=== PATIENT | female | born 1955 | race Caucasian/White ===

== ENCOUNTER 2019-07-28 12:05 | Emergency (ER) | payer SELFPAY | END 2019-07-28 16:18 | disposition home or self-care (01) | PROVIDERS: Emergency Provider Family Medicine; Family Provider Nurse Practitioner; Visit Provider Family Medicine | DX: A08.4 Viral intestinal infection, unspecified (principal); F17.210 Nicotine dependence, cigarettes, uncomplicated; Z79.84 Long term (current) use of oral hypoglycemic drugs; Z86.73 Personal history of transient ischemic attack (TIA), and cerebral infarction without residual deficits; M81.0 Age-related osteoporosis without current pathological fracture; I10 Essential (primary) hypertension; E11.40 Type 2 diabetes mellitus with diabetic neuropathy, unspecified; Z89.519 Acquired absence of unspecified leg below knee | CPT/HCPCS: 36415; 74022; 80053; 81001; 83605; 83690; 84484 ×2; 85025; 87086; 93005 ×2; 96361; 96374; 99284; J2405 ==

== ENCOUNTER 2019-08-24 08:07 | Outpatient (CLI) | payer MEDICARE, MEDICAID, SELFPAY ==
--- NOTE | 2019-08-24 09:30 | US_ITS ---
WS: [id number] THYROID ULTRASOUND HISTORY: mediastinal mass, decreased appetite, weight loss COMPARISON: None available. Right lobe: 5.1 cm x 2.4 cm x 2.1 cm. Volume: 13.7 cm3. Mildly enlarged thyroid gland with diffuse heterogeneity. Small cystic nodules are benign. The larges t in the lower pole measures 5 mm. Left lobe: 5.2 cm x 2.0 cm x 2.1 cm. Volume: 11.0 cm3. Mildly enlarged thyroid gland with diffuse heterogeneity and coarsened echotexture. Small cystic nodu les are benign. No suspicious mass. Isthmus: 0.8 cm. US/US thyroid [id number] IMPRESSION: 1. Enlarged heterogeneous thyroid without a discrete mass or nodule. 2. No suspicious masses.
== END 2019-08-24 08:08 | disposition home or self-care (01) ==
LOC: CT 08:09
PROVIDERS: Family Provider Nurse Practitioner; PCP Nurse Practitioner; Visit Provider Nurse Practitioner Family
DX: J98.59 Other diseases of mediastinum, not elsewhere classified (principal); R63.4 Abnormal weight loss
CPT/HCPCS: 76536

== ENCOUNTER 2019-08-24 08:53 | Inpatient (IN) | payer MEDICARE, MEDICAID, SELFPAY ==
[2019-08-24] VITALS (11 sets, daily range): BP systolic 121–143; BP diastolic 71–80; PULSE 69–76; RESP 16–18; TEMP 36.3–36.4; O2SAT 97–99; BMI 26.6
--- NOTE | 2019-08-24 09:29 | ED_ITS ---
Documented by User: Ruth Hill 08/24/19 12:24 HPI - General Adult General: Chief complaint: General Medical Stated complaint: no appetite, losing weight Time Seen by Provider: 08/24/19 09:17 History of Present Illness: HPI narrative: Juanita is a 63-year-old white female who presents with a history of confusion ?1 day. 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 She states she's had some mild nausea and vomiting for the last few days. But then she tells me she hasn't vomited today however her friend tells her she has and she agrees. Associated symptoms: Reports nausea; Deny chest pain, dyspnea, headache(s), palpitations or vomiting Review of Systems Const: Denies: fever or chills Eyes: Denies: blurry vision ENMT: Denies: throat pain Card: Denies: chest pain or palpitations Resp: Denies: shortness of breath or productive cough GI: Reports: nausea; Denies: abdominal pain or vomiting : Denies: painful urination Musc: Denies: neck pain, back pain or extremity pain Neuro: Denies: headache Psych: Reports: change in appetite PFSH ED 2 PFSH: Statuses (acute, chronic, etc) shown below reflect problem list status as previously entered and may not be historically accurate Medical History Depression (Acute) Diabetes mellitus (Acute) GERD (gastroesophageal reflux disease) (Acute) History of TIA (transient ischemic attack) (Acute) Hypertension (Acute) Smoker (Inactive) Surgical History (Updated 08/24/19 @ 13:37 by Rain Floyd DO) History of below knee amputation (Acute) Left History of hysterectomy (Acute) with BLSO Status post amputation of toe of right foot (Acute) Amputation of the R 3rd toe through metatarsophalangeal joint, Dr. Pacheco on 11/02/2015 Family History (Updated 08/24/19 @ 13:38 by Rain Floyd DO) Father Cancer lung Diabetes Sister Cancer gallbladder Family/Other Cancer colon Mother Ischemia, bowel Social History (Updated 08/06/19 @ 15:56 by Karen Velasquez LPN) Smoking and tobacco status: former smoker Alcohol intake: never Lives independently: Yes Household members: family Marital status: Single History of recent travel: No Physical Exam Const: COMMON NORMALS: no apparent distress and oriented x3 (Disoriented to time) HENMT: COMMON NORMALS: normocephalic HEAD & SCALP: normocephalic Eye: COMMON NORMALS: PERRL, EOMs intact bilaterally and conjunctivae normal CONJUNCTIVA: Yes conjunctivae normal PUPIL: Yes PERRL Neck/C-Spine: COMMON NORMALS: full ROM and no meningeal signs Chest: COMMONS NORMALS: inspection of chest normal and palpation of chest normal Resp: COMMON NORMALS: normal respiratory effort and no use of accessory muscles Cardio: COMMON NORMALS: regular rate and regular rhythm RATE: regular rate RHYTHM: regular rhythm GI: COMMON NORMALS: soft to palpation and non-tender PALPATION: Yes soft Back/Pelvis: COMMON NORMALS: thoracic and lumbar spine normal to inspection Extremity: OTHER: Left prosthetic lower leg Neuro: COMMON NORMALS: oriented x3 (Disoriented to time), CN's II-XII intact bilaterally, moves all extremities and no focal motor deficits MENINGEAL SIGNS: Yes no meningeal signs Psych: COMMON NORMALS: thought process normal, cooperative, affect normal and speech normal SPEECH: Yes normal speech THOUGHT PROCESS: normal thought process Skin: COMMON NORMALS: no rashes or lesions noted GENERAL SKIN EXAM: no rashes or lesions noted Course ED course: Juanita was seen in this ER in late June for not eating or drinking well. She lives at home alone but does have people check on her. She does not have home health doing her medications at this time. Discussed case with Dr. Desai, agrees to see and get patient admitted. Patient hyperkalemic. Glucose, insulin, and albuterol treatments ordered. Patient in acute renal failure. IV fluids running. CT head is negative. Vital Signs: Vital signs: Vital Signs Temperature 98.2 F 08/26/19 04:00 Pulse Rate 69 08/26/19 04:00 Respiratory Rate 18 08/26/19 04:00 Blood Pressure 152/73 08/26/19 04:00 Pulse Oximetry 96 08/26/19 04:00 [facility] - General Adult Lab Data: Labs: Lab Results 08/24/19 08/24/19 08/24/19 Range/Units 09:24 09:24 09:24 WBC 8.5 (4.0-10.0) 10^3/ uL RBC 3.50 L (4.1-5.3) 10^6/u L Hgb 11.3 L (11.5-15.3) g/dL Hct 34.7 L (37.0-47.0) % MCV 99.1 H (81-99) fL MCH 32.3 (28.0-34.0) pg MCHC 32.6 (30.0-36.0) g/dL RDW 13.3 (12.1-15.1) % Plt Count 207 (130-400) 10^3/c mm MPV 10.4 (7.4-10.4) fL Neut % (Auto) 84.8 % Lymph % (Auto) 11.0 % [place] % (Auto) 3.4 % Eos % (Auto) 0.5 % Baso % (Auto) 0.1 % Neut # (Auto) 7.2 (1.8-7.7) 10^3/u L Lymph # (Auto) 0.9 (0.8-4.8) 10^3/u L [place] # (Auto) 0.3 (0.2-0.9) 10^3/u L Eos # (Auto) 0.0 (0.0-0.8) 10^3/u L Baso # (Auto) 0.0 (0.0-0.1) 10^3/u L Nucleated RBC % (a uto) 0 % Nucleated RBCs # 0.0 /100WBC Specimen Type Sample Site ABG pH (7.35-7.45) ABG pCO2 (35-45) mmHg ABG pO2 (80.0-100.0) mmH g ABG HCO3 (22-26) mmol/L ABG O2 Saturation ABG Base Excess (-2.0-2.0) mmol/ L Enrique Test A-a O2 Gradient (5-10) mmHg Hematocrit (37-47) % Hgb O2 Saturation (95-100) % Carboxyhemoglobin (0.4-20.1) %THgb Methemoglobin (0.4-1.5) % Total Hemoglobin (12-16) g/dL Ionized Calcium (1.1-1.4) mmol/L O2 Delivery Device FiO2 % Plant Floor Automation Manager ID Sodium 133 L (136-145) mmol/L Potassium 6.1 H (3.5-5.1) mmol/L Chloride 92 L (98-107) mmol/L Carbon Dioxide 17 L (22-29) mmol/L Anion Gap 30.1 H (5-19) BUN 58 H (8-23) mg/dL Creatinine 5.9 H* (0.5-0.9) mg/dL GFR Calculation 7.2 L (90-130) mL/min Glucose 106 (74-106) mg/dL Estimat Average Gl ucose Hemoglobin A1c (4.0-6.0) % Calcium 10.0 (8.5-10.5) mg/dL Magnesium 1.9 (1.7-2.3) mg/dL Total Bilirubin 0.6 (0.15-1.2) mg/dL AST 14 (0-32) U/L ALT 8 (0-33) U/L Alkaline Phosphata se 49 (35-105) IU/L Total Protein 7.3 (6.6-8.7) g/dL Albumin 4.4 (3.5-5.2) g/dL Globulin 2.9 (1.3-4.6) g/dL Lipase 37 (13-60) U/L Urine Color (Yellow) Urine Appearance (CLEAR) Urine pH (5-7) Ur Specific Gravit y (1.005-1.030) Urine Protein (Negative) Urine Glucose (UA) (Normal) Urine Ketones (Negative) Urine Occult Blood (Negative) Urine Nitrate (Negative) Urine Bilirubin (NEGATIVE) Urine Urobilinogen (Negative) mg/dL Ur Leukocyte Radha ase (Negative) Urine RBC (0-2) /hpf Urine WBC (0-5) /hpf Ur Squamous Epith Cells (0-5) Urine Bacteria (NONE) Serum Ketones Negative (Negative) 08/24/19 08/24/19 08/24/19 Range/Units 09:24 09:46 11:02 WBC (4.0-10.0) 10^3/ uL RBC (4.1-5.3) 10^6/u L Hgb (11.5-15.3) g/dL Hct (37.0-47.0) % MCV (81-99) fL MCH (28.0-34.0) pg MCHC (30.0-36.0) g/dL RDW (12.1-15.1) % Plt Count (130-400) 10^3/c mm MPV (7.4-10.4) fL Neut % (Auto) % Lymph % (Auto) % [place] % (Auto) % Eos % (Auto) % Baso % (Auto) % Neut # (Auto) (1.8-7.7) 10^3/u L Lymph # (Auto) (0.8-4.8) 10^3/u L [place] # (Auto) (0.2-0.9) 10^3/u L Eos # (Auto) (0.0-0.8) 10^3/u L Baso # (Auto) (0.0-0.1) 10^3/u L Nucleated RBC % (a uto) % Nucleated RBCs # /100WBC Specimen Type Arterial Sample Site Radial, right ABG pH 7.26 L (7.35-7.45) ABG pCO2 33.1 L (35-45) mmHg ABG pO2 77.8 L (80.0-100.0) mmH g ABG HCO3 14.7 L (22-26) mmol/L ABG O2 Saturation 95.8 ABG Base Excess -11.4 L (-2.0-2.0) mmol/ L Enrique Test Pos A-a O2 Gradient 29.3 H (5-10) mmHg Hematocrit 33.0 L (37-47) % Hgb O2 Saturation 94.0 L (95-100) % Carboxyhemoglobin 0.8 (0.4-20.1) %THgb Methemoglobin 1.0 (0.4-1.5) % Total Hemoglobin 10.8 L (12-16) g/dL Ionized Calcium 1.2 (1.1-1.4) mmol/L O2 Delivery Device Room air FiO2 21.0 % Plant Floor Automation Manager ID ed Sodium 134.0 (136-145) mmol/L Potassium 5.7 H (3.5-5.1) mmol/L Chloride (98-107) mmol/L Carbon Dioxide (22-29) mmol/L Anion Gap (5-19) BUN (8-23) mg/dL Creatinine (0.5-0.9) mg/dL GFR Calculation (90-130) mL/min Glucose 75.0 (74-106) mg/dL Estimat Average Gl ucose 97 Hemoglobin A1c 5.0 (4.0-6.0) % Calcium (8.5-10.5) mg/dL Magnesium (1.7-2.3) mg/dL Total Bilirubin (0.15-1.2) mg/dL AST (0-32) U/L ALT (0-33) U/L Alkaline Phosphata se (35-105) IU/L Total Protein (6.6-8.7) g/dL Albumin (3.5-5.2) g/dL Globulin (1.3-4.6) g/dL Lipase (13-60) U/L Urine Color Yellow (Yellow) Urine Appearance Sl hazy (CLEAR) Urine pH 5.0 (5-7) Ur Specific Gravit y 1.020 (1.005-1.030) Urine Protein Trace (Negative) Urine Glucose (UA) Norm (Normal) Urine Ketones 1+ H (Negative) Urine Occult Blood Neg (Negative) Urine Nitrate Negative (Negative) Urine Bilirubin Neg (NEGATIVE) Urine Urobilinogen Norm (Negative) mg/dL Ur Leukocyte Radha ase 2+ H (Negative) Urine RBC None (0-2) /hpf Urine WBC 40-55 H (0-5) /hpf Ur Squamous Epith Cells 5-10 H (0-5) Urine Bacteria 1+ H (NONE) Serum Ketones (Negative) Imaging Data^: CT Head: Radiologist's impression: IMPRESSION: 1. No acute intracranial hemorrhage or edema. 2. Mild progression of chronic microvascular ischemic disease since 2009. EKG Data^: EKG 1: Attestation: I personally reviewed and interpreted this EKG as follows: EKG interpretation date: 08/24/19 Interpretation: ventricular rate of 67 bpm. Normal sinus rhythm. No ST changes. QTC of 435. Computer generated interpretation: Head CT 08/24/19 09:30 IMPRESSION: 1. No acute intracranial hemorrhage or edema. 2. Mild progression of chronic microvascular ischemic disease since 2009. Renal Ultrasound 08/24/19 10:41 IMPRESSION: 1. No renal obstruction or hydronephrosis. 2. Negative ultrasound bladder. Abdomen/Pelvis CT 08/25/19 09:09 IMPRESSION: 1. Abnormal gallbladder. Gallbladder wall thickening and adjacent edema in the gallbladder fossa. Differential includes acute cholecystitis or changes secondary to hepatocellular disease. 2. Bilateral perinephric stranding, RIGHT greater than LEFT with mild enlargement of the kidneys since 01/05/2019. Kidneys have both increased in length by 1.5 to 2 cm. These findings suggest acute pyelonephritis or inflammatory process involving the kidneys. Obstructive process is not evident. 3. Benign LEFT adrenal adenoma is stable. 4. Prior hysterectomy. 5. Mild soft tissue anasarca. Discharge Plan Discharge Patient Disposition: Admitted As Inpatient Admit Provider: Rain Floyd Clinical Impression: Acute hyperkalemia Acute kidney failure Qualifiers: Acute renal failure type: unspecified Qualified Code(s): N17.9 - Acute kidney failure, unspecified Diabetes mellitus Qualifiers: Diabetes mellitus type: type 2 Condition: Stable Referrals: Kareem Armando FNP-C [Primary Care Provider] - Discharge Date/Time: 08/24/19 16:01 Coding Level of Care Code ED Psychological Operations Officer for Chg Fwd Exam Problem Focused Documented by User: Eduardo Desai DO 08/26/19 06:02 HPI - General Adult General: Chief complaint: General Medical Stated complaint: no appetite, losing weight Time Seen by Provider: 08/24/19 09:17 PFSH ED PFSH: Statuses (acute, chronic, etc) shown below reflect problem list status as previously entered and may not be historically accurate Medical History Depression (Acute) Diabetes mellitus (Acute) GERD (gastroesophageal reflux disease) (Acute) History of TIA (transient ischemic attack) (Acute) Hypertension (Acute) Smoker (Inactive) Surgical History (Updated 08/24/19 @ 13:37 by Rain Floyd DO) History of below knee amputation (Acute) Left History of hysterectomy (Acute) with BLSO Status post amputation of toe of right foot (Acute) Amputation of the R 3rd toe through metatarsophalangeal joint, Dr. Pacheco on 11/02/2015 Family History (Updated 08/24/19 @ 13:38 by Rain Floyd DO) Father Cancer lung Diabetes Sister Cancer gallbladder Family/Other Cancer colon Mother Ischemia, bowel Social History (Updated 08/06/19 @ 15:56 by Karen Velasquez LPN) Smoking and tobacco status: former smoker Alcohol intake: never Lives independently: Yes Household members: family Marital status: Single History of recent travel: No Course ED course: Reviewed case with the midlevel will go ahead and admit patient to the hospitalist discussed with him transfer orders written they will consult nephrology. Vital Signs: Vital signs: Vital Signs Temperature 98.2 F 08/26/19 04:00 Pulse Rate 69 08/26/19 04:00 Respiratory Rate 18 08/26/19 04:00 Blood Pressure 152/73 08/26/19 04:00 Pulse Oximetry 96 08/26/19 04:00 MDM - General Adult Lab Data: Labs: Lab Results 08/24/19 08/24/19 08/24/19 Range/Units 09:24 09:24 09:24 WBC 8.5 (4.0-10.0) 10^3/ uL RBC 3.50 L (4.1-5.3) 10^6/u L Hgb 11.3 L (11.5-15.3) g/dL Hct 34.7 L (37.0-47.0) % MCV 99.1 H (81-99) fL MCH 32.3 (28.0-34.0) pg MCHC 32.6 (30.0-36.0) g/dL RDW 13.3 (12.1-15.1) % Plt Count 207 (130-400) 10^3/c mm MPV 10.4 (7.4-10.4) fL Neut % (Auto) 84.8 % Lymph % (Auto) 11.0 % [place] % (Auto) 3.4 % Eos % (Auto) 0.5 % Baso % (Auto) 0.1 % Neut # (Auto) 7.2 (1.8-7.7) 10^3/u L Lymph # (Auto) 0.9 (0.8-4.8) 10^3/u L [place] # (Auto) 0.3 (0.2-0.9) 10^3/u L Eos # (Auto) 0.0 (0.0-0.8) 10^3/u L Baso # (Auto) 0.0 (0.0-0.1) 10^3/u L Nucleated RBC % (a uto) 0 % Nucleated RBCs # 0.0 /100WBC Specimen Type Sample Site ABG pH (7.35-7.45) ABG pCO2 (35-45) mmHg ABG pO2 (80.0-100.0) mmH g ABG HCO3 (22-26) mmol/L ABG O2 Saturation ABG Base Excess (-2.0-2.0) mmol/ L Enrique Test A-a O2 Gradient (5-10) mmHg Hematocrit (37-47) % Hgb O2 Saturation (95-100) % Carboxyhemoglobin (0.4-20.1) %THgb Methemoglobin (0.4-1.5) % Total Hemoglobin (12-16) g/dL Ionized Calcium (1.1-1.4) mmol/L O2 Delivery Device FiO2 % Plant Floor Automation Manager ID Sodium 133 L (136-145) mmol/L Potassium 6.1 H (3.5-5.1) mmol/L Chloride 92 L (98-107) mmol/L Carbon Dioxide 17 L (22-29) mmol/L Anion Gap 30.1 H (5-19) BUN 58 H (8-23) mg/dL Creatinine 5.9 H* (0.5-0.9) mg/dL GFR Calculation 7.2 L (90-130) mL/min Glucose 106 (74-106) mg/dL Estimat Average Gl ucose Hemoglobin A1c (4.0-6.0) % Calcium 10.0 (8.5-10.5) mg/dL Magnesium 1.9 (1.7-2.3) mg/dL Total Bilirubin 0.6 (0.15-1.2) mg/dL AST 14 (0-32) U/L ALT 8 (0-33) U/L Alkaline Phosphata se 49 (35-105) IU/L Total Protein 7.3 (6.6-8.7) g/dL Albumin 4.4 (3.5-5.2) g/dL Globulin 2.9 (1.3-4.6) g/dL Lipase 37 (13-60) U/L Urine Color (Yellow) Urine Appearance (CLEAR) Urine pH (5-7) Ur Specific Gravit y (1.005-1.030) Urine Protein (Negative) Urine Glucose (UA) (Normal) Urine Ketones (Negative) Urine Occult Blood (Negative) Urine Nitrate (Negative) Urine Bilirubin (NEGATIVE) Urine Urobilinogen (Negative) mg/dL Ur Leukocyte Radha ase (Negative) Urine RBC (0-2) /hpf Urine WBC (0-5) /hpf Ur Squamous Epith Cells (0-5) Urine Bacteria (NONE) Serum Ketones Negative (Negative) 08/24/19 08/24/19 08/24/19 Range/Units 09:24 09:46 11:02 WBC (4.0-10.0) 10^3/ uL RBC (4.1-5.3) 10^6/u L Hgb (11.5-15.3) g/dL Hct (37.0-47.0) % MCV (81-99) fL MCH (28.0-34.0) pg MCHC (30.0-36.0) g/dL RDW (12.1-15.1) % Plt Count (130-400) 10^3/c mm MPV (7.4-10.4) fL Neut % (Auto) % Lymph % (Auto) % [place] % (Auto) % Eos % (Auto) % Baso % (Auto) % Neut # (Auto) (1.8-7.7) 10^3/u L Lymph # (Auto) (0.8-4.8) 10^3/u L [place] # (Auto) (0.2-0.9) 10^3/u L Eos # (Auto) (0.0-0.8) 10^3/u L Baso # (Auto) (0.0-0.1) 10^3/u L Nucleated RBC % (a uto) % Nucleated RBCs # /100WBC Specimen Type Arterial Sample Site Radial, right ABG pH 7.26 L (7.35-7.45) ABG pCO2 33.1 L (35-45) mmHg ABG pO2 77.8 L (80.0-100.0) mmH g ABG HCO3 14.7 L (22-26) mmol/L ABG O2 Saturation 95.8 ABG Base Excess -11.4 L (-2.0-2.0) mmol/ L Enrique Test Pos A-a O2 Gradient 29.3 H (5-10) mmHg Hematocrit 33.0 L (37-47) % Hgb O2 Saturation 94.0 L (95-100) % Carboxyhemoglobin 0.8 (0.4-20.1) %THgb Methemoglobin 1.0 (0.4-1.5) % Total Hemoglobin 10.8 L (12-16) g/dL Ionized Calcium 1.2 (1.1-1.4) mmol/L O2 Delivery Device Room air FiO2 21.0 % Plant Floor Automation Manager ID ed Sodium 134.0 (136-145) mmol/L Potassium 5.7 H (3.5-5.1) mmol/L Chloride (98-107) mmol/L Carbon Dioxide (22-29) mmol/L Anion Gap (5-19) BUN (8-23) mg/dL Creatinine (0.5-0.9) mg/dL GFR Calculation (90-130) mL/min Glucose 75.0 (74-106) mg/dL Estimat Average Gl ucose 97 Hemoglobin A1c 5.0 (4.0-6.0) % Calcium (8.5-10.5) mg/dL Magnesium (1.7-2.3) mg/dL Total Bilirubin (0.15-1.2) mg/dL AST (0-32) U/L ALT (0-33) U/L Alkaline Phosphata se (35-105) IU/L Total Protein (6.6-8.7) g/dL Albumin (3.5-5.2) g/dL Globulin (1.3-4.6) g/dL Lipase (13-60) U/L Urine Color Yellow (Yellow) Urine Appearance Sl hazy (CLEAR) Urine pH 5.0 (5-7) Ur Specific Gravit y 1.020 (1.005-1.030) Urine Protein Trace (Negative) Urine Glucose (UA) Norm (Normal) Urine Ketones 1+ H (Negative) Urine Occult Blood Neg (Negative) Urine Nitrate Negative (Negative) Urine Bilirubin Neg (NEGATIVE) Urine Urobilinogen Norm (Negative) mg/dL Ur Leukocyte Radha ase 2+ H (Negative) Urine RBC None (0-2) /hpf Urine WBC 40-55 H (0-5) /hpf Ur Squamous Epith Cells 5-10 H (0-5) Urine Bacteria 1+ H (NONE) Serum Ketones (Negative) EKG Data^: EKG 1: Computer generated interpretation: Head CT 08/24/19 09:30 IMPRESSION: 1. No acute intracranial hemorrhage or edema. 2. Mild progression of chronic microvascular ischemic disease since 2009. Renal Ultrasound 08/24/19 10:41 IMPRESSION: 1. No renal obstruction or hydronephrosis. 2. Negative ultrasound bladder. Abdomen/Pelvis CT 08/25/19 09:09 IMPRESSION: 1. Abnormal gallbladder. Gallbladder wall thickening and adjacent edema in the gallbladder fossa. Differential includes acute cholecystitis or changes secondary to hepatocellular disease. 2. Bilateral perinephric stranding, RIGHT greater than LEFT with mild enlargement of the kidneys since 01/05/2019. Kidneys have both increased in length by 1.5 to 2 cm. These findings suggest acute pyelonephritis or inflammatory process involving the kidneys. Obstructive process is not evident. 3. Benign LEFT adrenal adenoma is stable. 4. Prior hysterectomy. 5. Mild soft tissue anasarca. Discharge Plan Discharge Patient Disposition: Admitted As Inpatient Admit Provider: Rain Floyd Clinical Impression: Acute hyperkalemia Acute kidney failure Qualifiers: Acute renal failure type: unspecified Qualified Code(s): N17.9 - Acute kidney failure, unspecified Diabetes mellitus Qualifiers: Diabetes mellitus type: type 2 Condition: Stable Referrals: Kareem Armando, CUSTOMER FIELD REPRESENTATIVE-C [Primary Care Provider] - Discharge Date/Time: 08/24/19 16:01 Coding Level of Care Code ED Psychological Operations Officer for Chg Fwd Exam Problem Focused
--- NOTE | 2019-08-24 09:30 | CT_ITS ---
WS: [id number] CT HEAD NONCONTRAST HISTORY: confusion, slurred speech TECHNIQUE: Contiguous axial imaging performed through the brain in 2.5 mm imaging. Bone and soft tiss ue windows. Sagittal and coronal reformats reviewed. All CT scans at [facility] use at le ast one of these dose optimization techniques: automated exposure control; mA and/or kV adjustment pe r patient size (includes targeted exams where dose is matched to clinical indication); or iterative r econstruction. DLP: 712.12 mGy.cm COMPARISON: 09/08/2009 No acute intracranial hemorrhage, midline shift or mass effect. Very mild atrophy and mild chronic microvascular ischemic disease. Remote lacunar infarct in the RIGH T caudate head. Progression of mild chronic microvascular ischemic changes in the white matter surrou nding the ventricles. No acute area of sulcal effacement. Ventricles: Normal size with no hydrocephalus. No inferior displacement of the cerebellar tonsils. Paranasal sinuses: Marked deviation of the nasal septum to the RIGHT. The visualized sinuses are tamiko r. Mastoid air cells: Well pneumatized. Calvarium and scalp: Skull is intact with no soft tissue edema or swelling. Mild atherosclerosis of the intracranial carotid arteries. CT/CT head wo con* [id number] IMPRESSION: 1. No acute intracranial hemorrhage or edema. 2. Mild progression of chronic microvascular ischemic disease since 2009.
--- NOTE | 2019-08-24 09:31 | ECG_ITS ---
Measurements Intervals [place] Rate: 67 P: 8 NC: 144 QRS: 12 QRSD: 94 T: 42 QT: 420 QTc: 444 SINUS RHYTHM LEFT VENTRICULAR HYPERTROPHY AND ST-T CHANGE [VOLTAGE CRITERIA PLUS ST/T ABN ABNORMALITY] INTERPRETATION BASED ON A DEFAULT AGE OF 40 YEARS Compared to ECG 07/28/2019 14:27:41 No significant changes Electronically Signed On 08-24-2019 17:51:55 PATIENT PARTNER by Campos Cruz M.D. [email or web address]
[2019-08-24 09:45] LABS: Basophils % 0.1 %; Eosinophils % 0.5 %; Hematocrit 34.7 % (37.0-47.0); Hemoglobin 11.3 g/dL (11.5-15.3); Lymphocytes # 0.9 10^3/uL (0.8-4.8); Mean Corpuscular HGB Conc 32.6 g/dL (30.0-36.0); Mean Corpuscular Hemoglobin 32.3 pg (28.0-34.0); Mean Corpuscular Volume 99.1 fL (81-99); Mean Platelet Volume 10.4 fL (7.4-10.4); Monocytes # 0.3 10^3/uL (0.2-0.9); Monocytes % 3.4 %; Neutrophils # 7.2 10^3/uL (1.8-7.7); Neutrophils % 84.8 %; Nucleated Red Blood Cells % 0 %; Platelet Count 207 10^3/cmm (130-400); Red Cell Distribution Width 13.3 % (12.1-15.1); White Blood Count 8.5 10^3/uL (4.0-10.0)
[2019-08-24 09:56] LABS: Alanine Aminotransferase 8 U/L (0-33); Albumin Level 4.4 g/dL (3.5-5.2); Alkaline Phosphatase 49 IU/L (35-105); Anion Gap 30.1 (5-19); Aspartate Amino Transferase 14 U/L (0-32); Blood Urea Nitrogen 58 mg/dL (8-23); Carbon Dioxide 17 mmol/L (22-29); Chloride 92 mmol/L (98-107); Globulin 2.9 g/dL (1.3-4.6); Glomerular Filtration Rate 7.2 mL/min (90-130); Glucose 106 mg/dL (74-106); Lipase 37 U/L (13-60); Magnesium 1.9 mg/dL (1.7-2.3); Potassium 6.1 mmol/L (3.5-5.1); Sodium 133 mmol/L (136-145); Total Bilirubin 0.6 mg/dL (0.15-1.2); Total Protein 7.3 g/dL (6.6-8.7)
[2019-08-24 10:03] LABS: Add Urine Microscopic? YES; Bilirubin Urine Neg (NEGATIVE); Blood Urine Neg (Negative); Glucose Urine UA Norm (Normal); Ketones Urine 1+ (Negative); Leukocyte Esterase Urine 2+ (Negative); Nitrate Urine Negative (Negative); Protein Urine Trace (Negative); Urine Appearance SL Hazy (CLEAR); Urine Color Yellow (Yellow); Urobilinogen Urine Norm (Negative)
[2019-08-24 10:12] LABS: Ketone (Acetest) Serum Negative (Negative)
[2019-08-24 10:27] LABS: Add Urine Culture? Yes; Bacteria Urine 1+; WBC Urine 40-55 /hpf (0-5)
[2019-08-24] MEDS: sodium chloride 0.9% 1,000 ML 999 ML IV ×2 (10:28→12:42)
[2019-08-24] MEDS: ondansetron 2 mg/ML SDV 2 mL 4 MG IVP (10:29)
--- NOTE | 2019-08-24 10:41 | US_ITS ---
WS: [id number] RENAL ULTRASOUND Urinary bladder ultrasound HISTORY: acute renal failure COMPARISON: None available. TECHNIQUE: 2-D and color Doppler imaging of the kidney submitted. Right kidney: 12.5 cm x 6.8 cm x 6.3 cm. Normal echogenicity with no hydronephrosis or mass. Left kidney: 12.2 cm x 6.2 cm x 7.0 cm. Normal echogenicity with no hydronephrosis or mass. Cortical cyst upper pole with a maximum diameter of 1.0 cm. Aorta: Normal. Urinary Bladder: Minimally distended urinary bladder. Very mild wall thickening is probably due to mi ld underdistention. US/US renal BI with bladder IMPRESSION: 1. No renal obstruction or hydronephrosis. 2. Negative ultrasound bladder.
[2019-08-24 11:12] LABS: ABG PCO2 33.1 mmHg (35-45); ABG PH Result 7.26 (7.35-7.45); Alveolar-Arterial Oxygen Gradi 29.3 mmHg (5-10); Base Excess ABG -11.4 mmol/L (-2.0-2.0); Blood Gas Allen Test Pos; Blood Gas Sample Site Radial, right; Blood Gas Sample Type Arterial; Carboxyhemoglobin 0.8 %THgb (0.4-20.1); HCO3 ABG 14.7 mmol/L (22-26); Ionized Calcium Level - ABG 1.2 mmol/L (1.1-1.4); Oxygen Device ROOM AIR; Oxygen Saturation ABG 95.8; PO2 ABG 77.8 mmHg (80.0-100.0); Potassium Level - ABG 5.7 mmol/L (3.5-5.0); Total Hemoglobin 10.8 g/dL (12-16)
[2019-08-24] MEDS: insulin regular-human 100 units/1 mL 5 UNIT IVP (11:12)
--- NOTE | 2019-08-24 11:46 | P.HP_ITS ---
Providers/Chief Complaint Admitting Physician: Rain Floyd DO Primary Care Provider: GI Johnston Chief Complaint: Can not eat History of Present Illness Lyric Cain is a 63 year old female that presented to the hospital today due to generalized fatigue and increasing confusion. Her [id number] is present at bedside and reports that patient has had increasing confusion and decreased appetite over the past several weeks. She reported thinking back her symptoms may have been present for the past couple of months but progressive to the point requiring ER visit today. Patient stated that she did have an ER visit on August 04 at [facility] in [facility] noted to have dehydration given Zofran and also noted to have hypoglycemia at that time, she was reported to have a creatinine of 1.7 at this visit and told to follow-up with her primary care provider. Patient did follow-up with her primary care clinic but forgot to mention this with them. She reports that she has had weight loss, unknown amount over the past couple of months. She states decreased appetite with increasing nausea over the last couple of weeks. She stated that she is also been depressed due to the loss of her significant other and the anniversary of his in the past couple of weeks. Family reports that she appears to be increasingly confused with increased sleepiness and daytime somnolence. Patient denies any recent illness, no fevers or chills. Patient was seen and evaluated in the emergency department noted to have concern for an acute kidney injury as well as hyperkalemia and admitted to the hospital for further evaluation and treatment. Review of Systems Const: Reports: change in weight (Weight loss, unspecified amount), fatigue and malaise; Denies: fever or chills Eyes: Denies: change in vision ENMT: Denies: nasal congestion Card: Denies: chest pain, palpitations or edema Resp: Reports: productive cough (Chronic, unchanged); Denies: shortness of breath or coughing up blood GI: Reports: nausea; Denies: abdominal pain, vomiting, diarrhea, constipation, blood in stool or black tarry stool : Denies: flank pain, difficulty urinating, painful urination, urinary frequency, urinary hesitancy or blood in urine Musc: Reports: other (Left BKA); Denies: extremity pain or muscle cramps Skin/Breast: Denies: rash or new lesion Neuro: Denies: headache or dizziness Psych: Reports: depression (Due to the anniversary of her significant other's ); Denies: anxiety Endo: Denies: excessive urination or hot flashes Boo/Lymph: Denies: easy bruising or easy bleeding Medications/Allergies Allergies Allergy/AdvReac Type Severity Reaction Status Date / Time sertraline [From Zoloft] Allergy rash Verified 08/06/19 15:33 PFSH Acute PFSH: Statuses (acute, chronic, etc) shown below reflect problem list status as previously entered and may not be historically accurate Medical History Depression (Acute) Diabetes mellitus (Acute) GERD (gastroesophageal reflux disease) (Acute) History of TIA (transient ischemic attack) (Acute) Hypertension (Acute) Smoker (Inactive) Surgical History (Updated 08/24/19 @ 13:37 by Rain Floyd DO) History of below knee amputation (Acute) Left History of hysterectomy (Acute) with BLSO Status post amputation of toe of right foot (Acute) Amputation of the R 3rd toe through metatarsophalangeal joint, Dr. Pacheco on 11/02/2015 Family History (Updated 08/24/19 @ 13:38 by Rain Floyd DO) Father Cancer lung Diabetes Sister Cancer gallbladder Family/Other Cancer colon Mother Ischemia, bowel Social History (Updated 08/06/19 @ 15:56 by Karen Velasquez LPN) Smoking and tobacco status: former smoker Alcohol intake: never Lives independently: Yes Household members: family Marital status: Single History of recent travel: No Vitals/I&O/Wt Last Vital Signs Pulse 70 08/24/19 11:41 Resp 17 08/24/19 11:26 Pulse Ox 99 08/24/19 11:26 Weight last 48 hrs Weight 77.111 kg Physical Exam Const: COMMON NORMALS: alert GENERAL APPEARANCE: cooperative ORIENTATION/CONSCIOUSNESS: Yes awake, Yes oriented to person, Yes oriented to place, Yes oriented to time and Yes confused (mild) HENMT: COMMON NORMALS: normocephalic and head/scalp atraumatic HEAD & SCALP: normocephalic and atraumatic Eye: COMMON NORMALS: PERRL PUPIL: Yes PERRL Neck/C-Spine: COMMON NORMALS: supple GENERAL: Yes normal visual inspection Resp: COMMON NORMALS: normal respiratory effort and clear to auscultation bilaterally EFFORT & INSPECTION: Yes able to speak in complete sentences AUSCULTATION: clear to auscultation bilaterally, no rhonchi and no wheezes Cardio: COMMON NORMALS: regular rate, regular rhythm and no murmurs RATE: regular rate RHYTHM: regular rhythm GI: COMMON NORMALS: soft to palpation and non-tender INSPECTION: No abdominal distension AUSCULTATION: Yes normoactive bowel sounds PALPATION: Yes soft : COMMON NORMALS: Yes no CVA tenderness Extremity: NARRATIVE EXTREMITY EXAM: 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 Neuro: COMMON NORMALS: oriented x3 and CN's II-XII intact bilaterally SENSORIUM/ORIENTATION: Yes alert, Yes oriented to person, Yes oriented to place and Yes oriented to time Psych: COMMON NORMALS: cooperative Skin: COMMON NORMALS: no rashes or lesions noted GENERAL SKIN EXAM: no rashes or lesions noted Data : 08/24/19 09:24 08/24/19 09:24 A&P Assessment and plan (1) Acute kidney failure: Continue with IV fluids, patient appears to be dehydrated Continue to hold nephrotoxic medications, holding lisinopril and metformin Nephrology consulted, appreciate recommendations and assistance in patient's care Continue to monitor strict intake and output Renal ultrasound ordered and pending Urinalysis shows only 1+ bacteria, patient has no symptoms of urinary tract infection, will hold off with antibiotic treatment at this time as this appears to be more from a contaminated specimen rather than urinary tract infection. Status: Acute Qualifiers: Acute renal failure type: unspecified Qualified Code(s): N17.9 - Acute kidney failure, unspecified Code(s): N17.9 - Acute kidney failure, unspecified (2) Acute hyperkalemia: Even calcium gluconate in the ED, given insulin and D50 as well as albuterol breathing treatment Continue with IV fluids and recheck potassium this afternoon Follow-up with nephrology recommendations Status: Acute Code(s): E87.5 - Hyperkalemia (3) Diabetes mellitus: Hold metformin, place on sliding scale insulin We will check A1c, patient reports recent hypoglycemia Status: Acute Code(s): E11.9 - Type 2 diabetes mellitus without complications (4) GERD (gastroesophageal reflux disease): Status: Acute Qualifiers: Esophagitis presence: with esophagitis Qualified Code(s): K21.0 - Gastro-esophageal reflux disease with esophagitis Code(s): K21.9 - Gastro-esophageal reflux disease without esophagitis Additional A&P Information Prior finding on CT scan of the abdomen and pelvis of a left adrenal mass with peripheral enhancement in December of last year. Recommended to have outpatient MRI of adrenal glands with contrast, will need to hold off on contrast at this time due to renal function as above. Patient will need further imaging in the outpatient setting. Plan for renal ultrasound as above. Anterior mediastinal mass on CT scan of the chest performed 01/05/2019. Patient had a scheduled thyroid ultrasound today prior to admission from the ER. 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
--- NOTE | 2019-08-24 11:48 | PC.NURSE ---
Patient is resting in bed with her [id number] present with her. Patient is present today for increased weakness and fatigue over the past two months with a severely decreased appetite. Sister in law states she feels the patient has been very forgetful as of lately and has had frequent falls, stating she fell this morning getting into her brothers truck. Pt lives at home with her brother. Skin turgor is noted to be dry and slow to rebound following pinch. Patient is noted to be a left below the knee amputee with prosthesis in place.
[2019-08-24 15:56] LABS: Estmated Average Glucose 97
--- NOTE | 2019-08-24 16:29 | P.CONIM_ITS ---
Providers/Reason For Consult Consulting Physican/Specialty*: Nephrology Reason for Consult*: Renal failure and hyperkalemia Attending Physician: Rain Floyd MD Primary Care Provider: GI Johnston History of Present Illness History of Present Illness Lyric Cain is a 63 year old female Thanks for consultation. Mrs Cain is here for increasing weakness and confusion. She's had a low appetite for the last few weeks. She has been significantly depressed due to the loss of a significant other on the anniversary of his and last few weeks. Her family know that she has become increasingly confused, increased sleepiness and daytime somnolence. On admission her creatinine was 5.9, back in June he was 1.4. Renal sonogram demonstrated no obstructive disease and normal appearing kidneys. She reports not having seen a kidney specialist in the past, receiving hemodialysis. At home she does take combination of lisinopril, Metformin. She has been uing anti-inflammatory medications; 2 Aleve, 2-3 weekly. Mckinney has been placed; 400ml of clear urine in the mckinney. She denies any other recent nephrotoxic exposures. She claims the passing her urine normally without obstructive symptoms. she has no edema, shortness of breath or other volume associated symptoms. Diabetes for 20 years, mostly controlled, she denies eye disease, peripheral neuropathy. She has had an amputation of left foot, BKA for joint infection. Hypertension also for many years, controlled for the most part. Review of Systems General: Reports: 10 or more systems reviewed and unremarkable except in HPI and below Const: Reports: change in appetite, fatigue and malaise Resp: Denies: shortness of breath, productive cough, non-productive cough or wheezing Musc: Denies: neck pain or back pain Skin/Breast: Denies: rash, itching or redness Meds/Allergies Home Medications and Allergies Home Medications Medication Instructions Recorded Confirmed Type atorvastatin 10 mg tablet 10 mg PO DAILY 08/06/19 08/24/19 History bipap DIRECTED 08/06/19 History blood sugar diagnostic #10 each 08/06/19 08/06/19 History bupropion HCl 150 mg tablet,12 hr 150 mg PO BID 08/06/19 08/24/19 History sustained-release citalopram 20 mg tablet 20 mg PO BID tab 08/06/19 08/24/19 History diabetic shoe DIRECTED 08/06/19 History estradiol 0.5 mg tablet 0.5 mg PO DAILY 08/06/19 08/24/19 History gabapentin 300 mg capsule 300 mg PO BID 08/06/19 08/24/19 History lisinopril 40 mg tablet 40 mg PO DAILY 08/06/19 08/24/19 History metformin 1,000 mg tablet,extended 1,000 mg PO BID 08/06/19 08/24/19 History release 24hr metoprolol succinate 50 mg 50 mg PO DAILY tab 08/06/19 08/24/19 History tablet,extended release 24 hr pentoxifylline 400 mg 400 mg PO TID 08/06/19 08/24/19 History tablet,extended release trazodone 100 mg tablet 200 mg PO BEDTIME PRN tab 08/06/19 08/24/19 History Allergies Allergy/AdvReac Type Severity Reaction Status Date / Time sertraline [From Zoloft] Allergy rash Verified 08/06/19 15:33 PFSH Acute PFSH: Statuses (acute, chronic, etc) shown below reflect problem list status as previously entered and may not be historically accurate Medical History Depression (Acute) Diabetes mellitus (Acute) GERD (gastroesophageal reflux disease) (Acute) History of TIA (transient ischemic attack) (Acute) Hypertension (Acute) Smoker (Inactive) Surgical History (Updated 08/24/19 @ 13:37 by Rain Floyd DO) History of below knee amputation (Acute) Left History of hysterectomy (Acute) with BLSO Status post amputation of toe of right foot (Acute) Amputation of the R 3rd toe through metatarsophalangeal joint, Dr. Pacheco on 11/02/2015 Family History (Updated 08/24/19 @ 13:38 by Rain Floyd DO) Father Cancer lung Diabetes Sister Cancer gallbladder Family/Other Cancer colon Mother Ischemia, bowel Social History (Updated 08/06/19 @ 15:56 by Karen Velasquez LPN) Smoking and tobacco status: former smoker Alcohol intake: never Lives independently: Yes Household members: family Marital status: Single History of recent travel: No Vitals/I&O/Wt Last Vital Signs Temp 97.5 F L 08/24/19 16:00 Pulse 73 08/24/19 16:00 Resp 17 08/24/19 16:00 BP 123/71 08/24/19 16:00 Pulse Ox 99 08/24/19 16:00 Weight last 48 hrs Weight 77.111 kg Physical Exam Const: COMMON NORMALS: oriented x3 HENMT: COMMON NORMALS: normocephalic and head/scalp atraumatic HEAD & SCALP: normocephalic and atraumatic Chest: COMMONS NORMALS: inspection of chest normal and palpation of chest normal Resp: COMMON NORMALS: normal respiratory effort and no retractions Cardio: COMMON NORMALS: regular rate RATE: regular rate Extremity: COMMON NORMALS: normal to inspection and full ROM Neuro: COMMON NORMALS: oriented x3 and CN's II-XII intact bilaterally Urinary Catheter Management^: Mckinney: Cath Placed During This Visit: no A&P Additional A&P Information 1. Acute kidney injury this is likely a combination of significant intravascular volume depletion from poor oral intake, the setting of decreased intraglomerular pressure from CORONA inhibitor use. Possible contribution from NSAIDs but these have only been lightly used. Was enough evaluation to include urinalysis, urine sodium, urine creatinine, urinary with a view to calculate both fractional excretion of sodium and urea. Urine protein quantification. Continue liberal IV hydration with normal saline at 150 mL in our. Depending on her response to initial therapy will dictate further evaluation including serological workup. The usual nephrotoxins. Dose medications for GFR less than 15. 2. Hyperkalemia and acidosis both the likely consequence of combination of acute kidney injury in the setting of CORONA inhibitor use. This should resolve with administration of isotonic normal saline. Follow labs in 3-4 hours. 3. Confusion. Likely metabolic encephalopathy. CT scan demonstrated no acute findings. This should improve as we treat her renal failure. Further testing including coaches etc. to be deferred to The interview and examination was performed with the assistance of the bedside nurse. 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
[2019-08-24] MEDS: sodium chloride 0.9% 1,000 ML 125 ML IV (16:42)
[2019-08-24] MEDS: heparin 5,000 unit/mL INJ 1 mL 5000 UNIT SUBCUT (16:42)
[2019-08-24 17:15] LABS: Glucose Point of Care 48 mg/dL (70-110)
[2019-08-24 17:41] LABS: Glucose Point of Care 52 mg/dL (70-110)
[2019-08-24] MEDS: buPROPion SR (12 HR) 150 mg Tablet PO (17:58)
[2019-08-24] MEDS: citalopram 20 mg Tablet PO (17:58)
[2019-08-24] MEDS: gabapentin 300 mg Capsule PO (17:58)
[2019-08-24 18:24] LABS: Glucose Point of Care 66 mg/dL (70-110)
[2019-08-24 18:34] LABS: Troponin(5th) Baseline 29 ng/mL (0-10)
[2019-08-24] MEDS: dextrose 5%-sod chloride 0.9% 1,000 ML 150 ML IV (18:48)
--- NOTE | 2019-08-24 19:05 | PC.NURSE ---
Introduction of staff and report received, aidet.
[2019-08-24 19:17] LABS: Add Urine Microscopic? YES; Bilirubin Urine Neg (NEGATIVE); Blood Urine Neg (Negative); Glucose Urine UA Norm (Normal); Ketones Urine 1+ (Negative); Leukocyte Esterase Urine Negative (Negative); Nitrate Urine Negative (Negative); Protein Urine 1+ (Negative); Specific Gravity, Urine 1.015 (1.005-1.030); Urine Appearance SL Hazy (CLEAR); Urine Color Yellow (Yellow); Urobilinogen Urine Norm (Negative); pH Urine 5 (5-7)
[2019-08-24 19:20] LABS: Bacteria Urine 2+; RBC Urine 0-4 /hpf (0-2); Transitional Epi Cells Urine 0-4 /hpf; WBC Urine >100 /hpf (0-5)
[2019-08-24 19:21] LABS: Add Urine Culture? Yes
[2019-08-24 19:30] LABS: Potassium, Radom Urine 17 mmol/L; Urine Creatinine 63 mg/dL (28-217); Urine Random Chloride 61 mmol/L; Urine Random Sodium 72 mmol/L
[2019-08-24 20:41] LABS: Anion Gap 34.1 (5-19); Blood Urea Nitrogen 67 mg/dL (8-23); Calcium 9.8 mg/dL (8.5-10.5); Carbon Dioxide 10 mmol/L (22-29); Chloride 97 mmol/L (98-107); Glomerular Filtration Rate 7.5 mL/min (90-130); Glucose 113 mg/dL (74-106); Osmolality Calculated 280 mOsm/kg (285-295); Potassium 6.1 mmol/L (3.5-5.1); Sodium 135 mmol/L (136-145)
[2019-08-24 20:48] LABS: Creatine Phosphokinase 29 U/L (26-192); Thyroid Stimulating Hormone 1.31 uIU/mL (0.27-4.20)
[2019-08-24 22:23] LABS: Glucose Point of Care 102 mg/dL (70-110)
[2019-08-24 23:47] LABS: Troponin 5 6HR 24.59 ng/L (0-10)
[2019-08-24 23:49] LABS: Troponin 5 6HR Delta -4.41 ng/L (0-12)
[2019-08-25] VITALS (7 sets, daily range): BP systolic 127–154; BP diastolic 72–82; PULSE 64–92; RESP 17–20; TEMP 36.4–36.8; O2SAT 93–99
[2019-08-25] MEDS: dextrose 5%-sod chloride 0.9% 1,000 ML 150 ML IV ×2 (01:35→08:09)
[2019-08-25] MEDS: heparin 5,000 unit/mL INJ 1 mL 5000 UNIT SUBCUT ×2 (05:14→17:24)
[2019-08-25 06:39] LABS: Glucose Point of Care 154 mg/dL (70-110)
[2019-08-25 06:50] LABS: Anion Gap 21.8 (5-19); Blood Urea Nitrogen 53 mg/dL (8-23); Calcium 9.1 mg/dL (8.5-10.5); Carbon Dioxide 17 mmol/L (22-29); Chloride 100 mmol/L (98-107); Glomerular Filtration Rate 8.2 mL/min (90-130); Glucose 166 mg/dL (74-106); Osmolality Calculated 280 mOsm/kg (285-295); Phosphorus 4.8 mg/dL (2.5-4.5); Potassium 4.8 mmol/L (3.5-5.1); Sodium 134 mmol/L (136-145)
[2019-08-25] MEDS: metoprolol succinate ER (24 HR) 50 mg Tablet PO (08:09)
[2019-08-25] MEDS: buPROPion SR (12 HR) 150 mg Tablet PO ×2 (08:10→17:23)
[2019-08-25] MEDS: citalopram 20 mg Tablet PO ×2 (08:10→17:23)
[2019-08-25] MEDS: gabapentin 300 mg Capsule PO ×2 (08:10→17:23)
--- NOTE | 2019-08-25 09:00 | P.PN_ITS ---
Subjective Subjective: Interval history: Patient awake in bed at time of exam this morning. She denies any chest pain or shortness of breath. Reported that she has slightly increased appetite today. Denies any nausea at this time Vitals/I&O/Wt Last Vital Signs Temp 97.6 F 08/25/19 07:32 Pulse 86 08/25/19 07:32 Resp 18 08/25/19 07:32 BP 134/77 08/25/19 07:32 Pulse Ox 93 08/25/19 07:32 08/24/19 08/25/19 08/25/19 22:59 06:59 14:59 Intake Total 340 / 340 1240 / 1580 1345 / 1345 Output Total 700 / 700 Balance 340 / 340 540 / 880 1345 / 1345 Weight last 48 hrs Weight 78.109 kg Weight 77.111 kg Physical Exam Const: COMMON NORMALS: oriented x3 and alert GENERAL APPEARANCE: cooperati ve ORIENTATION/CONSCIOUSNESS: Yes awake, Yes oriented to person, Yes oriented to place and Yes oriented to time HENMT: COMMON NORMALS: normocephalic and head/scalp atraumatic HEAD & SCALP: normocephalic and atraumatic Eye: COMMON NORMALS: PERRL PUPIL: Yes PERRL Neck/C-Spine: COMMON NORMALS: supple GENERAL: Yes normal visual inspection Resp: COMMON NORMALS: normal respiratory effort and clear to auscultation bilaterally EFFORT & INSPECTION: Yes able to speak in complete sentences AUSCULTATION: clear to auscultation bilaterally, no rhonchi and no wheezes Cardio: COMMON NORMALS: regular rate, regular rhythm and no murmurs RATE: regular rate RHYTHM: regular rhythm GI: COMMON NORMALS: soft to palpation and non-tender INSPECTION: No abdo hal distension AUSCULTATION: Yes normoactive bowel sounds PALPATION: Yes soft Extremity: COMMON NORMALS: no clubbing, cyanosis or edema and no calf tenderness NARRATIVE EXTREMITY EXAM: 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 Neuro: COMMON NORMALS: oriented x3, CN's II-XII intact bilaterally, moves all extremities and no focal motor deficits SENSORIUM/ORIENTATION: Yes alert, Yes oriented to person, Yes oriented to place and Yes oriented to time SPEECH: speech normal Psych: COMMON NORMALS: mental status grossly normal and cooperative Skin: COMMON NORMALS: no rashes or lesions noted GENERAL SKIN EXAM: no rashes or lesions noted Urinary Catheter Management^: Kendrick: Cath Placed During This Visit: no Data : 08/24/19 09:24 08/25/19 05:31 Micro: Microbiology 08/24/19 09:46 Urine Culture - Preliminary Urine,Clean Catch Gram Negative Rods A&P Assessment and plan (1) Acute kidney failure: Continue with IV fluids Hold nephrotoxic medications, holding lisinopril and metformin Nephrology consulted, appreciate recommendations and assistance in patient's care Prior finding of adrenal gland mass, recommended to have outpatient MRI, this has not been performed. Consider further imaging. Renal ultrasound showed no renal obstruction or hydronephrosis Status: Acute Qualifiers: Acute renal failure type: unspecified Qualified Code(s): N17.9 - Acute kidney failure, unspecified Code(s): N17.9 - Acute kidney failure, unspecified (2) Acute hyperkalemia: Even calcium gluconate in the ED, given insulin and D50 Resolved today Status: Acute Code(s): E87.5 - Hyperkalemia (3) Diabetes mellitus: Discontinue metformin Patient's hemoglobin A1c is 5.0, reported hypoglycemia at home as well as patient experiencing hypoglycemia here. Previously required insulin Status: Acute Qualifiers: Diabetes mellitus type: type 2 Code(s): E11.9 - Type 2 diabetes mellitus without complications (4) GERD (gastroesophageal reflux disease): Continue on PPI Status: Acute Qualifiers: Esophagitis presence: with esophagitis Qualified Code(s): K21.0 - Gastro-esophageal reflux disease with esophagitis Code(s): K21.9 - Gastro-esophageal reflux disease without esophagitis Additional A&P Information Finding of left adrenal mass with peripheral enhancement: 12/2018. Recommended to have outpatient MRI of adrenal glands with contrast. Will perform CT scan of the abdomen and pelvis for further evaluation, no contrast due to acute kidney injury Anterior mediastinal mass on CT scan of the chest performed 01/05/2019. Thyroid ultrasound performed on the day of admission prior to admission showed enlarged heterogenous thyroid without discrete mass or nodule Depression: Continue bupropion and citalopram Hypertension: Holding home lisinopril due to above, continue on home metoprolol Hyperlipidemia: Continue on atorvastatin daily Chronic neuropathy: Continue gabapentin Weight loss: Unspecified amount of time. Generalized deconditioning Hypoglycemia: In the setting of diabetes mellitus, A1c of 5.0 on admission, patient has reported hypoglycemic episodes at home, only on metformin which is now been discontinued. 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
--- NOTE | 2019-08-25 09:09 | CT_ITS ---
WS: [id number] CT ABDOMEN AND PELVIS NONCONTRAST HISTORY: hypoglycemia, L adrenal mass, weight loss TECHNIQUE: Imaging performed through the abdomen and pelvis. Coronal and sagittal reformats are submi tted. All CT scans at [facility] use at least one of these dose optimization techniques: automated exposure control; mA and/or kV adjustment per patient size (includes targeted exams where d ose is matched to clinical indication); or iterative reconstruction. DLP: 937.67 mGy.cm COMPARISON: 01/05/2019, PET/CT 01/15/2019 Lower thorax: Benign granuloma at the LEFT lung base. Heart size is slightly enlarged. Small hiatal h ernia. Liver: Normal size liver with numerous scattered benign granulomata. No bile duct dilatation. Gallbladder: Abnormal gallbladder. Gallbladder is contracted and there is diffuse gallbladder wall th ickening and some edema in the gallbladder fossa. New finding since 01/05/2019. There is an area of ve ry slight increased density in the gallbladder which may be a stone. Common bile duct is normal size. Pancreas: Atrophic pancreas. No mass. Spleen: Normal size spleen with granulomata. Adrenal glands: RIGHT adrenal gland is normal. Lobulated soft tissue mass associated with the LEFT ad renal gland. Mass measures 2.2 x 1.5 cm and is similar to the prior study. Also negative on PET/CT im aging and consistent with a benign adenoma. Right kidney: Mild perinephric stranding. Kidney is slightly enlarged as compared to the prior study of 01/05/2019. There is stranding around the RIGHT kidney in extending into the paracolic gutter. This stranding is new since 01/05/2019. There is no renal obstruction. No stone along the course of the ur eter. Left kidney: Mild perinephric stranding. Kidney is slightly enlarged as compared to the prior study. Atherosclerosis aorta and calcification at the origin of the renal arteries. No aneurysm. No free fluid, intraperitoneal air or significant lymphadenopathy. GI tract: The appendix is not definitely identified but there are no secondary findings of appendicit is. Mild diffuse constipation. No wall thickening or mucosal edema. There is rather marked air and fe comfort retention in the distal colon. Abdominal wall: Intact. Mild diffuse anasarca. Pelvis: Status post hysterectomy. Urinary bladder is nondistended. There is a Kendrick catheter appropri ately positioned in the urinary bladder. No adenopathy. Osseous structures: No abnormality. CT/CT abdomen pelvis wo con [id number] IMPRESSION: 1. Abnormal gallbladder. Gallbladder wall thickening and adjacent edema in the gallbladder fossa. Differential includes acute cholecystitis or changes second baylee to hepatocellular disease. 2. Bilateral perinephric stranding, RIGHT greater than LEFT with mild enlargem ent of the kidneys since 01/05/2019. Kidneys have both increased in length by 1. 5 to 2 cm. These findings suggest acute pyelonephritis or inflammatory process involving the kidneys. Obstructive process is not evident. 3. Benign LEFT adrenal adenoma is stable. 4. Prior hysterectomy. 5. Mild soft tissue anasarca.
[2019-08-25] MEDS: sodium chloride 0.9% 1,000 ML 150 ML IV ×2 (10:52→17:24)
[2019-08-25 11:09] LABS: Glucose Point of Care 171 mg/dL (70-110)
[2019-08-25 16:45] LABS: Glucose Point of Care 120 mg/dL (70-110)
--- NOTE | 2019-08-25 18:01 | P.PN_ITS ---
Subjective Subjective: Interval history: Patient awake in bed, feeling well. Passing urine. No edema and no other volume assoc Sx. No uremic Sx. CT shows possible cholecystitis but she denies pain in the right upper quadrant and is eating very comfortably Vitals/I&O/Wt Last Vital Signs Temp 97.6 F 08/25/19 15:35 Pulse 64 08/25/19 15:35 Resp 20 H 08/25/19 15:35 BP 147/82 08/25/19 15:35 Pulse Ox 96 08/25/19 15:35 08/25/19 08/25/19 08/25/19 06:59 14:59 22:59 Intake Total 1240 / 1580 1585 / 1585 980 / 2565 Output Total 700 / 700 700 / 700 Balance 540 / 880 1585 / 1585 280 / 1865 Weight last 48 hrs Weight 78.109 kg Weight 77.111 kg Physical Exam Const: COMMON NORMALS: oriented x3 HENMT: COMMON NORMALS: normocephalic and head/scalp atraumatic HEAD & SCALP: normocephalic and atraumatic Chest: COMMONS NORMALS: inspection of chest normal and palpation of chest normal Resp: COMMON NORMALS: normal respiratory effort and no retractions Cardio: COMMON NORMALS: regular rate RATE: regular rate Extremity: COMMON NORMALS: normal to inspection and full ROM Neuro: COMMON NORMALS: oriented x3 and CN's II-XII intact bilaterally Urinary Catheter Management^: Mckinney: Cath Placed During This Visit: no Data : 08/24/19 09:24 08/25/19 05:31 Micro: Microbiology 08/24/19 09:46 Urine Culture - Preliminary Urine,Clean Catch Gram Negative Rods A&P Additional A&P Information 1. Acute kidney injury this is likely a combination of significant intravascular volume depletion from poor oral intake, the setting of decreased intraglomerular pressure from CORONA inhibitor use. Possible contribution from NSAIDs but these have only been lightly used. Creatinine trending, slowly, but is coming down Continue liberal IV hydration with normal saline at 150 mL in our. DC mckinney in the am The usual nephrotoxins. Dose medications for GFR less than 15. 2. Hyperkalemia and acidosis both the likely consequence of combination of acute kidney injury in the setting of CORONA inhibitor use. resolving nicely 3. Confusion. Likely metabolic encephalopathy. CT scan demonstrated no acute findings. appears to be getting better, she is very conversant The interview and examination was performed with the assistance of the bedside nurse. 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
[2019-08-25] MEDS: atorvastatin 40 mg Tablet 20 MG PO (21:33)
[2019-08-25 21:40] LABS: Glucose Point of Care 139 mg/dL (70-110)
[2019-08-26] VITALS (7 sets, daily range): BP systolic 145–177; BP diastolic 73–90; PULSE 66–76; RESP 16–18; TEMP 36.4–36.8; O2SAT 96–99
[2019-08-26] MEDS: sodium chloride 0.9% 1,000 ML 150 ML IV ×3 (01:01→06:43)
[2019-08-26 04:25] LABS: Blood Urea Nitrogen 45 mg/dL (8-23); Calcium 8.4 mg/dL (8.5-10.5); Carbon Dioxide 19 mmol/L (22-29); Chloride 104 mmol/L (98-107); Glomerular Filtration Rate 9.9 mL/min (90-130); Glucose 89 mg/dL (74-106); Osmolality Calculated 279 mOsm/kg (285-295); Phosphorus 3.4 mg/dL (2.5-4.5); Sodium 136 mmol/L (136-145)
[2019-08-26] MEDS: heparin 5,000 unit/mL INJ 1 mL 5000 UNIT SUBCUT ×2 (05:51→17:33)
[2019-08-26 06:43] LABS: Glucose Point of Care 129 mg/dL (70-110)
--- NOTE | 2019-08-26 08:28 | PM.PN ---
Subjective Subjective: Interval history: Patient awake in bed at time of exam this morning. She reports that she is feeling slightly increase in her energy, no chest pain or shortness of breath. Patient denies any nausea or vomiting. She denies any abdominal pain or flank pain. Discussed with patient CT scan findings and initiation of antibiotics today. She denies any dysuria, no hematuria, no increased frequency of urination Vitals/I&O/Wt Last Vital Signs Temp 97.7 F 08/26/19 08:00 Pulse 66 08/26/19 08:00 Resp 16 08/26/19 08:00 BP 145/75 08/26/19 08:00 Pulse Ox 97 08/26/19 08:00 08/25/19 08/26/19 08/26/19 22:59 06:59 14:59 Intake Total 1500 / 3085 2052.5 / 5137.5 Output Total 700 / 700 1250 / 1950 Balance 800 / 2385 802.5 / 3187.5 Weight last 48 hrs Weight 78.97 kg Weight 78.109 kg Weight 77.111 kg Physical Exam Const: COMMON NORMALS: oriented x3 and alert GENERAL APPEARANCE: cooperative ORIENTATION/CONSCIOUSNESS: Yes awake, Yes oriented to person, Yes oriented to place, Yes oriented to time and Yes confused (mild) HENMT: COMMON NORMALS: normocephalic and head/scalp atraumatic HEAD & SCALP: normocephalic and atraumatic Eye: COMMON NORMALS: PERRL PUPIL: Yes PERRL Neck/C-Spine: COMMON NORMALS: supple GENERAL: Yes normal visual inspection Resp: COMMON NORMALS: normal respiratory effort and clear to auscultation bilaterally EFFORT & INSPECTION: Yes able to speak in complete sentences AUSCULTATION: clear to auscultation bilaterally, no rhonchi and no wheezes Cardio: COMMON NORMALS: regular rate, regular rhythm and no murmurs RATE: regular rate RHYTHM: regular rhythm GI: COMMON NORMALS: soft to palpation and non-tender INSPECTION: No abdominal distension AUSCULTATION: Yes normoactive bowel sounds PALPATION: Yes soft Extremity: COMMON NORMALS: no clubbing, cyanosis or edema and no calf tenderness NARRATIVE EXTREMITY EXAM: 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 Neuro: COMMON NORMALS: oriented x3, CN's II-XII intact bilaterally, moves all extremities and no focal motor deficits SENSORIUM/ORIENTATION: Yes alert, Yes oriented to person, Yes oriented to place and Yes oriented to time SPEECH: speech normal Psych: COMMON NORMALS: mental status grossly normal and cooperative Skin: COMMON NORMALS: no rashes or lesions noted GENERAL SKIN EXAM: no rashes or lesions noted Urinary Catheter Management^: Kendrick: Cath Placed During This Visit: no Data : 08/24/19 09:24 08/26/19 03:46 Micro: Microbiology 08/24/19 18:40 Urine Culture - Preliminary Urine,Clean Catch Gram Negative Rods 08/24/19 09:46 Urine Culture - Preliminary Urine,Clean Catch Gram Negative Rods A&P Assessment and plan (1) Acute kidney failure: Continue with IV fluids Hold nephrotoxic medications, holding lisinopril and metformin Nephrology consulted, appreciate recommendations and assistance in patient's care CT scan of the abdomen and pelvis performed yesterday showed bilateral perinephric stranding right greater than left. Due to urine culture showing gram-negative rods, despite patient being asymptomatic, will start on Rocephin and follow with urine culture. Status: Acute Qualifiers: Acute renal failure type: unspecified Qualified Code(s): N17.9 - Acute kidney failure, unspecified Code(s): N17.9 - Acute kidney failure, unspecified (2) Acute hyperkalemia: Resolved Status: Acute Code(s): E87.5 - Hyperkalemia (3) Diabetes mellitus: Discontinue metformin Patient's hemoglobin A1c is 5.0, reported hypoglycemia at home as well as patient experiencing hypoglycemia here. Status: Acute Qualifiers: Diabetes mellitus type: type 2 Code(s): E11.9 - Type 2 diabetes mellitus without complications (4) GERD (gastroesophageal reflux disease): Continue on PPI Status: Acute Qualifiers: Esophagitis presence: with esophagitis Qualified Code(s): K21.0 - Gastro-esophageal reflux disease with esophagitis Code(s): K21.9 - Gastro-esophageal reflux disease without esophagitis Additional A&P Information Gallbladder wall thickening and adjacent edema in the gallbladder fossa: Patient does not have any abdominal pain in the right upper quadrant, no further nausea or vomiting. Recommend outpatient follow-up. Bilateral perinephric stranding right greater than left: Due to this change along with urine culture showing gram-negative rods we will start on Rocephin and follow along with urine culture. Finding of left adrenal mass with peripheral enhancement: 12/2018. Benign left adrenal adenoma appears to be stable on CT scan performed this admission Anterior mediastinal mass on CT scan of the chest performed 01/05/2019. Thyroid ultrasound performed on the day of admission prior to admission showed enlarged heterogenous thyroid without discrete mass or nodule Depression: Continue bupropion and citalopram Hypertension: Holding home lisinopril due to above, continue on home metoprolol Hyperlipidemia: Continue on atorvastatin daily Chronic neuropathy: Continue gabapentin Weight loss: Unspecified amount of time. Generalized deconditioning Hypoglycemia: In the setting of history of diabetes mellitus, A1c of 5.0 on admission, patient has reported hypoglycemic episodes at home, only on metformin which is now been discontinued. 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
[2019-08-26] MEDS: pantoprazole DR 40 mg Tablet PO (08:42)
[2019-08-26] MEDS: gabapentin 300 mg Capsule PO ×2 (08:42→17:33)
[2019-08-26] MEDS: metoprolol succinate ER (24 HR) 50 mg Tablet PO (08:42)
[2019-08-26] MEDS: buPROPion SR (12 HR) 150 mg Tablet PO ×2 (08:42→17:32)
[2019-08-26] MEDS: citalopram 20 mg Tablet PO ×2 (08:42→17:32)
[2019-08-26] MEDS: cefTRIAXone 1,000 MG in sodium chloride 0.9% (plus) 50 ML 100 MG IV (08:48)
[2019-08-26 11:28] LABS: Glucose Point of Care 116 mg/dL (70-110)
--- NOTE | 2019-08-26 13:30 | PM.PN ---
Subjective Subjective: Interval history: Patient awake in bed at time of exam this morning. Feels good with no new issues. Good oral intake and passing urine normally. No hypervol Sx and no uremic Sx Vitals/I&O/Wt Last Vital Signs Temp 97.5 F L 08/26/19 11:53 Pulse 68 08/26/19 11:53 Resp 18 08/26/19 11:53 BP 177/82 08/26/19 11:53 Pulse Ox 99 08/26/19 11:29 08/25/19 08/26/19 08/26/19 22:59 06:59 14:59 Intake Total 1500 / 3085 2052.5 / 5137.5 120 / 120 Output Total 700 / 700 1250 / 1950 Balance 800 / 2385 802.5 / 3187.5 120 / 120 Weight last 48 hrs Weight 78.97 kg Weight 78.109 kg Physical Exam Const: COMMON NORMALS: oriented x3 HENMT: COMMON NORMALS: normocephalic and head/scalp atraumatic HEAD & SCALP: normocephalic and atraumatic Chest: COMMONS NORMALS: inspection of chest normal and palpation of chest normal Resp: COMMON NORMALS: normal respiratory effort and no retractions Cardio: COMMON NORMALS: regular rate RATE: regular rate Extremity: COMMON NORMALS: normal to inspection and full ROM Neuro: COMMON NORMALS: oriented x3 and CN's II-XII intact bilaterally Urinary Catheter Management^: Mckinney: Cath Placed During This Visit: no Data : 08/24/19 09:24 08/26/19 03:46 Micro: Microbiology 08/24/19 09:46 Urine Culture - Final Urine,Clean Catch Escherichia coli 08/24/19 18:40 Urine Culture - Preliminary Urine,Clean Catch Gram Negative Rods A&P Additional A&P Information 1. Acute kidney injury this is likely a combination of significant intravascular volume depletion from poor oral intake, the setting of decreased intraglomerular pressure from CORONA inhibitor use. Possible contribution from NSAIDs but these have only been lightly used. Creatinine trending, slowly, but is coming down ok to DC ivf at this time and encoruage oral intake DC mckinney in the am The usual nephrotoxins. Dose medications for GFR less than 15. 2. Hyperkalemia and acidosis both the likely consequence of combination of acute kidney injury in the setting of CORONA inhibitor use. resolving nicely 3. Confusion. Likely metabolic encephalopathy. CT scan demonstrated no acute findings. appears to be getting better, she is very conversant The interview and examination was performed with the assistance of the bedside nurse. Acute renal issues now resolving, will sign off at this time. 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
[2019-08-26 16:54] LABS: Glucose Point of Care 99 mg/dL (70-110)
--- NOTE | 2019-08-26 19:35 | CTR_ITS ---
PROCEDURE INFORMATION: Exam: CT Head Without Contrast Exam date and time: 08/26/2019 8:24 PM Age: 63 years old Clinical indication: Injury or trauma; Fall; Initial encounter; Concussion / head injury; Without loss of consciousness; Additional info: Patient fell in the bathroom TECHNIQUE: Imaging protocol: Computed tomography of the head without contrast. Total DLP: 750.76 mGy-cm Radiation optimization: All CT scans at this facility use at least one of these dose optimization techniques: automated exposure control; mA and/or kV adjustment per patient size (includes targeted exams where dose is matched to clinical indication); or iterative reconstruction. COMPARISON: CT head wo con* [id number] 08/24/2019 11:02 AM FINDINGS: Brain: Mild atrophy and mild white matter chronic microvascular changes are noted. No hemorrhage or CT evidence of acute infarction is seen. Ventricles: Normal. No ventriculomegaly. Bones/joints: Unremarkable. No acute fracture. Sinuses: Visualized sinuses are unremarkable. No fluid levels. Mastoid air cells: Visualized mastoid air cells are well aerated. Soft tissues: Mild soft tissue swelling is seen in the left temporal scalp. CT/CT head wo con* [id number] IMPRESSION: No acute intracranial abnormality. Radiation Dose CTDIVOL = (mGy): DLP = 750.76 (mGy-cm)
--- NOTE | 2019-08-26 19:38 | ECG_ITS ---
Measurements Intervals [place] Rate: 76 P: 2 OR: 143 QRS: 13 QRSD: 93 T: 61 QT: 407 QTc: 458 SINUS RHYTHM Compared to ECG 08/24/2019 09:53:11 Left ventricular hypertrophy no longer present ST (T wave) deviation no longer present Electronically Signed On 08-27-2019 11:31:28 LAW REPORTER by Javed Kingston M.D. [email or web address]
[2019-08-26 19:47] LABS: Glucose Point of Care 252 mg/dL (70-110)
--- NOTE | 2019-08-26 20:20 | PC.NURSE ---
Addendum entered by Katiana Hernandez RN 08/26/19 20:21: This happened at 1930. Original Note: Pt found in floor on side of the bed next to window. Pt states I was trying to get up and I just slipped. Pt noted to have a small lump on the left lateral side of head, pt states I was trying to put my prosthesis on and slid out of bed. Pt denies pain anywhere and no obvious deformities noted. Pt is aaox3, with the ability to move all extremities, vital signs WNL, and blood glucose noted to be 252. Physician notified and CT scan and EKG was ordered.
[2019-08-26] MEDS: atorvastatin 40 mg Tablet 20 MG PO (22:03)
[2019-08-27] VITALS (9 sets, daily range): BP systolic 132–182; BP diastolic 69–97; PULSE 68–80; RESP 16–20; TEMP 36.4–36.9; O2SAT 95–99
[2019-08-27] MEDS: sodium chloride 0.9% 1,000 ML 150 ML IV ×2 (00:21→06:29)
--- NOTE | 2019-08-27 05:52 | P.EN_ITS ---
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
[2019-08-27] MEDS: heparin 5,000 unit/mL INJ 1 mL 5000 UNIT SUBCUT ×2 (06:30→18:23)
[2019-08-27 06:36] LABS: Anion Gap 20.8 (5-19); Blood Urea Nitrogen 41 mg/dL (8-23); Calcium 8.4 mg/dL (8.5-10.5); Carbon Dioxide 17 mmol/L (22-29); Chloride 103 mmol/L (98-107); Glucose 110 mg/dL (74-106); Osmolality Calculated 282 mOsm/kg (285-295); Potassium 3.8 mmol/L (3.5-5.1); Sodium 137 mmol/L (136-145)
[2019-08-27] MEDS: cefTRIAXone 1,000 MG in sodium chloride 0.9% (plus) 50 ML 100 MG IV (09:24)
[2019-08-27] MEDS: metoprolol succinate ER (24 HR) 50 mg Tablet PO (09:24)
[2019-08-27] MEDS: gabapentin 300 mg Capsule PO ×2 (09:24→18:22)
[2019-08-27] MEDS: citalopram 20 mg Tablet PO ×2 (09:24→18:22)
[2019-08-27] MEDS: pantoprazole DR 40 mg Tablet PO (09:24)
[2019-08-27] MEDS: buPROPion SR (12 HR) 150 mg Tablet PO ×2 (09:24→18:23)
[2019-08-27 10:39] LABS: Glucose Point of Care 154 mg/dL (70-110)
--- NOTE | 2019-08-27 11:04 | PC.SOCIAL ---
Pg 2 of IMM Pg 2 of IMM was explained to and signed by patient, copy was provided, and form was placed to in chart. She verbalized understanding and had no questions.
--- NOTE | 2019-08-27 11:22 | PM.PN ---
Subjective Subjective: Interval history: And awake in bed at time of exam this morning. She denies any chest pain or shortness of breath. Reported that she continues to feel overall weak but slightly improved since admission. Reported fall overnight while patient was trying to put on her prosthesis, she denies any lightheadedness or dizziness today, no vision changes. She is conversant and answering questions appropriately. Vitals/I&O/Wt Last Vital Signs Temp 97.6 F 08/27/19 07:27 Pulse 80 08/27/19 07:27 Resp 18 08/27/19 07:27 BP 169/84 08/27/19 07:27 Pulse Ox 95 08/27/19 07:27 08/26/19 08/27/19 08/27/19 22:59 06:59 14:59 Intake Total 830 / 2310 1160 / 3470 120 / 120 Output Total 2800 / 2800 3450 / 6250 Balance -1970 / -490 -2290 / -2780 120 / 120 Weight last 48 hrs Weight 73.663 kg Weight 78.97 kg Physical Exam Const: COMMON NORMALS: oriented x3 and alert GENERAL APPEARANCE: cooperative ORIENTATION/CONSCIOUSNESS: Yes awake, Yes oriented to person, Yes oriented to place, Yes oriented to time and Yes confused (mild) HENMT: COMMON NORMALS: normocephalic and head/scalp atraumatic HEAD & SCALP: normocephalic and atraumatic Eye: COMMON NORMALS: PERRL PUPIL: Yes PERRL Neck/C-Spine: COMMON NORMALS: supple GENERAL: Yes normal visual inspection Resp: COMMON NORMALS: normal respiratory effort and clear to auscultation bilaterally EFFORT & INSPECTION: Yes able to speak in complete sentences AUSCULTATION: clear to auscultation bilaterally, no rhonchi and no wheezes Cardio: COMMON NORMALS: regular rate, regular rhythm and no murmurs RATE: regular rate RHYTHM: regular rhythm GI: COMMON NORMALS: soft to palpation and non-tender INSPECTION: No abdominal distension AUSCULTATION: Yes normoactive bowel sounds PALPATION: Yes soft Extremity: COMMON NORMALS: no clubbing, cyanosis or edema and no calf tenderness NARRATIVE EXTREMITY EXAM: s/p L BKA Neuro: COMMON NORMALS: oriented x3, CN's II-XII intact bilaterally, moves all extremities and no focal motor deficits SENSORIUM/ORIENTATION: Yes alert, Yes oriented to person, Yes oriented to place and Yes oriented to time SPEECH: speech normal Psych: COMMON NORMALS: mental status grossly normal and cooperative Skin: COMMON NORMALS: no rashes or lesions noted GENERAL SKIN EXAM: no rashes or lesions noted Urinary Catheter Management^: Kendrick: Cath Placed During This Visit: no Data : 08/24/19 09:24 08/27/19 05:38 Micro: Microbiology 08/24/19 09:46 Urine Culture - Final Urine,Clean Catch Escherichia coli 08/24/19 18:40 Urine Culture - Preliminary Urine,Clean Catch Gram Negative Rods A&P Assessment and plan (1) Acute kidney failure: Discontinue IV fluids today Continue holding nephrotoxic occasions, holding lisinopril and metformin Nephrology has signed off Continue on Rocephin due to imaging finding of perinephric stranding along with urine culture showing gram-negative rods, transition to oral antibiotics today as culture showing E. coli Status: Acute Qualifiers: Acute renal failure type: unspecified Qualified Code(s): N17.9 - Acute kidney failure, unspecified Code(s): N17.9 - Acute kidney failure, unspecified (2) Acute hyperkalemia: Resolved Status: Acute Code(s): E87.5 - Hyperkalemia (3) Diabetes mellitus: Discontinue metformin Patient's hemoglobin A1c is 5.0, reported hypoglycemia at home as well as patient experiencing hypoglycemia here. Status: Acute Qualifiers: Diabetes mellitus type: type 2 Code(s): E11.9 - Type 2 diabetes mellitus without complications (4) GERD (gastroesophageal reflux disease): Continue on PPI Status: Acute Qualifiers: Esophagitis presence: with esophagitis Qualified Code(s): K21.0 - Gastro-esophageal reflux disease with esophagitis Code(s): K21.9 - Gastro-esophageal reflux disease without esophagitis Additional A&P Information Gallbladder wall thickening and adjacent edema in the gallbladder fossa: Patient does not have any abdominal pain in the right upper quadrant, no further nausea or vomiting. Recommend outpatient follow-up. Bilateral perinephric stranding right greater than left: With concern for pyelonephritis, started on Rocephin, transition to oral antibiotics today. Finding of left adrenal mass with peripheral enhancement: 12/2018. Benign left adrenal adenoma appears to be stable on CT scan performed this admission Anterior mediastinal mass on CT scan of the chest performed 01/05/2019. Thyroid ultrasound performed on the day of admission prior to admission showed enlarged heterogenous thyroid without discrete mass or nodule Depression: Continue bupropion and citalopram Hypertension: Holding home lisinopril due to above, continue on home metoprolol Hyperlipidemia: Continue on atorvastatin daily Chronic neuropathy: Continue gabapentin Weight loss: Unspecified amount of time. Generalized deconditioning: Strongly recommend care home facility placement, patient had a fall last night when trying to put on her prosthesis. Repeat CT scan of the head performed which showed no acute changes Hypoglycemia: In the setting of history of diabetes mellitus, A1c of 5.0 on admission, patient has reported hypoglycemic episodes at home, only on metformin which is now been discontinued. DVT prophylaxis: Heparin Diet: Carbohydrate consistent CODE STATUS: Full code Attestations Medical Necessity Statement*: Patient requires continued hospitalization due to acute kidney injury with generalized deconditioning, dehydration and pyelonephritis. 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
[2019-08-27 17:18] LABS: Glucose Point of Care 97 mg/dL (70-110)
[2019-08-27] MEDS: amlodipine 5 mg Tablet 2.5 MG PO (18:22)
[2019-08-27] MEDS: ciprofloxacin 500 mg Tablet PO (18:23)
--- NOTE | 2019-08-27 20:03 | PC.NURSE ---
Pt sitting up in bed, anxious, with increased confusion. Pt states I'm trying to get up off this couch and go to bed. Pt is unable to state location or year. Pt states I know where I am, I am at home, and it is 1997 Pt Has bed alarm on for her safety as she has a history of falls. Pt remains pleasant and at times can be reoriented, but that only lasts for about 10 minutes.
[2019-08-27 20:54] LABS: Glucose Point of Care 153 mg/dL (70-110)
[2019-08-27] MEDS: atorvastatin 40 mg Tablet 20 MG PO (21:54)
[2019-08-28] VITALS (7 sets, daily range): BP systolic 165–179; BP diastolic 81–93; PULSE 66–80; RESP 14–24; TEMP 36.7–36.9; O2SAT 87–95
--- NOTE | 2019-08-28 04:24 | PC.NURSE ---
Pt appears anxious, pulling at tubes, attempting to get out of bed unassisted and Taking cpap off. Pt using cell phone to call family, pt thinks it is afternoon, unable to reorient at this time. Pt is becoming verbally aggressive toward staff. Stating I don't care who you are you can get out of my house! and I gotta get out of this trailer. Pt does not believe that she is in the hospital at this time. Doctor notified, new order for Haloperidol given.
[2019-08-28] MEDS: haloperidol inj 5 mg/mL INJ 1 mL 1 MG IM (04:53)
[2019-08-28] MEDS: heparin 5,000 unit/mL INJ 1 mL 5000 UNIT SUBCUT ×2 (04:54→17:51)
--- NOTE | 2019-08-28 05:22 | PC.NURSE ---
Pt having hallucinations of a Small child being in the room. Sates Hey sweet girl, come here, sit down right here. when asked who she is talking to, pt states That cute little girl over there, isn't she adorable? Pt continues to be confused about location and time, but anxiety appears to have been resolved after haldol dosage.
[2019-08-28 06:19] LABS: Anion Gap 18.5 (5-19); Blood Urea Nitrogen 37 mg/dL (8-23); Calcium 8.4 mg/dL (8.5-10.5); Carbon Dioxide 19 mmol/L (22-29); Chloride 103 mmol/L (98-107); Glomerular Filtration Rate 13.7 mL/min (90-130); Glucose 135 mg/dL (74-106); Osmolality Calculated 284 mOsm/kg (285-295); Potassium 3.5 mmol/L (3.5-5.1); Sodium 137 mmol/L (136-145)
[2019-08-28 07:06] LABS: Glucose Point of Care 142 mg/dL (70-110)
[2019-08-28] MEDS: amlodipine 5 mg Tablet 2.5 MG PO (09:31)
[2019-08-28] MEDS: pantoprazole DR 40 mg Tablet PO (09:32)
[2019-08-28] MEDS: ciprofloxacin 500 mg Tablet PO (09:32)
[2019-08-28] MEDS: metoprolol succinate ER (24 HR) 50 mg Tablet PO (09:32)
[2019-08-28] MEDS: citalopram 20 mg Tablet PO ×2 (09:32→17:51)
[2019-08-28] MEDS: buPROPion SR (12 HR) 150 mg Tablet PO ×2 (09:32→17:51)
[2019-08-28] MEDS: gabapentin 300 mg Capsule PO ×2 (09:32→17:51)
--- NOTE | 2019-08-28 09:42 | PC.NURSE ---
GOSIA CHIANG INFORMED THIS NURSE THE PT HAD GOTTEN UP OUT OF HER CHAIR AND WALKED TO THE BATHROOM BY HERSELF AND THEN HAD TAKEN HER MILIAN OUT WITH [place] STILL INTACT. PT STATED SHE WAS NOT HAVING ANY PAIN, NO BLEEDING, PHYSICIAN NOTIFIED.
[2019-08-28 11:09] LABS: Glucose Point of Care 222 mg/dL (70-110)
--- NOTE | 2019-08-28 16:39 | PM.PN ---
Subjective Subjective: Interval history: Patient awake this morning at time of exam sitting in the chair. She was able to give me her name, date of and correct year. She denied any chest pain or shortness of breath. Patient reported her only concern was Kendrick catheter causing irritation. Order to discontinue Kendrick catheter. Reported the patient had episode of confusion overnight and required Haldol. Patient reported that she had been confused overnight, family reported that she had called family members with increased confusion at nighttime. Vitals/I&O/Wt Last Vital Signs Temp 98.1 F 08/28/19 15:16 Pulse 78 08/28/19 15:16 Resp 14 08/28/19 15:16 BP 176/89 08/28/19 15:16 Pulse Ox 87 L 08/28/19 15:16 08/28/19 08/28/19 08/28/19 06:59 14:59 22:59 Intake Total 550 / 1110 480 / 480 Output Total 2900 / 5200 1300 / 1300 Balance -2350 / -4090 -820 / -820 Weight last 48 hrs Weight 68.719 kg Weight 73.663 kg Physical Exam Const: COMMON NORMALS: oriented x3 and alert GENERAL APPEARANCE: cooperative ORIENTATION/CONSCIOUSNESS: Yes awake, Yes oriented to person, Yes oriented to place, Yes oriented to time and Yes confused (mild) HENMT: COMMON NORMALS: normocephalic and head/scalp atraumatic HEAD & SCALP: normocephalic and atraumatic Eye: COMMON NORMALS: PERRL PUPIL: Yes PERRL Neck/C-Spine: COMMON NORMALS: supple GENERAL: Yes normal visual inspection Resp: COMMON NORMALS: normal respiratory effort and clear to auscultation bilaterally EFFORT & INSPECTION: Yes able to speak in complete sentences AUSCULTATION: clear to auscultation bilaterally, no rhonchi and no wheezes Cardio: COMMON NORMALS: regular rate, regular rhythm and no murmurs RATE: regular rate RHYTHM: regular rhythm GI: COMMON NORMALS: soft to palpation and non-tender INSPECTION: No abdominal distension AUSCULTATION: Yes normoactive bowel sounds PALPATION: Yes soft Extremity: COMMON NORMALS: no clubbing, cyanosis or edema and no calf tenderness NARRATIVE EXTREMITY EXAM: s/p L BKA Neuro: COMMON NORMALS: oriented x3, CN's II-XII intact bilaterally, moves all extremities and no focal motor deficits SENSORIUM/ORIENTATION: Yes alert, Yes oriented to person, Yes oriented to place and Yes oriented to time SPEECH: speech normal Psych: COMMON NORMALS: mental status grossly normal and cooperative Skin: COMMON NORMALS: no rashes or lesions noted GENERAL SKIN EXAM: no rashes or lesions noted Urinary Catheter Management^: Kendrick: Cath Placed During This Visit: no Data : 08/24/19 09:24 08/28/19 04:51 Micro: Microbiology 08/24/19 18:40 Urine Culture - Final Urine,Clean Catch Escherichia coli A&P Assessment and plan (1) Acute kidney failure: IV fluids discontinued holding lisinopril and metformin Nephrology has signed off Urine culture with E. coli, CT scan findings of question of pyelonephritis with perinephric stranding. Transition to ciprofloxacin yesterday, however patient having increasing confusion that reports is started after this medication change therefore transitioned again to Bactrim. Working on disposition planning to longterm facility due to patient's generalized deconditioning with falls Status: Acute Qualifiers: Acute renal failure type: unspecified Qualified Code(s): N17.9 - Acute kidney failure, unspecified Code(s): N17.9 - Acute kidney failure, unspecified (2) Acute hyperkalemia: Resolved Status: Acute Code(s): E87.5 - Hyperkalemia (3) Diabetes mellitus: Discontinue metformin Patient's hemoglobin A1c is 5.0, reported hypoglycemia at home as well as patient experiencing hypoglycemia here. Status: Acute Qualifiers: Diabetes mellitus type: type 2 Code(s): E11.9 - Type 2 diabetes mellitus without complications (4) GERD (gastroesophageal reflux disease): Continue on PPI Status: Acute Qualifiers: Esophagitis presence: with esophagitis Qualified Code(s): K21.0 - Gastro-esophageal reflux disease with esophagitis Code(s): K21.9 - Gastro-esophageal reflux disease without esophagitis Additional A&P Information Gallbladder wall thickening and adjacent edema in the gallbladder fossa: Patient does not have any abdominal pain in the right upper quadrant, no further nausea or vomiting. Recommend outpatient follow-up. Bilateral perinephric stranding right greater than left: Transition to oral antibiotics as above Finding of left adrenal mass with peripheral enhancement: 12/2018. Benign left adrenal adenoma appears to be stable on CT scan performed this admission Anterior mediastinal mass on CT scan of the chest performed 01/05/2019. Thyroid ultrasound performed on the day of admission prior to admission showed enlarged heterogenous thyroid without discrete mass or nodule Depression: Continue bupropion and citalopram Hypertension: Holding home lisinopril due to above, continue on home metoprolol. Started on amlodipine, increase to 5 mg daily Hyperlipidemia: Continue on atorvastatin daily Chronic neuropathy: Continue gabapentin Weight loss: Unspecified amount of time. Generalized deconditioning: Strongly recommend longterm facility placement, patient had a fall last night when trying to put on her prosthesis. Hypoglycemia: In the setting of history of diabetes mellitus, A1c of 5.0 on admission, patient has reported hypoglycemic episodes at home, only on metformin which is now been discontinued. Continue to work for proper disposition planning to longterm facility DVT prophylaxis: Heparin Diet: Carbohydrate consistent CODE STATUS: Full code Attestations Medical Necessity Statement*: Patient requires further hospitalization due to acute kidney injury with concern for pyelonephritis and generalized deconditioning requiring longterm facility placement. Coding Level of Care Code Acute Body Trimmer for [facility] Diagnoses Acute kidney failure N17.9 Acute renal failure type: unspecified Acute hyperkalemia E87.5 Diabetes mellitus E11.9 Diabetes mellitus type: type 2 GERD (gastroesophageal reflux disease) K21.0 Esophagitis presence: with esophagitis
[2019-08-28 17:19] LABS: Glucose Point of Care 124 mg/dL (70-110)
[2019-08-28] MEDS: sulfamethoxazole-trimeth DS 160-800 mg Tablet 1 TAB PO (17:51)
[2019-08-28 20:53] LABS: Glucose Point of Care 195 mg/dL (70-110)
[2019-08-28] MEDS: atorvastatin 40 mg Tablet 20 MG PO (21:00)
[2019-08-29 03:55] VITALS: BP 180/94; PULSE 93; RESP 20; TEMP 36.9; O2SAT 89
[2019-08-29 05:05] LABS: Anion Gap 20.3 (5-19); Blood Urea Nitrogen 35 mg/dL (8-23); Calcium 8.4 mg/dL (8.5-10.5); Carbon Dioxide 21 mmol/L (22-29); Chloride 99 mmol/L (98-107); Glomerular Filtration Rate 14.2 mL/min (90-130); Glucose 181 mg/dL (74-106); Osmolality Calculated 286 mOsm/kg (285-295); Potassium 3.3 mmol/L (3.5-5.1); Sodium 137 mmol/L (136-145)
[2019-08-29] MEDS: heparin 5,000 unit/mL INJ 1 mL 5000 UNIT SUBCUT ×2 (05:36→17:37)
[2019-08-29 06:37] LABS: Glucose Point of Care 148 mg/dL (70-110)
[2019-08-29 07:22] VITALS: BP 165/90; PULSE 84; RESP 22; TEMP 36.9; O2SAT 92
[2019-08-29] MEDS: gabapentin 300 mg Capsule PO ×2 (08:39→17:37)
[2019-08-29] MEDS: sulfamethoxazole-trimeth DS 160-800 mg Tablet 1 TAB PO ×2 (08:39→17:37)
[2019-08-29] MEDS: buPROPion SR (12 HR) 150 mg Tablet PO ×2 (08:39→17:37)
[2019-08-29] MEDS: citalopram 20 mg Tablet PO ×2 (08:39→17:37)
[2019-08-29] MEDS: metoprolol succinate ER (24 HR) 50 mg Tablet PO (08:39)
[2019-08-29] MEDS: pantoprazole DR 40 mg Tablet PO (08:39)
[2019-08-29] MEDS: amlodipine 5 mg Tablet PO (08:40)
[2019-08-29 11:11] LABS: Glucose Point of Care 186 mg/dL (70-110)
[2019-08-29 11:18] VITALS: BP 164/91; PULSE 80; RESP 20; TEMP 36.7; O2SAT 94
--- NOTE | 2019-08-29 13:32 | PC.SOCIAL ---
IMM Updated Updated pt on Pg 2 IMM. No questions voiced. A copy was provided & left on pt's bedside table. Signed, dated, & timed original in chart.
[2019-08-29 15:07] VITALS: BP 148/83; PULSE 77; RESP 20; TEMP 36.7; O2SAT 93
[2019-08-29 16:04] LABS: Glucose Point of Care 143 mg/dL (70-110)
--- NOTE | 2019-08-29 16:40 | PM.PN ---
Subjective Subjective: Interval history: This morning patient is lying in bed, has no complaints, no chest pain, shortness of breath, lightheadedness, dizziness, is eating and drinking appropriately, has no significant complaints, is awaiting half-way placement, would like to consider [place] versus [facility] Vitals/I&O/Wt Last Vital Signs Temp 98.1 F 08/29/19 15:07 Pulse 77 08/29/19 15:07 Resp 20 H 08/29/19 15:07 BP 148/83 08/29/19 15:07 Pulse Ox 93 08/29/19 15:07 08/29/19 08/29/19 08/29/19 06:59 14:59 22:59 Intake Total 350 / 1070 600 / 600 Output Total 1000 / 1000 Balance 350 / -1280 600 / 600 -1000 / -400 Weight last 48 hrs Weight 68.583 kg Weight 68.719 kg Physical Exam Const: COMMON NORMALS: no apparent distress and oriented x3 HENMT: COMMON NORMALS: normocephalic HEAD & SCALP: normocephalic Neck/C-Spine: COMMON NORMALS: no JVD Resp: COMMON NORMALS: normal respiratory effort, no retractions, no use of accessory muscles and clear to auscultation bilaterally AUSCULTATION: clear to auscultation bilaterally Cardio: COMMON NORMALS: no JVD, regular rate, regular rhythm, S1 normal heart sound and S2 normal heart sound RATE: regular rate RHYTHM: regular rhythm HEART SOUNDS: S1 normal and S2 normal GI: COMMON NORMALS: normal to inspection, nondistended, normoactive bowel sounds, soft to palpation, non-tender, no hepatosplenomegaly, no masses and no bruits PALPATION: Yes soft and Yes no hepatosplenomegaly Extremity: COMMON NORMALS: normal capillary refill, no clubbing, cyanosis or edema, no calf tenderness and no pedal edema Neuro: COMMON NORMALS: oriented x3 Urinary Catheter Management^: Kendrick: Cath Placed During This Visit: no Data : 08/24/19 09:24 08/29/19 04:33 A&P Assessment and plan (1) Acute kidney failure: Creatinine improved to 3.3, BUN 35 holding lisinopril and metformin Nephrology has signed off Continue [facility] Working on half-way placement Status: Acute Qualifiers: Acute renal failure type: unspecified Qualified Code(s): N17.9 - Acute kidney failure, unspecified Code(s): N17.9 - Acute kidney failure, unspecified (2) Acute hyperkalemia: Resolved Status: Acute Code(s): E87.5 - Hyperkalemia (3) Diabetes mellitus: Discontinue metformin Patient's hemoglobin A1c is 5.0, reported hypoglycemia at home as well as patient experiencing hypoglycemia here. Status: Acute Qualifiers: Diabetes mellitus type: type 2 Code(s): E11.9 - Type 2 diabetes mellitus without complications (4) GERD (gastroesophageal reflux disease): Continue on PPI Status: Acute Qualifiers: Esophagitis presence: with esophagitis Qualified Code(s): K21.0 - Gastro-esophageal reflux disease with esophagitis Code(s): K21.9 - Gastro-esophageal reflux disease without esophagitis Additional A&P Information Gallbladder wall thickening and adjacent edema in the gallbladder fossa: Patient does not have any abdominal pain in the right upper quadrant, no further nausea or vomiting. Recommend outpatient follow-up. Finding of left adrenal mass with peripheral enhancement: 12/2018. Benign left adrenal adenoma appears to be stable on CT scan performed this admission Anterior mediastinal mass on CT scan of the chest performed 01/05/2019. Thyroid ultrasound performed on the day of admission prior to admission showed enlarged heterogenous thyroid without discrete mass or nodule Depression: Continue bupropion and citalopram Hypertension: Holding home lisinopril due to above, continue on home metoprolol. Started on amlodipine, increase to 5 mg daily Hyperlipidemia: Continue on atorvastatin daily Chronic neuropathy: Continue gabapentin Weight loss: Unspecified amount of time. Generalized deconditioning: Strongly recommend jail facility placement, patient had a fall last night when trying to put on her prosthesis. Hypoglycemia: In the setting of history of diabetes mellitus, A1c of 5.0 on admission, patient has reported hypoglycemic episodes at home, only on metformin which is now been discontinued. Continue to work for proper disposition planning to jail facility DVT prophylaxis: Heparin Diet: Carbohydrate consistent CODE STATUS: Full code Attestations Medical Necessity Statement*: Patient requires continued hospitalization for acute renal failure, deconditioning, hypoglycemia, awaiting half-way placement Coding Level of Care Code Acute Substance Abuse Rn for [facility] Diagnoses Acute kidney failure N17.9 Acute renal failure type: unspecified Acute hyperkalemia E87.5 Diabetes mellitus E11.9 Diabetes mellitus type: type 2 GERD (gastroesophageal reflux disease) K21.0 Esophagitis presence: with esophagitis
[2019-08-29 20:00] VITALS: BP 155/87; PULSE 72; RESP 18; TEMP 36.4; O2SAT 96
[2019-08-29 20:40] LABS: Glucose Point of Care 138 mg/dL (70-110)
[2019-08-29] MEDS: atorvastatin 40 mg Tablet 20 MG PO (20:45)
[2019-08-30] VITALS (7 sets, daily range): BP systolic 123–148; BP diastolic 64–86; PULSE 66–76; RESP 16–20; TEMP 36.5–37.2; O2SAT 93–96
[2019-08-30] MEDS: heparin 5,000 unit/mL INJ 1 mL 5000 UNIT SUBCUT ×2 (05:49→17:42)
[2019-08-30 05:57] LABS: Basophils % 0.3 %; Eosinophils # 0.1 10^3/uL (0.0-0.8); Eosinophils % 1.4 %; Hematocrit 28.1 % (37.0-47.0); Hemoglobin 9.5 g/dL (11.5-15.3); Lymphocytes # 0.6 10^3/uL (0.8-4.8); Lymphocytes % 9.4 %; Mean Corpuscular HGB Conc 33.8 g/dL (30.0-36.0); Mean Corpuscular Hemoglobin 32.4 pg (28.0-34.0); Mean Corpuscular Volume 95.9 fL (81-99); Mean Platelet Volume 10.8 fL (7.4-10.4); Monocytes # 0.5 10^3/uL (0.2-0.9); Monocytes % 7.7 %; Neutrophils # 5.2 10^3/uL (1.8-7.7); Neutrophils % 80.7 %; Nucleated Red Blood Cells % 0 %; Platelet Count 134 10^3/cmm (130-400); Red Blood Count 2.93 10^6/uL (4.1-5.3); Red Cell Distribution Width 13.3 % (12.1-15.1); White Blood Count 6.4 10^3/uL (4.0-10.0)
[2019-08-30 06:17] LABS: Alanine Aminotransferase 9 U/L (0-33); Albumin Level 3.4 g/dL (3.5-5.2); Alkaline Phosphatase 45 IU/L (35-105); Anion Gap 19.2 (5-19); Aspartate Amino Transferase 15 U/L (0-32); Blood Urea Nitrogen 39 mg/dL (8-23); Calcium 8.6 mg/dL (8.5-10.5); Carbon Dioxide 23 mmol/L (22-29); Chloride 98 mmol/L (98-107); Glomerular Filtration Rate 13.7 mL/min (90-130); Glucose 192 mg/dL (74-106); Magnesium 1.3 mg/dL (1.7-2.3); Phosphorus 3.3 mg/dL (2.5-4.5); Potassium 3.2 mmol/L (3.5-5.1); Sodium 137 mmol/L (136-145); Total Bilirubin 0.3 mg/dL (0.15-1.2); Total Protein 6.4 g/dL (6.6-8.7)
[2019-08-30 06:50] LABS: Glucose Point of Care 196 mg/dL (70-110)
[2019-08-30] MEDS: citalopram 20 mg Tablet PO ×2 (08:47→17:44)
[2019-08-30] MEDS: metoprolol succinate ER (24 HR) 50 mg Tablet PO (08:47)
[2019-08-30] MEDS: gabapentin 300 mg Capsule PO ×2 (08:47→17:44)
[2019-08-30] MEDS: buPROPion SR (12 HR) 150 mg Tablet PO ×2 (08:47→17:44)
[2019-08-30] MEDS: pantoprazole DR 40 mg Tablet PO (08:47)
[2019-08-30] MEDS: amlodipine 5 mg Tablet PO (08:48)
[2019-08-30 09:59] LABS: Ferritin 309 ng/mL (15-150); Iron 102 ug/dL (37-145); Percent Saturation 60.7 % (20-50); Total Iron Binding Capacity 168 mcg/dl; Unsaturated Iron Binding 66 ug/dL (112-347)
[2019-08-30 10:15] LABS: Vitamin B12 214 pg/mL (232-1245)
[2019-08-30 10:21] LABS: Folate Level 4.3 ng/mL (4.8-37.3)
[2019-08-30 10:58] LABS: Glucose Point of Care 149 mg/dL (70-110)
[2019-08-30] MEDS: lidocaine 1% INJ 20 mL 5 ML IV (13:11)
[2019-08-30] MEDS: cefTRIAXone 1,000 MG in sodium chloride 0.9% (plus) 50 ML 100 MG IV (13:11)
[2019-08-30] MEDS: potassium chloride premix 40 MEQ/100 ML PREMIX 25 MEQ IV (13:11)
[2019-08-30] MEDS: magnesium sulfate premix 2 GM/50 ML PIGGYBACK IV (13:12)
--- NOTE | 2019-08-30 13:39 | PC.CHAP ---
Pastoral Care Encounter/Spiritual Assessment Type of Contact [] Declined fire suppression captain visit [] Patient/Family/Request visit [] Outpatient visit [] Follow-up visit [] Physician referral [] Code/Alert [x] Routine visit [] Staff referral [] Actively dying [] Patient sleeping [] Family support [] [] Out of room [] Palliative care [] [x] Receiving care in room [] Pre-surgical visit [] Trauma [] Long length of stay [] ICU visit [] Other: Relational/Emotional Strength [] Patient feels connected with others/family/visitors/staff [] Distress [] Loneliness/isolation [] Abandonment Spirituality of Patient [] Person of Kaela [] Attends Alevism of their Kaela [] Believes in Prayer [] Reads Bible or Quaker materials [] There are Spiritual issues to be addressed Boat Rental Clerk Interventions [] Prayer [] Active listening [] Non-anxious presence [] Spiritual/emotional support [] Crisis/trauma care [] Spiritual counseling [] Bereavement support [] Provided bereavement packet [] Provided Bible/devotional materials [] Provided toy/stuffed animal, coloring book to patient or family member [] Provided Communion [] Anointing/[place] [] Salvation [] Completed spiritual assessment [] Other: Impact on Illness or Injury [] Angry [] Fearful [] Anxious [] Often cries [] Exhaustion [] Unable to work [] Unable to attend yarsanism [] Unable to walk/stand [] Unable to read [] Unable to drive [] Unable to eat/drink [] Unable to sleep [] Unable to be with family [] Patient intubated [] Other: Summary pt. was busy with staff, will need follow up visit. Time spent with patient 5 min.
[2019-08-30 16:04] LABS: Glucose Point of Care 163 mg/dL (70-110)
--- NOTE | 2019-08-30 19:09 | P.PN_ITS ---
Subjective Subjective: Interval history: Patient has no complaints this morning, is doing well, awaiting skilled nursing placement Vitals/I&O/Wt Last Vital Signs Temp 98.1 F 08/30/19 15:22 Pulse 74 08/30/19 15:22 Resp 20 H 08/30/19 15:22 BP 123/69 08/30/19 15:22 Pulse Ox 93 08/30/19 15:22 08/30/19 08/30/19 08/30/19 06:59 14:59 22:59 Intake Total 240 / 1560 720 / 720 360 / 1080 Balance 240 / 560 720 / 720 360 / 1080 Weight last 48 hrs Weight 68.81 kg Weight 68.583 kg Physical Exam Const: COMMON NORMALS: no apparent distress and oriented x3 HENMT: COMMON NORMALS: normocephalic HEAD & SCALP: normocephalic Neck/C-Spine: COMMON NORMALS: no JVD Resp: COMMON NORMALS: normal respiratory effort, no retractions, no use of accessory muscles and clear to auscultation bilaterally AUSCULTATION: clear to auscultation bilaterally Cardio: COMMON NORMALS: no JVD, regular rate, regular rhythm, S1 normal heart sound and S2 normal heart sound RATE: regular rate RHYTHM: regular rhythm HEART SOUNDS: S1 normal and S2 normal GI: COMMON NORMALS: normal to inspection, nondistended, normoactive bowel sounds, soft to palpation, non-tender, no hepatosplenomegaly, no masses and no bruits PALPATION: Yes soft and Yes no hepatosplenomegaly Extremity: COMMON NORMALS: normal capillary refill, no clubbing, cyanosis or edema, no calf tenderness and no pedal edema Neuro: COMMON NORMALS: oriented x3 Urinary Catheter Management^: Kendrick: Cath Placed During This Visit: no Data : 08/30/19 05:15 08/30/19 05:15 A&P Assessment and plan (1) Acute kidney failure: Creatinine improved to 3.2, BUN 39 holding lisinopril and metformin Nephrology has signed off Continue Rocephin for E. coli UTI, I stop Bactrim today due to concerns for adverse side effect given nephropathy Working on skilled nursing placement Status: Acute Qualifiers: Acute renal failure type: unspecified Qualified Code(s): N17.9 - Acute kidney failure, unspecified Code(s): N17.9 - Acute kidney failure, unspecified (2) Acute hyperkalemia: Resolved Status: Acute Code(s): E87.5 - Hyperkalemia (3) Diabetes mellitus: Discontinue metformin Patient's hemoglobin A1c is 5.0, reported hypoglycemia at home as well as patient experiencing hypoglycemia here. Status: Acute Qualifiers: Diabetes mellitus type: type 2 Code(s): E11.9 - Type 2 diabetes mellitus without complications (4) GERD (gastroesophageal reflux disease): Continue on PPI Status: Acute Qualifiers: Esophagitis presence: with esophagitis Qualified Code(s): K21.0 - Gastro-esophageal reflux disease with esophagitis Code(s): K21.9 - Gastro-esophageal reflux disease without esophagitis Additional A&P Information Gallbladder wall thickening and adjacent edema in the gallbladder fossa: Patient does not have any abdominal pain in the right upper quadrant, no further nausea or vomiting. Recommend outpatient follow-up. Finding of left adrenal mass with peripheral enhancement: 12/2018. Benign left adrenal adenoma appears to be stable on CT scan performed this admission Anterior mediastinal mass on CT scan of the chest performed 01/05/2019. Thyroid ultrasound performed on the day of admission prior to admission showed enlarged heterogenous thyroid without discrete mass or nodule Depression: Continue bupropion and citalopram Hypertension: Holding home lisinopril due to above, continue on home metoprolol. Started on amlodipine, increase to 5 mg daily Hyperlipidemia: Continue on atorvastatin daily Chronic neuropathy: Continue gabapentin Weight loss: Unspecified amount of time. Generalized deconditioning: Strongly recommend detention facility placement, patient had a fall last night when trying to put on her prosthesis. Hypoglycemia: In the setting of history of diabetes mellitus, A1c of 5.0 on admission, patient has reported hypoglycemic episodes at home, only on metformin which is now been discontinued. Continue to work for proper disposition planning to detention facility DVT prophylaxis: Heparin Diet: Carbohydrate consistent CODE STATUS: Full code Attestations Medical Necessity Statement*: She is awaiting skilled nursing placement, acute kidney injury Coding Level of Care Code Acute Webmethods Consultant for [facility] Diagnoses Acute kidney failure N17.9 Acute renal failure type: unspecified Acute hyperkalemia E87.5 Diabetes mellitus E11.9 Diabetes mellitus type: type 2 GERD (gastroesophageal reflux disease) K21.0 Esophagitis presence: with esophagitis
[2019-08-30 21:03] LABS: Glucose Point of Care 188 mg/dL (70-110)
[2019-08-30] MEDS: atorvastatin 40 mg Tablet 20 MG PO (21:31)
[2019-08-31] VITALS (8 sets, daily range): BP systolic 141–164; BP diastolic 67–91; PULSE 72–79; RESP 16–22; TEMP 36.4–37.1; O2SAT 92–97
[2019-08-31 05:53] LABS: Basophils % 0.5 %; Eosinophils # 0.2 10^3/uL (0.0-0.8); Eosinophils % 2.7 %; Hematocrit 29.9 % (37.0-47.0); Hemoglobin 10.2 g/dL (11.5-15.3); Lymphocytes # 1.1 10^3/uL (0.8-4.8); Lymphocytes % 18.7 %; Mean Corpuscular HGB Conc 34.1 g/dL (30.0-36.0); Mean Corpuscular Hemoglobin 33.8 pg (28.0-34.0); Mean Platelet Volume 10.6 fL (7.4-10.4); Monocytes # 0.6 10^3/uL (0.2-0.9); Monocytes % 10.7 %; Neutrophils % 67.2 %; Nucleated Red Blood Cells % 0 %; Platelet Count 143 10^3/cmm (130-400); Red Blood Count 3.02 10^6/uL (4.1-5.3); Red Cell Distribution Width 13.6 % (12.1-15.1)
[2019-08-31] MEDS: heparin 5,000 unit/mL INJ 1 mL 5000 UNIT SUBCUT (06:06)
[2019-08-31 06:23] LABS: Alanine Aminotransferase 10 U/L (0-33); Albumin Level 3.6 g/dL (3.5-5.2); Alkaline Phosphatase 48 IU/L (35-105); Anion Gap 16.3 (5-19); Aspartate Amino Transferase 15 U/L (0-32); Blood Urea Nitrogen 37 mg/dL (8-23); Calcium 8.9 mg/dL (8.5-10.5); Carbon Dioxide 23 mmol/L (22-29); Chloride 98 mmol/L (98-107); Globulin 3.2 g/dL (1.3-4.6); Glomerular Filtration Rate 13.7 mL/min (90-130); Glucose 139 mg/dL (74-106); Phosphorus 3.7 mg/dL (2.5-4.5); Potassium 3.3 mmol/L (3.5-5.1); Sodium 134 mmol/L (136-145); Total Bilirubin 0.3 mg/dL (0.15-1.2); Total Protein 6.8 g/dL (6.6-8.7)
[2019-08-31 06:40] LABS: Glucose Point of Care 199 mg/dL (70-110)
--- NOTE | 2019-08-31 08:03 | PM.PN ---
Subjective Subjective: Interval history: Labs noted. Waiting on SNF placement. Patient seen and examined, resting comfortably in bed, no complaints currently. Earlier this afternoon informed by case management that patient has been accepted at [facility]. Will be discharged there this afternoon. Medications: Reviewed: Yes Medication Review Details: Current Medications Generic Name Dose Route Start Last Admin Trade Name Kalebq PRN Reason Stop Dose Admin Amlodipine Besylat e 5 mg 08/29/19 09:00 08/30/19 08:48 Norvasc PO 5 mg DAILY OANH Administration Atorvastatin Calci um 20 mg 08/25/19 21:00 08/30/19 21:31 Lipitor PO 20 mg BEDTIME OANH Administration Bupropion HCl 150 mg 08/24/19 18:00 08/30/19 17:44 Wellbutrin Sr (1 2 Hr) PO 150 mg BID OANH Administration Citalopram Hydrobr omide 20 mg 08/24/19 18:00 08/30/19 17:44 Celexa PO 20 mg BID OANH Administration Gabapentin 300 mg 08/24/19 18:00 08/30/19 17:44 Neurontin PO 300 mg BID OANH Administration Heparin Sodium (Be ef Lung) 5,000 unit 08/24/19 16:18 08/31/19 06:06 Heparin SUBCUT 5,000 unit Q12H OANH Administration Ceftriaxone Sodium 1,000 mg/ 50 mls @ 100 mls/ hr 08/30/19 09:45 08/30/19 13:11 Sodium Chloride IV 100 mls/hr Q24H OANH Administration Protocol Insulin Aspart 0 unit 08/24/19 16:18 08/30/19 17:43 Novolog SUBCUT 2 unit TIDWM OANH Administration Protocol Metoprolol Succina te 50 mg 08/25/19 09:00 08/30/19 08:47 Toprol Xl PO 50 mg DAILY OANH Administration Non-Formulary Medi cation 400 mg 08/24/19 16:18 08/24/19 20:54 Pentoxifylline PO Not Given TID OANH Pantoprazole Sodiu m 40 mg 08/26/19 09:00 08/30/19 08:47 Protonix PO 40 mg DAILY OANH Administration Vitals/I&O/Wt Last Vital Signs Temp 98.3 F 08/31/19 07:20 Pulse 72 08/31/19 07:20 Resp 16 08/31/19 07:20 BP 158/80 08/31/19 07:20 Pulse Ox 95 08/31/19 07:20 08/30/19 08/31/19 08/31/19 22:59 06:59 14:59 Intake Total 840 / 1560 360 / 360 Output Total 780 / 780 350 / 350 Balance 840 / 1560 -780 / 780 Weight last 48 hrs Weight 61.689 kg Weight 68.81 kg Physical Exam Const: COMMON NORMALS: no apparent distress and oriented x3 GENERAL APPEARANCE: cooperative and comfortable ORIENTATION/CONSCIOUSNESS: Yes awake HENMT: COMMON NORMALS: normocephalic, head/scalp atraumatic, hearing grossly normal bilaterally and moist oral mucous membranes HEAD & SCALP: normocephalic and atraumatic Eye: COMMON NORMALS: PERRL, EOMs intact bilaterally and conjunctivae normal CONJUNCTIVA: Yes conjunctivae normal PUPIL: Yes PERRL Neck/C-Spine: COMMON NORMALS: full ROM GENERAL: Yes normal visual inspection and Yes trachea midline Resp: COMMON NORMALS: normal respiratory effort, no retractions, no use of accessory muscles and clear to auscultation bilaterally EFFORT & INSPECTION: Yes able to speak in complete sentences, Yes symmetric chest movement and No tachypneic AUSCULTATION: clear to auscultation bilaterally Cardio: COMMON NORMALS: regular rate, regular rhythm, S1 normal heart sound, S2 normal heart sound and no murmurs RATE: regular rate RHYTHM: regular rhythm HEART SOUNDS: S1 normal and S2 normal GI: COMMON NORMALS: normal to inspection, nondistended, normoactive bowel sounds, soft to palpation and non-tender PALPATION: Yes soft Extremity: COMMON NORMALS: normal to inspection, full ROM and no clubbing, cyanosis or edema; negative for no pedal edema NARRATIVE EXTREMITY EXAM: has prosthetic in place on LLE s/p BKA Neuro: COMMON NORMALS: oriented x3, moves all extremities, no focal motor deficits and no sensory deficits noted Psych: COMMON NORMALS: mental status grossly normal, thought process normal, cooperative, affect normal and speech normal SPEECH: Yes normal speech THOUGHT PROCESS: normal thought process Skin: COMMON NORMALS: no rashes or lesions noted, no jaundice, no petechiae and no mottling GENERAL SKIN EXAM: no rashes or lesions noted OTHER: scattered bruising and skin tears on bilateral upper extremities Urinary Catheter Management^: Kendrick: Cath Placed During This Visit: no Data : 08/31/19 05:12 08/31/19 05:12 A&P Assessment and plan (1) Acute kidney failure: -renal function seems to be improving; was as high as 5.9, down to 3.4 -continue to hold nephrotoxins including ACEi, metformin -continue to monitor renal function -noted findings on renal US and CT A/P Status: Acute Qualifiers: Acute renal failure type: unspecified Qualified Code(s): N17.9 - Acute kidney failure, unspecified Code(s): N17.9 - Acute kidney failure, unspecified (2) Acute hyperkalemia: -K has normalized and is now on low normal side -replace K as needed Status: Acute Code(s): E87.5 - Hyperkalemia (3) Diabetes mellitus: -A1c-5.0 -had reported episodes of hypoglycemia at home, has been more hyperglycemic here -holding metformin due to renal impairment -continue Accuchecks, hypoglycemia precautions -diabetic diet as tolerated Status: Acute Qualifiers: Diabetes mellitus complication status: without complication Diabetes mellitus terminal press operator insulin use: without longterm use Diabetes mellitus type: type 2 Qualified Code(s): E11.9 - Type 2 diabetes mellitus without complications Code(s): E11.9 - Type 2 diabetes mellitus without complications (4) GERD (gastroesophageal reflux disease): -continue PPI Status: Acute Qualifiers: Esophagitis presence: with esophagitis Qualified Code(s): K21.0 - Gastro-esophageal reflux disease with esophagitis Code(s): K21.9 - Gastro-esophageal reflux disease without esophagitis Additional A&P Information -noted gallbladder wall thickening and edema surrounding gallbladder fossa that will require f/u particularly if symptomatic -s/p LLE BKA; fall precautions. -Generalized weakness, deconditioning: appreciate PT evaluations -UTI with concern for R > L pyelonephritis based on CT A/P findings; urine cx: E.coli. On ceftriaxone. Afebrile, no leukocytosis -HTN: BP controlled, holding ACEi due to renal impairment -Hyperlipidemia; continue statin -noted L adrenal mass, benign -Depression; continue antidepressants -known anterior mediastinal mass; continue outpatient f/u -Chronic peripheral neuropathy; continue Gabapentin -DVT ppx with heparin -GI ppx with PPI -Dispo: pending acceptance at [facility] -Code status: FULL code Attestations Medical Necessity Statement*: Potential discharge if disposition finalized. Time Spent in Patient Care: Greater than 35 minutes (>than 50% of time spent in counselling and/or direct pt care on unit). Coding Level of Care Code Acute Director Asset for Chg Fwd Exam Problem Focused Diagnoses Acute kidney failure N17.9 Acute renal failure type: unspecified Acute hyperkalemia E87.5 Diabetes mellitus E11.9 Diabetes mellitus complication status: without complication Diabetes mellitus longterm insulin use: without terminal press operator use Diabetes mellitus type: type 2 GERD (gastroesophageal reflux disease) K21.0 Esophagitis presence: with esophagitis
[2019-08-31] MEDS: pantoprazole DR 40 mg Tablet PO (09:08)
[2019-08-31] MEDS: metoprolol succinate ER (24 HR) 50 mg Tablet PO (09:08)
[2019-08-31] MEDS: amlodipine 5 mg Tablet PO (09:08)
[2019-08-31] MEDS: buPROPion SR (12 HR) 150 mg Tablet PO ×2 (09:08→17:21)
[2019-08-31] MEDS: cefTRIAXone 1,000 MG in sodium chloride 0.9% (plus) 50 ML 100 MG IV (09:08)
[2019-08-31] MEDS: citalopram 20 mg Tablet PO ×2 (09:08→17:21)
[2019-08-31] MEDS: gabapentin 300 mg Capsule PO ×2 (09:08→17:21)
--- NOTE | 2019-08-31 10:22 | PC.SOCIAL ---
IMM update Pg 2 of IMM was updated and copy provided. She verbalized understanding and had no questions. Initialed, dated, and timed copy in chart.
[2019-08-31 12:09] LABS: Glucose Point of Care 110 mg/dL (70-110)
--- NOTE | 2019-08-31 13:17 | PC.CHAP ---
Pastoral Care Encounter/Spiritual Assessment Type of Contact [] Declined refinery operator crude unit visit [] Patient/Family/Request visit [] Outpatient visit [x] Follow-up visit [] Physician referral [] Code/Alert [x] Routine visit [] Staff referral [] Actively dying [] Patient sleeping [] Family support [] [] Out of room [] Palliative care [] [] Receiving care in room [] Pre-surgical visit [] Trauma [x] Long length of stay [] ICU visit [] Other: Relational/Emotional Strength [x] Patient feels connected with others/family/visitors/staff [] Distress [] Loneliness/isolation [] Abandonment Spirituality of Patient [x] Person of Kaela [] Attends Voodoo of their Kaela [x] Believes in Prayer [] Reads Bible or Evangelical materials [] There are Spiritual issues to be addressed Mechanical Repair Worker Interventions [x] Prayer [x] Active listening [x] Non-anxious presence [x] Spiritual/emotional support [] Crisis/trauma care [] Spiritual counseling [] Bereavement support [] Provided bereavement packet [] Provided Bible/devotional materials [] Provided toy/stuffed animal, coloring book to patient or family member [] Provided Communion [] Anointing/[place] [] Salvation [x] Completed spiritual assessment [] Other: Impact on Illness or Injury [] Angry [] Fearful [] Anxious [] Often cries [] Exhaustion [] Unable to work [] Unable to attend yarsanism [] Unable to walk/stand [] Unable to read [] Unable to drive [] Unable to eat/drink [] Unable to sleep [] Unable to be with family [] Patient intubated [] Other: Summary Patient stated she would like prayer. We prayed and she seemed to be in a good mood. Patient visited by Mechanical Repair Worker Joe Hidalgo. Time spent with patient 6 minutes
--- NOTE | 2019-08-31 15:10 | P.DS_ITS ---
Discharge Providers Date of Admission: 08/24/19 11:46 Date of Discharge: Date of Discharge: August 31, 2019 Attending Provider at Admission: Rain Floyd DO Attending Provider at Discharge: Shreya Powers MD Primary Care Provider: GI Johnston Diagnoses at Discharge Discharge Diagnosis (1) Acute kidney failure: Status: Acute Problem details: -renal function seems to be improving; was as high as 5.9, down to 3.4 -continue to hold nephrotoxins including ACEi, metformin -continue to monitor renal function -noted findings on renal US and CT A/P Qualifiers: Acute renal failure type: unspecified Qualified Code(s): N17.9 - Acute kidney failure, unspecified (2) Acute hyperkalemia: Status: Acute Problem details: -K has normalized and is now on low normal side -replace K as needed (3) Diabetes mellitus: Status: Acute Problem details: -A1c-5.0 -had reported episodes of hypoglycemia at home, has been more hyperglycemic here -holding metformin due to renal impairment -continue Accuchecks, hypoglycemia precautions -diabetic diet as tolerated Qualifiers: Diabetes mellitus type: type 2 Diabetes mellitus nursing home insulin use: without nursing home use Diabetes mellitus complication status: without complication Qualified Code(s): E11.9 - Type 2 diabetes mellitus without complications (4) GERD (gastroesophageal reflux disease): Status: Acute Problem details: -continue PPI Qualifiers: Esophagitis presence: with esophagitis Qualified Code(s): K21.0 - Gastro-esophageal reflux disease with esophagitis Other Information Additional DC diagnoses/information: -noted gallbladder wall thickening and edema surrounding gallbladder fossa that will require f/u particularly if symptomatic -s/p LLE BKA; fall precautions. -Generalized weakness, deconditioning: appreciate PT evaluations -UTI with concern for R > L pyelonephritis based on CT A/P findings; urine cx: E.coli. On ceftriaxone. Afebrile, no leukocytosis. Discharge on Cefuroxime based on sensitivity profile -HTN: BP controlled, holding ACEi due to renal impairment -Hyperlipidemia; continue statin -noted L adrenal mass, benign -Depression; continue antidepressants -known anterior mediastinal mass; continue outpatient f/u -Chronic peripheral neuropathy; continue Gabapentin Reason for Visit Reason for Visit: Reason For Visit: Can not eat Hospital Course Hospital Course: Patient was initially admitted to the medical surgical floor for further management of complaints of generalized weakness, fatigue and increased confusion as well as decreased oral intake. She was found to have significantly impaired renal function, hyperkalemia and had reported episodes of hypoglycemia. She had extensive imaging done including renal ultrasound, CT of the abdomen and pelvis and was found to have findings concerning for right greater than left pyelonephritis as well as gallbladder wall thickening and a left adrenal mass. The latter 2 findings will require outpatient follow-up and repeat imaging. Over time and with continued treatment primarily IV fluid hydration and holding nephrotoxic medications her renal function has gradually improved though has not returned to her normal. Nephrology was involved in her care. Her mental status has since improved and returned to her baseline. Due to overall deconditioning she was evaluated by physical therapy and recommendation made for SNF placement which patient was agreeable to. Her oral intake has gradually improved as well. She has been hemodynamically stable, had appropriate urine output. Discharge Summary: Patient will need to follow-up with her primary care physician per SNF or within 1 week. She will require follow-up for gallbladder findings as well as noted left adrenal adenoma. Physical Exam Const: COMMON NORMALS: no apparent distress and oriented x3 GENERAL APPEARANCE: cooperative and comfortable ORIENTATION/CONSCIOUSNESS: Yes awake HENMT: COMMON NORMALS: normocephalic, head/scalp atraumatic, hearing grossly normal bilaterally and moist oral mucous membranes HEAD & SCALP: normocephalic and atraumatic Eye: COMMON NORMALS: PERRL, EOMs intact bilaterally and conjunctivae normal CONJUNCTIVA: Yes conjunctivae normal PUPIL: Yes PERRL Neck/C-Spine: COMMON NORMALS: full ROM GENERAL: Yes normal visual inspection and Yes trachea midline Resp: COMMON NORMALS: normal respiratory effort, no retractions, no use of accessory muscles and clear to auscultation bilaterally EFFORT & INSPECTION: Yes able to speak in complete sentences, Yes symmetric chest movement and No tachypneic AUSCULTATION: clear to auscultation bilaterally Cardio: COMMON NORMALS: regular rate, regular rhythm, S1 normal heart sound, S2 normal heart sound and no murmurs RATE: regular rate RHYTHM: regular rhythm HEART SOUNDS: S1 normal and S2 normal GI: COMMON NORMALS: normal to inspection, nondistended, normoactive bowel sounds, soft to palpation and non-tender PALPATION: Yes soft Extremity: COMMON NORMALS: normal to inspection, full ROM and no clubbing, cyanosis or edema; negative for no pedal edema NARRATIVE EXTREMITY EXAM: -s/p LLE BKA; has prosthetic in place Neuro: COMMON NORMALS: oriented x3, moves all extremities, no focal motor deficits and no sensory deficits noted Psych: COMMON NORMALS: mental status grossly normal, thought process normal, cooperative, affect normal and speech normal SPEECH: Yes normal speech THOUGHT PROCESS: normal thought process Skin: COMMON NORMALS: no rashes or lesions noted, no jaundice, no petechiae and no mottling GENERAL SKIN EXAM: no rashes or lesions noted Urinary Catheter Management^: Kendrick: Cath Placed During This Visit: no Discharge Data Data Completed and Pending: Completed Studies During Hospitalization Category Date Time Status CT abdomen pelvis wo con 90222 Rout ine Cat Scan 08/25/19 09:[address] head wo con* 7 0450 Stat Cat Scan 08/26/19 19:[address] head wo con* 7 0450 Urgent Cat Scan 08/24/19 09:30 Completed US renal BI with bladder Urgent Ultrasound 08/24/19 10:41 Completed Pending at discharge Category Date Time Status CBC [Complete Blo od Count w/Auto] A M LABS Lab 09/01/19 04:00 Ordered Comprehensive Met abolic Panel AM LA BS Lab 09/01/19 04:00 Ordered Immunochemical Fe comfort OCB Stat Lab 08/30/19 08:47 Ordered Magnesium AM LABS Lab 09/01/19 04:00 Ordered Phosphorus AM LAB S Lab 09/01/19 04:00 Ordered Labs from last 24 hours 08/31/19 08/31/19 08/31/19 11:01 06:30 05:12 WBC RBC Hgb Hct MCV MCH MCHC RDW Plt Count MPV Neut % (Auto) Lymph % (Auto) Avery % (Auto) Eos % (Auto) Baso % (Auto) Neut # (Auto) Lymph # (Auto) Avery # (Auto) Eos # (Auto) Baso # (Auto) Nucleated RBC % (a uto) Nucleated RBCs # Sodium 134 L Potassium 3.3 L Chloride 98 Carbon Dioxide 23 Anion Gap 16.3 BUN 37 H Creatinine 3.4 H GFR Calculation 13.7 L Glucose 139 H POC Glucose 110 199 Calcium 8.9 Phosphorus 3.7 Magnesium 2.0 Total Bilirubin 0.3 AST 15 ALT 10 Alkaline Phosphata se 48 Total Protein 6.8 Albumin 3.6 Globulin 3.2 08/31/19 08/30/19 08/30/19 05:12 20:36 15:58 WBC 6.0 RBC 3.02 L Hgb 10.2 L Hct 29.9 L MCV 99.0 MCH 33.8 MCHC 34.1 RDW 13.6 Plt Count 143 MPV 10.6 H Neut % (Auto) 67.2 Lymph % (Auto) 18.7 Avery % (Auto) 10.7 Eos % (Auto) 2.7 Baso % (Auto) 0.5 Neut # (Auto) 4.0 Lymph # (Auto) 1.1 Avery # (Auto) 0.6 Eos # (Auto) 0.2 Baso # (Auto) 0.0 Nucleated RBC % (a uto) 0 Nucleated RBCs # 0.0 Sodium Potassium Chloride Carbon Dioxide Anion Gap BUN Creatinine GFR Calculation Glucose POC Glucose 188 163 Calcium Phosphorus Magnesium Total Bilirubin AST ALT Alkaline Phosphata se Total Protein Albumin Globulin Vitals: Last Vital Signs Temp 97.8 F 08/31/19 11:04 Pulse 77 08/31/19 11:04 Resp 16 08/31/19 11:04 BP 154/91 08/31/19 11:04 Pulse Ox 92 08/31/19 11:04 Discharge Plan Discharge Patient Disposition: Xfer SNF Condition: Stable Prescriptions: New atorvastatin 40 mg Tablet 20 mg PO BEDTIME 30 Days Qty: 30 RF: 0 bupropion HCl 150 mg Tablet Sustained-Release 12 Hr 150 mg PO BID 30 Days Qty: 60 RF: 0 amlodipine 5 mg Tablet 5 mg PO DAILY 30 Days Qty: 30 RF: 0 citalopram 20 mg Tablet 20 mg PO BID 30 Days Qty: 60 RF: 0 pantoprazole 40 mg Tablet,Delayed Release (Dr/Ec) 40 mg PO DAILY 30 Days Qty: 30 RF: 0 gabapentin 300 mg Capsule 300 mg PO BID 30 Days Qty: 60 RF: 0 Pentoxifylline 400 mg PO TID 30 Days Qty: 90 RF: 0 metoprolol succinate 50 mg Tablet Extended Release 24 Hr 50 mg PO DAILY 30 Days Qty: 30 RF: 0 cefuroxime axetil 250 mg tablet 250 mg PO BID 10 Days Qty: 20 RF: 0 Continued diabetic shoe as directed RF: 0 (DME) blood sugar diagnostic Strip See Rx Instructions .ROUTE .MEDSUPPLY Qty: 10 RF: 0 (DME) blood-glucose meter Misc See Rx Instructions .ROUTE .MEDSUPPLY Qty: 1 RF: 0 Discontinued bipap as directed RF: 0 bupropion HCl 150 mg tablet sustained-release 12 hr 150 mg PO BID RF: 0 citalopram 20 mg tablet 20 mg PO BID RF: 0 estradiol 0.5 mg tablet 0.5 mg PO DAILY RF: 0 gabapentin 300 mg capsule 300 mg PO BID RF: 0 atorvastatin [Lipitor] 10 mg tablet 10 mg PO DAILY RF: 0 lisinopril 40 mg tablet 40 mg PO DAILY RF: 0 metformin 1,000 mg tablet extended release 24hr 1,000 mg PO BID RF: 0 metoprolol succinate 50 mg tablet extended release 24 hr 50 mg PO DAILY RF: 0 pentoxifylline 400 mg tablet extended release 400 mg PO TID RF: 0 trazodone 100 mg tablet 200 mg PO BEDTIME PRN (Reason: Sleep) RF: 0 pantoprazole [Protonix] 20 mg tablet,delayed release (DR/EC) 20 mg PO BID 30 Days Qty: 60 RF: 0 Discharge Orders: Discharge Order (Routine); Ordered 08/31/19 Ordered By: Shreya Powers Referrals: Kareem Armando, ELECTRONIC PREPRESS OPERATOR-C [Primary Care Provider] - Discharge Diet: Diabetic Discharge Activity: Resume usual activity Discharge Attestations Time Spent in Discharge Care*: greater than 30 min Specific Discharge Activities: Specific discharge activities: educating and/or supporting family/caregiver and discussing with sample case porter/social workers/dc planners Status at Discharge: Cognitive status at discharge: cognitively intact , Behavioral status at discharge: cooperative , Functional status at discharge: other (has prosthetic on LLE s/p BKA) Overall status at discharge: patient is back to baseline Quality Metrics Clinical Quality Measures During this hospital stay, did patient experience: None Coding Level of Care Code Acute Surgical Garment Fitter for [place] Fwd Diagnoses Acute kidney failure N17.9 Acute renal failure type: unspecified Acute hyperkalemia E87.5 Diabetes mellitus E11.9 Diabetes mellitus type: type 2 Diabetes mellitus nursing home insulin use: without nursing home use Diabetes mellitus complication status: without complication GERD (gastroesophageal reflux disease) K21.0 Esophagitis presence: with esophagitis
[2019-08-31 16:38] LABS: Glucose Point of Care 172 mg/dL (70-110)
--- NOTE | 2019-08-31 19:00 | PC.NURSE ---
Introduction of staff and report received, aidet.
--- NOTE | 2019-08-31 20:14 | PC.NURSE ---
Pt given discharge packet. Waiting for transport to [facility].
[2019-08-31] MEDS: atorvastatin 40 mg Tablet 20 MG PO (20:40)
--- NOTE | 2019-08-31 21:00 | PC.NURSE ---
Transport here to take pt to [facility]. Escorted via wheel chair to waiting van
[2019-09-02 10:12] LABS: Glucose Point of Care 107 mg/dL (70-110)
== END 2019-08-31 21:00 | disposition skilled nursing facility (03) | DRG 683 ==
LOC: ER 11:30 → MEDSURG 15:22
PROVIDERS: Family Medicine; Internal Medicine Nephrology; Physician Assistant; Admitting Provider Family Medicine; Emergency Provider Family Medicine; Family Provider Nurse Practitioner; PCP Nurse Practitioner; Visit Provider Family Medicine
DX: N17.9 Acute kidney failure, unspecified (principal); E87.2 Acidosis; E87.5 Hyperkalemia; F32.9 Major depressive disorder, single episode, unspecified; K21.9 Gastro-esophageal reflux disease without esophagitis; E11.40 Type 2 diabetes mellitus with diabetic neuropathy, unspecified; E86.0 Dehydration; N12 Tubulo-interstitial nephritis, not specified as acute or chronic; I10 Essential (primary) hypertension; Z86.73 Personal history of transient ischemic attack (TIA), and cerebral infarction without residual deficits; Z87.891 Personal history of nicotine dependence; Z89.512 Acquired absence of left leg below knee; Z90.710 Acquired absence of both cervix and uterus; Z89.421 Acquired absence of other right toe(s)
CPT/HCPCS: 12345; 36415; 36416; 36600; 51702; 70450; 74176; 76770; 76857; 80048; 80051; 80053; 81001; 82009; 82436; 82550; 82570; 82607; 82728; 82746; 82810; 82962; 83036; 83540; 83550; 83690; 83735; 83986; 84100; 84133; 84300; 84443; 84484; 85025; 85045; 87077; 87086; 87186; 93005; 94640; 94660; 94664; 96365; 96366; 96372; 96374; 97110; 97116; 97163; 97530; 99283; J0610; J0696; J1630; J1644; J1815; J2001; J2405; J3475; J3480; J7030; J7611; J7799; Q3014

== ENCOUNTER → 2019-09-29 10:11 | Outpatient (BNVA) | payer MEDICARE, MEDICAID, SELFPAY | PROVIDERS: Family Provider Nurse Practitioner; PCP Nurse Practitioner; Visit Provider Nurse Practitioner Family | DX: N17.9 Acute kidney failure, unspecified (principal); I10 Essential (primary) hypertension; E78.5 Hyperlipidemia, unspecified; S88.112A Complete traumatic amputation at level between knee and ankle, left lower leg, initial encounter; R63.4 Abnormal weight loss; F32.9 Major depressive disorder, single episode, unspecified; R93.2 Abnormal findings on diagnostic imaging of liver and biliary tract; K21.9 Gastro-esophageal reflux disease without esophagitis; E87.5 Hyperkalemia; K21.0 Gastro-esophageal reflux disease with esophagitis; R63.0 Anorexia; E27.8 Other specified disorders of adrenal gland; E78.2 Mixed hyperlipidemia; X58.XXXA Exposure to other specified factors, initial encounter | CPT/HCPCS: 80053; 80061; 84443; 85025 ==

== ENCOUNTER → 2019-10-12 10:47 | Outpatient (BNVA) | payer MEDICARE, MEDICAID, SELFPAY | PROVIDERS: Family Provider Nurse Practitioner; PCP Nurse Practitioner; Visit Provider Nurse Practitioner | DX: L03.90 Cellulitis, unspecified (principal) | CPT/HCPCS: 73620 ==

== ENCOUNTER 2019-10-12 13:12 | Inpatient (IN) | payer MEDICARE, MEDICAID, SELFPAY ==
[2019-10-12 13:12] VITALS: BP 144/62; PULSE 58; RESP 18; TEMP 36.5; O2SAT 100
[2019-10-12 13:13] VITALS: BMI 22.5
--- NOTE | 2019-10-12 13:28 | ED_ITS ---
HPI - Extremity Problem General: Chief complaint: Extremity Problem,Nontraumatic Stated complaint: RIGHT FOOT INFECTION Time Seen by Provider: 10/12/19 13:15 Source: patient Mode of arrival: ambulatory Limitations: no limitations History of Present Illness: HPI Narrative: Patient is a 63-year-old female who presents to ED today at the request of her primary care provider for evaluation of a right great toe infection. According to patient she began noticing her right great toe turning red about 3 to 4 days ago. Patient is a chronic noncontrolled diabetic. She has previous amputations to her right second and third toes and a left BKA due to infection. Patient denies fevers. MD Complaint: other (R great toe infection) Onset (ago): day(s) Location: right and toe Relieving factors: nothing Exacerbating factors: nothing Associated symptoms: Reports no associated symptoms; Deny fever(s) Review of Systems Const: Denies: fever, chills, body aches, change in appetite, change in weight or fatigue Musc: Reports: extremity swelling (R great toe), redness and joint warmth Skin/Breast: Reports: other (ulcer/drainage to R great toe) [facility] PFSH: Medical History (Updated 10/12/19 @ 15:33 by IRMA Daugherty) ASVD (arteriosclerotic vascular disease) Depression Diabetes mellitus -A1c-5.0 -had reported episodes of hypoglycemia at home, has been more hyperglycemic here -holding metformin due to renal impairment -continue Accuchecks, hypoglycemia precautions -diabetic diet as tolerated Enrolled in chronic care management GERD (gastroesophageal reflux disease) -continue PPI History of colon polyps History of TIA (transient ischemic attack) Hyperlipemia Hypertension CHET on CPAP Smoker Vitamin D deficiency Surgical History (Updated 10/12/19 @ 10:41 by GI Johnston) History of below knee amputation Left History of hysterectomy with BLSO Hx of colonoscopy 02/17/2019 Status post amputation of toe of right foot Amputation of the R 2nd & 3rd toe through metatarsophalangeal joint, Dr. Pacheco on 11/02/2015 Social History Smoking and tobacco status: former smoker Second hand smoke exposure: No Smoking risk assessment/counseling performed?: No Alcohol intake: never Desire information about alcohol rehabilitation?: No Counseling given: No Desire information about substance/drug rehabilitation?: No Counseling given: No Adopted: No Caregiver/support person: No Lives independently: Yes Household members: family Housing: House Marital status: Single Number of children: 0 service: No Current occupational status: disabled History of recent travel: No Current gender identity: Female Physical Exam Const: COMMON NORMALS: no apparent distress, average body habitus, oriented x3, no limitations, healthy appearing, alert and well nourished Resp: COMMON NORMALS: normal respiratory effort and clear to auscultation bilaterally AUSCULTATION: clear to auscultation bilaterally Cardio: COMMON NORMALS: regular rate and regular rhythm RATE: regular rate RHYTHM: regular rhythm Extremity: OTHER: L BKA; R 2-3 toe amputations; R great toe is very erythematous and warm; she has a stage II-III ulcer to dorsum of toe that oozes purulent drainage with expression; erythema extends proximally about an inch or so; no streaking up her leg Neuro: COMMON NORMALS: oriented x3 SENSORIUM/ORIENTATION: Yes alert Skin: OTHER: see extremity assessment Course Consultations: Consultation #1: Dr. Lorenz-stated he would not be available to take this case and recommends general surgery or orthopedics Consultation #2: Contact L[employer]ocker spoke to Dr. Muro who does not perform diabetic toe amputations Consultation #3: Dr. Castaneda-recommends admit to hospitalist and he will consult on for surgery. Vital Signs: Vital signs: Vital Signs Temperature 97.7 F 10/12/19 13:12 Pulse Rate 58 L 10/12/19 13:12 Respiratory Rate 18 10/12/19 13:12 Blood Pressure 144/62 10/12/19 13:12 Pulse Oximetry 100 10/12/19 13:12 MDM - Extremity (Nontraumatic) MDM Narrative: Medical decision making narrative: Dr. Ponce will speak to h ospitalist Dr. Powers for admission for IV abx with Dr. Castaneda to consult for surgery. Lab Data: Labs: Lab Results 10/12/19 10/12/19 10/12/19 Range/Units 13:30 13:30 13:30 WBC 9.1 (4.0-10.0) 10^3/ uL RBC 2.99 L (4.1-5.3) 10^6/u L Hgb 9.8 L (11.5-15.3) g/dL Hct 30.4 L (37.0-47.0) % MCV 101.7 H (81-99) fL MCH 32.8 (28.0-34.0) pg MCHC 32.2 (30.0-36.0) g/dL RDW 11.8 L (12.1-15.1) % Plt Count 222 (130-400) 10^3/c mm MPV 10.3 (7.4-10.4) fL Neut % (Auto) 76.9 % Lymph % (Auto) 12.7 % Nolan % (Auto) 8.9 % Eos % (Auto) 0.9 % Baso % (Auto) 0.3 % Neut # (Auto) 7.0 (1.8-7.7) 10^3/u L Lymph # (Auto) 1.2 (0.8-4.8) 10^3/u L Nolan # (Auto) 0.8 (0.2-0.9) 10^3/u L Eos # (Auto) 0.1 (0.0-0.8) 10^3/u L Baso # (Auto) 0.0 (0.0-0.1) 10^3/u L Nucleated RBC % (a uto) 0 % Nucleated RBCs # 0.0 /100WBC Sodium 138 (136-145) mmol/L Potassium 5.6 H (3.5-5.1) mmol/L Chloride 100 (98-107) mmol/L Carbon Dioxide 27 (22-29) mmol/L Anion Gap 16.6 (5-19) BUN 23 (8-23) mg/dL Creatinine 1.8 H (0.5-0.9) mg/dL GFR Calculation 28.5 L (90-130) mL/min Glucose 96 (65-115) mg/dL Calculated Osmolal ity 283 L (285-295) mOsm/k g Lactate 1.7 (0.5-2.2) mmol/L Calcium 9.9 (8.5-10.5) mg/dL Total Bilirubin 0.6 (0.15-1.2) mg/dL AST 11 (0-32) U/L ALT 6 (0-33) U/L Alkaline Phosphata se 75 (35-105) IU/L C-Reactive Protein 125.7 H (0.0-4.9) mg/L Total Protein 7.9 (6.6-8.7) g/dL Albumin 3.7 (3.5-5.2) g/dL Globulin 4.2 (1.3-4.6) g/dL Urine Color (Yellow) Urine Appearance (CLEAR) Urine pH (5-7) Ur Specific Gravit y (1.005-1.030) Urine Protein (Negative) Urine Glucose (UA) (Normal) Urine Ketones (Negative) Urine Blood (Negative) Urine Nitrate (Negative) Urine Bilirubin (NEGATIVE) Urine Urobilinogen (Negative) mg/dL Ur Leukocyte Radha ase (Negative) 10/12/19 Range/Units 15:41 WBC (4.0-10.0) 10^3/ uL RBC (4.1-5.3) 10^6/u L Hgb (11.5-15.3) g/dL Hct (37.0-47.0) % MCV (81-99) fL MCH (28.0-34.0) pg MCHC (30.0-36.0) g/dL RDW (12.1-15.1) % Plt Count (130-400) 10^3/c mm MPV (7.4-10.4) fL Neut % (Auto) % Lymph % (Auto) % Nolan % (Auto) % Eos % (Auto) % Baso % (Auto) % Neut # (Auto) (1.8-7.7) 10^3/u L Lymph # (Auto) (0.8-4.8) 10^3/u L Nolan # (Auto) (0.2-0.9) 10^3/u L Eos # (Auto) (0.0-0.8) 10^3/u L Baso # (Auto) (0.0-0.1) 10^3/u L Nucleated RBC % (a uto) % Nucleated RBCs # /100WBC Sodium (136-145) mmol/L Potassium (3.5-5.1) mmol/L Chloride (98-107) mmol/L Carbon Dioxide (22-29) mmol/L Anion Gap (5-19) BUN (8-23) mg/dL Creatinine (0.5-0.9) mg/dL GFR Calculation (90-130) mL/min Glucose (65-115) mg/dL Calculated Osmolal ity (285-295) mOsm/k g Lactate (0.5-2.2) mmol/L Calcium (8.5-10.5) mg/dL Total Bilirubin (0.15-1.2) mg/dL AST (0-32) U/L ALT (0-33) U/L Alkaline Phosphata se (35-105) IU/L C-Reactive Protein (0.0-4.9) mg/L Total Protein (6.6-8.7) g/dL Albumin (3.5-5.2) g/dL Globulin (1.3-4.6) g/dL Urine Color Yellow (Yellow) Urine Appearance Clear (CLEAR) Urine pH 5 (5-7) Ur Specific Gravit y 1.020 (1.005-1.030) Urine Protein Neg (Negative) Urine Glucose (UA) Norm (Normal) Urine Ketones Negative (Negative) Urine Blood Neg (Negative) Urine Nitrate Negative (Negative) Urine Bilirubin Neg (NEGATIVE) Urine Urobilinogen Norm (Negative) mg/dL Ur Leukocyte Radha ase Negative (Negative) Imaging Data^: R foot XR: Radiologist's impression: [address] [address] XRay Report Signed Patient: Lyric Cain Unit #: [id number] : 1955 Age/Sex: 63 / F ADM Date: 10/12/19 Loc: ALT Room/Bed: Attending Dr: Kareem PETERS-Clint Ordering Provider/Ordering MD: Kareem Armando APN Date of Service: 10/12/19 Procedure(s): XR foot RT 2V Accession Number(s): [id number] Report Number: [id number] WS: [id number] XR foot RT REASON FOR EXAM: cellulitis great toe FINDINGS: Soft tissue swelling of the great toe is noted this is accentuated since November 20, 2015. There appears to be lytic changes seen in the distal aspects of the proximal first phalanx. There is amputation of the second and third phalanges. XR/XR foot RT 2V [id number] IMPRESSION: Suspect cellulitis and possible early osteomyelitis involving the distal aspects of the proximal first phalanx. Dictated By: Alejandro Arteaga DO Signed By: Alejandro Arteaga DO Signed Date/Time: 10/12/191118 DD/ 17 Discharge Plan Discharge Patient Disposition: Admitted As Inpatient Clinical Impression: Osteomyelitis of great toe of right foot Uncontrolled diabetes mellitus Qualifiers: Diabetes mellitus type: type 2 Glycemic state: with hyperglycemia Qualified Code(s): E11.65 - Type 2 diabetes mellitus with hyperglycemia Condition: Stable Referrals: Kareem Armando, OIL CHANGE TECHNICIAN-C [Primary Care Provider] - Coding Level of Care Code ED Outside Plant Field Engineer for Chg Fwd Exam Expanded Problem Focused
[2019-10-12] MEDS: piperacillin-tazobactam 3.375 GM in sodium chloride 0.9% (plus) 50 ML IV ×2 (13:33→21:21)
[2019-10-12 13:43] LABS: Basophils % 0.3 %; Eosinophils # 0.1 10^3/uL (0.0-0.8); Eosinophils % 0.9 %; Hematocrit 30.4 % (37.0-47.0); Hemoglobin 9.8 g/dL (11.5-15.3); Lymphocytes # 1.2 10^3/uL (0.8-4.8); Lymphocytes % 12.7 %; Mean Corpuscular HGB Conc 32.2 g/dL (30.0-36.0); Mean Corpuscular Hemoglobin 32.8 pg (28.0-34.0); Mean Corpuscular Volume 101.7 fL (81-99); Mean Platelet Volume 10.3 fL (7.4-10.4); Monocytes # 0.8 10^3/uL (0.2-0.9); Monocytes % 8.9 %; Neutrophils % 76.9 %; Nucleated Red Blood Cells % 0 %; Platelet Count 222 10^3/cmm (130-400); Red Blood Count 2.99 10^6/uL (4.1-5.3); Red Cell Distribution Width 11.8 % (12.1-15.1); White Blood Count 9.1 10^3/uL (4.0-10.0)
[2019-10-12 13:56] LABS: Alanine Aminotransferase 6 U/L (0-33); Albumin Level 3.7 g/dL (3.5-5.2); Alkaline Phosphatase 75 IU/L (35-105); Anion Gap 16.6 (5-19); Aspartate Amino Transferase 11 U/L (0-32); Blood Urea Nitrogen 23 mg/dL (8-23); C Reactive Protein 125.7 mg/L (0.0-4.9); Calcium 9.9 mg/dL (8.5-10.5); Carbon Dioxide 27 mmol/L (22-29); Chloride 100 mmol/L (98-107); Globulin 4.2 g/dL (1.3-4.6); Glomerular Filtration Rate 28.5 mL/min (90-130); Glucose 96 mg/dL (65-115); Osmolality Calculated 283 mOsm/kg (285-295); Potassium 5.6 mmol/L (3.5-5.1); Sodium 138 mmol/L (136-145); Total Bilirubin 0.6 mg/dL (0.15-1.2); Total Protein 7.9 g/dL (6.6-8.7)
[2019-10-12 13:57] LABS: Lactate (Lactic Acid level) 1.7 mmol/L (0.5-2.2)
[2019-10-12] MEDS: vancomycin 1,000 MG in sodium chloride 0.9% 250 ML 250 MG IV (14:35)
--- NOTE | 2019-10-12 15:31 | XR_ITS ---
WS: [id number] XR chest 1V portable [id number] REASON FOR EXAM: cough/congestion FINDINGS: Elevation of the right hemidiaphragm. The heart is not enlarged there is arteriosclerotic changes in the arch of the aorta. The lung anderson are well aerated no pneumonia or congestion. There is a granuloma in the left lower lung unchanged since July 28, 2019. XR/XR chest 1V portable [id number] IMPRESSION: Elevation of the right hemidiaphragm No active infiltrates. Arteriosclerotic changes.
[2019-10-12 15:51] LABS: Add Urine Microscopic? NO
[2019-10-12 15:57] LABS: Bilirubin Urine Neg (NEGATIVE); Blood Urine Neg (Negative); Glucose Urine UA Norm (Normal); Ketones Urine Negative (Negative); Leukocyte Esterase Urine Negative (Negative); Nitrate Urine Negative (Negative); Protein Urine Neg (Negative); Urine Appearance Clear (CLEAR); Urine Color Yellow (Yellow); Urobilinogen Urine Norm (Negative); pH Urine 5 (5-7)
--- NOTE | 2019-10-12 16:50 | PM.HP ---
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 Patient had presented to her PCP's office earlier today due to noted right great toe redness, lesion with some purulent drainage over the past several days, she is unclear about exactly how long this has been going on but states it has been going on for at least 2 days. Patient is known to me from a previous admission last month during which time she was treated for pyelonephritis, acute kidney injury. She has a known left lower extremity BKA and has had prior amputation of the second and third toes of the right foot likely secondary to cellulitis. She was previously known to have poorly controlled diabetes but most recent A1c is 5.0 and her blood sugar has been well controlled, she is on metformin currently. She had imaging done by PCP showing a cellulitis with possible early osteomyelitis. I was able to express some purulence from the right great toe ulcer during my examination and she has significant erythema of her foot as well as some non-pitting edema. She has received a dose of vancomycin and Zosyn so far in the ER, she is hemodynamically stable with labs showing a normal white count at 9.1, hemoglobin of 9.8, BUN of 23, creatinine of 1.8, potassium of 5.6, CRP of 125. Chest x-ray is unremarkable and UA is negative for infection. I was present for discussion with Dr. Castaneda and plan is for amputation of right great toe tomorrow due to high suspicion for osteomyelitis with underlying DM type II, will keep patient n.p.o. after midnight. Patient is agreeable to amputation and verbalizes understanding of care plan. She is currently living at home with her brother and understands that she may require therapy following amputation, had previously been discharged to [facility]. Review of Systems Const: Reports: change in appetite (decreased appetite); Denies: fever or chills Eyes: Denies: change in vision ENMT: Denies: painful swallowing Card: Denies: chest pain, swelling of feet/ankles or lightheadedness Resp: Denies: shortness of breath or productive cough GI: Reports: nausea; Denies: abdominal pain, vomiting, vomiting blood or blood in stool : Denies: difficulty urinating, painful urination or urinary frequency Musc: Reports: redness (R great toe); Denies: back pain or extremity pain Skin/Breast: Reports: new lesion (R great toe ulcer); Denies: rash Neuro: Denies: numbness in extremities or weakness in extremities Psych: Denies: anxiety Medications/Allergies Home Medications Medication Instructions Recorded Confirmed Last Taken Type metformin 1,000 mg PO BID 10/12/19 10/12/19 10/12/19 History pentoxifylline 400 mg PO TID 10/12/19 10/12/19 10/12/19 History trazodone 200 mg PO DAILY 10/12/19 10/12/19 10/11/19 History Allergies Allergy/AdvReac Type Severity Reaction Status Date / Time sertraline [From Zoloft] Allergy rash Verified 10/12/19 13:17 PFSH Acute PFSH: Medical History ASVD (arteriosclerotic vascular disease) Depression Diabetes mellitus -A1c-5.0 Enrolled in chronic care management GERD (gastroesophageal reflux disease) -continue PPI History of colon polyps History of TIA (transient ischemic attack) Hyperlipemia Hypertension CHET on CPAP Smoker Vitamin D deficiency Surgical History History of below knee amputation Left History of hysterectomy with BLSO Hx of colonoscopy 02/17/2019 Status post amputation of toe of right foot Amputation of the R 2nd & 3rd toe through metatarsophalangeal joint, Dr. Pacheco on 11/02/2015 Family History Father Cancer lung Diabetes Sister Cancer gallbladder Family/Other Cancer colon Mother Ischemia, bowel Social History Smoking and tobacco status: former smoker Second hand smoke exposure: No Smoking risk assessment/counseling performed?: No Alcohol intake: never Desire information about alcohol rehabilitation?: No Counseling given: No Desire information about substance/drug rehabilitation?: No Counseling given: No Adopted: No Caregiver/support person: No Lives independently: Yes Household members: family Housing: House Marital status: Single Number of children: 0 service: No Current occupational status: disabled History of recent travel: No Current gender identity: Female Vitals/I&O/Wt Last Vital Signs Temp 97.7 F 10/12/19 13:12 Pulse 58 L 10/12/19 13:12 Resp 18 10/12/19 13:12 BP 144/62 10/12/19 13:12 Pulse Ox 100 10/12/19 13:12 10/12/19 10/12/19 10/12/19 06:59 14:59 22:59 Intake Total 250 / 250 Balance 250 / 250 Weight last 48 hrs Weight 65.317 kg Physical Exam Const: COMMON NORMALS: no apparent distress and oriented x3 GENERAL APPEARANCE: cooperative and comfortable ORIENTATION/CONSCIOUSNESS: Yes awake HENMT: COMMON NORMALS: normocephalic, head/scalp atraumatic, hearing grossly normal bilaterally and moist oral mucous membranes HEAD & SCALP: normocephalic and atraumatic Eye: COMMON NORMALS: PERRL, EOMs intact bilaterally and conjunctivae normal CONJUNCTIVA: Yes conjunctivae normal PUPIL: Yes PERRL Neck/C-Spine: COMMON NORMALS: full ROM GENERAL: Yes normal visual inspection and Yes trachea midline Resp: COMMON NORMALS: normal respiratory effort, no retractions, no use of accessory muscles and clear to auscultation bilaterally EFFORT & INSPECTION: Yes able to speak in complete sentences, Yes symmetric chest movement and No tachypneic AUSCULTATION: clear to auscultation bilaterally Cardio: COMMON NORMALS: regular rate, regular rhythm, S1 normal heart sound, S2 normal heart sound and no murmurs RATE: regular rate RHYTHM: regular rhythm HEART SOUNDS: S1 normal and S2 normal GI: COMMON NORMALS: normal to inspection, nondistended, normoactive bowel sounds, soft to palpation and non-tender PALPATION: Yes soft Extremity: NARRATIVE EXTREMITY EXAM: RLE: noted erythema of R foot particularly around great toe, open ulcer with some purulent drainage, onychomycosis of toenail, warm to touch, some non-pitting edema of foot -s/p LLE BKA; prosthetic in place Neuro: COMMON NORMALS: oriented x3, moves all extremities, no focal motor deficits, no sensory deficits noted and gait normal Psych: COMMON NORMALS: mental status grossly normal, thought process normal, cooperative, affect normal and speech normal SPEECH: Yes normal speech THOUGHT PROCESS: normal thought process Skin: COMMON NORMALS: no rashes or lesions noted, no jaundice, no petechiae and no mottling NARRATIVE SKIN EXAM: -noted open wound on anterior R great toe with some purulent drainage Data : 10/12/19 13:30 10/12/19 13:30 Micro: Microbiology 10/12/19 13:30 Blood Culture - Preliminary Blood SPECIMEN COLLECTED 10/12/19 13:36 Blood Culture - Preliminary Blood SPECIMEN COLLECTED A&P Assessment and plan (1) Osteomyelitis of great toe of right foot: -noted R great toe erythema, purulence, ulcer in background of NIDDM type II -noted cellulitis and possible early OM on imaging; s/p amputation of 2nd and 3rd phalanges -received dose of Vanc and Zosyn in ED, continue this for now with caution given potention for nephrotoxicity -noted elevated CRP, no leukocytosis, afebrile -f/u blood and wound cultures -Ortho consult by Dr. Castaneda appreciated; OR tomorrow for amputation, keep NPO after midnight -D5 IVF when NPO Status: Acute Code(s): M86.9 - Osteomyelitis, unspecified (2) Hyperlipemia: -resume statin Status: Acute Qualifiers: Hyperlipidemia type: mixed hyperlipidemia Qualified Code(s): E78.2 - Mixed hyperlipidemia Code(s): E78.5 - Hyperlipidemia, unspecified (3) Hypertension: -VSS; continue to monitor -resume oral antihypertensives Status: Acute Qualifiers: Hypertension type: essential hypertension Qualified Code(s): I10 - Essential (primary) hypertension Code(s): I10 - Essential (primary) hypertension (4) Acute kidney failure: -renal function has improved since last admission; down to 1.8; was 3.4 on discharge -hold metformin -continue to monitor renal function particularly with dual antibiotics -has CKD stage 2; baseline Cr appears to be around 1.4 Status: Acute Qualifiers: Acute renal failure type: unspecified Qualified Code(s): N17.9 - Acute kidney failure, unspecified Code(s): N17.9 - Acute kidney failure, unspecified (5) Below-knee amputation of left lower extremity: -has known hx of LLE BKA -fall precautions Status: Acute Code(s): S88.112A - Complete traumatic amputation at level between knee and ankle, left lower leg, initial encounter (6) GERD (gastroesophageal reflux disease): -resume PPI Status: Acute Qualifiers: Esophagitis presence: with esophagitis Qualified Code(s): K21.0 - Gastro-esophageal reflux disease with esophagitis Code(s): K21.9 - Gastro-esophageal reflux disease without esophagitis (7) Diabetes mellitus: -controlled, A1c-5.0 -Accuchecks, ISS -diabetic diet then NPO after midnight; D5 when NPO to prevent hypoglycemia -hypoglycemia precautions -hold metformin Status: Acute Qualifiers: Diabetes mellitus type: type 2 Diabetes mellitus custodial insulin use: without custodial use Diabetes mellitus complication status: without complication Qualified Code(s): E11.9 - Type 2 diabetes mellitus without complications Code(s): E11.9 - Type 2 diabetes mellitus without complications Additional A&P Information -noted gallbladder wall thickening and edema surrounding gallbladder fossa that will require f/u particularly if symptomatic -noted L adrenal mass, benign -Depression; continue antidepressants -known anterior mediastinal mass; continue outpatient f/u -Chronic peripheral neuropathy; continue Gabapentin -GI ppx with PPI -DVT ppx with SCDs (RLE) -Dispo: may need SNF after amputation -Code status: FULL code Attestations Medical Necessity Statement*: Lyric Cain's hospital stay will require greater than 2 midnights for management of right great toe osteomyelitis including surgical intervention, IV antibiotics. Time Spent in Patient Care: Greater than 35 minutes (>than 50% of time spent in counselling and/or direct pt care on unit). 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
--- NOTE | 2019-10-12 16:58 | P.CONIM_ITS ---
Providers/Reason For Consult Consulting Physican/Specialty*: Krunal Castaneda MD Reason for Consult*: Infected right great toe Primary Care Provider: [facility] History of Present Illness History of Present Illness Lyric Cain is a 63 year old female with a history of poorly controlled diabetes. She had a previous left below-knee amputation for sepsis 5 years ago and underwent amputations of her right second and third toes for infection approximately 3 years ago. She states that 3 to 4 days ago she noticed redness and swelling of her great toe. The erythema has progressed with associated swelling. She denies any fevers or chills. He was seen by her primary care physician and sent to the emergency room for definitive care. Review of Systems Const: Denies: fever or chills Neuro: Reports: numbness in extremities (Mild in remaining right toes) Meds/Allergies Home Medications and Allergies Home Medications Medication Instructions Recorded Confirmed Type blood sugar diagnostic #10 each 08/06/19 10/12/19 History blood-glucose meter #1 each 08/06/19 10/12/19 Rx amlodipine 5 mg tablet 5 mg PO DAILY 30 Days #30 tab 09/29/19 10/12/19 Rx atorvastatin 40 mg tablet 20 mg PO BEDTIME 30 Days #30 tab 09/29/19 10/12/19 Rx bupropion HCl 150 mg tablet,12 hr 150 mg PO BID 30 Days #60 tab 09/29/19 10/12/19 Rx sustained-release citalopram 20 mg tablet 20 mg PO BID 30 Days #60 tab 09/29/19 10/12/19 Rx gabapentin 300 mg capsule 300 mg PO BID 30 Days #60 cap 09/29/19 10/12/19 Rx metoprolol succinate 50 mg 50 mg PO DAILY 30 Days #30 tab 09/29/19 10/12/19 Rx tablet,extended release 24 hr pantoprazole 40 mg tablet,delayed 40 mg PO DAILY 30 Days #30 tab 09/29/19 10/12/19 Rx release metformin 1,000 mg PO BID 10/12/19 10/12/19 History pentoxifylline 400 mg PO TID 10/12/19 10/12/19 History trazodone 200 mg PO DAILY 10/12/19 10/12/19 History Allergies Allergy/AdvReac Type Severity Reaction Status Date / Time sertraline [From Zoloft] Allergy rash Verified 10/12/19 13:17 PFSH Acute PFSH: Medical History ASVD (arteriosclerotic vascular disease) Depression Diabetes mellitus -A1c-5.0 Enrolled in chronic care management GERD (gastroesophageal reflux disease) -continue PPI History of colon polyps History of TIA (transient ischemic attack) Hyperlipemia Hypertension CHET on CPAP Smoker Vitamin D deficiency Surgical History History of below knee amputation Left History of hysterectomy with BLSO Hx of colonoscopy 02/17/2019 Status post amputation of toe of right foot Amputation of the R 2nd & 3rd toe through metatarsophalangeal joint, Dr. Pacheco on 11/02/2015 Family History Father Cancer lung Diabetes Sister Cancer gallbladder Family/Other Cancer colon Mother Ischemia, bowel Social History Smoking and tobacco status: former smoker Second hand smoke exposure: No Smoking risk assessment/counseling performed?: No Alcohol intake: never Desire information about alcohol rehabilitation?: No Counseling given: No Desire information about substance/drug rehabilitation?: No Counseling given: No Adopted: No Caregiver/support person: No Lives independently: Yes Household members: family Housing: House Marital status: Single Number of children: 0 service: No Current occupational status: disabled History of recent travel: No Current gender identity: Female Vitals/I&O/Wt Last Vital Signs Temp 97.7 F 10/12/19 13:12 Pulse 58 L 10/12/19 13:12 Resp 18 10/12/19 13:12 BP 144/62 10/12/19 13:12 Pulse Ox 100 10/12/19 13:12 10/12/19 10/12/19 10/12/19 06:59 14:59 22:59 Intake Total 250 / 250 Balance 250 / 250 Weight last 48 hrs Weight 144 lb Physical Exam Narrative: EXAM NARRATIVE: On examination the patient's right lower extremity she is missing her second and third toes. She has marked enlargement and erythema of her right big toe with a large necrotic ulceration over the IP joint of that digit. Trace amounts of pus can be expressed with palpation erythema extends approximately to the level of the first metatarsal phalangeal joint. She has strong dorsalis pedis pulse. Her sensation is subjectively diminished in the tips of the remaining toes of her right foot. She has a left below-knee amputation. Data Micro: Micro: Microbiology 10/12/19 13:30 Blood Culture - Pr eliminary Blood SPECIMEN [facility] 10/12/19 13:36 Blood Culture - Pr eliminary Blood SPECIMEN [facility] Imaging^: Xray Ortho: My impression: Radiographs of the right foot are reviewed. The patient had amputation previously the second and third toes. The radiologist comments on some punctate lucencies in the distal aspect of the proximal first phalanx with some not particularly overwhelmed with. A&P Additional A&P Information Gangrene right first toe. With the purulence and necrosis I do not think there is really eat any reasonable chance that antibiotics alone could eliminate the infection. I discussed options with her. We can try an amputation of the right big toe. I told her that if the infection is extended too far proximal this may not succeed and she may be left with a transmetatarsal amputation or even a below-knee amputation. Certainly any efforts to save the foot would be worthwhile. The energy expenditure with with bilateral below-knee amputations would make the possibilities of returning to full ambulatory status remote. She understands the risk inherent with surgery and agrees to proceed. I discussed this with the admitting team and will try for surgery tomorrow. 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
[2019-10-12] MEDS: sodium chloride 0.9% 1,000 ML 100 ML IV (17:14)
[2019-10-12 17:43] VITALS: BP 166/66; PULSE 57; RESP 18; O2SAT 96
[2019-10-12 18:31] VITALS: BP 166/67; PULSE 57; RESP 18; TEMP 36.9; O2SAT 96
[2019-10-12 20:00] VITALS: BP 160/77; PULSE 101; RESP 20; TEMP 36.6; O2SAT 94
[2019-10-12] MEDS: citalopram 20 mg Tablet PO (20:45)
[2019-10-12] MEDS: buPROPion SR (12 HR) 150 mg Tablet PO (20:46)
[2019-10-12] MEDS: gabapentin 300 mg Capsule PO (20:46)
[2019-10-12] MEDS: atorvastatin 40 mg Tablet 20 MG PO (20:46)
[2019-10-12 21:42] LABS: Glucose Point of Care 123 mg/dL (70-110)
[2019-10-13] VITALS (15 sets, daily range): BP systolic 89–156; BP diastolic 54–84; PULSE 54–76; RESP 16–20; TEMP 36.2–37.2; O2SAT 92–100
[2019-10-13 02:49] LABS: Basophils % 0.4 %; Eosinophils # 0.1 10^3/uL (0.0-0.8); Eosinophils % 0.5 %; Hematocrit 24.3 % (37.0-47.0); Hemoglobin 7.9 g/dL (11.5-15.3); Lymphocytes # 0.7 10^3/uL (0.8-4.8); Mean Corpuscular HGB Conc 32.5 g/dL (30.0-36.0); Mean Corpuscular Hemoglobin 32.2 pg (28.0-34.0); Mean Corpuscular Volume 99.2 fL (81-99); Mean Platelet Volume 10.4 fL (7.4-10.4); Monocytes # 0.8 10^3/uL (0.2-0.9); Monocytes % 7.7 %; Neutrophils # 8.7 10^3/uL (1.8-7.7); Nucleated Red Blood Cells % 0 %; Platelet Count 203 10^3/cmm (130-400); Red Blood Count 2.45 10^6/uL (4.1-5.3); Red Cell Distribution Width 11.6 % (12.1-15.1); White Blood Count 10.4 10^3/uL (4.0-10.0)
[2019-10-13 03:06] LABS: Blood Urea Nitrogen 22 mg/dL (8-23); Chloride 102 mmol/L (98-107); Glomerular Filtration Rate 28.5 mL/min (90-130); Glucose 113 mg/dL (65-115); Osmolality Calculated 285 mOsm/kg (285-295); Potassium 4.8 mmol/L (3.5-5.1); Sodium 139 mmol/L (136-145)
[2019-10-13] MEDS: dextrose 5%-sod chloride 0.45% 1,000 ML 75 ML IV (04:13)
[2019-10-13 05:43] LABS: Carbon Dioxide 22 mmol/L (22-29)
[2019-10-13 05:44] LABS: Anion Gap 19.8 (5-19)
[2019-10-13] MEDS: piperacillin-tazobactam 3.375 GM in sodium chloride 0.9% (plus) 50 ML IV ×2 (06:36→20:46)
[2019-10-13 06:49] LABS: Glucose Point of Care 127 mg/dL (70-110)
--- NOTE | 2019-10-13 11:12 | PC.OT ---
OT note: Pt to have surgery today. Hold OT evaluation.
[2019-10-13] MEDS: sodium chloride 0.9% 1,000 ML 30 ML IV (11:45)
--- NOTE | 2019-10-13 11:53 | ANES.PREANE2 ---
Pre-Anesthetic Assessment Pre-Anesthetic Assessment: Height/Weight: Height 1.7 m Weight 65.544 kg Temp Pulse Resp BP Pulse Ox 97.2 F L 58 L 18 152/75 99 10/13/19 11:25 10/13/19 11:25 10/13/19 11:25 10/13/19 11:25 10/13/19 11:25 Proposed Procedure: Operation Date: 10/13/19 12:05 Proposed Procedures p Amputation Toe(Right) - Krunal Castaneda MD Last intake: Intake Last Liquid Date 10/12/19 Last Liquid Time 23:50 Last Solid Date 10/12/19 Last Solid Time 22:00 Social: Social History: Tobacco (quit 4 weeks ago) and No alcohol Exam: Pre-Anes Outpt Exam: alert, oriented x 3, clear to auscultation bilaterally and regular rate & rhythm Airway: Submandibular: WNL Cervical ROM: WNL MP: 2 Dentition: Other (very poor dentation) History/ROS: No significant history except as noted Pulmonary: Pulmonary: COPD and ACE CV/HEM: CV/HEM: HTN and PVD : : Chronic renal Insufficiency Hepatic: Hepatic: None reported GI: GI: GERD (controlled) Metabolic: Metabolic: DM and Hyperlipidemia Musc/skel: Musc/skel: OA/DJD Neuropsych: Neuropsych: Anxiety, Depression and TIA Anesthetic Plan: ASA status: 4 Anesthesia: Anesthesia Evaluation and General Risk of > 500 ml blood loss (7ml/kg in children): No Meds/Allergies Current Medications: Current Medications Generic Name Dose Route Start Last Admin Trade Name Freq PRN Reason Stop Dose Admin Amlodipine Besylat e 5 mg 10/13/19 09:00 10/13/19 10:31 Norvasc PO Not Given DAILY [facility] Atorvastatin Calci um 20 mg 10/12/19 21:00 10/12/19 20:46 Lipitor PO 20 mg BEDTIME OANH Administration Bupropion HCl 150 mg 10/12/19 19:13 10/13/19 10:31 Wellbutrin Sr (1 2 Hr) PO Not Given BID OANH Citalopram Hydrobr omide 20 mg 10/12/19 19:13 10/13/19 10:31 Celexa PO Not Given BID OANH Gabapentin 300 mg 10/12/19 19:13 10/13/19 10:31 Neurontin PO Not Given BID OANH Sodium Chloride 1,000 mls @ 100 m ls/hr 10/12/19 16:30 10/13/19 06:32 Sodium Chloride 0.9% IV Not Given .Q10H OANH Dextrose/Sodium Ch loride 1,000 mls @ 75 ml s/hr 10/12/19 22:00 10/13/19 04:13 Dextrose 5%-Sod Chloride 0.45% IV 75 mls/hr .[id number] OANH Administration Piperacillin Sod/T azobactam 50 mls @ 12.5 mls /hr 10/12/19 21:30 10/13/19 06:36 Sod 3.375 gm/ So dium Chloride IV 12.5 mls/hr Q8H OANH Administration Protocol Sodium Chloride 1,000 mls @ 30 ml s/hr 10/13/19 09:15 10/13/19 11:45 Sodium Chloride 0.9% IV 10/14/19 09:14 30 mls/hr .Q24H OANH Administration Pantoprazole Sodiu m 40 mg 10/13/19 09:00 10/13/19 10:31 Protonix PO Not Given DAILY OANH Trazodone HCl 200 mg 10/13/19 09:00 10/13/19 10:31 Desyrel PO Not Given DAILY OANH PFSH Anesthesia PFSH: Medical History ASVD (arteriosclerotic vascular disease) Depression Diabetes mellitus -A1c-5.0 Enrolled in chronic care management GERD (gastroesophageal reflux disease) History of cigarette smoking History of colon polyps History of TIA (transient ischemic attack) Hyperlipemia Hypertension CHET on CPAP Vitamin D deficiency Surgical History History of below knee amputation Left History of hysterectomy with BLSO Hx of colonoscopy 02/17/2019 Status post amputation of toe of right foot Amputation of the R 2nd & 3rd toe through metatarsophalangeal joint, Dr. Pacheco on 11/02/2015 Family History Father Cancer lung Diabetes Sister Cancer gallbladder Family/Other Cancer colon Mother Ischemia, bowel Social History Smoking and tobacco status: former smoker Second hand smoke exposure: No Smoking risk assessment/counseling performed?: No Alcohol intake: never Desire information about alcohol rehabilitation?: No Counseling given: No Desire information about substance/drug rehabilitation?: No Counseling given: No Adopted: No Caregiver/support person: No Lives independently: Yes Household members: family Housing: House Marital status: Single Number of children: 0 service: No Current occupational status: disabled History of recent travel: No Current gender identity: Female Data Anesthesia CBC & Chem 7: 10/13/19 02:25 10/13/19 02:25 Other Labs: Laboratory Results - last 48 hr 10/12/19 10/12/19 10/12/19 13:30 13:30 13:30 WBC 9.1 RBC 2.99 L Hgb 9.8 L Hct 30.4 L MCV 101.7 H MCH 32.8 MCHC 32.2 RDW 11.8 L Plt Count 222 MPV 10.3 Neut % (Auto) 76.9 Lymph % (Auto) 12.7 [place] % (Auto) 8.9 Eos % (Auto) 0.9 Baso % (Auto) 0.3 Neut # (Auto) 7.0 Lymph # (Auto) 1.2 [place] # (Auto) 0.8 Eos # (Auto) 0.1 Baso # (Auto) 0.0 Nucleated RBC % (auto) 0 Nucleated RBCs # 0.0 Sodium 138 Potassium 5.6 H Chloride 100 Carbon Dioxide 27 Anion Gap 16.6 BUN 23 Creatinine 1.8 H GFR Calculation 28.5 L Glucose 96 POC Glucose Calculated Osmolality 283 L Lactate 1.7 Calcium 9.9 Total Bilirubin 0.6 AST 11 ALT 6 Alkaline Phosphatase 75 C-Reactive Protein 125.7 H Total Protein 7.9 Albumin 3.7 Globulin 4.2 Urine Color Urine Appearance Urine pH Ur Specific [place] Urine Protein Urine Glucose (UA) Urine Ketones Urine Blood Urine Nitrate Urine Bilirubin Urine Urobilinogen Ur Leukocyte Esterase 10/12/19 10/12/19 10/13/19 15:41 21:24 02:25 WBC 10.4 H RBC 2.45 L Hgb 7.9 L Hct 24.3 L MCV 99.2 H MCH 32.2 MCHC 32.5 RDW 11.6 L Plt Count 203 MPV 10.4 Neut % (Auto) 84.0 Lymph % (Auto) 7.0 [place] % (Auto) 7.7 Eos % (Auto) 0.5 Baso % (Auto) 0.4 Neut # (Auto) 8.7 H Lymph # (Auto) 0.7 L [place] # (Auto) 0.8 Eos # (Auto) 0.1 Baso # (Auto) 0.0 Nucleated RBC % (auto) 0 Nucleated RBCs # 0.0 Sodium Potassium Chloride Carbon Dioxide Anion Gap BUN Creatinine GFR Calculation Glucose POC Glucose 123 Calculated Osmolality Lactate Calcium Total Bilirubin AST ALT Alkaline Phosphatase C-Reactive Protein Total Protein Albumin Globulin Urine Color Yellow Urine Appearance Clear Urine pH 5 Ur Specific [place] 1.020 Urine Protein Neg Urine Glucose (UA) Norm Urine Ketones Negative Urine Blood Neg Urine Nitrate Negative Urine Bilirubin Neg Urine Urobilinogen Norm Ur Leukocyte Esterase Negative 10/13/19 10/13/19 02:25 06:38 WBC RBC Hgb Hct MCV MCH MCHC RDW Plt Count MPV Neut % (Auto) Lymph % (Auto) [place] % (Auto) Eos % (Auto) Baso % (Auto) Neut # (Auto) Lymph # (Auto) [place] # (Auto) Eos # (Auto) Baso # (Auto) Nucleated RBC % (auto) Nucleated RBCs # Sodium 139 Potassium 4.8 Chloride 102 Carbon Dioxide 22 Anion Gap 19.8 H BUN 22 Creatinine 1.8 H GFR Calculation 28.5 L Glucose 113 POC Glucose 127 Calculated Osmolality 285 Lactate Calcium 9.0 Total Bilirubin AST ALT Alkaline Phosphatase C-Reactive Protein Total Protein Albumin Globulin Urine Color Urine Appearance Urine pH Ur Specific [place] Urine Protein Urine Glucose (UA) Urine Ketones Urine Blood Urine Nitrate Urine Bilirubin Urine Urobilinogen Ur Leukocyte Esterase Micro: Microbiology 10/12/19 13:25 Gram Stain - Final Toe - #1 Wound Culture - Preliminary Staphylococcus species 10/12/19 13:30 Blood Culture - Preliminary Blood SPECIMEN COLLECTED 10/12/19 13:36 Blood Culture - Preliminary Blood SPECIMEN COLLECTED Cardiac Studies: No Data to Display
--- NOTE | 2019-10-13 13:05 | PM.OP ---
Operative Report Date of procedure: October 13, 2019 Pre-op Diagnosis: Gangrene right big toe Post-op diagnosis: same Post-op Findings: Same Procedure Done: Amputation right big toe Specimens removed/disposition: Big toe was sent to pathology. Routine cultures were made of the deep ulcer Surgeon: Krunal Castaneda Anesthesia: General Estimated blood loss (mL): 25 Complications: None Condition: stable Disposition: PACU Procedure: The patient was taken to the operating room and given conscious sedation by the anesthesia department. Initially skin incisions were made just distal to the level of the metatarsophalangeal joint with a slightly longer plantar than dorsal flap. Dissection was carried down full-thickness to the proximal phalanx. Soft tissues were elevated off the proximal phalanx and the amputation completed through the metatarsal phalangeal joint. There was very reasonable of blood supply identified at that level and no purulence. The wound was then irrigated with saline The plantar flap was brought dorsally and closed with interrupted vertical mattress 2-0 Prolene stitches. Sterile dressings were applied. The patient was taken recovery room in stable condition. The big toe was sent to pathology and a culture was made of the deep ulcer to guide further antibiotic treatment
--- NOTE | 2019-10-13 13:15 | SUR.PHASEII ---
PT AWAKE ON ARRIVAL TO PACU, PT GIVEN WARM BLANKETS X 2 PT VERBALLY DENIES PAIN AND STATES SHE DOES NOT WEAR O2 AT HOME, PT NOW ON RA TRIAL, SATS 100% VSS.
--- NOTE | 2019-10-13 13:19 | SUR.PHASEII ---
PT TO FLOOR AWAKE ALERT VSS.
[2019-10-13] MEDS: vancomycin 750 MG in sodium chloride 0.9% 250 ML 250 MG IV (14:04)
--- NOTE | 2019-10-13 14:53 | PM.PN ---
Subjective Subjective: Interval history: AM labs noted, had drop in Hg (9.8->7.9). S/p amputation of R great toe, cultures sent, gram stain growing some GPC, likely Strep species. Had 300 mL urine output overnight, noted bradycardia with HR in the 50-60 range, otherwise normotensive, afebrile. Patient seen and examined, resting in bed, seems to be in good spirits. Case discussed with Dr. Castaneda, has suspicion that patient will likely not need long-term IV antibiotics given what appears to be clear bone margins but will wait on culture results. Medications: Reviewed: Yes Medication Review Details: Active Medications Generic Name Dose Route Start Last Admin Trade Name Freq PRN Reason Stop Dose Admin Acetaminophen 650 mg 10/12/19 19:13 Tylenol PO Q6H PRN Mild/Mod Pain Or Temp >/= 101 Hydrocodone Bitart /Acetaminophen 1 tab 10/12/19 19:13 [place] 5-325 Mg PO Q4H PRN MODERATE TO SEVER E PAIN Hydrocodone Bitart /Acetaminophen 1 tab 10/13/19 13:34 [place] 5-325 Mg PO Q4H PRN MODERATE PAIN Amlodipine Besylat e 5 mg 10/13/19 09:00 10/13/19 10:31 Norvasc PO Not Given DAILY [facility] Atorvastatin Calci um 20 mg 10/12/19 21:00 10/12/19 20:46 Lipitor PO 20 mg BEDTIME O[facility] Administration Bupropion HCl 150 mg 10/12/19 19:13 10/13/19 10:31 Wellbutrin Sr (1 2 Hr) PO Not Given BID OANH Citalopram Hydrobr omide 20 mg 10/12/19 19:13 10/13/19 10:31 Celexa PO Not Given BID OANH Gabapentin 300 mg 10/12/19 19:13 10/13/19 10:31 Neurontin PO Not Given BID OANH Sodium Chloride 1,000 mls @ 100 m ls/hr 10/12/19 16:30 10/13/19 06:32 Sodium Chloride 0.9% IV Not Given .Q10H O[facility] Dextrose/Sodium Ch loride 1,000 mls @ 75 ml s/hr 10/12/19 22:00 10/13/19 13:42 Dextrose 5%-Sod Chloride 0.45% IV Not Given .[id number] O[facility] Piperacillin Sod/T azobactam 50 mls @ 12.5 mls /hr 10/12/19 21:30 10/13/19 13:41 Sod 3.375 gm/ So dium Chloride IV Infused Q8H [facility] Infusion Protocol Vancomycin HCl 750 mg/ Sodium 250 mls @ 250 mls /hr 10/13/19 14:30 10/13/19 14:04 Chloride IV 250 mls/hr Q24H [facility] Administration Protocol Sodium Chloride 1,000 mls @ 100 m ls/hr 10/13/19 09:15 Sodium Chloride 0.9% IV 10/14/19 09:14 .Q10H O[facility] Sodium Chloride 1,000 mls @ 30 ml s/hr 10/13/19 09:15 10/13/19 11:45 Sodium Chloride 0.9% IV 10/14/19 09:14 30 mls/hr .Q24H [facility] Administration Morphine Sulfate 2 mg 10/12/19 19:13 Morphine IVP Q4H PRN SEVERE PAIN Ondansetron HCl 4 mg 10/13/19 09:11 Zofran IVP ONCE PRN NAUSEA AND VOMITI NG Ondansetron HCl 4 mg 10/13/19 09:11 Zofran IVP 10/14/19 09:11 Q5M PRN Nausea PACU Phase I Pantoprazole Sodiu m 40 mg 10/13/19 09:00 10/13/19 10:31 Protonix PO Not Given DAILY [facility] Scopolamine 1 patch 10/13/19 09:11 Transderm-Scop TRANSDERMA ONCE PRN Nausea/ Vomiting Prophylaxis Trazodone HCl 200 mg 10/13/19 09:00 10/13/19 10:31 Desyrel PO Not Given DAILY [facility] sertraline [From Zoloft] Allergy (Verified 10/12/19 13:17) rash Vitals/I&O/Wt Last Vital Signs Temp 97.7 F 10/13/19 13:34 Pulse 55 L 10/13/19 13:34 Resp 16 10/13/19 13:34 BP 120/73 10/13/19 13:34 Pulse Ox 95 10/13/19 13:34 10/12/19 10/13/19 10/13/19 22:59 06:59 14:59 Intake Total 730 / 730 750 / 1480 100 / 100 Output Total 300 / 300 400 / 400 Balance 430 / 430 750 / 1180 -300 / -300 Weight last 48 hrs Weight 65.544 kg Weight 65.317 kg Physical Exam Const: COMMON NORMALS: no apparent distress and oriented x3 GENERAL APPEARANCE: cooperative and comfortable ORIENTATION/CONSCIOUSNESS: Yes awake HENMT: COMMON NORMALS: normocephalic, head/scalp atraumatic, hearing grossly normal bilaterally and moist oral mucous membranes HEAD & SCALP: normocephalic and atraumatic Eye: COMMON NORMALS: PERRL, EOMs intact bilaterally and conjunctivae normal CONJUNCTIVA: Yes conjunctivae normal PUPIL: Yes PERRL Neck/C-Spine: COMMON NORMALS: full ROM GENERAL: Yes normal visual inspection and Yes trachea midline Resp: COMMON NORMALS: normal respiratory effort, no retractions, no use of accessory muscles and clear to auscultation bilaterally EFFORT & INSPECTION: Yes able to speak in complete sentences, Yes symmetric chest movement and No tachypneic AUSCULTATION: clear to auscultation bilaterally Cardio: COMMON NORMALS: regular rate, regular rhythm, S1 normal heart sound, S2 normal heart sound and no murmurs RATE: regular rate RHYTHM: regular rhythm HEART SOUNDS: S1 normal and S2 normal GI: COMMON NORMALS: normal to inspection, nondistended, normoactive bowel sounds, soft to palpation and non-tender PALPATION: Yes soft Extremity: NARRATIVE EXTREMITY EXAM: -RLE: thick bulky dressing in place, onychomycosis of toenail, warm to touch, some non-pitting edema of foot -s/p LLE BKA; prosthetic in place Neuro: COMMON NORMALS: oriented x3, moves all extremities, no focal motor deficits and no sensory deficits noted Psych: COMMON NORMALS: mental status grossly normal, thought process normal, cooperative, affect normal and speech normal SPEECH: Yes normal speech THOUGHT PROCESS: normal thought process Skin: COMMON NORMALS: no rashes or lesions noted, no jaundice, no petechiae and no mottling NARRATIVE SKIN EXAM: -noted open wound on anterior R great toe with some purulent drainage GENERAL SKIN EXAM: no rashes or lesions noted Data : 10/13/19 02:25 10/13/19 02:25 Micro: Microbiology 10/13/19 12:48 Gram Stain - Final Toe - Right 10/12/19 13:30 Blood Culture - Preliminary Blood NEGATIVE TO DATE 10/12/19 13:36 Blood Culture - Preliminary Blood NEGATIVE TO DATE 10/12/19 13:25 Gram Stain - Final Toe - #1 Wound Culture - Preliminary Staphylococcus species A&P Assessment and plan (1) Osteomyelitis of great toe of right foot: -noted R great toe erythema, purulence, ulcer in background of NIDDM type II -noted cellulitis and possible early OM on imaging; s/p amputation of 2nd and 3rd phalanges -received dose of Vanc and Zosyn in ED, continue this for now with caution given potential for nephrotoxicity -noted elevated CRP, no leukocytosis, afebrile -blood cx: prelim negative -wound cx pending, gram stain shows rare GPC in pairs (likely strep) -Ortho consult by Dr. Castaneda appreciated; OR today for amputation -D5 IVF when NPO -fall precautions, PT/OT evaluations post-op Status: Acute Code(s): M86.9 - Osteomyelitis, unspecified (2) Hyperlipemia: -continue statin Status: Acute Qualifiers: Hyperlipidemia type: mixed hyperlipidemia Qualified Code(s): E78.2 - Mixed hyperlipidemia Code(s): E78.5 - Hyperlipidemia, unspecified (3) Hypertension: -VSS; continue to monitor -continue oral antihypertensives Status: Acute Qualifiers: Hypertension type: essential hypertension Qualified Code(s): I10 - Essential (primary) hypertension Code(s): I10 - Essential (primary) hypertension (4) Acute kidney failure: -renal function has improved since last admission, stable at 1.8 -hold metformin -continue to monitor renal function particularly with dual antibiotics -has CKD stage 2; baseline Cr appears to be around 1.4 Status: Acute Qualifiers: Acute renal failure type: unspecified Qualified Code(s): N17.9 - Acute kidney failure, unspecified Code(s): N17.9 - Acute kidney failure, unspecified (5) Below-knee amputation of left lower extremity: -has known hx of LLE BKA -fall precautions Status: Acute Code(s): S88.112A - Complete traumatic amputation at level between knee and ankle, left lower leg, initial encounter (6) GERD (gastroesophageal reflux disease): -continue PPI Status: Acute Qualifiers: Esophagitis presence: with esophagitis Qualified Code(s): K21.0 - Gastro-esophageal reflux disease with esophagitis Code(s): K21.9 - Gastro-esophageal reflux disease without esophagitis (7) Diabetes mellitus: -controlled, A1c-5.0 -Accuchecks, ISS -diabetic diet then NPO after midnight; D5 when NPO to prevent hypoglycemia -hypoglycemia precautions -hold metformin Status: Chronic Qualifiers: Diabetes mellitus complication status: without complication Diabetes mellitus fci insulin use: without fci use Diabetes mellitus type: type 2 Qualified Code(s): E11.9 - Type 2 diabetes mellitus without complications Code(s): E11.9 - Type 2 diabetes mellitus without complications Additional A&P Information -noted gallbladder wall thickening and edema surrounding gallbladder fossa that will require f/u particularly if symptomatic -noted L adrenal mass, benign -Depression; continue antidepressants -known anterior mediastinal mass; continue outpatient f/u -Chronic peripheral neuropathy; continue Gabapentin -Acute on chronic anemia; baseline Hg is 9-11; noted drop today, continue to monitor closely, transfuse if continued downward trend and/or symptomatic -GI ppx with PPI -DVT ppx with SCDs (RLE); hold off on AC given worsening anemia -Dispo: may need SNF after amputation -Code status: FULL code Attestations Medical Necessity Statement*: Patient requires hospitalization for post-op management s/p R great toe amputation secondary to cellulitis and osteomyelitis as well as IV antibiotics pending culture results. Time Spent in Patient Care: 16 - 35 minutes (>than 50% of time spent in counselling and/or direct pt care on unit). Coding Level of Care Code Acute Technical Spec for g Fwd Exam Comprehensive Diagnoses Osteomyelitis of great toe of right foot M86.9 Hyperlipemia E78.2 Hyperlipidemia type: mixed hyperlipidemia Hypertension I10 Hypertension type: essential hypertension Acute kidney failure N17.9 Acute renal failure type: unspecified Below-knee amputation of left lower extremity S88.112A GERD (gastroesophageal reflux disease) K21.0 Esophagitis presence: with esophagitis Diabetes mellitus E11.9 Diabetes mellitus complication status: without complication Diabetes mellitus long term care social worker insulin use: without long term care social worker use Diabetes mellitus type: type 2
[2019-10-13 16:31] LABS: Glucose Point of Care 90 mg/dL (70-110)
[2019-10-13] MEDS: citalopram 20 mg Tablet PO (17:44)
[2019-10-13] MEDS: buPROPion SR (12 HR) 150 mg Tablet PO (17:44)
[2019-10-13] MEDS: gabapentin 300 mg Capsule PO (17:44)
[2019-10-13] MEDS: atorvastatin 40 mg Tablet 20 MG PO (20:41)
[2019-10-13] MEDS: sodium chloride 0.9% 1,000 ML 100 ML IV (20:44)
[2019-10-14] VITALS (7 sets, daily range): BP systolic 97–152; BP diastolic 59–75; PULSE 57–69; RESP 16–20; TEMP 36.4–36.9; O2SAT 94–98
[2019-10-14 05:21] LABS: Basophils % 0.3 %; Eosinophils # 0.1 10^3/uL (0.0-0.8); Eosinophils % 1.4 %; Hematocrit 23.9 % (37.0-47.0); Hemoglobin 7.8 g/dL (11.5-15.3); Lymphocytes # 1.2 10^3/uL (0.8-4.8); Lymphocytes % 19.1 %; Mean Corpuscular HGB Conc 32.6 g/dL (30.0-36.0); Mean Corpuscular Hemoglobin 32.6 pg (28.0-34.0); Mean Platelet Volume 10.6 fL (7.4-10.4); Monocytes # 0.6 10^3/uL (0.2-0.9); Monocytes % 9.7 %; Neutrophils # 4.4 10^3/uL (1.8-7.7); Neutrophils % 69.2 %; Nucleated Red Blood Cells % 0 %; Platelet Count 200 10^3/cmm (130-400); Red Blood Count 2.39 10^6/uL (4.1-5.3); Red Cell Distribution Width 11.5 % (12.1-15.1); White Blood Count 6.3 10^3/uL (4.0-10.0)
[2019-10-14 05:45] LABS: Anion Gap 14.2 (5-19); Blood Urea Nitrogen 16 mg/dL (8-23); Calcium 8.4 mg/dL (8.5-10.5); Carbon Dioxide 26 mmol/L (22-29); Chloride 102 mmol/L (98-107); Glomerular Filtration Rate 35.2 mL/min (90-130); Glucose 106 mg/dL (65-115); Osmolality Calculated 283 mOsm/kg (285-295); Potassium 4.2 mmol/L (3.5-5.1); Sodium 138 mmol/L (136-145)
[2019-10-14] MEDS: piperacillin-tazobactam 3.375 GM in sodium chloride 0.9% (plus) 50 ML IV ×3 (06:21→21:34)
[2019-10-14] MEDS: pantoprazole DR 40 mg Tablet PO (08:16)
[2019-10-14] MEDS: citalopram 20 mg Tablet PO ×2 (08:16→17:24)
[2019-10-14] MEDS: trazodone 100 mg Tablet 200 MG PO (08:16)
[2019-10-14] MEDS: buPROPion SR (12 HR) 150 mg Tablet PO ×2 (08:16→17:24)
[2019-10-14] MEDS: sodium chloride 0.9% 1,000 ML 100 ML IV ×2 (08:16→21:32)
[2019-10-14] MEDS: amlodipine 5 mg Tablet PO (08:16)
[2019-10-14] MEDS: gabapentin 300 mg Capsule PO ×2 (08:16→17:24)
--- NOTE | 2019-10-14 10:17 | PC.CHAP ---
Pastoral Care Encounter/Spiritual Assessment Type of Contact [] Declined expander machine operator visit [] Patient/Family/Request visit [] Outpatient visit [] Follow-up visit [] Physician referral [] Code/Alert [x] Routine visit [] Staff referral [] Actively dying [] Patient sleeping [] Family support [] [] Out of room [] Palliative care [] [] Receiving care in room [] Pre-surgical visit [] Trauma [] Long length of stay [] ICU visit [] Other: Relational/Emotional Strength [xx] Patient feels connected with others/family/visitors/staff [] Distress [] Loneliness/isolation [] Abandonment Spirituality of Patient [x] Person of Kaela [x] Attends Roman Catholic of their [place] [] Believes in Prayer [] Reads Bible or Taoist materials [] There are Spiritual issues to be addressed [place] [employer] Machine Operator Interventions [x] Prayer [x] Active listening [x] Non-anxious presence [] Spiritual/emotional support [] Crisis/trauma care [] Spiritual counseling [] Bereavement support [] Provided bereavement packet [] Provided Bible/devotional materials [] Provided toy/stuffed animal, coloring book to patient or family member [] Provided Communion [] Anointing/[place] [] Salvation [x] Completed spiritual assessment [] Other: Impact on Illness or Injury [] Angry [] Fearful [] Anxious [] Often cries [] Exhaustion [] Unable to work [] Unable to attend christianity [] Unable to walk/stand [] Unable to read [] Unable to drive [] Unable to eat/drink [] Unable to sleep [] Unable to be with family [] Patient intubated [] Other: Summary patient feeling much better Time spent with patient 10 min
--- NOTE | 2019-10-14 15:38 | PM.PN ---
Subjective Subjective: Interval history: AM labs noted, stable Hg. She is POD # 1 s/p amputation of R great toe. Has done well with PT, HH recommended. Wound culture sent from ED has grown MSSA, wound cx sent from OR pending. Blood cx prelim negative. Blood glucose controlled. Medications: Reviewed: Yes Medication Review Details: Active Medications Generic Name Dose Route Start Last Admin Trade Name Freq PRN Reason Stop Dose Admin Acetaminophen 650 mg 10/12/19 19:13 Tylenol PO Q6H PRN Mild/Mod Pain Or Temp >/= 101 Hydrocodone Bitart /Acetaminophen 1 tab 10/12/19 19:13 [place] 5-325 Mg PO Q4H PRN MODERATE TO SEVER E PAIN Hydrocodone Bitart /Acetaminophen 1 tab 10/13/19 13:34 [place] 5-325 Mg PO Q4H PRN MODERATE PAIN Amlodipine Besylat e 5 mg 10/13/19 09:00 10/14/19 08:16 Norvasc PO 5 mg DAILY [facility] Administration Atorvastatin Calci um 20 mg 10/12/19 21:00 10/13/19 20:41 Lipitor PO 20 mg BEDTIME [facility] Administration Bupropion HCl 150 mg 10/12/19 19:13 10/14/19 08:16 Wellbutrin Sr (1 2 Hr) PO 150 mg BID [facility] Administration Citalopram Hydrobr omide 20 mg 10/12/19 19:13 10/14/19 08:16 Celexa PO 20 mg BID [facility] Administration Gabapentin 300 mg 10/12/19 19:13 10/14/19 08:16 Neurontin PO 300 mg BID [facility] Administration Sodium Chloride 1,000 mls @ 100 m ls/hr 10/12/19 16:30 10/14/19 08:16 Sodium Chloride 0.9% IV 100 mls/hr .Q10H [facility] Administration Piperacillin Sod/T azobactam 50 mls @ 12.5 mls /hr 10/12/19 21:30 10/14/19 13:21 Sod 3.375 gm/ So dium Chloride IV 12.5 mls/hr Q8H [facility] Administration Protocol Vancomycin HCl 750 mg/ Sodium 250 mls @ 250 mls /hr 10/13/19 14:30 10/13/19 15:30 Chloride IV Infused Q24H [facility] Infusion Protocol Morphine Sulfate 2 mg 10/12/19 19:13 Morphine IVP Q4H PRN SEVERE PAIN Ondansetron HCl 4 mg 10/13/19 09:11 Zofran IVP ONCE PRN NAUSEA AND VOMITI NG Pantoprazole Sodiu m 40 mg 10/13/19 09:00 10/14/19 08:16 Protonix PO 40 mg DAILY [facility] Administration Scopolamine 1 patch 10/13/19 09:11 Transderm-Scop TRANSDERMA ONCE PRN Nausea/ Vomiting Prophylaxis Trazodone HCl 200 mg 10/13/19 09:00 10/14/19 08:16 Desyrel PO 200 mg DAILY [facility] Administration sertraline [From Zoloft] Allergy (Verified 10/12/19 13:17) rash Vitals/I&O/Wt Last Vital Signs Temp 97.6 F 10/14/19 11:08 Pulse 62 10/14/19 11:08 Resp 18 10/14/19 11:08 BP 97/59 10/14/19 11:08 Pulse Ox 96 10/14/19 11:08 10/14/19 10/14/19 10/14/19 06:59 14:59 22:59 Intake Total 870 / 1880 950 / 950 Output Total 1200 / 1600 Balance -330 / 280 950 / 950 Weight last 48 hrs Weight 67.177 kg Weight 65.544 kg Physical Exam Const: COMMON NORMALS: no apparent distress and oriented x3 GENERAL APPEARANCE: cooperative and comfortable ORIENTATION/CONSCIOUSNESS: Yes awake HENMT: COMMON NORMALS: normocephalic, head/scalp atraumatic, hearing grossly normal bilaterally and moist oral mucous membranes HEAD & SCALP: normocephalic and atraumatic Eye: COMMON NORMALS: PERRL, EOMs intact bilaterally and conjunctivae normal CONJUNCTIVA: Yes conjunctivae normal PUPIL: Yes PERRL Neck/C-Spine: COMMON NORMALS: full ROM GENERAL: Yes normal visual inspection and Yes trachea midline Resp: COMMON NORMALS: normal respiratory effort, no retractions, no use of accessory muscles and clear to auscultation bilaterally EFFORT & INSPECTION: Yes able to speak in complete sentences, Yes symmetric chest movement and No tachypneic AUSCULTATION: clear to auscultation bilaterally Cardio: COMMON NORMALS: regular rate, regular rhythm, S1 normal heart sound, S2 normal heart sound and no murmurs RATE: regular rate RHYTHM: regular rhythm HEART SOUNDS: S1 normal and S2 normal GI: COMMON NORMALS: normal to inspection, nondistended, normoactive bowel sounds, soft to palpation and non-tender PALPATION: Yes soft Extremity: NARRATIVE EXTREMITY EXAM: -RLE: thick bulky dressing in place, onychomycosis of toenail, warm to touch, some non-pitting edema of foot -s/p LLE BKA; prosthetic off Neuro: COMMON NORMALS: oriented x3, moves all extremities, no focal motor deficits and no sensory deficits noted Psych: COMMON NORMALS: mental status grossly normal, thought process normal, cooperative, affect normal and speech normal SPEECH: Yes normal speech THOUGHT PROCESS: normal thought process Skin: COMMON NORMALS: no rashes or lesions noted, no jaundice, no petechiae and no mottling GENERAL SKIN EXAM: no rashes or lesions noted Data : 10/14/19 04:22 10/14/19 04:22 Micro: Microbiology 10/12/19 13:25 Gram Stain - Final Toe - #1 Wound Culture - Final Staphylococcus aureus 10/13/19 12:48 Gram Stain - Final Toe - Right Abscess Culture - Preliminary 10/12/19 13:30 Blood Culture - Preliminary Blood NEGATIVE TO DATE 10/12/19 13:36 Blood Culture - Preliminary Blood NEGATIVE TO DATE A&P Assessment and plan (1) Osteomyelitis of great toe of right foot: -noted R great toe erythema, purulence, ulcer in background of NIDDM type II -noted cellulitis and possible early OM on imaging; s/p amputation of 2nd and 3rd phalanges -received dose of Vanc and Zosyn in ED, continue this for now with caution given potential for nephrotoxicity -noted elevated CRP, no leukocytosis, afebrile -blood cx: prelim negative -wound cx pending, gram stain shows rare GPC in pairs (likely strep). Wound culture sent from ED has grown MSSA, sensitivity noted -Ortho consult by Dr. Castaneda appreciated -POD # 1 s/p amputation of R great toe -fall precautions, PT/OT evaluations post-op appreciated; recommended Status: Acute Code(s): M86.9 - Osteomyelitis, unspecified (2) Hyperlipemia: -continue statin Status: Acute Qualifiers: Hyperlipidemia type: mixed hyperlipidemia Qualified Code(s): E78.2 - Mixed hyperlipidemia Code(s): E78.5 - Hyperlipidemia, unspecified (3) Hypertension: -VSS; continue to monitor -continue oral antihypertensives Status: Acute Qualifiers: Hypertension type: essential hypertension Qualified Code(s): I10 - Essential (primary) hypertension Code(s): I10 - Essential (primary) hypertension (4) Acute kidney failure: -renal function has improved since last admission, improved today (1.8->1.5) -hold metformin -continue to monitor renal function particularly with dual antibiotics -has CKD stage 2; baseline Cr appears to be around 1.4 Status: Acute Qualifiers: Acute renal failure type: unspecified Qualified Code(s): N17.9 - Acute kidney failure, unspecified Code(s): N17.9 - Acute kidney failure, unspecified (5) Below-knee amputation of left lower extremity: -has known hx of LLE BKA -fall precautions Status: Acute Code(s): S88.112A - Complete traumatic amputation at level between knee and ankle, left lower leg, initial encounter (6) GERD (gastroesophageal reflux disease): -continue PPI Status: Acute Qualifiers: Esophagitis presence: with esophagitis Qualified Code(s): K21.0 - Gastro-esophageal reflux disease with esophagitis Code(s): K21.9 - Gastro-esophageal reflux disease without esophagitis (7) Diabetes mellitus: -controlled, A1c-5.0 -Accuchecks, ISS -diabetic diet -hypoglycemia precautions -hold metformin Status: Chronic Qualifiers: Diabetes mellitus complication status: without complication Diabetes mellitus fpc insulin use: without fpc use Diabetes mellitus type: type 2 Qualified Code(s): E11.9 - Type 2 diabetes mellitus without complications Code(s): E11.9 - Type 2 diabetes mellitus without complications Additional A&P Information -noted gallbladder wall thickening and edema surrounding gallbladder fossa that will require f/u particularly if symptomatic -noted L adrenal mass, benign -Depression; continue antidepressants -known anterior mediastinal mass; continue outpatient f/u -Chronic peripheral neuropathy; continue Gabapentin -Acute on chronic anemia; baseline Hg is 9-11; noted drop today, continue to monitor closely, transfuse if continued downward trend and/or symptomatic -GI ppx with PPI -DVT ppx with SCDs (RLE); hold off on AC given worsening anemia -Dispo: home with ([facility]) -Code status: FULL code Attestations Medical Necessity Statement*: Patient requires hospitalization for continued IV antibiotic treatment pending wound culture results. Time Spent in Patient Care: 16 - 35 minutes (>than 50% of time spent in counselling and/or direct pt care on unit). Coding Level of Care Code Acute Clerical Aide Teacher for [facility] Fwd Exam Comprehensive Diagnoses Osteomyelitis of great toe of right foot M86.9 Hyperlipemia E78.2 Hyperlipidemia type: mixed hyperlipidemia Hypertension I10 Hypertension type: essential hypertension Acute kidney failure N17.9 Acute renal failure type: unspecified Below-knee amputation of left lower extremity S88.112A GERD (gastroesophageal reflux disease) K21.0 Esophagitis presence: with esophagitis Diabetes mellitus E11.9 Diabetes mellitus complication status: without complication Diabetes mellitus termite exterminator helper insulin use: without termite exterminator helper use Diabetes mellitus type: type 2
[2019-10-14] MEDS: vancomycin 750 MG in sodium chloride 0.9% 250 ML 250 MG IV (17:24)
[2019-10-14] MEDS: atorvastatin 40 mg Tablet 20 MG PO (21:32)
[2019-10-15] VITALS (10 sets, daily range): BP systolic 131–172; BP diastolic 55–93; PULSE 62–70; RESP 16–18; TEMP 36.5–37; O2SAT 95–100
[2019-10-15 05:32] LABS: Hematocrit 23.2 % (37.0-47.0); Hemoglobin 7.4 g/dL (11.5-15.3)
[2019-10-15] MEDS: piperacillin-tazobactam 3.375 GM in sodium chloride 0.9% (plus) 50 ML IV ×2 (05:37→13:28)
--- NOTE | 2019-10-15 08:04 | PM.DCS ---
Discharge Providers Date of Admission: 10/12/19 16:33 Date of Discharge: October 15, 2019 Attending Provider at Admission: Shreya Powers MD Attending Provider at Discharge: Shreya Powers MD Primary Care Provider: GI Johnston Diagnoses at Discharge Discharge Diagnosis (1) Osteomyelitis of great toe of right foot: Status: Acute Problem details: -noted R great toe erythema, purulence, ulcer in background of NIDDM type II -noted cellulitis and possible early OM on imaging; s/p amputation of 2nd and 3rd phalanges -received dose of Vanc and Zosyn in ED, continue this for now with caution given potential for nephrotoxicity -noted elevated CRP, no leukocytosis, afebrile -blood cx: prelim negative -wound cx pending, gram stain shows rare GPC in pairs (likely strep). Wound culture sent from ED has grown MSSA, sensitivity noted -Ortho consult by Dr. Castaneda appreciated -POD # 2 s/p amputation of R great toe -fall precautions, PT/OT evaluations post-op appreciated; recommended (2) Hyperlipemia: Status: Chronic Problem details: -continue statin Qualifiers: Hyperlipidemia type: mixed hyperlipidemia Qualified Code(s): E78.2 - Mixed hyperlipidemia (3) Hypertension: Status: Chronic Problem details: -VSS; continue to monitor -continue oral antihypertensives Qualifiers: Hypertension type: essential hypertension Qualified Code(s): I10 - Essential (primary) hypertension (4) Acute kidney failure: Status: Acute Problem details: -renal function has improved since last admission, improved today (1.8->1.5) -hold metformin -continue to monitor renal function particularly with dual antibiotics -has CKD stage 2; baseline Cr appears to be around 1.4 Qualifiers: Acute renal failure type: unspecified Qualified Code(s): N17.9 - Acute kidney failure, unspecified (5) Below-knee amputation of left lower extremity: Status: Chronic Problem details: -has known hx of LLE BKA -fall precautions (6) GERD (gastroesophageal reflux disease): Status: Chronic Problem details: -continue PPI Qualifiers: Esophagitis presence: with esophagitis Qualified Code(s): K21.0 - Gastro-esophageal reflux disease with esophagitis (7) Diabetes mellitus: Status: Chronic Problem details: -controlled, A1c-5.0 -Accuchecks, ISS -diabetic diet -hypoglycemia precautions -hold metformin Qualifiers: Diabetes mellitus complication status: without complication Diabetes mellitus longterm insulin use: without bed bug exterminator use Diabetes mellitus type: type 2 Qualified Code(s): E11.9 - Type 2 diabetes mellitus without complications Other Information Additional DC diagnoses/information: -noted gallbladder wall thickening and edema surrounding gallbladder fossa that will require f/u particularly if symptomatic -noted L adrenal mass, benign -Depression; continue antidepressants -known anterior mediastinal mass; continue outpatient f/u -Chronic peripheral neuropathy; continue Gabapentin -Acute on chronic anemia; baseline Hg is 9-11; noted drop today, s/p 1 unit of PRBCs with increase to 9.8 Reason for Visit Reason for Visit: Reason For Visit: RIGHT FOOT INFECTION Hospital Course Hospital Course: Patient was admitted to the medical surgical floor and continued on broad-spectrum IV antibiotics. Orthopedics was consulted and patient had right great toe amputation, seizure was uncomplicated. Cultures had been sent from the ER as well as from the OR; both wound cultures have grown MSSA with sensitivity noted. Blood cultures have been negative. Patient has been afebrile, with no noted leukocytosis. She has had a prior left lower extremity below-knee amputation and following amputation of her right great toe worked with physical therapy to assist with ambulation and stability. She did well and home health was recommended which patient was agreeable to and has been arranged. She did have a noted drop in her hemoglobin from 9.7 on admission down to 7.4 earlier today. Her baseline appears to be 9-11. She has been hemodynamically stable but I anticipate her continued trend downward before she plateaus and start to trend back up to her baseline so she received a unit of PRBCs with increase to 9.8. She has otherwise done well, is tolerating oral intake without difficulty. Will need to follow-up with orthopedics for a wound check. During a previous admission she had been noted to have acutely worsening renal function, her creatinine has significantly improved, most recent one is 1.5. I am reluctant to treat her with Bactrim secondary to aforementioned renal impairment though this would otherwise be a good choice based on sensitivity from wound culture. Discharge Summary: -Patient to follow-up with her primary care provider within 1 week. She will need follow-up CBC and BMP to continue to monitor her hemoglobin and renal function respectively Physical Exam Const: COMMON NORMALS: no apparent distress and oriented x3 GENERAL APPEARANCE: cooperative and comfortable ORIENTATION/CONSCIOUSNESS: Yes awake HENMT: COMMON NORMALS: normocephalic, head/scalp atraumatic, hearing grossly normal bilaterally and moist oral mucous membranes HEAD & SCALP: normocephalic and atraumatic Eye: COMMON NORMALS: PERRL, EOMs intact bilaterally and conjunctivae normal CONJUNCTIVA: Yes conjunctivae normal PUPIL: Yes PERRL Neck/C-Spine: COMMON NORMALS: full ROM GENERAL: Yes normal visual inspection and Yes trachea midline Resp: COMMON NORMALS: normal respiratory effort, no retractions, no use of accessory muscles and clear to auscultation bilaterally EFFORT & INSPECTION: Yes able to speak in complete sentences, Yes symmetric chest movement and No tachypneic AUSCULTATION: clear to auscultation bilaterally Cardio: COMMON NORMALS: regular rate, regular rhythm, S1 normal heart sound, S2 normal heart sound and no murmurs RATE: regular rate RHYTHM: regular rhythm HEART SOUNDS: S1 normal and S2 normal GI: COMMON NORMALS: normal to inspection, nondistended, normoactive bowel sounds, soft to palpation and non-tender PALPATION: Yes soft Extremity: NARRATIVE EXTREMITY EXAM: -RLE: thick bulky dressing in place, onychomycosis of toenail, warm to touch, some non-pitting edema of foot -s/p LLE BKA; prosthetic off Neuro: COMMON NORMALS: oriented x3, moves all extremities, no focal motor deficits and no sensory deficits noted Psych: COMMON NORMALS: mental status grossly normal, thought process normal, cooperative, affect normal and speech normal SPEECH: Yes normal speech THOUGHT PROCESS: normal thought process Skin: COMMON NORMALS: no rashes or lesions noted, no jaundice, no petechiae and no mottling NARRATIVE SKIN EXAM: -noted open wound on anterior R great toe with some purulent drainage GENERAL SKIN EXAM: no rashes or lesions noted Discharge Data Data Completed and Pending: Completed Studies During Hospitalization Category Date Time Status XR chest 1V stephen ble [id number] Urgent Exams 10/12/19 15:31 Completed Pending at discharge Category Date Time Status Abscess Culture a nd Gram Stain Rout ine Lab 10/13/19 12:48 Results Anaerobic Culture Routine Lab 10/13/19 12:48 Results Blood Culture Sta t Lab 10/12/19 13:30 Results Vancomycin Trough Timed Lab 10/15/19 17:00 Ordered Pathology: Surgic al [PTH] Routine Pth 10/13/19 12:53 Received Labs from last 24 hours 10/15/19 04:15 Hgb 7.4 L Hct 23.2 L Vitals: Last Vital Signs Temp 97.7 F 10/15/19 03:55 Pulse 63 10/15/19 03:55 Resp 16 10/15/19 03:55 BP 147/81 10/15/19 03:55 Pulse Ox 95 10/15/19 03:55 Discharge Plan Discharge Patient Disposition: Home Health Service Condition: Stable Prescriptions: New amoxicillin-pot clavulanate [Augmentin] 875-125 mg tablet 1 tab PO BID 14 Days Qty: 28 RF: 0 Continued amlodipine 5 mg tablet 5 mg PO DAILY 30 Days Qty: 30 RF: 2 bupropion HCl 150 mg tablet sustained-release 12 hr 150 mg PO BID 30 Days Qty: 60 RF: 2 citalopram 20 mg tablet 20 mg PO BID 30 Days Qty: 60 RF: 2 pantoprazole 40 mg tablet,delayed release (DR/EC) 40 mg PO DAILY 30 Days Qty: 30 RF: 2 gabapentin 300 mg capsule 300 mg PO BID 30 Days Qty: 60 RF: 2 atorvastatin 10 mg tablet 10 mg PO BEDTIME 30 Days Qty: 30 RF: 0 pentoxifylline 400 mg Tablet Extended Release 400 mg PO TID RF: 0 trazodone 100 mg Tablet 200 mg PO DAILY RF: 0 metformin 1,000 mg Tablet 1,000 mg PO BID RF: 0 Discontinued metoprolol succinate 50 mg tablet extended release 24 hr 50 mg PO DAILY 30 Days Qty: 30 RF: 2 No Action (DME) blood sugar diagnostic Strip See Rx Instructions .ROUTE .MEDSUPPLY Qty: 10 RF: 0 (DME) blood-glucose meter [facility] [place] See Rx Instructions .ROUTE .MEDSUPPLY Qty: 1 RF: 0 Discharge Orders: Discharge Order (Routine); Ordered 10/15/19 Ordered By: Shreya Powers Other Ambulatory Orders: DME: [employer] (Order) Location: None Selected Ordered By: Shreya Powers DME: Walker (Order) Location: None Selected Ordered By: Shreya Powers Referrals: [facility]) [Outside] Kareem Armando, CERTIFIED PEST CONTROL TECHNICIAN-C [Primary Care Provider] - 1-3 days (Post hospital discharge follow up. Needs follow up CBC, BMP to monitor hemoglobin and renal function. Has had R great toe amputation secondary to cellulitis and osteomyelitis, on antibiotics (Augmentin x 14 days). ) Discharge Diet: Diabetic Discharge Activity: As per PT/OT instructions Activity Restrictions/Additional Instructions: -Please weight bear as tolerated with orthowedge shoe to R foot Discharge Attestations Time Spent in Discharge Care*: greater than 30 min Specific Discharge Activities: Specific discharge activities: educating patient, discussing with rehabilitation case coordinator/social workers/dc planners, documenting/other paperwork and evaluating patient/reviewing data Status at Discharge: Cognitive status at discharge: cognitively intact, Behavioral status at discharge: cooperative, Functional status at discharge: other assisted ambulation (s/p LLE BKA) Overall status at discharge: patient is back to baseline Quality Metrics Clinical Quality Measures During this hospital stay, did patient experience: None Coding Level of Care Code Acute Performing Artist for [facility] Fwd Exam Comprehensive Diagnoses Osteomyelitis of great toe of right foot M86.9 Hyperlipemia E78.2 Hyperlipidemia type: mixed hyperlipidemia Hypertension I10 Hypertension type: essential hypertension Acute kidney failure N17.9 Acute renal failure type: unspecified Below-knee amputation of left lower extremity S88.112A GERD (gastroesophageal reflux disease) K21.0 Esophagitis presence: with esophagitis Diabetes mellitus E11.9 Diabetes mellitus complication status: without complication Diabetes mellitus bed bug exterminator insulin use: without longterm use Diabetes mellitus type: type 2
[2019-10-15] MEDS: buPROPion SR (12 HR) 150 mg Tablet PO (08:26)
[2019-10-15] MEDS: gabapentin 300 mg Capsule PO (08:26)
[2019-10-15] MEDS: citalopram 20 mg Tablet PO (08:26)
[2019-10-15] MEDS: pantoprazole DR 40 mg Tablet PO (08:26)
[2019-10-15] MEDS: amlodipine 5 mg Tablet PO (08:27)
--- NOTE | 2019-10-15 10:05 | PC.SOCIAL ---
IMM Update Pg 2 of IMM given and explained to patient who verbalized understanding. Copy provided to patient and copy placed in chart.
--- NOTE | 2019-10-15 13:37 | P.PN_ITS ---
Subjective Subjective: Interval history: Planes of very little right foot pain Vitals/I&O/Wt Last Vital Signs Temp 98.1 F 10/15/19 13:20 Pulse 70 10/15/19 13:20 Resp 18 10/15/19 13:20 BP 172/90 10/15/19 13:20 Pulse Ox 95 10/15/19 13:20 10/14/19 10/15/19 10/15/19 22:59 06:59 14:59 Intake Total 1770 / 2720 1063.333 / 3783.333 1001.667 / 1001.667 Output Total 900 / 900 Balance 1770 / 2720 163.333 / 2883.333 1001.667 / 1001.667 Weight last 48 hrs Weight 153 lb Weight 148 lb 1.6 oz Physical Exam Narrative: EXAM NARRATIVE: Right incision clean. Much less erythema. Expected postoperative swelling Data : 10/15/19 04:15 10/14/19 04:22 Micro: Microbiology 10/13/19 12:48 Gram Stain - Final Toe - Right Abscess Culture - Final Staphylococcus aureus 10/12/19 13:25 Gram Stain - Final Toe - #1 Wound Culture - Final Staphylococcus aureus A&P Assessment and plan (1) Status post amputation of toe of right foot: Clinically her foot looks very good. With her left below-knee amputation she will need to bear some weight on the right. I will try to get her OrthoWedge shoe to demise pressure on the forefoot. She can be converted to oral antibiotics and discharge home as per medicine Status: Acute Code(s): Z89.421 - Acquired absence of other right toe(s) Attestations Medical Necessity Statement*: As per medicine Coding Level of Care Code Acute Development And Planning Engineer for [place] Fwd Diagnoses Status post amputation of toe of right foot Z89.421
--- NOTE | 2019-10-15 13:48 | PC.OT ---
OT TREATMENT ATTEMPTED. PATIENT IS SCHEDULED FOR DISCHARGE THIS AFTERNOON. DISCUSSED AGAIN WITH HER THE NEED FOR WHEELS FOR HER WALKER AND A BSC. CALLED MICHAEL IN TO DISCUSS THIS. PATIENT VOICES NO FURTHER CONCERNS AT THIS TIME.
[2019-10-15 16:03] LABS: Hemoglobin 9.8 g/dL (11.5-15.3)
== END 2019-10-15 17:01 | disposition home health service (06) | DRG 617 ==
LOC: ER 17:16 → MEDSURG 17:38
PROVIDERS: Family Medicine; Orthopaedic Surgery; Admitting Provider Family Medicine; Emergency Provider Physician Assistant; Family Provider Nurse Practitioner; PCP Nurse Practitioner; Visit Provider Family Medicine
PROC: 0Y6P0Z0 Detachment at Right 1st Toe, Complete, Open Approach (ICD-10-PCS; principal; 2019-10-13 11:45)
DX: E11.69 Type 2 diabetes mellitus with other specified complication (principal); M86.171 Other acute osteomyelitis, right ankle and foot; E11.52 Type 2 diabetes mellitus with diabetic peripheral angiopathy with gangrene; I96 Gangrene, not elsewhere classified; L03.031 Cellulitis of right toe; L53.8 Other specified erythematous conditions; E78.2 Mixed hyperlipidemia; N17.9 Acute kidney failure, unspecified; K21.0 Gastro-esophageal reflux disease with esophagitis; Z79.84 Long term (current) use of oral hypoglycemic drugs; E11.42 Type 2 diabetes mellitus with diabetic polyneuropathy; F32.9 Major depressive disorder, single episode, unspecified; E11.22 Type 2 diabetes mellitus with diabetic chronic kidney disease; I12.9 Hypertensive chronic kidney disease with stage 1 through stage 4 chronic kidney disease, or unspecified chronic kidney disease; N18.3 Chronic kidney disease, stage 3 (moderate); G47.33 Obstructive sleep apnea (adult) (pediatric); Z86.73 Personal history of transient ischemic attack (TIA), and cerebral infarction without residual deficits; Z86.010 Personal history of colon polyps; E55.9 Vitamin D deficiency, unspecified; Z87.891 Personal history of nicotine dependence
CPT/HCPCS: 12345; 36415; 36416; 36430; 71045; 73620; 73630; 80048; 80053; 81003; 82962; 83605; 85014; 85018; 85025; 86140; 86850; 86900; 86920; 87040; 87070; 87075; 87077; 87186; 87205; 88305; 97116; 97161; 97165; 97535; 99283; J2250; J2543; J3010; J3370; J7030; J7050; J7799; L3260; P9016

== ENCOUNTER → 2019-10-29 09:31 | Outpatient (BNVA) | payer MEDICARE, MEDICAID, SELFPAY | PROVIDERS: Family Provider Nurse Practitioner; PCP Nurse Practitioner; Visit Provider Nurse Practitioner | DX: I70.90 Unspecified atherosclerosis (principal); E78.5 Hyperlipidemia, unspecified; E11.9 Type 2 diabetes mellitus without complications | CPT/HCPCS: 83036; 85025 ==

== ENCOUNTER → 2020-01-26 16:09 | Outpatient (BNVA) | payer MEDICARE, MEDICAID, SELFPAY | PROVIDERS: PCP Nurse Practitioner; Visit Provider Nurse Practitioner Family | DX: E11.9 Type 2 diabetes mellitus without complications (principal); F32.9 Major depressive disorder, single episode, unspecified; E78.2 Mixed hyperlipidemia; I10 Essential (primary) hypertension; K21.0 Gastro-esophageal reflux disease with esophagitis; Z89.421 Acquired absence of other right toe(s); L98.9 Disorder of the skin and subcutaneous tissue, unspecified | CPT/HCPCS: 80053; 80061; 83036; 84443; 85025 ==

== ENCOUNTER → 2020-02-23 10:18 | Outpatient (BNVA) | payer MEDICARE, MEDICAID, SELFPAY | PROVIDERS: PCP Nurse Practitioner; Visit Provider Nurse Practitioner | DX: E11.9 Type 2 diabetes mellitus without complications (principal); R41.3 Other amnesia | CPT/HCPCS: 80048; 82607; 84443; 85025; 96116 ==

== ENCOUNTER → 2020-03-28 15:58 | Outpatient (BNVA) | payer MEDICARE, MEDICAID, SELFPAY | PROVIDERS: PCP Nurse Practitioner; Visit Provider Nurse Practitioner | DX: E11.9 Type 2 diabetes mellitus without complications (principal); I10 Essential (primary) hypertension; F32.9 Major depressive disorder, single episode, unspecified; E78.2 Mixed hyperlipidemia; K21.0 Gastro-esophageal reflux disease with esophagitis; I70.90 Unspecified atherosclerosis; R41.3 Other amnesia | CPT/HCPCS: 80048 ==

== ENCOUNTER → 2020-06-06 16:33 | Outpatient (BNVA) | payer MEDICARE, MEDICAID, SELFPAY | PROVIDERS: PCP Nurse Practitioner; Visit Provider Nurse Practitioner | DX: E11.9 Type 2 diabetes mellitus without complications (principal); I10 Essential (primary) hypertension; E78.2 Mixed hyperlipidemia; F32.9 Major depressive disorder, single episode, unspecified; R41.3 Other amnesia; I70.90 Unspecified atherosclerosis | CPT/HCPCS: 80053; 80061; 81003; 83036 ==

== ENCOUNTER → 2020-06-14 10:51 | Outpatient (BNVA) | payer MEDICARE, MEDICAID, SELFPAY | PROVIDERS: PCP Nurse Practitioner; Visit Provider Nurse Practitioner | DX: M17.12 Unilateral primary osteoarthritis, left knee (principal); M25.562 Pain in left knee | CPT/HCPCS: 73562 ==

== ENCOUNTER → 2020-06-22 10:27 | Outpatient (BNVA) | payer MEDICARE, MEDICAID, SELFPAY | PROVIDERS: PCP Nurse Practitioner; Visit Provider Nurse Practitioner | DX: M79.639 Pain in unspecified forearm (principal) | CPT/HCPCS: 73090 ==

== ENCOUNTER → 2020-08-18 09:51 | Outpatient (BNVA) | payer MEDICARE, MEDICAID, SELFPAY | PROVIDERS: PCP Nurse Practitioner; Visit Provider Nurse Practitioner | DX: E11.9 Type 2 diabetes mellitus without complications (principal); I10 Essential (primary) hypertension; F32.9 Major depressive disorder, single episode, unspecified; M79.2 Neuralgia and neuritis, unspecified; I70.90 Unspecified atherosclerosis | CPT/HCPCS: 80053; 83036; 85025 ==

== ENCOUNTER → 2020-09-09 16:34 | Outpatient (BNVA) | payer MEDICARE, MEDICAID, SELFPAY | PROVIDERS: PCP Nurse Practitioner; Visit Provider Nurse Practitioner | DX: T24.211A Burn of second degree of right thigh, initial encounter (principal); X58.XXXA Exposure to other specified factors, initial encounter | CPT/HCPCS: 80053; 85025 ==

== ENCOUNTER 2020-09-11 11:09 | Inpatient (IN) | payer MEDICARE, MEDICAID, SELFPAY ==
[2020-09-11] VITALS (14 sets, daily range): BP systolic 100–145; BP diastolic 51–91; PULSE 67–101; RESP 16–27; TEMP 36.9–37.1; O2SAT 92–99; BMI 31.3
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
--- NOTE | 2020-09-11 11:53 | PC.PHAR ---
pt state she is unsure what medications she took today-pt brought in paper of her meds-pt states someone helps her take care of her medications but is unsure of her number-medications entered are meds from her list and from what ext med history shows filled recently
[2020-09-11 11:57] LABS: Glucose Point of Care 367 mg/dL (70-110)
[2020-09-11] MEDS: insulin regular-human 100 units/1 mL 8 UNIT IVP ×2 (12:15→13:55)
[2020-09-11 12:35] LABS: Basophils # 0.1 10^3/uL (0.0-0.1); Basophils % 0.3 %; Eosinophils # 0.1 10^3/uL (0.0-0.8); Eosinophils % 0.7 %; Hematocrit 33.8 % (37.0-47.0); Hemoglobin 11.1 g/dL (11.5-15.3); Lymphocytes # 0.3 10^3/uL (0.8-4.8); Lymphocytes % 1.9 %; Mean Corpuscular HGB Conc 32.8 g/dL (30.0-36.0); Mean Corpuscular Hemoglobin 29.1 pg (28.0-34.0); Mean Corpuscular Volume 88.7 fL (81-99); Mean Platelet Volume 10.8 fL (7.4-10.4); Monocytes # 0.6 10^3/uL (0.2-0.9); Neutrophils # 13.27 10^3/uL (1.8-7.7); Neutrophils % 92.2 %; Nucleated Red Blood Cells % 0 %; Platelet Count 164 10^3/cmm (130-400); Red Blood Count 3.81 10^6/uL (4.1-5.3); Red Cell Distribution Width 12.5 % (12.1-15.1); White Blood Count 14.4 10^3/uL (4.0-10.0)
[2020-09-11] MEDS: sodium chloride 0.9% 500 ML IV (12:37)
[2020-09-11 12:49] LABS: Alanine Aminotransferase 23 U/L (0-33); Albumin Level 3.2 g/dL (3.5-5.2); Alkaline Phosphatase 132 IU/L (35-105); Anion Gap 14.4 (5-19); Aspartate Amino Transferase 38 U/L (0-32); Blood Urea Nitrogen 26 mg/dL (8-23); Calcium 8.9 mg/dL (8.5-10.5); Carbon Dioxide 20 mmol/L (22-29); Chloride 97 mmol/L (98-107); Globulin 3.9 g/dL (1.3-4.6); Glomerular Filtration Rate 26.7 mL/min (90-130); Glucose 371 mg/dL (65-115); Osmolality Calculated 278 mOsm/kg (285-295); Sodium 124 mmol/L (136-145); Total Bilirubin 0.6 mg/dL (0.15-1.2); Total Protein 7.1 g/dL (6.6-8.7)
[2020-09-11 13:03] LABS: Potassium 7.4 mmol/L (3.5-5.1)
--- NOTE | 2020-09-11 13:15 | ECG_ITS ---
[facility] Test Date: 2020-09-11 Pat Name: Lyric Cain Department: Room: Gender: Female Steam Bone Press Tender: : 1955 Requested By: Ramsey Bowser Order Number: [id number] Sunday MD: Inocente Scruggs M.D. Measurements Intervals [place] Rate: 68 P: NM: QRS: -24 QRSD: 94 T: 123 QT: 394 QTc: 420 Interpretive Statements SINUS RHYTHM WITH HIGH GRADE AV BLOCK SEPTAL MYOCARDIAL INFARCTION , OF INDETERMINATE AGE [40+ ms Q WAVE IN V1/V2] PROBABLE LATERAL MYOCARDIAL INFARCTION , OF INDETERMINATE AGE [35 ms Q WAVE IN I/aVL/V5/V6] CRITICAL TEST RESULT Compared to ECG 08/26/2019 19:48:18 Myocardial infarct finding now present Electronically Signed On 09-11-2020 15:21:47 WALL ATTENDANT by Inocente Scruggs M.D. [id number]
[2020-09-11 15:14] LABS: Glucose Point of Care 249 mg/dL (70-110)
[2020-09-11 15:16] LABS: Blood Urea Nitrogen 26 mg/dL (8-23); Carbon Dioxide 19 mmol/L (22-29); Chloride 97 mmol/L (98-107); Glomerular Filtration Rate 28.4 mL/min (90-130); Glucose 302 mg/dL (65-115); NT Pro B Type Natriuretic Pept 816 pg/mL (0-125); Osmolality Calculated 274 mOsm/kg (285-295); Sodium 124 mmol/L (136-145)
[2020-09-11 15:19] LABS: Anion Gap 14.3 (5-19)
[2020-09-11 15:21] LABS: Potassium 6.3 mmol/L (3.5-5.1)
[2020-09-11 15:43] LABS: Partial Thromboplastin Time 40.5 SECONDS (23.9-36.7)
[2020-09-11 15:51] LABS: Troponin T (5th) Once 28 ng/L (0-10)
--- NOTE | 2020-09-11 15:51 | ECG_ITS ---
[facility] Test Date: 2020-09-11 Pat Name: Lyric Cain Department: Room: 277 Gender: Female Supervisor Grinding: : 1955 Requested By: Ramsey Bowser Order Number: [id number] Brand MD: Inocente Scruggs M.D. Measurements Intervals [place] Rate: 72 P: 17 CT: 140 QRS: 11 QRSD: 88 T: 53 QT: 381 QTc: 419 Interpretive Statements SINUS RHYTHM Compared to ECG 09/11/2020 13:26:51 Myocardial infarct finding no longer present Electronically Signed On 09-12-2020 16:05:53 CAKE INSPECTOR by Inocente Scruggs M.D. [email or web address]-[email or web address] memorial [email or web address] [id number]
[2020-09-11] MEDS: calcium gluconate 0.1 gm/mL 10% SDV 10mL 2 GM IVP (16:11)
[2020-09-11] MEDS: dextrose 50% syringe 50 mL IVP (16:11)
[2020-09-11] MEDS: sodium chloride 0.9% 1,000 ML 100 ML IV (16:11)
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
[2020-09-11] MEDS: insulin regular-human 100 units/1 mL 10 UNIT IVP (16:42)
[2020-09-11 17:38] LABS: Bilirubin Urine Neg (Negative); Blood Urine 3+ (Negative); Glucose Urine UA 4+ (Normal); Ketones Urine Negative (Negative); Nitrate Urine Negative (Negative); Protein Urine Trace (Negative); Specific Gravity, Urine 1.015 (1.005-1.030); Urine Appearance SL Hazy (CLEAR); Urine Color Yellow (Yellow); pH Urine 5 (5-7)
[2020-09-11 17:39] LABS: Add Urine Microscopic? YES; Leukocyte Esterase Urine Negative (Negative); Urobilinogen Urine Norm (Negative)
[2020-09-11 18:04] LABS: Bacteria Urine TRACE /hpf; Coarse Granular Casts Urine 0-4 /lpf; Mucus Urine TRACE /hpf; RBC Urine 0-4 /hpf (0-2); Squamous Epithelial Cell Urine 0-4 /hpf (0-5)
[2020-09-11 18:06] LABS: Add Urine Culture? No
--- NOTE | 2020-09-11 18:18 | XRR_ITS ---
PROCEDURE INFORMATION: Exam: XR Chest, 1 View Exam date and time: 09/11/2020 9:44 PM Age: 64 years old Clinical indication: Shortness of breath; Prior surgery; Surgery type: Gb, hyst; Additional info: SOB TECHNIQUE: Imaging protocol: XR of the chest Views: 1 view. COMPARISON: CR XR chest 1V portable [id number] 10/12/2019 3:49 PM FINDINGS: Lungs: There is a patchy airspace opacity in the left lower lung, in association with slight indistinctness of the left hemidiaphragm, concerning for pneumonia. The right lung is clear. Blunting of the left costophrenic angle noted. No large pleural effusion or pneumothorax. Pleural spaces: See Lungs finding. Heart/Mediastinum: Stable cardiomediastinal silhouette. Bones/joints: Degenerative changes of the spine seen. XR/XR chest 1V portable [id number] IMPRESSION: Left lower lung patchy airspace opacity, concerning for pneumonia.
--- NOTE | 2020-09-11 18:18 | XRR_ITS ---
PROCEDURE INFORMATION: Exam: XR Bilateral Hips with Pelvis when Performed Exam date and time: 09/12/2020 7:21 AM Age: 64 years old Clinical indication: Injury or trauma; Fall; Blunt trauma (contusions or hematomas); Bilateral; Hip TECHNIQUE: Imaging protocol: XR bilateral hips with pelvis when performed. Views: 2 views. COMPARISON: CT abdomen pelvis wo con [id number] 08/25/2019 9:44 AM FINDINGS: Bones/joints: Unremarkable. No acute fracture. Soft tissues: Unremarkable. XR/XR hip BI 3-4V wo/w pel [id number] IMPRESSION: No acute findings.
--- NOTE | 2020-09-11 18:18 | CTR_ITS ---
PROCEDURE INFORMATION: Exam: CT Head Without Contrast Exam date and time: 09/11/2020 8:56 PM Age: 64 years old Clinical indication: Altered mental status/memory loss; Confusion or disorientation; Patient HX: AMS TECHNIQUE: Imaging protocol: Computed tomography of the head without contrast. Radiation optimization: All CT scans at this facility use at least one of these dose optimization techniques: automated exposure control; mA and/or kV adjustment per patient size (includes targeted exams where dose is matched to clinical indication); or iterative reconstruction. COMPARISON: CT head wo con* [id number] 08/26/2019 8:50 PM RADIATION DOSE METRICS: Total DLP (mGy-cm): 626.09 FINDINGS: Brain: There is moderate cerebral atrophy. There is mild diffuse heterogeneity of the white matter attenuation, consistent with chronic white matter ischemic changes. Negative for intracranial hemorrhage. No intracranial mass. No acute brain ischemia. No midline shift of brain. Cerebral ventricles: No ventriculomegaly. Bones/joints: Rightward osseous nasal septal deviation and large osseous spur. Paranasal sinuses: Visualized sinuses are unremarkable. No fluid levels. Mastoid air cells: Visualized mastoid air cells are well aerated. Orbital cavity: Orbits are symmetric and unremarkable. Vasculature: Intracranial atherosclerosis. Soft tissues: Unremarkable. CT/CT head wo con* [id number] IMPRESSION: 1. Negative for acute intracranial abnormality. 2. No change in the brain from comparison on 08/26/2019. Radiation Dose CTDIVOL = (mGy): DLP = 626.09 (mGy-cm)
--- NOTE | 2020-09-11 18:26 | PC.NURSE ---
received from er via stretcher at 1730.report received.oriented to room environment.sr on monitor.instructed to notify staff for any sob,cp or for any concerns at all.pt verb understanding of instructions.
[2020-09-11 18:42] LABS: Glucose Point of Care 281 mg/dL (70-110)
[2020-09-11 19:05] LABS: Alanine Aminotransferase 24 U/L (0-33); Albumin Level 3.2 g/dL (3.5-5.2); Alkaline Phosphatase 117 IU/L (35-105); Anion Gap 16.6 (5-19); Aspartate Amino Transferase 42 U/L (0-32); Blood Urea Nitrogen 24 mg/dL (8-23); C Reactive Protein 325.3 mg/L (0.0-4.9); Calcium 9.2 mg/dL (8.5-10.5); Carbon Dioxide 19 mmol/L (22-29); Chloride 97 mmol/L (98-107); Globulin 3.8 g/dL (1.3-4.6); Glomerular Filtration Rate 28.4 mL/min (90-130); Glucose 234 mg/dL (65-115); Osmolality Calculated 276 mOsm/kg (285-295); Potassium 5.6 mmol/L (3.5-5.1); Sodium 127 mmol/L (136-145); Total Bilirubin 0.5 mg/dL (0.15-1.2)
[2020-09-11] MEDS: enoxaparin 40 mg/0.4 mL Syringe SUBCUT (19:14)
[2020-09-11] MEDS: gabapentin 300 mg Capsule PO (19:15)
[2020-09-11] MEDS: cefTRIAXone 1,000 MG in sodium chloride 0.9% (plus) 50 ML 100 MG IV (19:15)
[2020-09-11] MEDS: docusate sodium 100 mg Capsule PO (19:15)
[2020-09-11] MEDS: famotidine 20 mg Tablet PO (19:15)
[2020-09-11] MEDS: sodium polystyrene sulfonate 15 gm/60 mL Btl PO (19:15)
[2020-09-11] MEDS: citalopram 20 mg Tablet PO (19:15)
--- NOTE | 2020-09-11 20:05 | PC.PHAR ---
Pharmacokinetic dosing service Date: 09/11/20 Time: 1999 Objective: Patient: Floor: Age: 64 yo Serum creatinine: 1.8 mg/dL Height: 67.0 Inches Weight (kg): 90.718 Diagnosis: Relevant medical/social history: Cultures and sensitivities: Other labs: Assessment: IBW (kg): 61.60 Dosing wt(kg): 90.718 Estimated Creatinine clearance (ml/min): 31.1 CRCL method: Cockcroft and Gault using ibw(default). Drug selected: Vancomycin Loading dose (mg): 0 Vd (liters): 81.6 (factor used: 0.9 L/kg) Asher (hr-1): 0.030 Half life (hrs): 23.10 Recommended dose: 1500 mg Interval: 24 hrs Infusion time (hrs): 1 Predicted peak (mcg/mL): 35.3 Predicted trough (mcg/mL): 17.71 Total body weight is being used for vancomycin dosing. Renal function is stable [ ] /unstable [ ] Recommendations: Give Vancomycin 1500 mg q 24 hrs with an expected Cpeak of 35.3 mcg/ml and an expected Ctrough of 17.71 mcg/ml Renal dosing of other antibiotics (review renal dosing of other medications and list guidelines here): Thank you for the consult, will continue to follow. Signature: Lenka Stahl [facility]
[2020-09-11 20:09] LABS: Ammonia 22 umol/L (11-51)
[2020-09-11] MEDS: bacitracin ointment 28 gm 1 APPLIC TOPICAL (20:33)
[2020-09-11] MEDS: mupirocin oint 22 gm 1 APPLIC TOPICAL (20:33)
[2020-09-11] MEDS: atorvastatin 40 mg Tablet 20 MG PO (20:33)
[2020-09-11] MEDS: vancomycin 1,500 MG/300 ML PIGGYBACK 200 MG IV (20:33)
[2020-09-11 20:48] LABS: Glucose Point of Care 326 mg/dL (70-110)
[2020-09-11 21:26] LABS: Erythrocyte Sedimentation Rate 102 mm/hr (0-15)
--- NOTE | 2020-09-11 23:49 | PC.NURSE ---
Called to verify q6h Kayexalate order. Ordered to give Kayexalate until patient has two bowel movements.
[2020-09-12] VITALS (12 sets, daily range): BP systolic 114–145; BP diastolic 54–74; PULSE 63–83; RESP 21–25; TEMP 36.6–39.4; O2SAT 90–94
[2020-09-12] MEDS: sodium chloride 0.9% 1,000 ML 100 ML IV ×2 (00:04→11:34)
[2020-09-12] MEDS: sodium polystyrene sulfonate 15 gm/60 mL Btl PO (00:04)
--- NOTE | 2020-09-12 02:34 | PC.NURSE ---
Patient is currently resting with eyes closed. Will monitor.
[2020-09-12 04:14] LABS: Basophils % 0.3 %; Hematocrit 32.1 % (37.0-47.0); Hemoglobin 10.2 g/dL (11.5-15.3); Lymphocytes # 0.4 10^3/uL (0.8-4.8); Lymphocytes % 3.1 %; Mean Corpuscular HGB Conc 31.8 g/dL (30.0-36.0); Mean Corpuscular Hemoglobin 29.2 pg (28.0-34.0); Monocytes # 0.5 10^3/uL (0.2-0.9); Monocytes % 4.3 %; Neutrophils # 10.16 10^3/uL (1.8-7.7); Neutrophils % 91.3 %; Nucleated Red Blood Cells % 0 %; Platelet Count 138 10^3/cmm (130-400); Red Blood Count 3.49 10^6/uL (4.1-5.3); Red Cell Distribution Width 12.8 % (12.1-15.1); White Blood Count 11.1 10^3/uL (4.0-10.0)
[2020-09-12 04:50] LABS: Alanine Aminotransferase 27 U/L (0-33); Albumin Level 2.5 g/dL (3.5-5.2); Alkaline Phosphatase 108 IU/L (35-105); Aspartate Amino Transferase 54 U/L (0-32); Blood Urea Nitrogen 22 mg/dL (8-23); Calcium 8.6 mg/dL (8.5-10.5); Carbon Dioxide 18 mmol/L (22-29); Chloride 101 mmol/L (98-107); Chol HDL Ratio 2.53 mg/dL (0.0-4.40); Cholesterol 76 mg/dL (0-200); Globulin 3.6 g/dL (1.3-4.6); Glomerular Filtration Rate 30.4 mL/min (90-130); Glucose 230 mg/dL (65-115); HDL Cholesterol 30 mg/dL (60-100); LDL Cholesterol Calculated 28 mg/dL (50-129); LDL HDL Ratio 0.93 RATIO (0.00-3.22); Magnesium 1.5 mg/dL (1.7-2.3); Osmolality Calculated 281 mOsm/kg (285-295); Phosphorus 2.9 mg/dL (2.5-4.5); Sodium 130 mmol/L (136-145); Thyroid Stimulating Hormone 0.31 uIU/mL (0.27-4.20); Total Bilirubin 0.4 mg/dL (0.15-1.2); Total Protein 6.1 g/dL (6.6-8.7); Triglycerides 92 mg/dL (0-150)
[2020-09-12 04:52] LABS: Anion Gap 15.6 (5-19); Potassium 4.6 mmol/L (3.5-5.1)
[2020-09-12 05:13] LABS: Estmated Average Glucose 309; Hemoglobin A1C 12.4 % (4.0-6.0)
--- NOTE | 2020-09-12 06:16 | PC.NURSE ---
Dr. Duong notified of potassium of 4.6 this am and patient having one loose bowel movement since last talking to her. Kayexelate ordered discontinued.
[2020-09-12 06:37] LABS: Glucose Point of Care 263 mg/dL (70-110)
--- NOTE | 2020-09-12 09:26 | PC.CHAP ---
Pastoral Care Encounter/Spiritual Assessment Type of Contact [] Declined tin roller hot mill visit [] Patient/Family/Request visit [] Outpatient visit [] Follow-up visit [] Physician referral [] Code/Alert [x] Routine visit [] Staff referral [] Actively dying [] Patient sleeping [] Family support [] [] Out of room [] Palliative care [] [] Receiving care in room [] Pre-surgical visit [] Trauma [] Long length of stay [] ICU visit [] Other: Relational/Emotional Strength [] Patient feels connected with others/family/visitors/staff [] Distress [] Loneliness/isolation [] Abandonment Spirituality of Patient [x] Person of Kaela [] Attends Christianity of their Kaela [] Believes in Prayer [] Reads Bible or Yarsanism materials [] There are Spiritual issues to be addressed Dehydration Plant Operator Interventions [x] Prayer [x] Active listening [x] Non-anxious presence [x] Spiritual/emotional support [] Crisis/trauma care [] Spiritual counseling [] Bereavement support [] Provided bereavement packet [] Provided Bible/devotional materials [] Provided toy/stuffed animal, coloring book to patient or family member [] Provided Communion [] Anointing/[place] [] Salvation [x] Completed spiritual assessment [] Other: Impact on Illness or Injury [] Angry [] Fearful [] Anxious [] Often cries [] Exhaustion [] Unable to work [] Unable to attend oriental orthodox [] Unable to walk/stand [] Unable to read [] Unable to drive [] Unable to eat/drink [] Unable to sleep [] Unable to be with family [] Patient intubated [] Other: Summary patient still in pain from [place]... prayed for fast healing and comfort... Time spent with patient 10 min
[2020-09-12] MEDS: metoprolol succinate ER (24 HR) 50 mg Tablet PO (09:30)
[2020-09-12] MEDS: amlodipine 5 mg Tablet PO (09:30)
[2020-09-12] MEDS: bacitracin ointment 28 gm 1 APPLIC TOPICAL (09:30)
[2020-09-12] MEDS: famotidine 20 mg Tablet PO ×2 (09:30→17:33)
[2020-09-12] MEDS: donepezil 5 MG Tablet PO (09:30)
[2020-09-12] MEDS: gabapentin 300 mg Capsule PO ×2 (09:30→17:33)
[2020-09-12] MEDS: citalopram 20 mg Tablet PO ×2 (09:30→17:33)
[2020-09-12] MEDS: pantoprazole DR 40 mg Tablet PO (09:30)
[2020-09-12] MEDS: docusate sodium 100 mg Capsule PO (09:30)
[2020-09-12] MEDS: mupirocin oint 22 gm 1 APPLIC TOPICAL (09:31)
[2020-09-12] MEDS: magnesium sulfate premix 2 GM/50 ML PIGGYBACK IV (09:35)
[2020-09-12 11:23] LABS: Glucose Point of Care 217 mg/dL (70-110)
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
[2020-09-12] MEDS: silver sulfadiazine cream 1% 50 gm 1 APPLIC TOPICAL (15:51)
[2020-09-12 17:15] LABS: Glucose Point of Care 187 mg/dL (70-110)
[2020-09-12] MEDS: enoxaparin 40 mg/0.4 mL Syringe SUBCUT (18:11)
[2020-09-12] MEDS: cefTRIAXone 1,000 MG in sodium chloride 0.9% (plus) 50 ML 100 MG IV (18:22)
--- NOTE | 2020-09-12 18:44 | PC.NURSE ---
PATIENT TAKEN TO MED SURG. REPORT GIVEN TO CEDRIC MITCHELL. NO COMPLAINTS FROM PATIENT AT TIME OF TRANSFER.
[2020-09-12] MEDS: acetaminophen 325 mg Tablet 650 MG PO (20:39)
[2020-09-12] MEDS: atorvastatin 40 mg Tablet 20 MG PO (20:40)
[2020-09-12 21:27] LABS: Glucose Point of Care 120 mg/dL (70-110)
--- NOTE | 2020-09-12 21:38 | XR_ITS ---
WS: [id number] PORTABLE CHEST HISTORY: fever COMPARISON: 09/11/2020 New interstitial thickening over the lower LEFT lung. This is probably an area of pneumonitis. May be within the lingula or LEFT lower lobe. No pleural effusion or pneumothorax. Cardiac size: Normal. Mediastinum/Aorta: Normal mediastinum. No osseous abnormality seen. XR/XR chest 1V portable [id number] IMPRESSION: Mild pneumonitis in the LEFT lower lung field.
[2020-09-12 22:49] LABS: Lactate (Lactic Acid level) 1.3 mmol/L (0.5-2.2)
[2020-09-12] MEDS: cefepime 1,000 MG in sodium chloride 0.9% (plus) 50 ML 100 MG IV (22:51)
[2020-09-12 22:59] LABS: Add Urine Microscopic? YES; Bilirubin Urine Neg (Negative); Blood Urine 3+ (Negative); Glucose Urine UA Norm (Normal); Ketones Urine Negative (Negative); Leukocyte Esterase Urine Negative (Negative); Nitrate Urine Negative (Negative); Protein Urine 1+ (Negative); Specific Gravity, Urine 1.015 (1.005-1.030); Urine Appearance Cloudy (CLEAR); Urine Color Yellow (Yellow); Urobilinogen Urine Norm (Negative); pH Urine 5 (5-7)
[2020-09-12 23:02] LABS: Coarse Granular Casts Urine 15-25 /lpf
[2020-09-12 23:03] LABS: RBC Urine 15-25 /hpf (0-2)
[2020-09-12 23:04] LABS: Add Urine Culture? Yes; Amorphous Sediment Urine 3+ /hpf; Bacteria Urine 1+ /hpf; Squamous Epithelial Cell Urine 0-4 /hpf (0-5); Transitional Epi Cells Urine 0-4 /hpf
[2020-09-12] MEDS: linezolid premix 600 MG/300 ML PREMIX 300 MG IV (23:08)
[2020-09-13] VITALS (7 sets, daily range): BP systolic 105–153; BP diastolic 56–78; PULSE 59–74; RESP 16–22; TEMP 36.6–37.4; O2SAT 90–93
[2020-09-13 06:13] LABS: Basophils % 0.3 %; Eosinophils % 0.2 %; Hematocrit 30.9 % (37.0-47.0); Hemoglobin 10.2 g/dL (11.5-15.3); Lymphocytes # 0.4 10^3/uL (0.8-4.8); Lymphocytes % 3.5 %; Mean Corpuscular Hemoglobin 29.1 pg (28.0-34.0); Mean Corpuscular Volume 88.3 fL (81-99); Mean Platelet Volume 10.8 fL (7.4-10.4); Monocytes # 0.4 10^3/uL (0.2-0.9); Monocytes % 3.1 %; Neutrophils # 10.82 10^3/uL (1.8-7.7); Neutrophils % 91.8 %; Nucleated Red Blood Cells % 0 %; Platelet Count 155 10^3/cmm (130-400); Red Cell Distribution Width 12.8 % (12.1-15.1); White Blood Count 11.8 10^3/uL (4.0-10.0)
[2020-09-13 06:38] LABS: Alanine Aminotransferase 38 U/L (0-33); Albumin Level 2.4 g/dL (3.5-5.2); Alkaline Phosphatase 143 IU/L (35-105); Anion Gap 15.1 (5-19); Aspartate Amino Transferase 70 U/L (0-32); Blood Urea Nitrogen 22 mg/dL (8-23); Calcium 7.8 mg/dL (8.5-10.5); Carbon Dioxide 22 mmol/L (22-29); Chloride 98 mmol/L (98-107); Globulin 3.7 g/dL (1.3-4.6); Glomerular Filtration Rate 32.6 mL/min (90-130); Glucose 143 mg/dL (65-115); Magnesium 1.7 mg/dL (1.7-2.3); Osmolality Calculated 280 mOsm/kg (285-295); Potassium 3.1 mmol/L (3.5-5.1); Sodium 132 mmol/L (136-145); Total Bilirubin 0.5 mg/dL (0.15-1.2); Total Protein 6.1 g/dL (6.6-8.7)
[2020-09-13 07:07] LABS: Glucose Point of Care 149 mg/dL (70-110)
[2020-09-13] MEDS: famotidine 20 mg Tablet PO ×2 (09:28→17:51)
[2020-09-13] MEDS: docusate sodium 100 mg Capsule PO ×2 (09:28→17:51)
[2020-09-13] MEDS: pantoprazole DR 40 mg Tablet PO (09:28)
[2020-09-13] MEDS: gabapentin 300 mg Capsule PO ×2 (09:28→17:51)
[2020-09-13] MEDS: donepezil 5 MG Tablet PO (09:28)
[2020-09-13] MEDS: metoprolol succinate ER (24 HR) 50 mg Tablet PO (09:28)
[2020-09-13] MEDS: amlodipine 5 mg Tablet PO (09:28)
[2020-09-13] MEDS: lidocaine 1% 5 ML in potassium chloride premix 100 ML 25 ML IV ×2 (09:33→16:57)
--- NOTE | 2020-09-13 10:47 | PC.CHAP ---
Pastoral Care Encounter/Spiritual Assessment Type of Contact [] Declined dental assistant medical assistant visit [] Patient/Family/Request visit [] Outpatient visit [] Follow-up visit [] Physician referral [] Code/Alert [x] Routine visit [] Staff referral [] Actively dying [] Patient sleeping [] Family support [] [] Out of room [] Palliative care [] [] Receiving care in room [] Pre-surgical visit [] Trauma [] Long length of stay [] ICU visit [] Other: Relational/Emotional Strength [x] Patient feels connected with others/family/visitors/staff [] Distress [] Loneliness/isolation [] Abandonment Spirituality of Patient [x] Person of Kaela [] Attends Jain of their Kaela [] Believes in Prayer [] Reads Bible or Rastafari materials [] There are Spiritual issues to be addressed Manager Apple Interventions [x] Prayer [x] Active listening [] Non-anxious presence [] Spiritual/emotional support [] Crisis/trauma care [] Spiritual counseling [] Bereavement support [] Provided bereavement packet [] Provided Bible/devotional materials [] Provided toy/stuffed animal, coloring book to patient or family member [] Provided Communion [] Anointing/[place] [] Salvation [x] Completed spiritual assessment [] Other: Impact on Illness or Injury [] Angry [] Fearful [] Anxious [] Often cries [] Exhaustion [] Unable to work [] Unable to attend scientologist [] Unable to walk/stand [] Unable to read [] Unable to drive [] Unable to eat/drink [] Unable to sleep [] Unable to be with family [] Patient intubated [] Other: Summary patient feeling much bettter less painj Time spent with patient 10 min
[2020-09-13 10:48] LABS: Glucose Point of Care 141 mg/dL (70-110)
[2020-09-13 10:53] LABS: Influenza A by IFA Negative (Negative); Influenza B by IFA Negative (Negative); SARS Covid-2 Antigen Negative (Negative)
[2020-09-13] MEDS: silver sulfadiazine cream 1% 50 gm 1 APPLIC TOPICAL (11:41)
--- NOTE | 2020-09-13 14:25 | PC.NURSE ---
IV status Attempted to save patients IV 2x after patient accidentally removed when transferring self back to bed. Patient fully removed IV while working with PT. IV medications on hold until new IV established
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
[2020-09-13] MEDS: linezolid premix 600 MG/300 ML PREMIX 300 MG IV (15:39)
[2020-09-13] MEDS: cefepime 1,000 MG in sodium chloride 0.9% (plus) 50 ML 100 MG IV (16:13)
[2020-09-13 16:35] LABS: Glucose Point of Care 253 mg/dL (70-110)
[2020-09-13] MEDS: enoxaparin 40 mg/0.4 mL Syringe SUBCUT (19:29)
[2020-09-13 21:18] LABS: Glucose Point of Care 118 mg/dL (70-110)
[2020-09-13] MEDS: atorvastatin 40 mg Tablet 20 MG PO (21:45)
[2020-09-14] VITALS (9 sets, daily range): BP systolic 112–189; BP diastolic 64–73; PULSE 57–65; RESP 16–18; TEMP 36.6–37.2; O2SAT 91–98
[2020-09-14] MEDS: cefepime 1,000 MG in sodium chloride 0.9% (plus) 50 ML 100 MG IV (05:50)
[2020-09-14 06:13] LABS: Basophils % 0.2 %; Eosinophils % 0.1 %; Hematocrit 26.7 % (37.0-47.0); Hemoglobin 8.9 g/dL (11.5-15.3); Lymphocytes # 0.5 10^3/uL (0.8-4.8); Lymphocytes % 5.7 %; Mean Corpuscular HGB Conc 33.3 g/dL (30.0-36.0); Mean Corpuscular Hemoglobin 28.7 pg (28.0-34.0); Mean Corpuscular Volume 86.1 fL (81-99); Monocytes # 0.4 10^3/uL (0.2-0.9); Monocytes % 4.6 %; Neutrophils # 7.72 10^3/uL (1.8-7.7); Neutrophils % 88.3 %; Nucleated Red Blood Cells % 0 %; Platelet Count 169 10^3/cmm (130-400); Red Cell Distribution Width 12.9 % (12.1-15.1); White Blood Count 8.8 10^3/uL (4.0-10.0)
[2020-09-14] MEDS: linezolid premix 600 MG/300 ML PREMIX 300 MG IV ×2 (06:23→17:00)
[2020-09-14 06:30] LABS: Glucose Point of Care 144 mg/dL (70-110)
[2020-09-14 06:39] LABS: Alanine Aminotransferase 36 U/L (0-33); Albumin Level 2.2 g/dL (3.5-5.2); Alkaline Phosphatase 114 IU/L (35-105); Anion Gap 15.3 (5-19); Aspartate Amino Transferase 66 U/L (0-32); Blood Urea Nitrogen 19 mg/dL (8-23); Calcium 7.6 mg/dL (8.5-10.5); Carbon Dioxide 20 mmol/L (22-29); Chloride 97 mmol/L (98-107); Globulin 3.3 g/dL (1.3-4.6); Glomerular Filtration Rate 30.4 mL/min (90-130); Glucose 128 mg/dL (65-115); Magnesium 1.6 mg/dL (1.7-2.3); Osmolality Calculated 272 mOsm/kg (285-295); Potassium 3.3 mmol/L (3.5-5.1); Sodium 129 mmol/L (136-145); Total Bilirubin 0.4 mg/dL (0.15-1.2); Total Protein 5.5 g/dL (6.6-8.7)
--- NOTE | 2020-09-14 09:00 | PC.NURSE ---
Patient encouraged to sit up in chair today and encouraged to increase PO intake food and fluids, verbalized understanding.
[2020-09-14] MEDS: famotidine 20 mg Tablet PO (09:06)
[2020-09-14] MEDS: donepezil 5 MG Tablet PO (09:06)
[2020-09-14] MEDS: docusate sodium 100 mg Capsule PO ×2 (09:06→17:01)
[2020-09-14] MEDS: gabapentin 300 mg Capsule PO ×2 (09:06→17:01)
[2020-09-14] MEDS: metoprolol succinate ER (24 HR) 50 mg Tablet PO (09:06)
[2020-09-14] MEDS: pantoprazole DR 40 mg Tablet PO (09:06)
[2020-09-14] MEDS: amlodipine 5 mg Tablet PO (09:06)
[2020-09-14] MEDS: silver sulfadiazine cream 1% 50 gm 1 APPLIC TOPICAL (09:09)
[2020-09-14] MEDS: potassium chloride ER 20 mEq Tablet 40 MEQ PO (09:22)
[2020-09-14] MEDS: FUROsemide 10 mg/mL SDV 4mL 40 MG IVP (09:22)
[2020-09-14] MEDS: magnesium sulfate premix 2 GM/50 ML PIGGYBACK IV (09:22)
[2020-09-14 11:45] LABS: Glucose Point of Care 170 mg/dL (70-110)
[2020-09-14 14:13] LABS: Coronavirus Test Green County Not Detected
--- NOTE | 2020-09-14 14:57 | PC.NURSE ---
Assisted patient to bedside commode, voided, cleaned and assisted back to bed, call light in reach. pivot transfers well without difficulty.
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
[2020-09-14 17:05] LABS: Glucose Point of Care 106 mg/dL (70-110)
[2020-09-14] MEDS: enoxaparin 40 mg/0.4 mL Syringe SUBCUT (17:53)
[2020-09-14 21:36] LABS: Glucose Point of Care 142 mg/dL (70-110)
[2020-09-14] MEDS: atorvastatin 40 mg Tablet 20 MG PO (21:55)
[2020-09-15] VITALS (7 sets, daily range): BP systolic 106–132; BP diastolic 66–77; PULSE 59–63; RESP 17–18; TEMP 36.6–37.7; O2SAT 89–94
--- NOTE | 2020-09-15 03:41 | NUR.SHIFT ---
SHIFT ASSESSMENT: DURING SHIFT ASSESSMENT, THIS NURSE WENT TO PULL THE PATIENT'S SOCK OFF TO INSPECT THE FOOT. WHILE DOING SO, NURSE NOTED A SECTION OF BLISTER ADHERED TO THE SOCK THAT PULLED AWAY FROM A BEEFY RED CIRCULAR PRESSURE INJURY ON THE RIGHT HEEL. THE SKIN THAT WAS COVERING THE WOUND WAS CAUGHT ON THE SOCK, AND PEELED BACK FROM WOUND BED. THIS WOUND WAS NEVER MENTIONED IN REPORT FROM PREVIOUS NURSE AND NO DOCUMENTATION WAS PRESENT IN THE CHART. CHARGE NURSE WAS NOTIFIED AND ASKED TO ALSO ASSESS THE WOUND. THE WOUND MEASURED 6X6 CM. THERE WAS A SCANT AMOUNT OF SEROSANGUINOUS DRAINAGE. A 4X4 OPTIFOAM WAS APPLIED AND DATED. A WOUND ASSESSMENT WAS CHARTED IN CHART.
[2020-09-15] MEDS: cefepime 1,000 MG in sodium chloride 0.9% (plus) 50 ML 100 MG IV (05:24)
[2020-09-15 05:48] LABS: Basophils % 0.3 %; Eosinophils % 0.4 %; Hematocrit 27.3 % (37.0-47.0); Lymphocytes # 0.6 10^3/uL (0.8-4.8); Lymphocytes % 7.1 %; Mean Corpuscular Hemoglobin 28.4 pg (28.0-34.0); Mean Corpuscular Volume 86.1 fL (81-99); Mean Platelet Volume 10.6 fL (7.4-10.4); Monocytes # 0.5 10^3/uL (0.2-0.9); Monocytes % 5.9 %; Neutrophils # 6.71 10^3/uL (1.8-7.7); Neutrophils % 84.8 %; Nucleated Red Blood Cells % 0 %; Platelet Count 202 10^3/cmm (130-400); Red Blood Count 3.17 10^6/uL (4.1-5.3); Red Cell Distribution Width 12.9 % (12.1-15.1); White Blood Count 7.9 10^3/uL (4.0-10.0)
[2020-09-15] MEDS: linezolid premix 600 MG/300 ML PREMIX 300 MG IV (05:57)
[2020-09-15 06:04] LABS: Alanine Aminotransferase 39 U/L (0-33); Albumin Level 2.5 g/dL (3.5-5.2); Alkaline Phosphatase 117 IU/L (35-105); Anion Gap 15.3 (5-19); Aspartate Amino Transferase 77 U/L (0-32); Blood Urea Nitrogen 17 mg/dL (8-23); Carbon Dioxide 22 mmol/L (22-29); Chloride 100 mmol/L (98-107); Globulin 3.6 g/dL (1.3-4.6); Glomerular Filtration Rate 30.4 mL/min (90-130); Glucose 100 mg/dL (65-115); Osmolality Calculated 280 mOsm/kg (285-295); Potassium 3.3 mmol/L (3.5-5.1); Sodium 134 mmol/L (136-145); Total Bilirubin 0.4 mg/dL (0.15-1.2); Total Protein 6.1 g/dL (6.6-8.7)
[2020-09-15 06:49] LABS: Glucose Point of Care 183 mg/dL (70-110)
[2020-09-15] MEDS: amlodipine 5 mg Tablet PO (08:09)
[2020-09-15] MEDS: pantoprazole DR 40 mg Tablet PO (08:09)
[2020-09-15] MEDS: metoprolol succinate ER (24 HR) 50 mg Tablet PO (08:09)
[2020-09-15] MEDS: gabapentin 300 mg Capsule PO (08:09)
[2020-09-15] MEDS: docusate sodium 100 mg Capsule PO (08:09)
[2020-09-15] MEDS: donepezil 5 MG Tablet PO (08:09)
[2020-09-15] MEDS: silver sulfadiazine cream 1% 50 gm 1 APPLIC TOPICAL (08:10)
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
[2020-09-15] MEDS: potassium chloride ER 20 mEq Tablet 40 MEQ PO (10:17)
--- NOTE | 2020-09-15 10:41 | PC.SOCIAL ---
Maida from [facility] called to see if Novolog can be changed to Humalog since Humalog covered by insurance. Dr Michel agreeable. He asked that we ensure these are dispensed in the pens. Maida updated and appreciative of timely clarification.
--- NOTE | 2020-09-15 11:00 | PC.NURSE ---
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
--- NOTE | 2020-09-15 12:37 | PC.NURSE ---
Discharge instructions completed with patient and family member, patient able to successfully give herself insulin injection, and is eating lunch prior to discharge, denies further questions or concerns.
[2020-09-15 12:39] LABS: Glucose Point of Care 112 mg/dL (70-110)
== END 2020-09-15 13:00 | disposition home health service (06) | DRG 682 ==
LOC: ER 15:29 → MEDSURG 16:14 → CSU 18:51 → MEDSURG 09-12 18:28
PROVIDERS: Internal Medicine; Admitting Provider Family Medicine; Emergency Provider Emergency Medicine; PCP Nurse Practitioner; Visit Provider Internal Medicine
DX: N17.9 Acute kidney failure, unspecified (principal); J18.9 Pneumonia, unspecified organism; E87.1 Hypo-osmolality and hyponatremia; E11.65 Type 2 diabetes mellitus with hyperglycemia; E11.22 Type 2 diabetes mellitus with diabetic chronic kidney disease; E11.40 Type 2 diabetes mellitus with diabetic neuropathy, unspecified; N18.9 Chronic kidney disease, unspecified; Z89.512 Acquired absence of left leg below knee; I12.9 Hypertensive chronic kidney disease with stage 1 through stage 4 chronic kidney disease, or unspecified chronic kidney disease; K21.00 Gastro-esophageal reflux disease with esophagitis, without bleeding; W19.XXXA Unspecified fall, initial encounter; E87.5 Hyperkalemia; T24.291A Burn of second degree of multiple sites of right lower limb, except ankle and foot, initial encounter; X12.XXXA Contact with other hot fluids, initial encounter; I25.10 Atherosclerotic heart disease of native coronary artery without angina pectoris; F32.9 Major depressive disorder, single episode, unspecified; Z87.891 Personal history of nicotine dependence; Z86.73 Personal history of transient ischemic attack (TIA), and cerebral infarction without residual deficits; G47.33 Obstructive sleep apnea (adult) (pediatric); E55.9 Vitamin D deficiency, unspecified; R41.82 Altered mental status, unspecified; E86.0 Dehydration; Z89.421 Acquired absence of other right toe(s); E78.2 Mixed hyperlipidemia
CPT/HCPCS: 36415; 36416; 70450; 71045; 73521; 73522; 80048; 80053; 80061; 81001; 82140; 82962; 83036; 83605; 83735; 83880; 84100; 84145; 84443; 84484; 85025; 85610; 85651; 85730; 86140; 87040; 87086; 87426; 87635; 87641; 87804; 93005; 94640; 94664; 96361; 96372; 96374; 96375; 96376; 97110; 97116; 97161; 97166; 97530; 97535; 99285; G0378; J0610; J0692; J0696; J1650; J1815; J1940; J2020; J3370; J3475; J3480; J7030; J7040; J7611

== ENCOUNTER → 2020-09-19 15:08 | Outpatient (BNVA) | payer MEDICARE, MEDICAID, SELFPAY | PROVIDERS: PCP Nurse Practitioner; Visit Provider Nurse Practitioner Family | DX: E87.5 Hyperkalemia (principal); N17.9 Acute kidney failure, unspecified; L89.612 Pressure ulcer of right heel, stage 2; E11.65 Type 2 diabetes mellitus with hyperglycemia; Z79.4 Long term (current) use of insulin; T24.291A Burn of second degree of multiple sites of right lower limb, except ankle and foot, initial encounter; X58.XXXA Exposure to other specified factors, initial encounter | CPT/HCPCS: 80053 ==

== ENCOUNTER 2020-09-26 09:50 | Outpatient (CLI) | payer MEDICARE, MEDICAID, SELFPAY | END 2020-09-26 09:51 | disposition home or self-care (01) | LOC: WOUND 09:51 | PROVIDERS: PCP Nurse Practitioner; Visit Provider Nurse Practitioner Family | DX: E11.621 Type 2 diabetes mellitus with foot ulcer (principal); L97.412 Non-pressure chronic ulcer of right heel and midfoot with fat layer exposed; T24.291A Burn of second degree of multiple sites of right lower limb, except ankle and foot, initial encounter; T21.22XA Burn of second degree of abdominal wall, initial encounter; X12.XXXA Contact with other hot fluids, initial encounter | CPT/HCPCS: 11042; 11045 ==

== ENCOUNTER 2020-09-29 14:45 | Outpatient (CLI) | payer MEDICARE, MEDICAID, SELFPAY | END 2020-09-29 14:46 | disposition home or self-care (01) | LOC: WOUND 14:46 | PROVIDERS: PCP Nurse Practitioner; Visit Provider Thoracic Surgery (Cardiothoracic Vascular Surgery) | DX: T21.22XA Burn of second degree of abdominal wall, initial encounter (principal); T24.291A Burn of second degree of multiple sites of right lower limb, except ankle and foot, initial encounter; X12.XXXA Contact with other hot fluids, initial encounter; E11.621 Type 2 diabetes mellitus with foot ulcer; L97.412 Non-pressure chronic ulcer of right heel and midfoot with fat layer exposed | CPT/HCPCS: 11042; 11045; L4397 ==

== ENCOUNTER 2020-10-03 10:32 | Outpatient (CLI) | payer MEDICARE, MEDICAID, SELFPAY | END 2020-10-03 10:33 | disposition home or self-care (01) | LOC: WOUND 10:47 | PROVIDERS: PCP Nurse Practitioner; Visit Provider Nurse Practitioner Family | DX: E11.622 Type 2 diabetes mellitus with other skin ulcer (principal); L98.492 Non-pressure chronic ulcer of skin of other sites with fat layer exposed; L97.412 Non-pressure chronic ulcer of right heel and midfoot with fat layer exposed; L97.812 Non-pressure chronic ulcer of other part of right lower leg with fat layer exposed | CPT/HCPCS: 11042; 11045 ==

== ENCOUNTER 2020-10-10 10:12 | Outpatient (CLI) | payer MEDICARE, MEDICAID, SELFPAY | END 2020-10-10 10:13 | disposition home or self-care (01) | LOC: WOUND 10:13 | PROVIDERS: PCP Nurse Practitioner; Visit Provider Nurse Practitioner Family | DX: E11.621 Type 2 diabetes mellitus with foot ulcer (principal); L97.412 Non-pressure chronic ulcer of right heel and midfoot with fat layer exposed; T24.291A Burn of second degree of multiple sites of right lower limb, except ankle and foot, initial encounter; T21.22XA Burn of second degree of abdominal wall, initial encounter; X12.XXXA Contact with other hot fluids, initial encounter | CPT/HCPCS: 11042; 11045 ==

== ENCOUNTER 2020-10-17 09:28 | Outpatient (CLI) | payer MEDICARE, MEDICAID, SELFPAY | END 2020-10-17 09:29 | disposition home or self-care (01) | LOC: WOUND 09:28 | PROVIDERS: PCP Nurse Practitioner; Visit Provider Nurse Practitioner Family | DX: E11.622 Type 2 diabetes mellitus with other skin ulcer (principal); L98.492 Non-pressure chronic ulcer of skin of other sites with fat layer exposed; L97.812 Non-pressure chronic ulcer of other part of right lower leg with fat layer exposed; E11.621 Type 2 diabetes mellitus with foot ulcer; L97.412 Non-pressure chronic ulcer of right heel and midfoot with fat layer exposed | CPT/HCPCS: 11042 ==

== ENCOUNTER 2020-10-24 10:21 | Outpatient (CLI) | payer MEDICARE, MEDICAID, SELFPAY | END 2020-10-24 10:22 | disposition home or self-care (01) | LOC: WOUND 10:23 | PROVIDERS: PCP Nurse Practitioner; Visit Provider Nurse Practitioner Family | DX: E11.622 Type 2 diabetes mellitus with other skin ulcer (principal); L98.492 Non-pressure chronic ulcer of skin of other sites with fat layer exposed; L97.812 Non-pressure chronic ulcer of other part of right lower leg with fat layer exposed; E11.621 Type 2 diabetes mellitus with foot ulcer; L97.412 Non-pressure chronic ulcer of right heel and midfoot with fat layer exposed | CPT/HCPCS: 97597 ==

== ENCOUNTER 2020-10-31 09:54 | Outpatient (CLI) | payer MEDICARE, MEDICAID, SELFPAY | END 2020-10-31 09:55 | disposition home or self-care (01) | LOC: WOUND 09:55 | PROVIDERS: PCP Nurse Practitioner; Visit Provider Nurse Practitioner Family | DX: E11.622 Type 2 diabetes mellitus with other skin ulcer (principal); L97.812 Non-pressure chronic ulcer of other part of right lower leg with fat layer exposed; E11.621 Type 2 diabetes mellitus with foot ulcer; L97.412 Non-pressure chronic ulcer of right heel and midfoot with fat layer exposed | CPT/HCPCS: 11042 ==

== ENCOUNTER 2020-11-07 10:56 | Outpatient (CLI) | payer MEDICARE, MEDICAID, SELFPAY | END 2020-11-07 10:57 | disposition home or self-care (01) | LOC: WOUND 10:57 | PROVIDERS: PCP Nurse Practitioner; Visit Provider Nurse Practitioner Family | DX: E11.621 Type 2 diabetes mellitus with foot ulcer (principal); L97.412 Non-pressure chronic ulcer of right heel and midfoot with fat layer exposed; E11.622 Type 2 diabetes mellitus with other skin ulcer; L97.812 Non-pressure chronic ulcer of other part of right lower leg with fat layer exposed | CPT/HCPCS: 11042; 97597 ==

== ENCOUNTER → 2020-11-08 14:16 | Outpatient (BNVA) | payer MEDICARE, MEDICAID, SELFPAY | PROVIDERS: PCP Nurse Practitioner; Visit Provider Nurse Practitioner | DX: I10 Essential (primary) hypertension (principal); F32.9 Major depressive disorder, single episode, unspecified; E78.2 Mixed hyperlipidemia; R41.3 Other amnesia; M79.2 Neuralgia and neuritis, unspecified; I70.90 Unspecified atherosclerosis; E11.65 Type 2 diabetes mellitus with hyperglycemia; Z79.4 Long term (current) use of insulin; E55.9 Vitamin D deficiency, unspecified | CPT/HCPCS: 80053; 82306; 82607; 83036; 85025 ==

== ENCOUNTER 2020-11-14 09:39 | Outpatient (CLI) | payer MEDICARE, MEDICAID, SELFPAY | END 2020-11-14 09:40 | disposition home or self-care (01) | LOC: WOUND 09:40 | PROVIDERS: PCP Nurse Practitioner; Visit Provider Nurse Practitioner Family | DX: E11.621 Type 2 diabetes mellitus with foot ulcer (principal); L97.412 Non-pressure chronic ulcer of right heel and midfoot with fat layer exposed | CPT/HCPCS: 11042 ==

== ENCOUNTER 2020-11-18 13:11 | Outpatient (CLI) | payer MEDICARE, MEDICAID, SELFPAY | END 2020-11-18 13:12 | disposition home or self-care (01) | LOC: WOUND 13:13 | PROVIDERS: PCP Nurse Practitioner; Visit Provider Surgery | DX: E11.621 Type 2 diabetes mellitus with foot ulcer (principal); L97.412 Non-pressure chronic ulcer of right heel and midfoot with fat layer exposed | CPT/HCPCS: 11042 ==

== ENCOUNTER 2020-11-21 10:49 | Outpatient (CLI) | payer MEDICARE, MEDICAID, SELFPAY | END 2020-11-21 10:50 | disposition home or self-care (01) | LOC: WOUND 10:50 | PROVIDERS: PCP Nurse Practitioner; Visit Provider Nurse Practitioner Family | DX: E11.621 Type 2 diabetes mellitus with foot ulcer (principal); L97.412 Non-pressure chronic ulcer of right heel and midfoot with fat layer exposed | CPT/HCPCS: 11042 ==

== ENCOUNTER 2020-12-05 10:12 | Outpatient (CLI) | payer MEDICARE, MEDICAID, SELFPAY | END 2020-12-05 10:13 | disposition home or self-care (01) | LOC: WOUND 10:14 | PROVIDERS: PCP Nurse Practitioner; Visit Provider Nurse Practitioner Family | DX: E11.621 Type 2 diabetes mellitus with foot ulcer (principal); L97.412 Non-pressure chronic ulcer of right heel and midfoot with fat layer exposed | CPT/HCPCS: 11042 ==

== ENCOUNTER 2020-12-12 09:24 | Outpatient (CLI) | payer MEDICARE, MEDICAID, SELFPAY | END 2020-12-12 09:25 | disposition home or self-care (01) | LOC: WOUND 09:25 | PROVIDERS: PCP Nurse Practitioner; Visit Provider Nurse Practitioner Family | DX: E11.621 Type 2 diabetes mellitus with foot ulcer (principal); L97.312 Non-pressure chronic ulcer of right ankle with fat layer exposed | CPT/HCPCS: 11042 ==

== ENCOUNTER 2020-12-22 08:58 | Outpatient (CLI) | payer MEDICARE, MEDICAID, SELFPAY | END 2020-12-22 08:59 | disposition home or self-care (01) | LOC: WOUND 08:58 | PROVIDERS: PCP Nurse Practitioner; Visit Provider Nurse Practitioner Family | DX: E11.621 Type 2 diabetes mellitus with foot ulcer (principal); L97.412 Non-pressure chronic ulcer of right heel and midfoot with fat layer exposed | CPT/HCPCS: 11042 ==

== ENCOUNTER 2020-12-29 09:00 | Outpatient (CLI) | payer MEDICARE, MEDICAID, SELFPAY | END 2020-12-29 09:01 | disposition home or self-care (01) | LOC: WOUND 09:02 | PROVIDERS: PCP Nurse Practitioner; Visit Provider Nurse Practitioner Family | DX: E11.621 Type 2 diabetes mellitus with foot ulcer (principal); L97.412 Non-pressure chronic ulcer of right heel and midfoot with fat layer exposed | CPT/HCPCS: 11042 ==

== ENCOUNTER 2021-01-05 09:13 | Outpatient (CLI) | payer MEDICARE, MEDICAID, SELFPAY | END 2021-01-05 09:14 | disposition home or self-care (01) | LOC: WOUND 09:14 | PROVIDERS: PCP Nurse Practitioner; Visit Provider Nurse Practitioner Family | DX: E11.621 Type 2 diabetes mellitus with foot ulcer (principal); L97.412 Non-pressure chronic ulcer of right heel and midfoot with fat layer exposed | CPT/HCPCS: 11042 ==

== ENCOUNTER 2021-01-12 09:26 | Outpatient (CLI) | payer MEDICARE, MEDICAID, SELFPAY | END 2021-01-12 09:27 | disposition home or self-care (01) | LOC: WOUND 09:27 | PROVIDERS: PCP Nurse Practitioner; Visit Provider Nurse Practitioner Family | DX: E11.621 Type 2 diabetes mellitus with foot ulcer (principal); L97.412 Non-pressure chronic ulcer of right heel and midfoot with fat layer exposed | CPT/HCPCS: 11042 ==

== ENCOUNTER 2021-01-19 10:04 | Outpatient (CLI) | payer MEDICARE, MEDICAID, SELFPAY | END 2021-01-19 10:05 | disposition home or self-care (01) | LOC: WOUND 10:06 | PROVIDERS: PCP Nurse Practitioner; Visit Provider Nurse Practitioner Family | DX: E11.621 Type 2 diabetes mellitus with foot ulcer (principal); L97.412 Non-pressure chronic ulcer of right heel and midfoot with fat layer exposed | CPT/HCPCS: 11042 ==

== ENCOUNTER → 2021-01-24 11:03 | Outpatient (BNVA) | payer MEDICARE, MEDICAID, SELFPAY | PROVIDERS: PCP Nurse Practitioner; Visit Provider Nurse Practitioner | DX: E11.65 Type 2 diabetes mellitus with hyperglycemia (principal); Z79.4 Long term (current) use of insulin | CPT/HCPCS: 83036 ==

== ENCOUNTER 2021-01-26 09:11 | Outpatient (CLI) | payer MEDICARE, MEDICAID, SELFPAY | END 2021-01-26 09:12 | disposition home or self-care (01) | LOC: WOUND 09:12 | PROVIDERS: PCP Nurse Practitioner; Visit Provider Nurse Practitioner Family | DX: E11.621 Type 2 diabetes mellitus with foot ulcer (principal); L97.411 Non-pressure chronic ulcer of right heel and midfoot limited to breakdown of skin | CPT/HCPCS: 11042 ==

== ENCOUNTER 2021-02-02 10:22 | Outpatient (CLI) | payer MEDICARE, MEDICAID, SELFPAY | END 2021-02-02 10:23 | disposition home or self-care (01) | LOC: WOUND 10:24 | PROVIDERS: PCP Nurse Practitioner; Visit Provider Nurse Practitioner Family | DX: E11.621 Type 2 diabetes mellitus with foot ulcer (principal); L97.412 Non-pressure chronic ulcer of right heel and midfoot with fat layer exposed | CPT/HCPCS: 11042 ==

== ENCOUNTER 2021-02-16 10:17 | Outpatient (CLI) | payer MEDICARE, MEDICAID, SELFPAY | END 2021-02-16 10:18 | disposition home or self-care (01) | LOC: WOUND 10:18 | PROVIDERS: PCP Nurse Practitioner; Visit Provider Nurse Practitioner Family | DX: E11.621 Type 2 diabetes mellitus with foot ulcer (principal); L97.412 Non-pressure chronic ulcer of right heel and midfoot with fat layer exposed | CPT/HCPCS: 11042 ==

== ENCOUNTER 2021-02-23 10:22 | Outpatient (CLI) | payer MEDICARE, MEDICAID, SELFPAY | END 2021-02-23 10:23 | disposition home or self-care (01) | LOC: WOUND 10:23 | PROVIDERS: PCP Nurse Practitioner; Visit Provider Nurse Practitioner Family | DX: Z09 Encounter for follow-up examination after completed treatment for conditions other than malignant neoplasm (principal) | CPT/HCPCS: 99212 ==

== ENCOUNTER → 2021-04-18 13:30 | Outpatient (BNVA) | payer MEDICARE, MEDICAID, SELFPAY | PROVIDERS: PCP Nurse Practitioner; Visit Provider Nurse Practitioner | DX: E11.65 Type 2 diabetes mellitus with hyperglycemia (principal); Z79.4 Long term (current) use of insulin; I10 Essential (primary) hypertension; F32.9 Major depressive disorder, single episode, unspecified; E78.2 Mixed hyperlipidemia; R41.3 Other amnesia; E55.9 Vitamin D deficiency, unspecified; M79.2 Neuralgia and neuritis, unspecified; I70.90 Unspecified atherosclerosis | CPT/HCPCS: 80053; 80061; 83036 ==

== ENCOUNTER → 2021-07-19 09:59 | Outpatient (BNVA) | payer MEDICARE, MEDICAID, SELFPAY | PROVIDERS: PCP Nurse Practitioner; Visit Provider Nurse Practitioner | DX: E11.65 Type 2 diabetes mellitus with hyperglycemia (principal); Z79.4 Long term (current) use of insulin | CPT/HCPCS: 80053; 80061; 83036 ==

== ENCOUNTER → 2021-10-19 09:47 | Outpatient (BNVA) | payer MEDICARE, MEDICAID, SELFPAY | PROVIDERS: PCP Nurse Practitioner; Visit Provider Nurse Practitioner | DX: E11.65 Type 2 diabetes mellitus with hyperglycemia (principal); Z79.4 Long term (current) use of insulin; I10 Essential (primary) hypertension; E78.2 Mixed hyperlipidemia; F32.9 Major depressive disorder, single episode, unspecified; R41.3 Other amnesia; M79.2 Neuralgia and neuritis, unspecified; I70.90 Unspecified atherosclerosis; G47.00 Insomnia, unspecified | CPT/HCPCS: 80053; 83036 ==

== ENCOUNTER → 2021-12-12 09:59 | Outpatient (BNVA) | payer MEDICARE, MEDICAID, SELFPAY | PROVIDERS: PCP Nurse Practitioner; Visit Provider Nurse Practitioner | DX: E78.2 Mixed hyperlipidemia (principal); F32.9 Major depressive disorder, single episode, unspecified; E11.65 Type 2 diabetes mellitus with hyperglycemia; Z79.4 Long term (current) use of insulin; R41.3 Other amnesia; E55.9 Vitamin D deficiency, unspecified; M79.2 Neuralgia and neuritis, unspecified; I10 Essential (primary) hypertension; I70.90 Unspecified atherosclerosis; G47.00 Insomnia, unspecified | CPT/HCPCS: 81000 ==

== ENCOUNTER 2021-12-26 16:05 | Emergency (ER) | payer MEDICARE, MEDICAID, SELFPAY ==
[2021-12-26 16:11] VITALS: BP 168/70; PULSE 62; RESP 18; TEMP 36.6; O2SAT 94; BMI 31.3
--- NOTE | 2021-12-26 17:10 | W.ED.EXTPRO ---
HPI - Extremity Problem General: Chief complaint: Extremity Problem,Nontraumatic Stated complaint: blisters Time Seen by Provider: 12/26/21 17:10 History of Present Illness: 66-year-old female comes in today with complaints of blistering to the stump of her below the knee amputation on her left leg. Patient has a history of diabetes and a septic infection in the leg causing her to have amputation. Patient reports falling yesterday and hitting the knee. Patient has an abrasion to the knee. Today patient put on her prosthetic and was outside walking and noticed some pain to the stump area. On exam they noticed blistering to the distal stump. Patient denies any fever or chills. Patient reports no history of MRSA. Associated symptoms: Deny chest pain Review of Systems General: Reports: 10 or more systems reviewed and unremarkable except in HPI and below Card: Denies: chest pain Resp: Denies: dyspnea GI: Denies: nausea or vomiting : Denies: difficulty voiding Musc: Reports: extremity pain Skin/Breast: Reports: erythema PFSH ED PFSH: Medical History Acute kidney failure -renal function has improved since last admission, improved today (1.8->1.5) -hold metformin -continue to monitor renal function particularly with dual antibiotics -has CKD stage 2; baseline Cr appears to be around 1.4 Arterial calcification ASVD (arteriosclerotic vascular disease) Chronic renal disease, stage 3, moderately decreased glomerular filtration rate (GFR) between 30-59 mL/min/1.73 square meter Depression Diabetes mellitus with hyperglycemia, with long-term current use of insulin Enrolled in chronic care management GERD (gastroesophageal reflux disease) History of cigarette smoking History of colon polyps History of TIA (transient ischemic attack) Hyperlipemia Hypertension Insomnia Neuropathic pain CHET on CPAP CHET treated with BiPAP Vitamin D deficiency Surgical History History of below knee amputation Left History of hysterectomy with BLSO Hx of colonoscopy 02/17/2019 Status post amputation of toe of right foot Amputation of the R 2nd & 3rd toe through metatarsophalangeal joint, Dr. Pacheco on 11/02/2015 Family History Father Cancer lung Diabetes Sister Cancer gallbladder Family/Other Cancer colon Mother Ischemia, bowel Social History Smoking and tobacco status: current every day smoker cigarettes Packs smoked per day: 1 Years cigarettes smoked: 30 Second hand smoke exposure: No Smoking risk assessment/counseling performed?: No Alcohol intake: never Desire information about alcohol rehabilitation?: No Counseling given: No Desire information about substance/drug rehabilitation?: No Counseling given: No Adopted: No Caregiver/support person: No Lives independently: Yes Household members: family Housing: House Marital status: Single Number of children: 0 service: No Current occupational status: disabled History of recent travel: No Current gender identity: Female Physical Exam Const: COMMON NORMALS: alert HENMT: COMMON NORMALS: atraumatic HEAD & SCALP: atraumatic Neck/C-Spine: COMMON NORMALS: full ROM Resp: COMMON NORMALS: normal respiratory effort and clear to auscultation bilaterally AUSCULTATION: clear to auscultation bilaterally Cardio: COMMON NORMALS: regular rate RATE: regular rate Extremity: LEFT LOWER EXTREMITY: Yes lower leg (amputation notes some mild redness with blistering) Left lower leg: Yes inspection, Yes palpation and Yes neurovascular exam Neuro: SENSORIUM/ORIENTATION: Yes alert Course Vital Signs: Vital signs: Vital Signs Temperature 97.9 F 12/26/21 16:11 Pulse Rate 62 12/26/21 16:11 Respiratory Rate 18 12/26/21 16:11 Blood Pressure 168/70 12/26/21 16:11 Pulse Oximetry 94 12/26/21 16:11 MDM - Extremity (Nontraumatic) Medical Decision Making A 66-year-old female comes in today for concerns of blistering to the stump of her amputation on her left lower extremity. Patient has a below-knee amputation due to infection and sepsis. On exam patient has some redness and swelling, she has an abrasion to her knee, and blisters noted to the distal stump. Patient has good range of motion of the knee without much tenderness. Differential diagnosis includes not limited to abnormal fitting prosthesis, heat edema, cellulitis. I believe the blistering may be secondary to some mild swelling due to her injury. But due to patient's history of diabetes and risk of infection we will go ahead and treat with Cipro. Patient was also given 1 g Rocephin to start. Patient should follow-up with primary care in 3 days for recheck. Return to the ER for worsening symptoms. Patient reported understanding agreed to plan. Patient also understands to limit prosthetic use until redness and swelling resolved. Discharge Plan Discharge Patient Disposition: Home Clinical Impression: Cellulitis Qualifiers: Site of cellulitis: extremity Site of cellulitis of extremity: lower extremity Laterality: left Qualified Code(s): L03.116 - Cellulitis of left lower limb Condition: Stable Prescriptions: New ciprofloxacin HCl 500 mg tablet 500 mg PO BID Qty: 14 0RF No Action (DME) blood sugar diagnostic Strip See Rx Instructions .ROUTE .MEDSUPPLY Qty: 100 5RF Rx Instructions: one strip 3 daily (DME) lancets [OneTouch Delica Plus Lancet] 33 gauge misc See Rx Instructions .ROUTE .MEDSUPPLY Qty: 100 5RF Rx Instructions: use 1 3 times day (DME) pen needle, diabetic 33 gauge x 5/32 needle See Rx Instructions .ROUTE .MEDSUPPLY Qty: 100 5RF Rx Instructions: 1 time day (DME) hydrocolloid dressing [DuoDERM CGF Dressing] 6 X 6 bandage See Rx Instructions .ROUTE .MEDSUPPLY Qty: 5 2RF Rx Instructions: apply every 3 days (DME) Wheel chair See Rx Instructions .Route .MEDSUPPLY Qty: 1 0RF Rx Instructions: As directed (DME) MOON&O Evaluation left prosthesis See Rx Instructions .Route .MEDSUPPLY Qty: 1 0RF Rx Instructions: As directed (DME) BiPAP supplies See Rx Instructions .Route .MEDSUPPLY Qty: 1 0RF Rx Instructions: As directed (DME) bipap See Rx Instructions .Route .MEDSUPPLY Qty: 1 0RF Rx Instructions: As directed bipap machine and supplies auto titrate settings atorvastatin 10 mg tablet 10 mg PO BEDTIME 30 Days Qty: 30 2RF citalopram 20 mg tablet 20 mg PO BID 30 Days Qty: 60 2RF Farxiga 5 mg tablet 5 mg PO QAM Qty: 30 2RF donepezil [Aricept] 5 mg tablet 5 mg PO DAILY Qty: 30 2RF ergocalciferol (vitamin D2) 1,250 mcg (50,000 unit) capsule 1,250 mcg PO .monthly Qty: 1 2RF gabapentin 300 mg capsule 300 mg PO BID 30 Days Qty: 60 2RF glipizide 5 mg tablet extended release 24 hr 5 mg PO DAILY Qty: 30 2RF Tresiba FlexTouch U-200 200 unit/mL (3 mL) insulin pen 60 unit SUBCUT QAM Qty: 9 2RF Rx Instructions: Dose increase 60 units daily metoprolol succinate 50 mg tablet extended release 24 hr 50 mg PO DAILY 30 Days Qty: 30 2RF pantoprazole 20 mg tablet,delayed release (DR/EC) 20 mg PO DAILY 30 Days Qty: 30 2RF pentoxifylline 400 mg tablet extended release 400 mg PO DAILY Qty: 30 2RF Ozempic 0.25 mg or 0.5 mg(2 mg/1.5 mL) pen injector 0.5 mg SUBCUT .weekly Qty: 1.5 2RF eszopiclone [Lunesta] 1 mg tablet 1 mg PO .at bedtime for sleep Qty: 30 2RF Rx Instructions: stop Seroquel amlodipine 5 mg tablet 5 mg PO DAILY 30 Days Qty: 30 2RF (DME) blood-glucose meter [OneTouch Ultra2 Meter] Kit See Rx Instructions .Route Qty: 1 0RF Rx Instructions: daily polyethylene glycol 3350 [Miralax] 17 gram/dose powder 17 g PO DAILY Qty: 510 0RF Novolog U-100 Insulin aspart 100 unit/mL Solution 5 unit SUBCUT TIDAC Qty: 3 0RF Hold Instructions: Doctor's Order Discharge Orders: Discharge ED (Routine); Ordered 12/26/21 Ordered By: Joshua Keys Referrals: Kareem Armando, RISK ADJUSTMENT SPECIALIST-C [Primary Care Provider] - Discharge Diet: Usual diet Discharge Activity: Increase activity as tolerated Patient Instructions: Cellulitis (ED) Activity Restrictions/Additional Instructions: Home and rest. Leave prosthetic off as much as possible. Follow-up with primary care in 2 to 3 days for recheck. Return to ER for high fever greater than 100.4, nausea vomiting, increasing redness and swelling of the extremity. Coding Level of Care Code ED Set Off Blocker for [place]
[2021-12-26] MEDS: cefTRIAXone 1,000 MG in lidocaine 1% 2.1 ML 1000 MG IM (17:57)
== END 2021-12-26 18:03 | disposition home or self-care (01) ==
PROVIDERS: Emergency Provider Nurse Practitioner Family; PCP Nurse Practitioner
DX: L03.116 Cellulitis of left lower limb (principal); I12.9 Hypertensive chronic kidney disease with stage 1 through stage 4 chronic kidney disease, or unspecified chronic kidney disease; E11.22 Type 2 diabetes mellitus with diabetic chronic kidney disease; N18.2 Chronic kidney disease, stage 2 (mild); N17.9 Acute kidney failure, unspecified; Z89.512 Acquired absence of left leg below knee
CPT/HCPCS: 96372; 99283; J0696

== ENCOUNTER → 2021-12-27 11:06 | Outpatient (BNVA) | payer MEDICARE, MEDICAID, SELFPAY | PROVIDERS: PCP Nurse Practitioner; Visit Provider Nurse Practitioner Family | DX: S88.112D Complete traumatic amputation at level between knee and ankle, left lower leg, subsequent encounter (principal); X58.XXXD Exposure to other specified factors, subsequent encounter; M17.12 Unilateral primary osteoarthritis, left knee | CPT/HCPCS: 73562 ==

== ENCOUNTER → 2022-01-18 10:53 | Outpatient (BNVA) | payer MEDICARE, MEDICAID, SELFPAY | PROVIDERS: PCP Nurse Practitioner; Visit Provider Nurse Practitioner | DX: S88.112A Complete traumatic amputation at level between knee and ankle, left lower leg, initial encounter (principal); E11.65 Type 2 diabetes mellitus with hyperglycemia; Z79.4 Long term (current) use of insulin; N39.46 Mixed incontinence; X58.XXXA Exposure to other specified factors, initial encounter | CPT/HCPCS: 80053; 80061; 83036 ==

== ENCOUNTER 2022-02-06 12:53 | Outpatient (CLI) | payer MEDICARE, MEDICAID, SELFPAY ==
--- NOTE | 2022-02-06 13:04 | MM_ITS ---
WS: [id number] BILATERAL 3D TOMOSYNTHESIS DIGITAL SCREENING MAMMOGRAPHY WITH CAD CLINICAL INFORMATION: Z12.39 - Encounter for other screening for malignant neop... HISTORY: Screening mammogram. No current complaints. COMPARISON: TECHNIQUE: Bilateral CC and MLO views. FINDINGS: Scattered fibroglandular densities bilaterally. No suspicious focal mass, asymmetry, calcifications, or architectural distortion. No evidence of malignancy. MM/[place] [id number] IMPRESSION: BI-RADS: 1-Negative FOLLOW UP: 1 Year Follow-up Recommend return to annual screening mammography.
== END 2022-02-06 12:54 | disposition home or self-care (01) ==
LOC: RAD 12:55
PROVIDERS: PCP Nurse Practitioner; Visit Provider Nurse Practitioner
DX: Z12.31 Encounter for screening mammogram for malignant neoplasm of breast (principal)
CPT/HCPCS: 77063; 77067

== ENCOUNTER 2022-03-31 12:34 | Emergency (ER) | payer MEDICARE, MEDICAID, SELFPAY ==
[2022-03-31 12:48] VITALS: BP 146/68; PULSE 57; RESP 16; TEMP 36.4; O2SAT 93; BMI 29.7
--- NOTE | 2022-03-31 12:49 | W.ED.GENADLT ---
HPI - General Adult General: Chief complaint: General Medical Stated complaint: HYPOGLYCEMIA Time Seen by Provider: 03/31/22 12:49 Limitations: altered mental status History of Present Illness: Ms. Cain is a 66-year-old lady with significant past medical history of diabetes who presents to the emergency department due to episode of altered mental status. Patient reports feeling at her baseline health this morning.. She was taking her medication as normal but did not eat breakfast. She subsequently developed confusion and abnormal feeling. History subsequent to that is somewhat vague but she does not specifically recall. EMS found the patient with a blood glucose of 43 and gave D10 with clinical improvement. Patient currently still feels mildly confused however no focal neurodeficits reported. Otherwise denies recent changes in health. Current symptom intensity is mild. No other specific changes in health, exacerbating, or alleviating factors identified. Review of Systems General: Reports: 10 or more systems reviewed and unremarkable except in HPI and below PFSH ED PFSH: Medical History Acute kidney failure -renal function has improved since last admission, improved today (1.8->1.5) -hold metformin -continue to monitor renal function particularly with dual antibiotics -has CKD stage 2; baseline Cr appears to be around 1.4 Arterial calcification ASVD (arteriosclerotic vascular disease) Chronic renal disease, stage 3, moderately decreased glomerular filtration rate (GFR) between 30-59 mL/min/1.73 square meter Depression Diabetes mellitus with hyperglycemia, with long-term current use of insulin Enrolled in chronic care management GERD (gastroesophageal reflux disease) History of cigarette smoking History of colon polyps History of TIA (transient ischemic attack) Hyperlipemia Hypertension Insomnia Mixed incontinence urge and stress Neuropathic pain CHET on CPAP CHET treated with BiPAP Does not tolerate CPAP Vitamin D deficiency Surgical History History of below knee amputation Left History of hysterectomy with BLSO Hx of colonoscopy 02/17/2019 Status post amputation of toe of right foot Amputation of the R 2nd & 3rd toe through metatarsophalangeal joint, Dr. Pacheco on 11/02/2015 Family History Father Cancer lung Diabetes Sister Cancer gallbladder Family/Other Cancer colon Mother Ischemia, bowel Social History Smoking and tobacco status: current every day smoker cigarettes Packs smoked per day: 1 Years cigarettes smoked: 30 Second hand smoke exposure: No Smoking risk assessment/counseling performed?: No Alcohol intake: never Desire information about alcohol rehabilitation?: No Counseling given: No Desire information about substance/drug rehabilitation?: No Counseling given: No Adopted: No Caregiver/support person: No Lives independently: Yes Household members: family Housing: House Marital status: Single Number of children: 0 service: No Current occupational status: disabled History of recent travel: No Current gender identity: Female Physical Exam Const: COMMON NORMALS: alert GENERAL APPEARANCE: cooperative and well developed HENMT: COMMON NORMALS: normocephalic and atraumatic HEAD & SCALP: normocephalic and atraumatic Eye: COMMON NORMALS: conjunctivae normal CONJUNCTIVA: Yes conjunctivae normal SCLERA: sclerae normal Neck/C-Spine: COMMON NORMALS: supple GENERAL: Yes trachea midline Resp: COMMON NORMALS: normal respiratory effort and clear to auscultation bilaterally EFFORT & INSPECTION: Yes able to speak in complete sentences AUSCULTATION: clear to auscultation bilaterally Cardio: COMMON NORMALS: regular rate and regular rhythm RATE: regular rate RHYTHM: regular rhythm GI: COMMON NORMALS: Soft to palpation PALPATION: Yes Soft to palpation and No Tenderness to palpation present (GI) PERCUSSION: normal to percussion Extremity: NARRATIVE EXTREMITY EXAM: History of left BKA GENERAL: Yes normal exam except as noted and No edema Neuro: COMMON NORMALS: CN's II-XII intact bilaterally, moves all extremities, no focal motor deficits and no sensory deficits noted SENSORIUM/ORIENTATION: Yes alert and No Orientation impaired Course ED course: - Patient was seen and evaluated by me at bedside - Patient placed on cardiac monitors, IV access obtained - Initial evaluation notable for exam as above. Patient appears mildly impaired with regards to history but exam is nonfocal. - Labs personally interpreted by me. EKG notable for sinus rhythm with nonspecific ST-T segment abnormalities. -Patient alert enough to tolerate p.o. intake - Labs notable for mild leukocytosis, normal hemoglobin. Metabolic panel appears similar to prior. Labs were drawn by EMS and therefore glucose low, [id number] improved. Negative delta troponin. No UTI. - Imaging notable for negative head CT - Upon serial reexamination after treatment the patient was significantly improved with normalization of mental status and sustained adequate glucose with patient tolerating p.o. intake - Based on patient history, evaluation, and testing as interpreted the most likely cause of the patient's condition is hypoglycemia related to medication use and not taking enough oral intake. - The results of ED evaluation were discussed with the patient including prescriptions and/or symptomatic cares (if applicable) including appropriate and responsible use, followup plan, and return precautions. She has someone living with her who can check on her and watch closely. The patient verbalized understanding and felt safe for discharge. - Patient discharged in satisfactory condition. Note: Click bubbles or prepopulated anderson in note writing are used for assistance with data collection and billing and are inherently more limited than narrative and other text portions of this note. Please use narrative for additional clinical history and defer to narrative/free test for any case of contradictory information. If information appears in only free text or click bubble it should be considered present or absent as reported. Please contact note typewriter operator automatic for clarifications of clinical information or contradictory information. MDM is a brief summary, contradictory or erroneous seeming information should be clarified and full note should be reviewed. Vital Signs: Vital signs: Vital Signs Temperature 97.6 F 03/31/22 12:48 Pulse Rate 85 03/31/22 17:40 Respiratory Rate 21 H 03/31/22 17:40 Blood Pressure 125/78 03/31/22 17:40 Pulse Oximetry 95 03/31/22 17:40 Oxygen Delivery Me thod 03/31/22 14:00 MDM - General Adult Medical Decision Making 66-year-old lady with history of diabetes presenting with altered mental status likely secondary to hypoglycemia. ED evaluation without obvious cause and patient provides history of taking medication without eating breakfast. Patient tolerated p.o. intake and had sustained normal glucose. Satisfactory for outpatient management with close observation and strict return precaution plan given. Medical Records I reviewed the patient's medical records. Lab Data I reviewed the patient's lab results. : 03/31/22 13:47 03/31/22 13:[address] 03/31/22 13:11 IMPRESSION: No acute intracranial findings. Laboratory Results WBC 11.6 10^3/uL (4.0-10.0) H 03/31/22 13:47 RBC 4.75 10^6/uL (4.1-5.3) 03/31/22 13:47 Hgb 13.7 g/dL (11.5-15.3) 03/31/22 13:47 Hct 44.2 % (37.0-47.0) 03/31/22 13:47 MCV 93.1 fl (81-99) 03/31/22 13:47 MCH 28.8 pg (28.0-34.0) 03/31/22 13:47 MCHC 31.0 g/dL (30.0-36.0) 03/31/22 13:47 RDW 13.9 % (12.1-15.1) 03/31/22 13:47 Plt Count 218 10^3/cmm (130-400) 03/31/22 13:47 MPV 10.0 fL (7.4-10.4) 03/31/22 13:47 Neut % (Auto) 84.0 % 03/31/22 13:47 Lymph % (Auto) 8.5 % 03/31/22 13:47 Mobile % (Auto) 6.5 % 03/31/22 13:47 Eos % (Auto) 0.3 % 03/31/22 13:47 Baso % (Auto) 0.4 % 03/31/22 13:47 Neut # (Auto) 9.76 10^3/uL (1.8-7.7) H 03/31/22 13:47 Lymph # (Auto) 1.0 10^3/uL (0.8-4.8) 03/31/22 13:47 Mobile # (Auto) 0.8 10^3/uL (0.2-0.9) 03/31/22 13:47 Eos # (Auto) 0.0 10^3/uL (0.0-0.8) 03/31/22 13:47 Baso # (Auto) 0.1 10^3/uL (0.0-0.1) 03/31/22 13:47 Nucleated RBC % (auto) 0 % 03/31/22 13:47 Nucleated RBCs # 0.0 /100WBC 03/31/22 13:47 Sodium 137 mmol/L (136-145) 03/31/22 13:47 Potassium 4.5 mmol/L (3.5-5.1) 03/31/22 13:47 Chloride 100 mmol/L (98-107) 03/31/22 13:47 Carbon Dioxide 26 mmol/L (22-29) 03/31/22 13:47 Anion Gap 15.5 (5-19) 03/31/22 13:47 BUN 19 mg/dL (8-23) 03/31/22 13:47 Creatinine 1.4 mg/dL (0.5-0.9) H 03/31/22 13:47 GFR Calculation 37.7 mL/min (90-130) L 03/31/22 13:47 Glucose 49 mg/dL (65-115) L 03/31/22 13:47 POC Glucose 109 mg/dL (70-110) 03/31/22 16:36 Calculated Osmolality 284 mOsm/kg (285-295) L 03/31/22 13:47 Calcium 8.7 mg/dL (8.5-10.5) 03/31/22 13:47 Total Bilirubin 0.3 mg/dL (0.15-1.2) 03/31/22 13:47 AST 19 U/L (0-32) 03/31/22 13:47 ALT 11 U/L (0-33) 03/31/22 13:47 Alkaline Phosphatase 113 U/L (35-105) H 03/31/22 13:47 Troponin T Baseline 15 ng/L (0-10) H 03/31/22 13:47 Troponin T 120 Minute 14.06 ng/L (0-10) H 03/31/22 15:22 Delta Troponin T -0.94 ABS# (0-10) L 03/31/22 15:22 Total Protein 6.8 g/dL (6.6-8.7) 03/31/22 13:47 Albumin 3.3 g/dL (3.5-5.2) L 03/31/22 13:47 Globulin 3.5 g/dL (1.3-4.6) 03/31/22 13:47 Urine Color Yellow (Yellow) 03/31/22 13:19 Urine Appearance Clear (CLEAR) 03/31/22 13:19 Urine pH 7 (5-7) 03/31/22 13:19 Ur Specific Garber 1.000 (1.005-1.030) L 03/31/22 13:19 Urine Protein Neg (Negative) 03/31/22 13:19 Urine Glucose (UA) 2+ (Normal) H 03/31/22 13:19 Urine Ketones Negative (Negative) 03/31/22 13:19 Urine Blood Neg (Negative) 03/31/22 13:19 Urine Nitrate Negative (Negative) 03/31/22 13:19 Urine Bilirubin Neg (Negative) 03/31/22 13:19 Urine Urobilinogen Norm mg/dL (Negative) 03/31/22 13:19 Ur Leukocyte Esterase Negative (Negative) 03/31/22 13:19 Discharge Plan Discharge Patient Disposition: Home Clinical Impression: Diabetic hypoglycemia Condition: Stable Prescriptions: No Action (DME) blood sugar diagnostic Strip See Rx Instructions .ROUTE .MEDSUPPLY Qty: 100 5RF Rx Instructions: one strip 3 daily (DME) lancets [OneTouch Delica Plus Lancet] 33 gauge misc See Rx Instructions .ROUTE .MEDSUPPLY Qty: 100 5RF Rx Instructions: use 1 3 times day (DME) pen needle, diabetic 33 gauge x 5/32 needle See Rx Instructions .ROUTE .MEDSUPPLY Qty: 100 5RF Rx Instructions: 1 time day (DME) hydrocolloid dressing [DuoDERM CGF Dressing] 6 X 6 bandage See Rx Instructions .ROUTE .MEDSUPPLY Qty: 5 2RF Rx Instructions: apply every 3 days (DME) Wheel chair See Rx Instructions .Route .MEDSUPPLY Qty: 1 0RF Rx Instructions: As directed (DME) BiPAP supplies See Rx Instructions .Route .MEDSUPPLY Qty: 1 0RF Rx Instructions: As directed (DME) bipap See Rx Instructions .Route .MEDSUPPLY Qty: 1 0RF Rx Instructions: As directed bipap machine and supplies auto titrate settings MediHoney (honey) 100 % paste 1 applic topical BID Qty: 103 0RF (DME) adult protective underwear See Rx Instructions .Route .MEDSUPPLY Qty: 186 11RF Rx Instructions: As directed (DME) bedside commode See Rx Instructions .Route .MEDSUPPLY Qty: 1 0RF Rx Instructions: As directed (DME) hydrocolloid dressing [DuoDERM CGF Border Dressing] 4 X 4 bandage See Rx Instructions .Route Qty: 5 0RF Rx Instructions: change it weekly (DME) wheelchair cushion See Rx Instructions .Route .MEDSUPPLY Qty: 1 0RF Rx Instructions: As directed (DME) Protective underwear XL [id number] See Rx Instructions .Route .MEDSUPPLY Qty: 60 12RF Rx Instructions: As directed amlodipine 5 mg tablet 5 mg PO DAILY 30 Days Qty: 30 2RF atorvastatin 10 mg tablet 10 mg PO BEDTIME 30 Days Qty: 30 2RF citalopram 20 mg tablet 20 mg PO BID 30 Days Qty: 60 2RF Farxiga 10 mg tablet 10 mg PO QAM Qty: 30 2RF ergocalciferol (vitamin D2) 1,250 mcg (50,000 unit) capsule 1,250 mcg PO .monthly Qty: 1 2RF eszopiclone [Lunesta] 2 mg tablet 2 mg PO .at supper time Qty: 30 2RF gabapentin 300 mg capsule 300 mg PO BID 30 Days Qty: 60 2RF glipizide 5 mg tablet extended release 24 hr 5 mg PO DAILY Qty: 30 2RF Hold Instructions: Doctor's Order Tresiba FlexTouch U-200 200 unit/mL (3 mL) insulin pen 60 unit SUBCUT QAM Qty: 9 2RF metoprolol succinate 50 mg tablet extended release 24 hr 50 mg PO DAILY 30 Days Qty: 30 2RF pantoprazole 20 mg tablet,delayed release (DR/EC) 20 mg PO DAILY 30 Days Qty: 30 2RF pentoxifylline 400 mg tablet extended release 400 mg PO DAILY Qty: 30 2RF Ozempic 1 mg/dose (4 mg/3 mL) pen injector 1 mg SUBCUT .weekly Qty: 3 2RF (DME) blood-glucose meter [OneTouch Ultra2 Meter] Kit See Rx Instructions .Route Qty: 1 0RF Rx Instructions: daily polyethylene glycol 3350 [Miralax] 17 gram/dose powder 17 g PO DAILY Qty: 510 0RF (DME) Alliance Director Cinic Evaluation left prosthesis See Rx Instructions .Route .MEDSUPPLY Qty: 1 0RF Rx Instructions: As directed Novolog U-100 Insulin aspart 100 unit/mL Solution 5 unit SUBCUT TIDAC Qty: 3 0RF Hold Instructions: Doctor's Order Discharge Orders: Discharge ED (Routine); Ordered 04/13/22 Ordered By: Chintan Jaquez Referrals: Kareem Armando, INVESTMENT MANAGER-C [Primary Care Provider] - Discharge Diet: Usual diet Discharge Activity: Increase activity as tolerated Patient Instructions: Hypoglycemia in a Person with Diabetes (ED), What to Do if Your Blood Sugar is Low (ED) Activity Restrictions/Additional Instructions: Thank you for visiting the emergency department. You were seen and evaluated for mental status changes associated with low blood sugar. The exact cause of the symptoms is unclear though likely related to medication use in the context of not eating. I do not see any other acute abnormality that would require hospitalization. Please follow-up with your primary care provider and caramel maker. Please ensure that someone can watch you closely over the next 24 hours if symptoms recur. Please return to the emergency department for recurrent symptoms, uncontrolled blood sugar, any new neurologic symptoms, or anything else that you are concerned about a feel needs emergency department evaluation. Coding Level of Care Code ED Account Support Associate for [place] Exam Comprehensive
[2022-03-31 13:00] VITALS: BP 132/72; PULSE 56; RESP 14; O2SAT 95
[2022-03-31 13:11] LABS: Glucose Point of Care 127 mg/dL (70-110)
--- NOTE | 2022-03-31 13:11 | CTR_ITS ---
PROCEDURE INFORMATION: Exam: CT Head Without Contrast Exam date and time: 03/31/2022 1:34 PM Age: 66 years old Clinical indication: Altered mental status/memory loss; Confusion or disorientation; Additional info: AMS TECHNIQUE: Imaging protocol: Computed tomography of the head without contrast. Radiation optimization: All CT scans at this facility use at least one of these dose optimization techniques: automated exposure control; mA and/or kV adjustment per patient size (includes targeted exams where dose is matched to clinical indication); or iterative reconstruction. COMPARISON: CT head wo con* [id number] 09/11/2020 9:39 PM RADIATION DOSE METRICS: Total DLP (mGy-cm): 973.38 FINDINGS: Brain: Normal. No hemorrhage. Unremarkable white matter. No mass effect. Cerebral ventricles: No ventriculomegaly. Paranasal sinuses: Visualized sinuses are unremarkable. No fluid levels. Mastoid air cells: Visualized mastoid air cells are well aerated. Nasal cavity: Left middle turbinate rodrick bullosa. Bones/joints: Unremarkable. No acute fracture. Soft tissues: Unremarkable. CT/CT head wo con* [id number] IMPRESSION: No acute intracranial findings.
--- NOTE | 2022-03-31 13:49 | ECG_ITS ---
[facility] Test Date: 2022-03-31 Pat Name: Lyric Cain Department: Room: Gender: Female Editor Map: : 1955 Requested By: Chintan Jaquez Order Number: [id number] Brand MD: Nakia Villanueva M.D. Measurements Intervals [place] Rate: 55 P: 3 NC: 166 QRS: -2 QRSD: 95 T: 23 QT: 466 QTc: 448 Interpretive Statements SINUS BRADYCARDIA MINIMAL VOLTAGE CRITERIA FOR LVH, CONSIDER NORMAL VARIANT Compared to ECG 09/11/2020 16:06:24 Sinus rhythm no longer present Electronically Signed On 04-01-2022 13:06:49 CDT by Nakia Villanueva M.D. [id number]
[2022-03-31 13:59] LABS: Basophils # 0.1 10^3/uL (0.0-0.1); Basophils % 0.4 %; Eosinophils % 0.3 %; Hematocrit 44.2 % (37.0-47.0); Hemoglobin 13.7 g/dL (11.5-15.3); Lymphocytes % 8.5 %; Mean Corpuscular Hemoglobin 28.8 pg (28.0-34.0); Mean Corpuscular Volume 93.1 fl (81-99); Monocytes # 0.8 10^3/uL (0.2-0.9); Monocytes % 6.5 %; Neutrophils # 9.76 10^3/uL (1.8-7.7); Nucleated Red Blood Cells % 0 %; Platelet Count 218 10^3/cmm (130-400); Red Blood Count 4.75 10^6/uL (4.1-5.3); Red Cell Distribution Width 13.9 % (12.1-15.1); White Blood Count 11.6 10^3/uL (4.0-10.0)
[2022-03-31 14:00] VITALS: BP 138/70; PULSE 62; RESP 21; O2SAT 94
[2022-03-31 14:20] LABS: Troponin(5th) Baseline 15 ng/L (0-10)
[2022-03-31 14:22] LABS: Alanine Aminotransferase 11 U/L (0-33); Albumin Level 3.3 g/dL (3.5-5.2); Alkaline Phosphatase 113 U/L (35-105); Blood Urea Nitrogen 19 mg/dL (8-23); Calcium 8.7 mg/dL (8.5-10.5); Carbon Dioxide 26 mmol/L (22-29); Chloride 100 mmol/L (98-107); Creatinine Clr Calc Pharmacy 45.1772; Globulin 3.5 g/dL (1.3-4.6); Glomerular Filtration Rate 37.7 mL/min (90-130); Glucose 49 mg/dL (65-115); Osmolality Calculated 284 mOsm/kg (285-295); Sodium 137 mmol/L (136-145); Total Bilirubin 0.3 mg/dL (0.15-1.2); Total Protein 6.8 g/dL (6.6-8.7)
[2022-03-31 14:23] LABS: Anion Gap 15.5 (5-19); Aspartate Amino Transferase 19 U/L (0-32); Potassium 4.5 mmol/L (3.5-5.1)
[2022-03-31 14:34] LABS: Glucose Point of Care 96 mg/dL (70-110)
[2022-03-31 15:00] VITALS: BP 131/77; PULSE 60; RESP 20; O2SAT 94
--- NOTE | 2022-03-31 15:31 | ECG_ITS ---
[facility] Test Date: 2022-03-31 Pat Name: Lyric Cain Department: Room: Gender: Female Biotechnician: : 1955 Requested By: Chintan Jaquez Order Number: [id number] Brand MD: Nakia Villanueva M.D. Measurements Intervals [place] Rate: 60 P: 31 UT: 186 QRS: -2 QRSD: 88 T: 17 QT: 439 QTc: 439 Interpretive Statements SINUS RHYTHM MODERATE VOLTAGE CRITERIA FOR LVH, CONSIDER NORMAL VARIANT [MEETS CRITERIA IN ONE OF: R(aVL), S(V1), R(V5), R(V5/V6)+S(V1)] Compared to ECG 03/31/2022 13:49:20 Sinus bradycardia no longer present Electronically Signed On 04-01-2022 13:17:04 CDT by Nakia Villanueva M.D. [id number]
[2022-03-31 15:34] LABS: Add Urine Microscopic? NO; Charge for UA Resulting for Rev
[2022-03-31 15:41] LABS: Bilirubin Urine Neg (Negative); Blood Urine Neg (Negative); Glucose Urine UA 2+ (Normal); Ketones Urine Negative (Negative); Leukocyte Esterase Urine Negative (Negative); Nitrate Urine Negative (Negative); Protein Urine Neg (Negative); Urine Appearance Clear (CLEAR); Urine Color Yellow (Yellow); Urobilinogen Urine Norm (Negative); pH Urine 7 (5-7)
[2022-03-31 15:47] LABS: Troponin 5 2HR 14.06 ng/L (0-10)
[2022-03-31 15:51] LABS: Troponin 5 2HR Delta -0.94 ABS# (0-10)
[2022-03-31 15:51] LABS: Glucose Point of Care 125 mg/dL (70-110)
[2022-03-31 16:36] VITALS: BP 132/80; PULSE 63; RESP 16; O2SAT 96
[2022-03-31 16:39] LABS: Glucose Point of Care 109 mg/dL (70-110)
[2022-03-31 17:40] VITALS: BP 125/78; PULSE 85; RESP 21; O2SAT 95
== END 2022-03-31 17:42 | disposition home or self-care (01) ==
PROVIDERS: Emergency Provider Emergency Medicine; PCP Nurse Practitioner
DX: E11.649 Type 2 diabetes mellitus with hypoglycemia without coma (principal); Z79.84 Long term (current) use of oral hypoglycemic drugs; Z79.4 Long term (current) use of insulin; F17.210 Nicotine dependence, cigarettes, uncomplicated; Z89.512 Acquired absence of left leg below knee; E11.22 Type 2 diabetes mellitus with diabetic chronic kidney disease; I12.9 Hypertensive chronic kidney disease with stage 1 through stage 4 chronic kidney disease, or unspecified chronic kidney disease; N18.30 Chronic kidney disease, stage 3 unspecified
CPT/HCPCS: 36416; 70450; 80053; 81003; 82962; 84484; 85025; 93005; 99285

== ENCOUNTER → 2022-04-05 11:22 | Outpatient (BNVA) | payer MEDICARE, MEDICAID, SELFPAY | PROVIDERS: PCP Nurse Practitioner; Visit Provider Nurse Practitioner | DX: E11.65 Type 2 diabetes mellitus with hyperglycemia (principal); Z79.4 Long term (current) use of insulin; E11.649 Type 2 diabetes mellitus with hypoglycemia without coma | CPT/HCPCS: 80053; 83036 ==

== ENCOUNTER → 2022-07-17 15:33 | Outpatient (BNVA) | payer MEDICARE, MEDICAID, SELFPAY | PROVIDERS: PCP Nurse Practitioner; Visit Provider Nurse Practitioner | DX: I10 Essential (primary) hypertension (principal); E78.2 Mixed hyperlipidemia; F32.9 Major depressive disorder, single episode, unspecified; E11.65 Type 2 diabetes mellitus with hyperglycemia; Z79.4 Long term (current) use of insulin; R41.3 Other amnesia; E55.9 Vitamin D deficiency, unspecified; G47.00 Insomnia, unspecified; M79.2 Neuralgia and neuritis, unspecified; B37.9 Candidiasis, unspecified | CPT/HCPCS: 80053; 80061; 82306; 83036 ==

== ENCOUNTER → 2022-10-24 08:01 | Outpatient (BNVA) | payer MEDICARE, MEDICAID, SELFPAY | PROVIDERS: PCP Nurse Practitioner; Visit Provider Nurse Practitioner | DX: E11.65 Type 2 diabetes mellitus with hyperglycemia (principal); Z79.4 Long term (current) use of insulin | CPT/HCPCS: 80053; 83036 ==

== ENCOUNTER 2022-12-21 11:33 | Emergency (ER) | payer MEDICARE, MEDICAID, SELFPAY ==
[2022-12-21] VITALS (11 sets, daily range): BP systolic 148–185; BP diastolic 72–90; PULSE 54–78; RESP 16–17; O2SAT 96–99; BMI 29.9
--- NOTE | 2022-12-21 12:06 | CT_ITS ---
WS: [id number] CT ABDOMEN PELVIS TECHNIQUE: Contrast-enhanced CT of the abdomen and pelvis with coronal and sagittal reformatted image s. CLINICAL INFORMATION: Periumbilical abdominal pain COMPARISON: CT August 05, 2019 DLP: 865.[address] scans at [facility] use at least one of these dose optimization techniques: automated e xposure control; mA and/or kV adjustment per patient size (includes targeted exams where dose is matc hed to clinical indication); or iterative reconstruction. FINDINGS: LEFT adrenal nodule measuring 2.5 cm appears stable. Mild diffuse fatty infiltration liver. Splenic g ranulomas. Lung bases are well aerated. Calcified granuloma LEFT lower lobe. Small lymph node at the GE junction measuring 7 mm unchanged. Normal pancreatic parenchymal enhancement. Normal splenic vein and portal vein. A few tiny calculi in the gallbladder. Normal caliber abdominal aorta. Mild aortic calcification. Normal sigmoid colon. Normal appendix in t he RIGHT lower quadrant. No evidence of acute appendicitis. Urine distended bladder. Normal renal par enchymal enhancement. No hydronephrosis. RIGHT adrenal gland is normal. Bilateral renal cysts.. Prior hysterectomy. CT/CT abdomen pelvis w con* [id number] IMPRESSION: 1. A few small calculi in the gallbladder. 2. Normal renal parenchymal enhancement. No hydronephrosis. Small bilateral re nal cysts. 3. No obstructing renal or ureteral calculi. 4. Stable LEFT adrenal nodule. 5. Normal appendix. 6. Prior hysterectomy. 7. No other acute findings.
[2022-12-21] MEDS: ondansetron 2 mg/ML SDV 2 mL 4 MG IVP (12:36)
[2022-12-21] MEDS: sodium chloride 0.9% 1,000 ML 999 ML IV (12:36)
--- NOTE | 2022-12-21 12:39 | PC.NURSE ---
pt was assisted to bed king for urine sample. pt was instructed to use call light when done. when coming back into room pt had helped herself off the bedpan and placed it on side table.
[2022-12-21 12:49] LABS: Bilirubin Urine Neg (Negative); Blood Urine Neg (Negative); Glucose Urine UA 4+ (Normal); Ketones Urine 2+ (Negative); Leukocyte Esterase Urine 1+ (Negative); Nitrate Urine Negative (Negative); Protein Urine Neg (Negative); Specific Gravity, Urine 1.015 (1.005-1.030); Urine Appearance Hazy (CLEAR); Urine Color Yellow (Yellow); Urobilinogen Urine Norm (Negative); pH Urine 5 (5-7)
[2022-12-21 12:50] LABS: Add Urine Culture? No; Add Urine Microscopic? YES; Bacteria Urine TR /hpf; RBC Urine 0-4 /hpf (0-2); Squamous Epithelial Cell Urine 0-4 /hpf (0-5)
[2022-12-21 13:08] LABS: Basophils % 0.4 %; Eosinophils % 0.3 %; Hematocrit 43.5 % (37.0-47.0); Hemoglobin 13.8 g/dL (11.5-15.3); Lymphocytes # 0.7 10^3/uL (0.8-4.8); Mean Corpuscular HGB Conc 31.7 g/dL (30.0-36.0); Mean Corpuscular Hemoglobin 28.8 pg (28.0-34.0); Mean Corpuscular Volume 90.6 fl (81-99); Mean Platelet Volume 10.1 fL (7.4-10.4); Monocytes # 0.5 10^3/uL (0.2-0.9); Neutrophils # 6.31 10^3/uL (1.8-7.7); Neutrophils % 83.2 %; Nucleated Red Blood Cells % 0 %; Platelet Count 159 10^3/cmm (130-400); Red Cell Distribution Width 14.3 % (12.1-15.1); White Blood Count 7.6 10^3/uL (4.0-10.0)
[2022-12-21 13:26] LABS: Alanine Aminotransferase 8 U/L (0-33); Albumin Level 3.4 g/dL (3.5-5.2); Alkaline Phosphatase 96 U/L (35-105); Anion Gap 17.8 (5-19); Aspartate Amino Transferase 14 U/L (0-32); Blood Urea Nitrogen 19 mg/dL (8-23); Calcium 7.9 mg/dL (8.5-10.5); Carbon Dioxide 20 mmol/L (22-29); Chloride 101 mmol/L (98-107); Globulin 2.8 g/dL (1.3-4.6); Glomerular Filtration Rate 55.5 mL/min (90-130); Glucose 82 mg/dL (65-115); Osmolality Calculated 281 mOsm/kg (285-295); Potassium 3.8 mmol/L (3.5-5.1); Sodium 135 mmol/L (136-145); Total Bilirubin 0.4 mg/dL (0.15-1.2); Total Protein 6.2 g/dL (6.6-8.7)
--- NOTE | 2022-12-21 13:32 | PC.NURSE ---
Assumed care at 1300.
--- NOTE | 2022-12-21 14:34 | ED_ITS ---
HPI - Abdominal Pain General: Chief Complaint: Abdominal Pain Stated Complaint: leg pain Time Seen by Provider: 12/21/22 11:46 Source: patient Limitations: no limitations History of Present Illness: This 67-year-old female presents to the ER with intermittent abdominal pain that started 3 days ago. Pain is sharp, lasts for about 30 minutes to an hour and resolved spontaneously. It is occasionally associated with nausea. She had a bowel movement this morning and noticed there was blood in it. Bowel movement was painless. Patient is not on any blood thinners and has never experienced rectal bleeding before. She has not vomited today. Her last colonoscopy was over 10 years ago. Associated Symptoms: Reports hematochezia, nausea and vomiting; Denies chills, diarrhea and dysuria Review of Systems Const: Denies: chills, body aches or change in appetite Eyes: Denies: change in vision or eye discharge ENMT: Denies: throat pain or dental pain Card: Denies: chest pain or lightheadedness GI: Reports: abdominal pain, nausea, vomiting and hematochezia; Denies: diarrhea : Denies: dysuria Musc: Denies: neck pain or back pain Neuro: Denies: headache(s) or weakness in extremities Psych: Denies: depression Boo/Lymph: Denies: easy bruising All/Imm: Denies: urticaria, tongue swelling or facial swelling PFS ED PFSH: Medical History (Updated 12/21/22 @ 17:15 by Sukhdeep Wood MD) Acute kidney failure -renal function has improved since last admission, improved today (1.8->1.5) -hold metformin -continue to monitor renal function particularly with dual antibiotics -has CKD stage 2; baseline Cr appears to be around 1.4 Arterial calcification ASVD (arteriosclerotic vascular disease) Chronic renal disease, stage 3, moderately decreased glomerular filtration rate (GFR) between 30-59 mL/min/1.73 square meter Depression Diabetes mellitus with hyperglycemia, with long-term current use of insulin Enrolled in chronic care management GERD (gastroesophageal reflux disease) History of cigarette smoking History of colon polyps History of TIA (transient ischemic attack) Hyperlipemia Hypertension Insomnia Mixed incontinence urge and stress Neuropathic pain CHET treated with BiPAP Does not tolerate CPAP Vitamin D deficiency Surgical History History of below knee amputation Left History of hysterectomy with BLSO Hx of colonoscopy 02/17/2019 Status post amputation of toe of right foot Amputation of the R 2nd & 3rd toe through metatarsophalangeal joint, Dr. Pacheco on 11/02/2015 Family History Father Cancer lung Diabetes Sister Cancer gallbladder Family/Other Cancer colon Mother Ischemia, bowel Social History Smoking and tobacco status: current every day smoker cigarettes Packs smoked per day: 1 Years cigarettes smoked: 30 Second hand smoke exposure: No Smoking risk assessment/counseling performed?: No Alcohol intake: never Desire information about alcohol rehabilitation?: No Counseling given: No Substance/Drug Use: never Desire information about substance/drug rehabilitation?: No Counseling given: No Adopted: No Caregiver/support person: No Lives independently: Yes Household members: family Housing: House Marital status: Single Number of children: 0 service: No Current occupational status: disabled Do you think of yourself as: Straight/Heterosexual Current gender identity: Female Physical Exam Const: COMMON NORMALS: no acute distress, patient oriented x3, no limitations and alert HENMT: COMMON NORMALS: normocephalic HEAD & SCALP: normocephalic Eye: COMMON NORMALS: EOMs intact bilaterally Neck/C-Spine: COMMON NORMALS: full ROM and supple Chest: COMMONS NORMALS: normal inspection of the chest Resp: COMMON NORMALS: normal respiratory effort, No retractions, No use of accessory muscles and clear to auscultation bilaterally AUSCULTATION: clear to auscultation bilaterally Cardio: COMMON NORMALS: regular rate, regular rhythm and No murmurs present (Cardio) RATE: regular rate RHYTHM: regular rhythm GI: COMMON NORMALS: Normal to inspection, nondistended, normoactive bowel sounds present and non-tender : COMMON NORMALS: Yes no CVA tenderness BLADDER/KIDNEY EXAM: Yes no CVA tenderness Back/Pelvis: COMMON NORMALS: no CVA tenderness and no thoracic nor lumbar tenderness Extremity: GENERAL: Yes normal exam except as noted OTHER: Left below-knee amputation. Neuro: COMMON NORMALS: patient oriented x3 and no focal motor deficits SENSORIUM/ORIENTATION: Yes alert Psych: COMMON NORMALS: mental status grossly normal and cooperative Course Vital Signs: Vital signs: Vital Signs Pulse Rate 54 L 12/21/22 17:29 Respiratory Rate 16 12/21/22 14:30 Blood Pressure 150/79 12/21/22 17:29 Pulse Oximetry 97 12/21/22 17:29 Oxygen Delivery Me thod Room Air 12/21/22 11:57 MDM - Abdominal Pain Medical Decision Making Medical decision making: Patient's abdominal pain is intermittent and located mainly in the periumbilical and lower part of the abdomen. Though CT abdomen/pelvis reveals calculi in the gallbladder, patient does not have right upper quadrant pain or signs of acute cholecystitis. Hemoglobin is normal and rectal exam reveals normal colored stool that is guaiac negative. At this time, there is nothing to suggest that patient is having an active GI bleed. There is no indication to admit her. She was advised to follow-up with her primary care physician who will refer her to a energy crop farmer for a colonoscopy. Reasons to return were discussed. Patient verbalized understanding and agrees with the plan. Lab Data 12/21/22 13:00 12/21/22 13:00 Labs/Radiology: Radiology Impressions Abdomen/Pelvis CT 12/21/22 12:06 IMPRESSION: 1. A few small calculi in the gallbladder. 2. Normal renal parenchymal enhancement. No hydronephrosis. Small bilateral renal cysts. 3. No obstructing renal or ureteral calculi. 4. Stable LEFT adrenal nodule. 5. Normal appendix. 6. Prior hysterectomy. 7. No other acute findings. Laboratory Results WBC 7.6 10^3/uL (4.0-10.0) 12/21/22 13:00 RBC 4.80 10^6/uL (4.1-5.3) 12/21/22 13:00 Hgb 13.8 g/dL (11.5-15.3) 12/21/22 13:00 Hct 43.5 % (37.0-47.0) 12/21/22 13:00 MCV 90.6 fl (81-99) 12/21/22 13:00 MCH 28.8 pg (28.0-34.0) 12/21/22 13:00 MCHC 31.7 g/dL (30.0-36.0) 12/21/22 13:00 RDW 14.3 % (12.1-15.1) 12/21/22 13:00 Plt Count 159 10^3/cmm (130-400) 12/21/22 13:00 MPV 10.1 fL (7.4-10.4) 12/21/22 13:00 Neut % (Auto) 83.2 % 12/21/22 13:00 Lymph % (Auto) 9.0 % 12/21/22 13:00 [place] % (Auto) 7.0 % 12/21/22 13:00 Eos % (Auto) 0.3 % 12/21/22 13:00 Baso % (Auto) 0.4 % 12/21/22 13:00 Neut # (Auto) 6.31 10^3/uL (1.8-7.7) 12/21/22 13:00 Lymph # (Auto) 0.7 10^3/uL (0.8-4.8) L 12/21/22 13:00 [place] # (Auto) 0.5 10^3/uL (0.2-0.9) 12/21/22 13:00 Eos # (Auto) 0.0 10^3/uL (0.0-0.8) 12/21/22 13:00 Baso # (Auto) 0.0 10^3/uL (0.0-0.1) 12/21/22 13:00 Nucleated RBC % (auto) 0 % 12/21/22 13:00 Nucleated RBCs # 0.0 /100WBC 12/21/22 13:00 Sodium 135 mmol/L (136-145) L 12/21/22 13:00 Potassium 3.8 mmol/L (3.5-5.1) 12/21/22 13:00 Chloride 101 mmol/L (98-107) 12/21/22 13:00 Carbon Dioxide 20 mmol/L (22-29) L 12/21/22 13:00 Anion Gap 17.8 (5-19) 12/21/22 13:00 BUN 19 mg/dL (8-23) 12/21/22 13:00 Creatinine 1.0 mg/dL (0.5-0.9) H 12/21/22 13:00 GFR Calculation 55.5 mL/min (90-130) L 12/21/22 13:00 Glucose 82 mg/dL (65-115) 12/21/22 13:00 Calculated Osmolality 281 mOsm/kg (285-295) L 12/21/22 13:00 Calcium 7.9 mg/dL (8.5-10.5) L 12/21/22 13:00 Total Bilirubin 0.4 mg/dL (0.15-1.2) 12/21/22 13:00 AST 14 U/L (0-32) 12/21/22 13:00 ALT 8 U/L (0-33) 12/21/22 13:00 Alkaline Phosphatase 96 U/L (35-105) 12/21/22 13:00 Total Protein 6.2 g/dL (6.6-8.7) L 12/21/22 13:00 Albumin 3.4 g/dL (3.5-5.2) L 12/21/22 13:00 Globulin 2.8 g/dL (1.3-4.6) 12/21/22 13:00 Urine Color Yellow (Yellow) 12/21/22 12:32 Urine Appearance Hazy (CLEAR) A 12/21/22 12:32 Urine pH 5 (5-7) 12/21/22 12:32 Ur Specific [place] 1.015 (1.005-1.030) 12/21/22 12:32 Urine Protein Neg (Negative) 12/21/22 12:32 Urine Glucose (UA) 4+ (Normal) H 12/21/22 12:32 Urine Ketones 2+ (Negative) H 12/21/22 12:32 Urine Blood Neg (Negative) 12/21/22 12:32 Urine Nitrate Negative (Negative) 12/21/22 12:32 Urine Bilirubin Neg (Negative) 12/21/22 12:32 Urine Urobilinogen Norm mg/dL (Negative) 12/21/22 12:32 Ur Leukocyte Esterase 1+ (Negative) H 12/21/22 12:32 Urine RBC 0-4 /hpf (0-2) H 12/21/22 12:32 Urine WBC 5-10 /hpf (0-5) H 12/21/22 12:32 Ur Squamous Epith Cells 0-4 /hpf (0-5) H 12/21/22 12:32 Amorphous Sediment Not Reportable 12/21/22 12:32 Urine Bacteria Tr /hpf (NONE) 12/21/22 12:32 Discharge Plan Discharge Patient Disposition: Home Clinical Impression: Blood in stool, Intermittent abdominal pain, Cholelithiasis Condition: Stable Prescriptions: No Action (DME) pen needle, diabetic 33 gauge x /32 needle See Rx Instructions .ROUTE .MEDSUPPLY Qty: 100 5RF Rx Instructions: 1 time day (DME) BiPAP supplies See Rx Instructions .Route .MEDSUPPLY Qty: 1 0RF Rx Instructions: As directed (DME) adult protective underwear See Rx Instructions .Route .MEDSUPPLY Qty: 186 11RF Rx Instructions: As directed (DME) Protective underwear XL [id number] See Rx Instructions .Route .MEDSUPPLY Qty: 60 12RF Rx Instructions: As directed glipizide 5 mg tablet extended release 24 hr 5 mg PO DAILY Qty: 30 2RF Hold Instructions: Doctor's Order duloxetine [Cymbalta] 60 mg capsule,delayed release(DR/EC) 60 mg PO BID Qty: 60 2RF Rx Instructions: Stop Celexa amlodipine 5 mg tablet 5 mg PO DAILY 30 Days Qty: 30 2RF atorvastatin 10 mg tablet 10 mg PO BEDTIME 30 Days Qty: 30 2RF Farxiga 10 mg tablet 10 mg PO QAM Qty: 30 2RF donepezil [Aricept] 10 mg tablet 10 mg PO DAILY Qty: 30 2RF ergocalciferol (vitamin D2) 1,250 mcg (50,000 unit) capsule 1,250 mcg PO .monthly Qty: 1 2RF zonisamide [Zonegran] 100 mg capsule 100 mg PO BID Qty: 60 2RF Rx Instructions: stop gabapentin Tresiba FlexTouch U-200 200 unit/mL (3 mL) insulin pen 60 unit SUBCUT QAM Qty: 9 2RF metoprolol succinate 50 mg tablet extended release 24 hr 50 mg PO DAILY 30 Days Qty: 30 2RF pantoprazole 20 mg tablet,delayed release (DR/EC) 20 mg PO DAILY 30 Days Qty: 30 2RF pentoxifylline 400 mg tablet extended release 400 mg PO DAILY Qty: 30 2RF polyethylene glycol 3350 [Miralax] 17 gram/dose powder 17 g PO DAILY PRN (Reason: constipation) Qty: 510 0RF Ozempic 1 mg/dose (4 mg/3 mL) pen injector 1 mg SUBCUT .weekly Qty: 3 2RF (DME) bipap See Rx Instructions .Route .MEDSUPPLY Qty: 1 0RF Rx Instructions: As directed bipap machine and supplies auto titrate settings (DME) blood-glucose meter [OneTouch Ultra2 Meter] Kit See Rx Instructions .Route Qty: 1 0RF Rx Instructions: daily (DME) [employer] [facility] Evaluation left prosthesis See Rx Instructions .Route .MEDSUPPLY Qty: 1 0RF Rx Instructions: As directed (DME) lancets [OneTouch Delica Plus Lancet] 33 gauge misc See Rx Instructions .ROUTE .MEDSUPPLY Qty: 100 5RF Rx Instructions: use 1 3 times day (DME) blood sugar diagnostic Strip See Rx Instructions .ROUTE .MEDSUPPLY Qty: 100 5RF Rx Instructions: one strip 3 daily trazodone 100 mg tablet 100 mg PO BEDTIME Qty: 30 2RF nystatin 100,000 unit/gram powder 1 applic topical BID Qty: 60 0RF Novolog U-100 Insulin aspart 100 unit/mL Solution 5 unit SUBCUT TIDAC Qty: 3 0RF Hold Instructions: Doctor's Order Discharge Orders: Discharge ED (Routine); Ordered 12/21/22 Ordered By: Sukhdeep Wood Referrals: Kareem Armando, [employer]ATOR[employer] [Primary Care Provider] - Discharge Diet: Advance as tolerated Discharge Activity: Resume usual activity Patient Instructions: Abdominal Pain (ED), Opioid Safety, Pain Management Activity Restrictions/Additional Instructions: Maintain adequate fluid intake. Take [id number] Tylenol as needed for abdominal pain. Follow-up with your primary care physician who will refer you to a gastroentero logist or a surgeon to get a colonoscopy done. Return if you develop any new or worsening symptoms. Coding Level of Care Code ED [employer] [facility] [place]
== END 2022-12-21 17:30 | disposition home or self-care (01) ==
PROVIDERS: Emergency Provider Family Medicine; PCP Nurse Practitioner
DX: K92.1 Melena (principal); K80.20 Calculus of gallbladder without cholecystitis without obstruction; Z79.84 Long term (current) use of oral hypoglycemic drugs; Z79.4 Long term (current) use of insulin; F17.210 Nicotine dependence, cigarettes, uncomplicated; Z89.512 Acquired absence of left leg below knee; E11.22 Type 2 diabetes mellitus with diabetic chronic kidney disease; I13.10 Hypertensive heart and chronic kidney disease without heart failure, with stage 1 through stage 4 chronic kidney disease, or unspecified chronic kidney disease; N18.30 Chronic kidney disease, stage 3 unspecified; Z86.73 Personal history of transient ischemic attack (TIA), and cerebral infarction without residual deficits; E78.5 Hyperlipidemia, unspecified
CPT/HCPCS: 36415; 74177; 80053; 81001; 85025; 96374; 99284; J2405; J7030

== ENCOUNTER → 2023-01-24 15:47 | Outpatient (BNVA) | payer MEDICARE, MEDICAID, SELFPAY | PROVIDERS: PCP Nurse Practitioner; Visit Provider Nurse Practitioner | DX: E55.9 Vitamin D deficiency, unspecified (principal); E11.65 Type 2 diabetes mellitus with hyperglycemia; Z79.4 Long term (current) use of insulin | CPT/HCPCS: 80053; 80061; 82306; 82607; 83036; 83540; 84443; 85025 ==

== ENCOUNTER → 2023-05-01 16:38 | Outpatient (BNVA) | payer MEDICARE, MEDICAID, SELFPAY | PROVIDERS: PCP Nurse Practitioner; Visit Provider Nurse Practitioner | DX: E11.65 Type 2 diabetes mellitus with hyperglycemia (principal); E55.9 Vitamin D deficiency, unspecified; Z79.4 Long term (current) use of insulin | CPT/HCPCS: 80053; 81000; 82306; 82607; 83036; 84443; 85025 ==

== ENCOUNTER → 2023-08-05 09:38 | Outpatient (BNVA) | payer MEDICARE, MEDICAID, SELFPAY | PROVIDERS: PCP Nurse Practitioner; Visit Provider Nurse Practitioner | DX: R91.1 Solitary pulmonary nodule (principal); N18.30 Chronic kidney disease, stage 3 unspecified; R63.4 Abnormal weight loss; E78.2 Mixed hyperlipidemia; E11.65 Type 2 diabetes mellitus with hyperglycemia; Z79.4 Long term (current) use of insulin; R41.3 Other amnesia; E55.9 Vitamin D deficiency, unspecified; F32.9 Major depressive disorder, single episode, unspecified; I10 Essential (primary) hypertension; G47.00 Insomnia, unspecified; E11.9 Type 2 diabetes mellitus without complications | CPT/HCPCS: 80053; 80061; 83036; 85025 ==

== ENCOUNTER → 2023-11-11 11:36 | Outpatient (BNVA) | payer MEDICARE, MEDICAID, SELFPAY | PROVIDERS: PCP Nurse Practitioner; Visit Provider Nurse Practitioner | DX: E11.65 Type 2 diabetes mellitus with hyperglycemia (principal); Z79.4 Long term (current) use of insulin; E11.9 Type 2 diabetes mellitus without complications | CPT/HCPCS: 80053; 80061; 81000; 83036; 84443 ==

== ENCOUNTER → 2024-02-25 14:28 | Outpatient (BNVA) | payer MEDICARE, MEDICAID, SELFPAY | PROVIDERS: PCP Nurse Practitioner; Visit Provider Nurse Practitioner | DX: E11.9 Type 2 diabetes mellitus without complications (principal) | CPT/HCPCS: 80053; 80061; 82306; 82607; 83036 ==

== ENCOUNTER → 2024-05-07 13:53 | Outpatient (BNVA) | payer MEDICARE, MEDICAID, SELFPAY | PROVIDERS: PCP Nurse Practitioner; Visit Provider Nurse Practitioner | DX: E11.9 Type 2 diabetes mellitus without complications (principal) | CPT/HCPCS: 80053; 83036 ==

== ENCOUNTER → 2024-09-22 15:57 | Outpatient (BNVA) | payer MEDICARE, MEDICAID, SELFPAY | PROVIDERS: PCP Nurse Practitioner; Visit Provider Nurse Practitioner | DX: E11.9 Type 2 diabetes mellitus without complications (principal); E11.65 Type 2 diabetes mellitus with hyperglycemia; Z79.4 Long term (current) use of insulin; E55.9 Vitamin D deficiency, unspecified | CPT/HCPCS: 80053; 80061; 82306; 82607; 83036; 85025 ==

== ENCOUNTER 2024-11-21 23:57 | Emergency (ER) | payer MEDICARE, MEDICAID, SELFPAY ==
[2024-11-22 00:04] VITALS: BP 142/83; PULSE 84; RESP 18; TEMP 36.8; O2SAT 97; BMI 23.5
[2024-11-22 00:09] VITALS: BP 142/83; PULSE 82; O2SAT 95
--- NOTE | 2024-11-22 00:29 | XRR_ITS ---
PROCEDURE INFORMATION: Exam: XR Left Wrist Exam date and time: 11/22/2024 12:30 AM Age: 69 years old Clinical indication: Injury or trauma; Blunt trauma (contusions or hematomas); EMS arrival for fall at home. C/O left wrist pain. ; Additional info: Fall wrist pain TECHNIQUE: Imaging protocol: Radiologic exam of the left wrist. Views: 3 or more views. COMPARISON: No relevant prior studies available. FINDINGS: Bones/joints: No acute fracture. No dislocation. Soft tissues: Normal. XR/XR wrist LT min 3V* [id number] IMPRESSION: No acute findings.
--- NOTE | 2024-11-22 00:29 | CTR_ITS ---
PROCEDURE INFORMATION: Exam: CT Head Without Contrast Exam date and time: 11/22/2024 12:36 AM Age: 69 years old Clinical indication: Injury or trauma; Blunt trauma (contusions or hematomas); With loss of consciousness; EMS arrival from home for fall. Patient fell in bathroom with headstrike. Hematoma to RT eyebrow with lac. ; Additional info: Fall head inj TECHNIQUE: Imaging protocol: Computed tomography of the head without contrast. Radiation optimization: All CT scans at this facility use at least one of these dose optimization techniques: automated exposure control; mA and/or kV adjustment per patient size (includes targeted exams where dose is matched to clinical indication); or iterative reconstruction. COMPARISON: CT head wo con* [id number] 03/31/2022 1:34 PM RADIATION DOSE METRICS: Total DLP (mGy-cm): 913.45 FINDINGS: Brain: Subarachnoid hemorrhage noted in the right sylvian fissure. Martinez-white matter differentiation is preserved. No edema, mass effect or midline shift. Periventricular and deep white matter hypodensities compatible with chronic microvascular ischemic changes. Cerebral ventricles: No ventriculomegaly. Paranasal sinuses: Visualized sinuses are unremarkable. No fluid levels. Mastoid air cells: No mastoid effusion. Bones: Unremarkable. No acute fracture. Soft tissues: Right supraorbital edema. CT/CT head wo con* [id number] IMPRESSION: 1. Subarachnoid hemorrhage noted in the right sylvian fissure. 2. Right supraorbital edema.
[2024-11-22 00:39] VITALS: BP 144/71; PULSE 82; O2SAT 96
--- NOTE | 2024-11-22 00:55 | CTR_ITS ---
PROCEDURE INFORMATION: Exam: CT Cervical Spine Without Contrast Exam date and time: 11/22/2024 1:18 AM Age: 69 years old Clinical indication: Injury or trauma; Blunt trauma; Patient sustained a fall with headstrike. No focal C/O neck pain but patient positive for subarachnoid hemorrhage. ; Additional info: Head inj TECHNIQUE: Imaging protocol: Computed tomography of the cervical spine without contrast. Radiation optimization: All CT scans at this facility use at least one of these dose optimization techniques: automated exposure control; mA and/or kV adjustment per patient size (includes targeted exams where dose is matched to clinical indication); or iterative reconstruction. COMPARISON: CT head wo con* [id number] 11/22/2024 12:36 AM RADIATION DOSE METRICS: Total DLP (mGy-cm): 297.93 FINDINGS: Bones: No acute fracture. Degenerative changes including osteophytes, disc space narrowing, endplate spurring, and facet hypertrophy. Lungs: No pneumothorax. Soft tissues: Unremarkable. CT/CT cervical spin wo con* [id number] IMPRESSION: No acute cervical fracture.
--- NOTE | 2024-11-22 00:58 | W.ED.FALL ---
HPI - Fall General: Chief Complaint: Fall Stated Complaint: FALL Time Seen by Provider: 11/22/24 00:00 History of Present Illness: 69-year-old female with a history of diabetes, hypertension. She is not anticoagulated. She presents after a fall in her bathroom where she stumbled transferring, and hit her head on the tub. She has a right sided abrasion with laceration to her eyebrow, with some swelling. She has a mild headache. She did not lose consciousness evidently. She was evidently dazed for a minute. She also injured her left wrist with some skin tears, and some tenderness and pain. No neck pain. No chest or belly pain. No other injury. Related Data Previous Rx's ?Medication ?Instructions ?Recorded insulin aspart U-100 100 unit/mL 5 unit (0.05 mL) SUBCUT TIDAC #3 09/15/20 subcutaneous solution (Novolog vials U-100 Insulin aspart) Held on 09/27/20. Instructions: Doctor's Order blood-glucose meter (OneTouch #1 ea 01/03/21 Ultra2 Meter kit) pen needle, diabetic 33 gauge x #100 ea 10/19/21 Protective underwear XL T4528 #60 ea 01/18/22 blood sugar diagnostic #100 ea 04/21/22 lancets 33 gauge (OneTouch Delica #100 ea 04/21/22 Plus Lancet) polyethylene glycol 3350 17 17 g PO DAILY PRN constipation 02/01/23 gram/dose oral powder (Miralax) #510 grams Wheel chair #1 ea 03/21/23 wheelchair cushion #1 ea 03/21/23 donepezil 10 mg tablet (Aricept) 10 mg PO DAILY #30 tabs 05/07/24 Held on 09/22/24. Instructions: Watch for improved vomting insulin degludec 200 unit/mL (3 60 unit (0.3 mL) SUBCUT QAM #9 mL 05/07/24 mL) subcutaneous pen (Tresiba FlexTouch U-200 insulin) Held on 09/22/24. Instructions: She has not used in 6 months sucralfate 1 gram tablet (Carafate) 1 g PO TID #90 tabs 05/07/24 Held on 09/22/24. Instructions: Use Protonix amlodipine 2.5 mg tablet 2.5 mg PO DAILY 30 days #30 tabs 09/22/24 atorvastatin 10 mg tablet 10 mg PO BEDTIME 30 days #30 tabs 09/22/24 fluoxetine 40 mg capsule (Prozac) 40 mg PO QAM #30 caps 09/22/24 glipizide 5 mg tablet, extended 5 mg PO DAILY #30 tabs 09/22/24 release 24 hr metoprolol succinate 25 mg 25 mg PO DAILY 30 days #30 tabs 09/22/24 tablet,extended release 24 hr nystatin 100,000 unit/gram topical 1 applic topical BID #60 grams 09/22/24 powder pantoprazole 40 mg tablet,delayed 40 mg PO DAILY #30 tabs 09/22/24 release (Protonix) trazodone 100 mg tablet 100 mg PO BEDTIME #30 tabs 09/22/24 valsartan 80 mg tablet (Diovan) 80 mg PO DAILY #30 tabs 09/22/24 ergocalciferol (vitamin D2) 1,250 1,250 mcg PO .weekly #4 caps 09/24/24 mcg (50,000 unit) capsule dapagliflozin propanediol 10 mg 10 mg PO QAM #30 tabs 10/19/24 tablet (Farxiga) Allergies Allergy/AdvReac Type Severity Reaction Status Date / Time sertraline (From Zoloft) Allergy rash Verified 09/22/24 15:30 [facility] ED PFSH: Medical History Diabetes mellitus with hyperglycemia, without long-term current use of insulin Mixed incontinence urge and stress Chronic renal disease, stage 3, moderately decreased glomerular filtration rate (GFR) between 30-59 mL/min/1.73 square meter Insomnia CHET treated with BiPAP Does not tolerate CPAP Diabetes mellitus with hyperglycemia, with long-term current use of insulin Neuropathic pain Arterial calcification History of cigarette smoking History of colon polyps ASVD (arteriosclerotic vascular disease) Vitamin D deficiency Enrolled in chronic care management please do not remove from active Hyperlipemia History of TIA (transient ischemic attack) Depression Hypertension Acute kidney failure -renal function has improved since last admission, improved today (1.8->1.5) -hold metformin -continue to monitor renal function particularly with dual antibiotics -has CKD stage 2; baseline Cr appears to be around 1.4 GERD (gastroesophageal reflux disease) Surgical History Hx of colonoscopy 02/17/2019 Status post amputation of toe of right foot Amputation of the R 2nd & 3rd toe through metatarsophalangeal joint, Dr. Pacheco on 11/02/2015 History of hysterectomy with BLSO History of below knee amputation Left Family History Father Cancer lung Diabetes Sister Cancer gallbladder Family/Other Cancer colon Mother Ischemia, bowel Social History Smoking and tobacco/nicotine status: current every day tobacco/nicotine user cigarettes Packs smoked per day: 1 Years cigarettes smoked: 30 Second hand smoke exposure: No Alcohol intake: never Substance/Drug Use: never Adopted: No Caregiver/support person: No Lives independently: Yes Household members: family Housing: House Marital status: Single Number of children: 0 service: No Current occupational status: disabled Do you think of yourself as: Straight/Heterosexual Current gender identity: Female Physical Exam Const: GENERAL APPEARANCE: cooperative and frail appearing ORIENTATION/CONSCIOUSNESS: Yes awake, Yes oriented to person, Yes oriented to place and Yes oriented to time HENMT: COMMON NORMALS: Normal external nose present and Normal nasal mucous membranes and turbinates present HEAD & SCALP: contusion (Right temporal) and laceration (Right eyebrow) FACE & SINUS: ecchymosis NOSE: Normal external nose present and Normal nasal mucous membranes and turbinates present Eye: COMMON NORMALS: Equal, round and reactive pupils present, EOMs intact bilaterally and conjunctivae normal CONJUNCTIVA: Yes conjunctivae normal PUPIL: Yes Equal, round and reactive pupils present Neck/C-Spine: GENERAL: No tender CERVICAL SPINE: No Cervical spine tenderness Chest: CHEST: Yes Symmetrical chest wall rise Resp: COMMON NORMALS: normal respiratory effort, No use of accessory muscles and clear to auscultation bilaterally AUSCULTATION: clear to auscultation bilaterally Cardio: COMMON NORMALS: regular rate and regular rhythm RATE: regular rate RHYTHM: regular rhythm GI: COMMON NORMALS: Soft to palpation and non-tender PALPATION: Yes Soft to palpation Extremity: NARRATIVE EXTREMITY EXAM: Multiple skin tears to the right wrist and hand on the dorsal surface. Neuro: SENSORIUM/ORIENTATION: Yes oriented to person, Yes oriented to place and Yes oriented to time Course Vital Signs: Vital signs: Vital Signs Temperature 98.2 F 11/22/24 00:04 Pulse Rate 81 11/22/24 01:56 Respiratory Rate 18 11/22/24 00:04 Blood Pressure 139/74 11/22/24 01:56 Pulse Oximetry 95 11/22/24 01:56 Oxygen Delivery Me thod Room Air 11/22/24 00:39 MDM - Fall Medical Decision Making 69-year-old female with a head injury following a fall. She presents awake, and alert. Laceration to the forehead is repaired with Dermabond. Skin tears are taken care of with Tegaderm and Telfa. No wrist fracture on x-ray. She has subarachnoid hemorrhage in the right sylvian fissure. No shift. We have called for air ambulance services. They are not available due to weather. She will go by ground. She has been auto accepted as a trauma to the ER at [facility]. She is getting tranexamic acid. We will clear her C-spine prior to her departure. Lab Data 11/22/24 01:13 11/22/24 01:[address] 11/22/24 00:29 IMPRESSION: 1. Subarachnoid hemorrhage noted in the right sylvian fissure. 2. Right supraorbital edema. ADDENDUM: 11/22/24 0055 THIS REPORT CONTAINS FINDINGS THAT MAY BE CRITICAL TO PATIENT CARE. The findings were verbally communicated via telephone conference with Robson Beltran 1253 AM STOCK RAISER on 11/22/2024. The findings were acknowledged and understood. Wrist X-Ray 11/22/24 00:29 IMPRESSION: No acute findings. Cervical Spine CT 11/22/24 00:55 IMPRESSION: No acute cervical fracture. Laboratory Results WBC 10.75 10^3/uL (3.29-11.43) 11/22/24 01:13 RBC 5.02 10^6/uL (3.85-5.65) 11/22/24 01:13 Hgb 14.40 g/dL (11.27-16.99) 11/22/24 01:13 Hct 43.6 % (36-47) 11/22/24 01:13 MCV 86.9 fl (85-98) 11/22/24 01:13 MCH 28.7 pg (27-33) 11/22/24 01:13 MCHC 33.0 g/dL (30-55) 11/22/24 01:13 RDW 13.5 % (12.1-15.1) 11/22/24 01:13 Plt Count 96 10^3/cmm (157-399) L 11/22/24 01:13 MPV 10.8 fL (7.4-10.4) H 11/22/24 01:13 Neut % (Auto) 86.7 % 11/22/24 01:13 Lymph % (Auto) 5.2 % 11/22/24 01:13 Rogers % (Auto) 6.9 % 11/22/24 01:13 Eos % (Auto) 0.3 % 11/22/24 01:13 Baso % (Auto) 0.2 % 11/22/24 01:13 Neut # (Auto) 9.33 10^3/uL (1.8-7.7) H 11/22/24 01:13 Lymph # (Auto) 0.6 10^3/uL (0.8-4.8) L 11/22/24 01:13 Rogers # (Auto) 0.7 10^3/uL (0.2-0.9) 11/22/24 01:13 Eos # (Auto) 0.0 10^3/uL (0.0-0.8) 11/22/24 01:13 Baso # (Auto) 0.0 10^3/uL (0.0-0.1) 11/22/24 01:13 Nucleated RBC % (auto) 0 % 11/22/24 01:13 Nucleated RBCs # 0.0 /100WBC 11/22/24 01:13 APTT 26.4 SECONDS (23.9-36.7) 11/22/24 01:13 Sodium 130 mmol/L (136-145) L 11/22/24 01:13 Potassium 5.6 mmol/L (3.5-5.1) H 11/22/24 01:13 Chloride 94 mmol/L (98-107) L 11/22/24 01:13 Carbon Dioxide 26 mmol/L (22-29) 11/22/24 01:13 Anion Gap 15.6 (5-19) 11/22/24 01:13 BUN 22 mg/dL (8-23) 11/22/24 01:13 Creatinine 1.4 mg/dL (0.5-0.9) H 11/22/24 01:13 GFR Calculation 37.4 mL/min (90-130) L 11/22/24 01:13 Glucose 221 mg/dL (65-115) H 11/22/24 01:13 Calculated Osmolality 280 mOsm/kg (285-295) L 11/22/24 01:13 Calcium 8.6 mg/dL (8.5-10.5) 11/22/24 01:13 Total Bilirubin 0.6 mg/dL (0.15-1.2) 11/22/24 01:13 AST 56 U/L (0-32) H 11/22/24 01:13 ALT 17 U/L (0-33) 11/22/24 01:13 Alkaline Phosphatase 154 U/L (35-105) H 11/22/24 01:13 Creatine Kinase 57 U/L (26-192) 11/22/24 01:13 Total Protein 6.9 g/dL (6.6-8.7) 11/22/24 01:13 Albumin 3.6 g/dL (3.5-5.2) 11/22/24 01:13 Globulin 3.3 g/dL (1.3-4.6) 11/22/24 01:13 All radiology interpretation(s) finalized by discharge Critical Care Time Critical Care Time: Critical Care Time: Yes Total Critical Care Time: 35 Attestation: This case had a high probability of a clinically significant, sudden, or life threatening deterioration of this patient's condition which required my full and direct attention, intervention and personal management. Time does not include any procedures performed. Discharge Plan Discharge Patient Disposition: Xfer Short-Term Hosp Clinical Impression: Subarachnoid hemorrhage following injury Qualifiers: Encounter type: initial encounter Loss of consciousness presence/duration: without LOC Qualified Code(s): S06.6X0A - Traumatic subarachnoid hemorrhage without loss of consciousness, initial encounter Condition: Serious Referrals: Kareem Armando, [employer] [Primary Care Provider] - Print Language: Slovak Coding Level of Care Code ED Gymn[employer] for [place] [employer]
[2024-11-22 01:24] LABS: Basophils % 0.2 %; Eosinophils % 0.3 %; Hematocrit 43.6 % (36-47); Lymphocytes # 0.6 10^3/uL (0.8-4.8); Lymphocytes % 5.2 %; Mean Corpuscular Hemoglobin 28.7 pg (27-33); Mean Corpuscular Volume 86.9 fl (85-98); Mean Platelet Volume 10.8 fL (7.4-10.4); Monocytes # 0.7 10^3/uL (0.2-0.9); Monocytes % 6.9 %; Neutrophils # 9.33 10^3/uL (1.8-7.7); Neutrophils % 86.7 %; Nucleated Red Blood Cells % 0 %; Platelet Count 96 10^3/cmm (157-399); Red Blood Count 5.02 10^6/uL (3.85-5.65); Red Cell Distribution Width 13.5 % (12.1-15.1); White Blood Count 10.75 10^3/uL (3.29-11.43)
[2024-11-22] MEDS: tranexamic acid 1,000 MG/100 ML PREMIX 600 MG IV (01:27)
[2024-11-22] MEDS: tetanus-diphtheria tox (adult) 0.5 mL SDV IM (01:30)
[2024-11-22 01:31] LABS: Partial Thromboplastin Time 26.4 SECONDS (23.9-36.7)
[2024-11-22 01:35] LABS: Alanine Aminotransferase 17 U/L (0-33); Albumin Level 3.6 g/dL (3.5-5.2); Alkaline Phosphatase 154 U/L (35-105); Anion Gap 15.6 (5-19); Aspartate Amino Transferase 56 U/L (0-32); Blood Urea Nitrogen 22 mg/dL (8-23); Calcium 8.6 mg/dL (8.5-10.5); Carbon Dioxide 26 mmol/L (22-29); Chloride 94 mmol/L (98-107); Creatine Phosphokinase 57 U/L (26-192); Creatinine Clr Calc Pharmacy 38.9638; Globulin 3.3 g/dL (1.3-4.6); Glomerular Filtration Rate 37.4 mL/min (90-130); Glucose 221 mg/dL (65-115); Osmolality Calculated 280 mOsm/kg (285-295); Potassium 5.6 mmol/L (3.5-5.1); Sodium 130 mmol/L (136-145); Total Bilirubin 0.6 mg/dL (0.15-1.2); Total Protein 6.9 g/dL (6.6-8.7)
--- NOTE | 2024-11-22 01:53 | PC.NURSE ---
Patient wanted this nurse to call and update family about transfer to [facility]. This nurse contacted Frank Cain . Patient family given update. [facility] contacted @1224 to notify patient has left facility.
[2024-11-22 01:56] VITALS: BP 139/74; PULSE 81; O2SAT 95
== END 2024-11-22 01:57 | disposition short-term general hospital (02) ==
PROVIDERS: Emergency Provider Emergency Medicine; PCP Nurse Practitioner
DX: S06.6X0A Traumatic subarachnoid hemorrhage without loss of consciousness, initial encounter (principal); F17.210 Nicotine dependence, cigarettes, uncomplicated; Z86.73 Personal history of transient ischemic attack (TIA), and cerebral infarction without residual deficits; E78.5 Hyperlipidemia, unspecified; I10 Essential (primary) hypertension; E11.9 Type 2 diabetes mellitus without complications; W01.198A Fall on same level from slipping, tripping and stumbling with subsequent striking against other object, initial encounter
CPT/HCPCS: 70450; 72125; 73110; 80053; 82550; 85025; 85730; 90714; 96374; 99285; J9999

== ENCOUNTER 2024-11-28 18:33 | Emergency (ER) | payer MEDICARE, MEDICAID, SELFPAY ==
[2024-11-28 18:33] VITALS: BP 111/64; PULSE 83; RESP 18; TEMP 36.6; O2SAT 95
--- NOTE | 2024-11-28 18:43 | CTR_ITS ---
PROCEDURE INFORMATION: Exam: CT Head Without Contrast Exam date and time: 11/28/2024 7:11 PM Age: 69 years old Clinical indication: Altered mental status/memory loss; Additional info: Confusion, recent subarachnoid TECHNIQUE: Imaging protocol: Computed tomography of the head without contrast. Radiation optimization: All CT scans at this facility use at least one of these dose optimization techniques: automated exposure control; mA and/or kV adjustment per patient size (includes targeted exams where dose is matched to clinical indication); or iterative reconstruction. COMPARISON: CT head wo con* [id number] 22/11/2024 00:36 RADIATION DOSE METRICS: Total DLP (mGy-cm): 1075.62 FINDINGS: Brain: A 0.7 x 0.3 cm area of increased density seen in the dependent portion of the right sylvian fissure consistent with subacute hemorrhage. This appears smaller and is less defined than on the p doctor Kc thank you it is resolving rior study upon retrospective review. There are no new areas of increased hemorrhagic like density. Ufnlahiw-ha-uysgou patchy periventricular and deep white matter decreased attenuation is seen in both cerebral hemispheres.Beam hardening artifact obscures resolution through the posterior fossa structures. Midline is intact. No mass effect. Cerebral ventricles: Ventricles demonstrate normal size shape and configuration and are felt to be in proportion to the degree of widening of the sulci, sylvian fissures and basilar cisterns. Paranasal sinuses: Visualized sinuses are unremarkable. No fluid levels. Mastoid air cells: Visualized mastoid air cells are well aerated. Orbital cavities: Bilateral cataract surgery. Also observed is mild exophthalmos and slight prominence of the rectus muscles. Bones: Hyperostosis frontalis interna is noted and in the range of normal. No acute fracture. Soft tissues: Unremarkable. CT/CT head wo con* [id number] IMPRESSION: 1. Right sylvian fissure subarachnoid hemorrhage less pronounced than on the earlier exam . 2. Marked atrophy/involutional changes of aging with components of chronic small-vessel disease. 3. Bilateral exophthalmos question history of thyroid ophthalmopathy. COMMENTS: THIS REPORT CONTAINS FINDINGS THAT MAY BE CRITICAL TO PATIENT CARE. The exam SAH findings were verbally communicated by me to Vinnie RUTLEDGE MD via telephone conference at 8:04 PM CDT on 11/28/2024. The findings and clinical status of the patient were discussed.
--- NOTE | 2024-11-28 18:43 | XRR_ITS ---
PROCEDURE INFORMATION: Exam: XR Chest Exam date and time: 11/28/2024 6:56 PM Age: 69 years old Clinical indication: Hyperventilation; Additional info: Hypoxia TECHNIQUE: Imaging protocol: Radiologic exam of the chest. Views: 1 view. COMPARISON: CR XR chest 1V portable [id number] 12/09/2020 21:50 FINDINGS: Lungs: Lungs are hypoaerated with central and infrahilar crowding. Rzayl-dmyqqmw-xwlr-left patchy reticulonodular type infiltrates are seen in both lungs. Soft tissue prominence is present and obscures resolution. Pleural spaces: Costophrenic angles appear to be sharply demarcated. No pleural effusion. No pneumothorax. Heart/Mediastinum: Mild cardiomegaly. Bones/joints: Unremarkable. XR/XR chest 1V portable [id number] IMPRESSION: 1. Pwds-lx-sowfkrak tbihr-mllpnbd-ffre-left reticulonodular bilateral infiltrates question pneumonitis. 2. PA and lateral views are suggested when clinically feasible.
[2024-11-28 18:52] LABS: Basophils % 0.3 %; Eosinophils % 0.1 %; Hematocrit 40.9 % (36-47); Lymphocytes # 0.3 10^3/uL (0.8-4.8); Lymphocytes % 3.5 %; Mean Corpuscular HGB Conc 32.8 g/dL (30-55); Mean Corpuscular Hemoglobin 28.8 pg (27-33); Mean Corpuscular Volume 87.8 fl (85-98); Monocytes % 9.9 %; Neutrophils # 8.35 10^3/uL (1.8-7.7); Neutrophils % 85.4 %; Nucleated Red Blood Cells % 0 %; Platelet Count 139 10^3/cmm (157-399); Red Blood Count 4.66 10^6/uL (3.85-5.65); Red Cell Distribution Width 14.1 % (12.1-15.1); White Blood Count 9.78 10^3/uL (3.29-11.43)
--- NOTE | 2024-11-28 18:55 | ECG_ITS ---
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 Measurements Intervals [place] Rate: 80 P: -38 CA: 124 QRS: -10 QRSD: 90 T: 0 QT: 407 QTc: 470 Interpretive Statements SINUS RHYTHM VOLTAGE CRITERIA FOR LVH [MEETS CRITERIA IN ONE OF: R(aVL), S(V1), R(V5), R(V5/V6)+S(V1)] Compared to ECG 03/31/2022 15:31:10 No significant changes Electronically Signed On 11-30-2024 09:18:03 CDT by Pete Lopez M.D. [email or web address]
[2024-11-28 19:10] LABS: Alanine Aminotransferase 20 U/L (0-33); Albumin Level 3.2 g/dL (3.5-5.2); Alkaline Phosphatase 164 U/L (35-105); Anion Gap 20.7 (5-19); Blood Urea Nitrogen 35 mg/dL (8-23); Carbon Dioxide 23 mmol/L (22-29); Chloride 97 mmol/L (98-107); Globulin 3.2 g/dL (1.3-4.6); Glomerular Filtration Rate 40.7 mL/min (90-130); Glucose 144 mg/dL (65-115); Osmolality Calculated 293 mOsm/kg (285-295); Potassium 4.7 mmol/L (3.5-5.1); Sodium 136 mmol/L (136-145); Total Bilirubin 0.6 mg/dL (0.15-1.2); Total Protein 6.4 g/dL (6.6-8.7)
[2024-11-28 19:11] LABS: Aspartate Amino Transferase 70 U/L (0-32); Troponin(5th) Baseline 142 ng/L (0-10)
[2024-11-28 19:18] LABS: Bacteria Urine 4+ /hpf; Hyaline Casts Urine 7.85 /lpf; RBC Urine 0-2 /hpf (0-2); Squamous Epithelial Cell Urine 0-5 /hpf (0-5)
[2024-11-28 19:36] LABS: Add Urine Culture? Yes; Add Urine Microscopic? YES; Bilirubin Urine Negative (Negative); Blood Urine Negative (Negative); Glucose Urine UA 2+ (Normal); Ketones Urine Negative (Negative); Leukocyte Esterase Urine Negative (Negative); Nitrate Urine Negative (Negative); Protein Urine 1+ (Negative); Specific Gravity, Urine 1.017 (1.005-1.030); UA Slide Review UA Slide Review Perf; Urine Appearance Cloudy (CLEAR); Urine Color Yellow (Yellow)
--- NOTE | 2024-11-28 19:46 | ED_ITS ---
HPI - Weakness 2 General: Chief complaint: Weakness Stated complaint: lethargy Time Seen by Provider: 11/28/24 18:35 History of Present Illness: 69-year-old female sent in from rehab [facility] concern for low oxygen. Patient just arrived at the care facility this morning. EMS reports that there is concern that there O2 sensor was off since when they arrived her O2 saturation was within normal limits. Patient is mildly lethargic however she did not arrive to the care facility till 230 this morning instead of 6 PM as she was supposed to last night. Patient is confused to time date and who president is. However this was clarified that she has some underlying dementia and this is her baseline once family arrived. Associated symptoms: Denies chest pain, chills or fever(s) Review of Systems 2 Const: Denies: fever(s) or chills Card: Denies: chest pain or palpitations Resp: Denies: dyspnea or productive cough PFSH ED 2 PFSH: Medical History Diabetes mellitus with hyperglycemia, without long-term current use of insulin Mixed incontinence urge and stress Chronic renal disease, stage 3, moderately decreased glomerular filtration rate (GFR) between 30-59 mL/min/1.73 square meter Insomnia CHET treated with BiPAP Does not tolerate CPAP Diabetes mellitus with hyperglycemia, with long-term current use of insulin Neuropathic pain Arterial calcification History of cigarette smoking History of colon polyps ASVD (arteriosclerotic vascular disease) Vitamin D deficiency Enrolled in chronic care management please do not remove from active Hyperlipemia History of TIA (transient ischemic attack) Depression Hypertension Acute kidney failure -renal function has improved since last admission, improved today (1.8->1.5) -hold metformin -continue to monitor renal function particularly with dual antibiotics -has CKD stage 2; baseline Cr appears to be around 1.4 GERD (gastroesophageal reflux disease) Surgical History Hx of colonoscopy 02/17/2019 Status post amputation of toe of right foot Amputation of the R 2nd & 3rd toe through metatarsophalangeal joint, Dr. Pacheco on 11/02/2015 History of hysterectomy with BLSO History of below knee amputation Left Family History Father Cancer lung Diabetes Sister Cancer gallbladder Family/Other Cancer colon Mother Ischemia, bowel Social History Smoking and tobacco/nicotine status: current every day tobacco/nicotine user cigarettes Packs smoked per day: 1 Years cigarettes smoked: 30 Second hand smoke exposure: No Alcohol intake: never Substance/Drug Use: never Adopted: No Caregiver/support person: No Lives independently: Yes Household members: family Housing: House Marital status: Single Number of children: 0 service: No Current occupational status: disabled Do you think of yourself as: Straight/Heterosexual Current gender identity: Female Physical Exam 2 Const: COMMON NORMALS: no acute distress HENMT: OTHER: Healing laceration with skin glue right forehead, contusion right forehead that is old from previous fall Resp: COMMON NORMALS: normal respiratory effort, No use of accessory muscles and clear to auscultation bilaterally AUSCULTATION: clear to auscultation bilaterally Cardio: COMMON NORMALS: regular rate and regular rhythm RATE: regular rate RHYTHM: regular rhythm Psych: OTHER: At baseline per family Skin: NARRATIVE SKIN EXAM: Known skin ulcer right lateral ankle Course 2 Vital Signs: Vital signs: Vital Signs Temperature 97.8 F 11/28/24 18:33 Pulse Rate 83 11/28/24 21:00 Respiratory Rate 16 11/28/24 21:00 Blood Pressure 111/55 11/28/24 21:00 Pulse Oximetry 91 11/28/24 21:00 Oxygen Delivery Me thod Room Air 11/28/24 20:30 MDM - Weakness Medical Decision Making Patient's family arrived and clarified that patient has dementia and is not actually more confused than normal. Since the upon initial arrival was unaware of this we did obtain a CT head that shows improving subarachnoid. Patient's labs were ordered and shows elevated troponin with no baseline troponin this was repeated and this appears to be near the patient's baseline. She denied chest pain and had no EKG changes that were concerning with normal sinus rhythm on 2 EKGs. Patient remained on room air throughout her stay here. I did obtain a chest x-ray that is concerning for pneumonitis. This would make me likely concern for potential aspiration pneumonitis. I we will recommend a swallow study at the facility. Patient also has a urinary tract infection and we will start her on Keflex. Patient was stable and will be discharged back to SNF. Lab Data 11/28/24 18:11 11/28/24 18:11 Radiology Impressions Chest X-Ray 11/28/24 18:43 IMPRESSION: 1. Yuci-xd-covnnhow hdcax-szzjqdu-zmha-left reticulonodular bilateral infiltrates question pneumonitis. 2. PA and lateral views are suggested when clinically feasible. Head CT 11/28/24 18:43 IMPRESSION: 1. Right sylvian fissure subarachnoid hemorrhage less pronounced than on the earlier exam . 2. Marked atrophy/involutional changes of aging with components of chronic small-vessel disease. 3. Bilateral exophthalmos question history of thyroid ophthalmopathy. COMMENTS: THIS REPORT CONTAINS FINDINGS THAT MAY BE CRITICAL TO PATIENT CARE. The exam SAH findings were verbally communicated by me to Vinnie RUTLEDGE MD via telephone conference at 8:04 PM CDT on 11/28/2024. The findings and clinical status of the patient were discussed. Laboratory Results WBC 9.78 10^3/uL (3.29-11.43) 11/28/24 18:11 RBC 4.66 10^6/uL (3.85-5.65) 11/28/24 18:11 Hgb 13.40 g/dL (11.27-16.99) 11/28/24 18:11 Hct 40.9 % (36-47) 11/28/24 18:11 MCV 87.8 fl (85-98) 11/28/24 18:11 MCH 28.8 pg (27-33) 11/28/24 18:11 MCHC 32.8 g/dL (30-55) 11/28/24 18:11 RDW 14.1 % (12.1-15.1) 11/28/24 18:11 Plt Count 139 10^3/cmm (157-399) L 11/28/24 18:11 MPV 10.0 fL (7.4-10.4) 11/28/24 18:11 Neut % (Auto) 85.4 % 11/28/24 18:11 Lymph % (Auto) 3.5 % 11/28/24 18:11 [place] % (Auto) 9.9 % 11/28/24 18:11 Eos % (Auto) 0.1 % 11/28/24 18:11 Baso % (Auto) 0.3 % 11/28/24 18:11 Neut # (Auto) 8.35 10^3/uL (1.8-7.7) H 11/28/24 18:11 Lymph # (Auto) 0.3 10^3/uL (0.8-4.8) L 11/28/24 18:11 [place] # (Auto) 1.0 10^3/uL (0.2-0.9) H 11/28/24 18:11 Eos # (Auto) 0.0 10^3/uL (0.0-0.8) 11/28/24 18:11 Baso # (Auto) 0.0 10^3/uL (0.0-0.1) 11/28/24 18:11 Nucleated RBC % (auto) 0 % 11/28/24 18:11 Nucleated RBCs # 0.0 /100WBC 11/28/24 18:11 Sodium 136 mmol/L (136-145) 11/28/24 18:11 Potassium 4.7 mmol/L (3.5-5.1) 11/28/24 18:11 Chloride 97 mmol/L (98-107) L 11/28/24 18:11 Carbon Dioxide 23 mmol/L (22-29) 11/28/24 18:11 Anion Gap 20.7 (5-19) H 11/28/24 18:11 BUN 35 mg/dL (8-23) H 11/28/24 18:11 Creatinine 1.3 mg/dL (0.5-0.9) H 11/28/24 18:11 GFR Calculation 40.7 mL/min (90-130) L 11/28/24 18:11 Glucose 144 mg/dL (65-115) H 11/28/24 18:11 Calculated Osmolality 293 mOsm/kg (285-295) 11/28/24 18:11 Calcium 9.0 mg/dL (8.5-10.5) 11/28/24 18:11 Total Bilirubin 0.6 mg/dL (0.15-1.2) 11/28/24 18:11 AST 70 U/L (0-32) H 11/28/24 18:11 ALT 20 U/L (0-33) 11/28/24 18:11 Alkaline Phosphatase 164 U/L (35-105) H 11/28/24 18:11 Troponin T Baseline 142 ng/L (0-10) H* 11/28/24 18:11 Troponin T 120 Minute 133.4 ng/L (0-10) H 11/28/24 19:52 Delta Troponin T -8.6 ABS# (0-10) L 11/28/24 19:52 Total Protein 6.4 g/dL (6.6-8.7) L 11/28/24 18:11 Albumin 3.2 g/dL (3.5-5.2) L 11/28/24 18:11 Globulin 3.2 g/dL (1.3-4.6) 11/28/24 18:11 Urine Color Yellow (Yellow) 11/28/24 19:06 Urine Appearance Cloudy (CLEAR) A 11/28/24 19:06 Urine pH 5.0 (5-7) 11/28/24 19:06 Ur Specific [place] 1.017 (1.005-1.030) 11/28/24 19:06 Urine Protein 1+ (Negative) A 11/28/24 19:06 Urine Glucose (UA) 2+ (Normal) H 11/28/24 19:06 Urine Ketones Negative (Negative) 11/28/24 19:06 Urine Blood Negative (Negative) 11/28/24 19:06 Urine Nitrate Negative (Negative) 11/28/24 19:06 Urine Bilirubin Negative (Negative) 11/28/24 19:06 Urine Urobilinogen 1.0 mg/dL (Negative) 11/28/24 19:06 Ur Leukocyte Esterase Negative (Negative) 11/28/24 19:06 Urine RBC 0-2 /hpf (0-2) 11/28/24 19:06 Urine WBC 5-10 /hpf (0-5) H 11/28/24 19:06 Ur Squamous Epith Cells 0-5 /hpf (0-5) 11/28/24 19:06 Amorphous Sediment Not Reportable 11/28/24 19:06 Urine Bacteria 4+ /hpf (NONE) H 11/28/24 19:06 Hyaline Casts 7.85 /lpf 11/28/24 19:06 All radiology interpretation(s) finalized by discharge Discharge Plan Discharge Patient Disposition: Home Clinical Impression: Pneumonitis, Acute cystitis Condition: Stable Prescriptions: New cephalexin 500 mg capsule 500 mg PO BID 7 Days Qty: 14 0RF No Action (DME) pen needle, diabetic 33 gauge x 5/32 needle See Rx Instructions .ROUTE .MEDSUPPLY Qty: 100 5RF Rx Instructions: 1 time day donepezil [Aricept] 10 mg tablet 10 mg PO DAILY Qty: 30 2RF sucralfate [Carafate] 1 gram tablet 1 g PO TID Qty: 90 2RF Tresiba FlexTouch U-200 200 unit/mL (3 mL) insulin pen 60 unit SUBCUT QAM Qty: 9 2RF pantoprazole [Protonix] 40 mg tablet,delayed release (DR/EC) 40 mg PO DAILY Qty: 30 2RF Rx Instructions: Hold Carafate amlodipine 2.5 mg tablet 2.5 mg PO DAILY 30 Days Qty: 30 2RF atorvastatin 10 mg tablet 10 mg PO BEDTIME 30 Days Qty: 30 2RF fluoxetine [Prozac] 40 mg capsule 40 mg PO QAM Qty: 30 2RF glipizide 5 mg tablet extended release 24hr 5 mg PO DAILY Qty: 30 2RF metoprolol succinate 25 mg tablet extended release 24 hr 25 mg PO DAILY 30 Days Qty: 30 2RF Rx Instructions: lower dose nystatin 100,000 unit/gram powder 1 applic topical BID Qty: 60 2RF trazodone 100 mg tablet 100 mg PO BEDTIME Qty: 30 2RF valsartan [Diovan] 80 mg tablet 80 mg PO DAILY Qty: 30 2RF (DME) Protective underwear XL [id number] See Rx Instructions .Route .MEDSUPPLY Qty: 60 12RF Rx Instructions: As directed (DME) Wheel chair See Rx Instructions .Route .MEDSUPPLY Qty: 1 0RF Rx Instructions: As directed (DME) wheelchair cushion See Rx Instructions .Route .MEDSUPPLY Qty: 1 0RF Rx Instructions: As directed (DME) blood-glucose meter [OneTouch Ultra2 Meter] Kit See Rx Instructions .Route Qty: 1 0RF Rx Instructions: daily (DME) lancets [OneTouch Delica Plus Lancet] 33 gauge misc See Rx Instructions .ROUTE .MEDSUPPLY Qty: 100 5RF Rx Instructions: use 1 3 times day (DME) blood sugar diagnostic Strip See Rx Instructions .ROUTE .MEDSUPPLY Qty: 100 5RF Rx Instructions: one strip 3 daily polyethylene glycol 3350 [Miralax] 17 gram/dose powder 17 g PO DAILY PRN (Reason: constipation) Qty: 510 0RF ergocalciferol (vitamin D2) 1,250 mcg (50,000 unit) capsule 1,250 mcg PO .weekly Qty: 4 2RF Farxiga 10 mg tablet 10 mg PO QAM Qty: 30 2RF Novolog U-100 Insulin aspart 100 unit/mL Solution 5 unit SUBCUT TIDAC Qty: 3 0RF Discharge Orders: Discharge ED (Routine); Ordered 11/28/24 Ordered By: Vinnie Rutledge Referrals: Kareem Armando, TACTICAL RESPONSE GROUP OFFICER-C [Primary Care Provider, Family Practice] Discharge Diet: As Directed Discharge Activity: Increase activity as tolerated Patient Instructions: Pneumonitis (ED), Opioid Safety, Pain Management, Urinary Tract Infection - Women Activity Restrictions/Additional Instructions: Please consider swallow study and monitor for aspiration. Patient's x-ray shows potential pneumonitis which would be likely due to aspiration. Please have her follow-up with her primary care provider or recheck urine in about 5 days. May consider albuterol or DuoNeb as needed. Print Language: [place]guill[place] Coding Level of Care Code ED Administrative Assistant Receptionist for Chg Fwd Related Data Previous Rx's ?Medication ?Instructions ?Recorded insulin aspart U-100 100 unit/mL 5 unit (0.05 mL) SUBC UT TIDAC #3 09/15/20 subcutaneous solution (Novolog vials U-100 Insulin aspart) Held on 09/27/20. Instructions: Doctor's Order blood-glucose meter (Rate SolutionsTouch #1 ea 01/03/21 Ultra2 Meter kit) pen needle, diabetic 33 gauge x #100 ea 10/19/21 532 Protective underwear XL T4528 #60 ea 01/18/22 blood sugar diagnostic #100 ea 04/21/22 lancets 33 gauge (OneTouch Delica #100 ea 04/21/22 Plus Lancet) polyethylene glycol 3350 17 17 g PO DAILY PRN constipa tion 02/01/23 gram/dose oral powder (Miralax) #510 grams Wheel chair #1 ea 03/21/23 wheelchair cushion #1 ea 03/21/23 donepezil 10 mg tablet (Aricept) 10 mg PO DAILY #30 ta bs 05/07/24 Held on 09/22/24. Instructions: Watch for improved vomting insulin degludec 200 unit/mL (3 60 unit (0.3 mL) SUBCU T QAM #9 mL 05/07/24 mL) subcutaneous pen (Tresiba FlexTouch U-200 insulin) Held on 09/22/24. Instructions: She has not used in 6 months sucralfate 1 gram tablet (Carafate) 1 g PO TID #90 tab s 05/07/24 Held on 09/22/24. Instructions: Use Protonix amlodipine 2.5 mg tablet 2.5 mg PO DAILY 30 days #30 tabs 09/22/24 atorvastatin 10 mg tablet 10 mg PO BEDTIME 30 days #30 tabs 09/22/24 fluoxetine 40 mg capsule (Prozac) 40 mg PO QAM #30 cap s 09/22/24 glipizide 5 mg tablet, extended 5 mg PO DAILY #30 tabs 09/22/24 release 24 hr metoprolol succinate 25 mg 25 mg PO DAILY 30 days #30 tabs 09/22/24 tablet,extended release 24 hr nystatin 100,000 unit/gram topical 1 applic topical BI D #60 grams 09/22/24 powder pantoprazole 40 mg tablet,delayed 40 mg PO DAILY #30 t abs 09/22/24 release (Protonix) trazodone 100 mg tablet 100 mg PO BEDTIME #30 tabs 0 09/22/24 valsartan 80 mg tablet (Diovan) 80 mg PO DAILY #30 tab s 09/22/24 ergocalciferol (vitamin D2) 1,250 1,250 mcg PO .weekly #4 caps 09/24/24 mcg (50,000 unit) capsule dapagliflozin propanediol 10 mg 10 mg PO QAM #30 tabs 10/19/24 tablet (Farxiga) cephalexin 500 mg capsule 500 mg PO BID 7 days #14 cap s 11/28/24 Allergies Allergy/AdvReac Type Severity Reaction Status Date / Time sertraline (From Zoloft) Allergy rash Verified 09/22/24 15:30
[2024-11-28 20:13] LABS: Troponin 5 2HR Delta -8.6 ABS# (0-10)
[2024-11-28 20:14] LABS: Troponin 5 2HR 133.4 ng/L (0-10)
[2024-11-28] MEDS: cefTRIAXone 1,000 mg SDV 1000 MG IVP (20:21)
[2024-11-28 20:29] VITALS: BP 126/59; PULSE 80; RESP 18; O2SAT 92
[2024-11-28 20:30] VITALS: BP 130/65; PULSE 80; RESP 18; O2SAT 93
[2024-11-28 20:37] VITALS: BP 130/65; PULSE 80; RESP 18; O2SAT 93
[2024-11-28 21:00] VITALS: BP 111/55; PULSE 83; RESP 16; O2SAT 91
== END 2024-11-28 21:23 | disposition home or self-care (01) ==
PROVIDERS: Emergency Provider Student in an Organized Health Care Education/Training Program; PCP Nurse Practitioner
DX: J98.4 Other disorders of lung (principal); N30.00 Acute cystitis without hematuria; F17.210 Nicotine dependence, cigarettes, uncomplicated; Z86.73 Personal history of transient ischemic attack (TIA), and cerebral infarction without residual deficits; E78.5 Hyperlipidemia, unspecified; E11.22 Type 2 diabetes mellitus with diabetic chronic kidney disease; I12.9 Hypertensive chronic kidney disease with stage 1 through stage 4 chronic kidney disease, or unspecified chronic kidney disease; N18.30 Chronic kidney disease, stage 3 unspecified
CPT/HCPCS: 36415; 70450; 71045; 80053; 81001; 84484; 85025; 87086; 93005; 96374; 99285; J0696

== ENCOUNTER 2024-12-29 09:47 | Observation (INO) | payer MEDICARE, MEDICAID, SELFPAY ==
[2024-12-29] VITALS (10 sets, daily range): BP systolic 139–161; BP diastolic 79–86; PULSE 70–104; RESP 15–24; TEMP 36.8–37.2; O2SAT 91–98; BMI 22.8
--- NOTE | 2024-12-29 09:55 | XR_ITS ---
WS: [id number] XR chest 1V portable [id number] REASON FOR EXAM: dyspnea/cough FINDINGS: There our diffuse reticular nodular lung opacities which may be progressive compared to the examination of 11/28/2024. There is no other interval change or new finding. XR/XR chest 1V portable [id number] IMPRESSION: Continued abnormality of the chest. This does not have the appearance of pulmon baylee edema or pulmonary hemorrhage. Possibly an atypical pneumonitis, unlikely v asculitis. Diffuse pulmonary metastases cannot be excluded.
--- NOTE | 2024-12-29 09:57 | ED_ITS ---
HPI - General Adult 2 General: Chief complaint: Weakness Stated complaint: Dyspnea, Fatigue, SOB Time Seen by Provider: 12/29/24 09:54 History of Present Illness: 61-year-old female presents from half-way with complaint of shortness of breath fatigue weakness recently diagnosed on an outpatient chest x-ray with pneumonia and antibiotics initiated at the half-way. Does not typically wear oxygen. Is now requiring 3 L. Patient is dependent for most of her activities of daily living on staff. She is alert according to half-way but does not answer questions appropriately on the typical day. She is still listed as a full code according to her paperwork Related Data Home Medications ?Medication ?Instructions ?Recorded ?Confirmed collagenase clostridium histo. 250 topical 12/22/24 unit/gram topical ointment (Santyl) levofloxacin 750 mg tablet mg PO 12/22/24 12/22/24 paroxetine HCl 40 mg tablet 40 mg PO QDAY 12/22/24 Previous Rx's ?Medication ?Instructions ?Recorded insulin aspart U-100 100 unit/mL 5 unit (0.05 mL) SUBC UT TIDAC #3 09/15/20 subcutaneous solution (Novolog vials U-100 Insulin aspart) Held on 09/27/20. Instructions: Doctor's Order blood-glucose meter (RosumTouch #1 ea 01/03/21 Ultra2 Meter kit) pen needle, diabetic 33 gauge x #100 ea 10/19/21/32 Protective underwear XL T4528 #60 ea 01/18/22 blood sugar diagnostic #100 ea 04/21/22 lancets 33 gauge (OneTouch Delica #100 ea 04/21/22 Plus Lancet) polyethylene glycol 3350 17 17 g PO DAILY PRN constipa tion 02/01/23 gram/dose oral powder (Miralax) #510 grams Wheel chair #1 ea 03/21/23 wheelchair cushion #1 ea 03/21/23 donepezil 10 mg tablet (Aricept) 10 mg PO DAILY #30 ta bs 05/07/24 Held on 09/22/24. Instructions: Watch for improved vomting insulin degludec 200 unit/mL (3 60 unit (0.3 mL) SUBCU T QAM #9 mL 05/07/24 mL) subcutaneous pen (Tresiba FlexTouch U-200 insulin) Held on 09/22/24. Instructions: She has not used in 6 months sucralfate 1 gram tablet (Carafate) 1 g PO TID #90 tab s 05/07/24 Held on 09/22/24. Instructions: Use Protonix atorvastatin 10 mg tablet 10 mg PO BEDTIME 30 days #30 tabs 09/22/24 fluoxetine 40 mg capsule (Prozac) 40 mg PO QAM #30 cap s 09/22/24 glipizide 5 mg tablet, extended 5 mg PO DAILY #30 tabs 09/22/24 release 24 hr metoprolol succinate 25 mg 25 mg PO DAILY 30 days #30 tabs 09/22/24 tablet,extended release 24 hr nystatin 100,000 unit/gram topical 1 applic topical BI D #60 grams 09/22/24 powder pantoprazole 40 mg tablet,delayed 40 mg PO DAILY #30 t abs 09/22/24 release (Protonix) trazodone 100 mg tablet 100 mg PO BEDTIME #30 tabs 0 09/22/24 valsartan 80 mg tablet (Diovan) 80 mg PO DAILY #30 tab s 09/22/24 ergocalciferol (vitamin D2) 1,250 1,250 mcg PO .weekly #4 caps 09/24/24 mcg (50,000 unit) capsule Allergies Allergy/AdvReac Type Severity Reaction Status Date / Time sertraline (From Zoloft) Allergy rash Verified 12/22/24 15:29 Review of Systems 2 General: Reports: ROS unobtainable due to mental status (Very limited review of system) Const: Reports: fever(s); Denies: chills PFSH ED 2 PFSH: Medical History Diabetes mellitus with hyperglycemia, without long-term current use of insulin Mixed incontinence urge and stress Chronic renal disease, stage 3, moderately decreased glomerular filtration rate (GFR) between 30-59 mL/min/1.73 square meter Insomnia CHET treated with BiPAP Does not tolerate CPAP Diabetes mellitus with hyperglycemia, with long-term current use of insulin Neuropathic pain Arterial calcification History of cigarette smoking History of colon polyps ASVD (arteriosclerotic vascular disease) Vitamin D deficiency Enrolled in chronic care management please do not remove from active Hyperlipemia History of TIA (transient ischemic attack) Depression Hypertension Acute kidney failure -renal function has improved since last admission, improved today (1.8->1.5) -hold metformin -continue to monitor renal function particularly with dual antibiotics -has CKD stage 2; baseline Cr appears to be around 1.4 GERD (gastroesophageal reflux disease) Surgical History Hx of colonoscopy 02/17/2019 Status post amputation of toe of right foot Amputation of the R 2nd & 3rd toe through metatarsophalangeal joint, Dr. Pacheco on 11/02/2015 History of hysterectomy with BLSO History of below knee amputation Left Family History Father Cancer lung Diabetes Sister Cancer gallbladder Family/Other Cancer colon Mother Ischemia, bowel Social History Smoking and tobacco/nicotine status: tobacco/nicotine user, details unknown cigarettes Packs smoked per day: 1 Years cigarettes smoked: 30 Second hand smoke exposure: No Alcohol intake: never Substance/Drug Use: never Adopted: No Caregiver/support person: No Lives independently: Yes Household members: family Housing: House Marital status: Single Number of children: 0 service: No Current occupational status: disabled Do you think of yourself as: Straight/Heterosexual Current gender identity: Female Physical Exam 2 Const: ORIENTATION/CONSCIOUSNESS: Yes awake HENMT: COMMON NORMALS: normocephalic, atraumatic and hearing grossly normal bilaterally HEAD & SCALP: normocephalic and atraumatic Resp: AUSCULTATION: rhonchi right lower and wheezes Cardio: COMMON NORMALS: regular rate, regular rhythm and No murmurs present (Cardio) RATE: regular rate RHYTHM: regular rhythm GI: COMMON NORMALS: Soft to palpation and No hepatosplenomegaly present A USCULTATION: Yes normoactive bowel sounds PALPATION: Yes Soft to palpation, No Tenderness to palpation present (GI), No Guarding due to palpation present (GI) and Yes No hepatosplenomegaly present Extremity: OTHER: No edema of the right lower extremity left lower extremity absent due to left below the knee amputation. No pain with compression of the right calf Skin: COMMON NORMALS: no rashes or lesions noted GENERAL SKIN EXAM: no rashes or lesions noted Course 2 Vital Signs: Vital signs: Vital Signs Temperature 98.9 F 12/29/24 09:50 Pulse Rate 72 12/29/24 12:01 Respiratory Rate 16 12/29/24 11:59 Blood Pressure 143/83 12/29/24 11:49 Pulse Oximetry 92 12/29/24 11:59 Oxygen Delivery Me thod Nasal Cannula 12/29/24 11:59 Oxygen Flow Rate 3 12/29/24 11:59 MDM - General Adult Medical Decision Making Admit for pneumonia started on Zosyn reviewing chart patient was recently started on Levaquin while at we will use Zosyn to cover for aspiration. Chest x-ray abnormal. D-dimer done this patient does not have a white count no fever. There is elevated CTA has been ordered admit to hospitalist orders written Differential Diagnosis Pneumonia pulmonary embolism congestive heart failure sepsis Medical Records I reviewed the patient's medical records. Lab Data I reviewed the patient's lab results. 12/29/24 10:00 12/29/24 10:00 Radiology Impressions Chest X-Ray 12/29/24 09:55 IMPRESSION: Continued abnormality of the chest. This does not have the appearance of pulmonary edema or pulmonary hemorrhage. Possibly an atypical pneumonitis, unlikely vasculitis. Diffuse pulmonary metastases cannot be excluded. Laboratory Results WBC 10.68 10^3/uL (3.29-11.43) 12/29/24 10:00 RBC 4.37 10^6/uL (3.85-5.65) 12/29/24 10:00 Hgb 12.30 g/dL (11.27-16.99) 12/29/24 10:00 Hct 39.5 % (36-47) 12/29/24 10:00 MCV 90.4 fl (85-98) 12/29/24 10:00 MCH 28.1 pg (27-33) 12/29/24 10:00 MCHC 31.1 g/dL (30-55) 12/29/24 10:00 RDW 15.8 % (12.1-15.1) H 12/29/24 10:00 Plt Count 97 10^3/cmm (157-399) L 12/29/24 10:00 MPV 10.5 fL (7.4-10.4) H 12/29/24 10:00 Neut % (Auto) 89.2 % 12/29/24 10:00 Lymph % (Auto) 3.7 % 12/29/24 10:00 Terry % (Auto) 6.3 % 12/29/24 10:00 Eos % (Auto) 0.1 % 12/29/24 10:00 Baso % (Auto) 0.1 % 12/29/24 10:00 Neut # (Auto) 9.54 10^3/uL (1.8-7.7) H 12/29/24 10:00 Lymph # (Auto) 0.4 10^3/uL (0.8-4.8) L 12/29/24 10:00 Terry # (Auto) 0.7 10^3/uL (0.2-0.9) 12/29/24 10:00 Eos # (Auto) 0.0 10^3/uL (0.0-0.8) 12/29/24 10:00 Baso # (Auto) 0.0 10^3/uL (0.0-0.1) 12/29/24 10:00 Nucleated RBC % (auto) 0 % 12/29/24 10:00 Nucleated RBCs # 0.0 /100WBC 12/29/24 10:00 D-Dimer 10.02 ug/mLFEU (0-0.59) H 12/29/24 10:00 Specimen Type Arterial 12/29/24 10:20 Sample Site Radial, right 12/29/24 10:20 ABG pH 7.46 (7.35-7.45) H 12/29/24 10:20 ABG pCO2 39.6 mmHg (35-45) 12/29/24 10:20 ABG pO2 55.5 mmHg (80.0-100.0) L 12/29/24 10:20 ABG PO2/FiO2 Ratio 173 12/29/24 10:20 ABG HCO3 28.4 mmol/L (22-26) H 12/29/24 10:20 ABG O2 Saturation 91.6 12/29/24 10:20 ABG Base Excess 4.3 mmol/L (-2.0-2.0) H 12/29/24 10:20 Enrique Test Pos 12/29/24 10:20 A-a O2 Gradient 16.0 mmHg (5-10) H 12/29/24 10:20 Hematocrit 37.9 % (37-47) 12/29/24 10:20 Hgb O2 Saturation 89.3 % (95-100) L 12/29/24 10:20 Carboxyhemoglobin 1.7 %THgb (0.4-20.1) 12/29/24 10:20 Methemoglobin 0.9 % (0.4-1.5) 12/29/24 10:20 Total Hemoglobin 12.4 g/dL (12-16) 12/29/24 10:20 Sodium 142.0 mmol/L (131-143) 12/29/24 10:20 Potassium 4.4 mmol/L (3.5-5.0) 12/29/24 10:20 Glucose 196.0 mg/dL (70-115) H 12/29/24 10:20 Ionized Calcium 1.2 mmol/L (1.1-1.4) 12/29/24 10:20 O2 Delivery Device Nc 12/29/24 10:20 O2 Liters/Min 3.0 % 12/29/24 10:20 FiO2 32.0 % 12/29/24 10:20 Patch Washer ID yorna 12/29/24 10:20 Sodium 141 mmol/L (136-145) 12/29/24 10:00 Potassium 4.8 mmol/L (3.5-5.1) 12/29/24 10:00 Chloride 100 mmol/L (98-107) 12/29/24 10:00 Carbon Dioxide 27 mmol/L (22-29) 12/29/24 10:00 Anion Gap 18.8 (5-19) 12/29/24 10:00 BUN 30 mg/dL (8-23) H 12/29/24 10:00 Creatinine 1.2 mg/dL (0.5-0.9) H 12/29/24 10:00 GFR Calculation 44.7 mL/min (90-130) L 12/29/24 10:00 Glucose 242 mg/dL (65-115) H 12/29/24 10:00 Calculated Osmolality 306 mOsm/kg (285-295) H 12/29/24 10:00 Lactic Acid 2.6 mmol/L (0.5-2.2) H 12/29/24 10:00 Calcium 8.5 mg/dL (8.5-10.5) 12/29/24 10:00 Magnesium 1.9 mg/dL (1.7-2.3) 12/29/24 10:00 Total Bilirubin 0.4 mg/dL (0.15-1.2) 12/29/24 10:00 AST 94 U/L (0-32) H 12/29/24 10:00 ALT 13 U/L (0-33) 12/29/24 10:00 Alkaline Phosphatase 153 U/L (35-105) H 12/29/24 10:00 Troponin T Baseline 66 ng/L (0-10) H 12/29/24 10:00 Total Protein 6.7 g/dL (6.6-8.7) 12/29/24 10:00 Albumin 3.3 g/dL (3.5-5.2) L 12/29/24 10:00 Globulin 3.4 g/dL (1.3-4.6) 12/29/24 10:00 Lipase 16 U/L (13-60) 12/29/24 10:00 Urine Color Yellow (Yellow) 12/29/24 10:47 Urine Appearance Clear (CLEAR) 12/29/24 10:47 Urine pH 5.5 (5-7) 12/29/24 10:47 Ur Specific [place] 1.020 (1.005-1.030) 12/29/24 10:47 Urine Protein 3+ (Negative) A 12/29/24 10:47 Urine Glucose (UA) Negative (Normal) 12/29/24 10:47 Urine Ketones Trace (Negative) 12/29/24 10:47 Urine Blood Negative (Negative) 12/29/24 10:47 Urine Nitrate Negative (Negative) 12/29/24 10:47 Urine Bilirubin Negative (Negative) 12/29/24 10:47 Urine Urobilinogen 1.0 mg/dL (Negative) 12/29/24 10:47 Ur Leukocyte Esterase Negative (Negative) 12/29/24 10:47 Urine RBC 0-2 /hpf (0-2) 12/29/24 10:47 Urine WBC 0-5 /hpf (0-5) 12/29/24 10:47 Ur Squamous Epith Cells 0-5 /hpf (0-5) 12/29/24 10:47 Amorphous Sediment Not Reportable 12/29/24 10:47 Urine Bacteria None seen /hpf (NONE) 12/29/24 10:47 Hyaline Casts 7.01 /lpf 12/29/24 10:47 Fine Granular Casts 0-4 /lpf H 12/29/24 10:47 Urine Mucus 1+ /hpf 12/29/24 10:47 Ur Oval Fat Bodies 1+ /hpf 12/29/24 10:47 Influenza A (PCR) Negative (Negative) 12/29/24 10:39 Influenza Type B (PCR) Negative (Negative) 12/29/24 10:39 RSV (PCR) Negative (Negative) 12/29/24 10:39 SARS-CoV-2 (PCR) Negative (Negative) 12/29/24 10:39 All radiology interpretation(s) finalized by discharge Discharge Plan Discharge Patient Disposition: Admitted As Inpatient Clinical Impression: Pneumonia, Abnormal chest x-ray, Elevated d-dimer Condition: Stable Coding Level of Care Code 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
[2024-12-29 10:26] LABS: Basophils % 0.1 %; Eosinophils % 0.1 %; Hematocrit 39.5 % (36-47); Lymphocytes # 0.4 10^3/uL (0.8-4.8); Lymphocytes % 3.7 %; Mean Corpuscular HGB Conc 31.1 g/dL (30-55); Mean Corpuscular Hemoglobin 28.1 pg (27-33); Mean Corpuscular Volume 90.4 fl (85-98); Mean Platelet Volume 10.5 fL (7.4-10.4); Monocytes # 0.7 10^3/uL (0.2-0.9); Monocytes % 6.3 %; Neutrophils # 9.54 10^3/uL (1.8-7.7); Neutrophils % 89.2 %; Nucleated Red Blood Cells % 0 %; Platelet Count 97 10^3/cmm (157-399); Red Blood Count 4.37 10^6/uL (3.85-5.65); Red Cell Distribution Width 15.8 % (12.1-15.1); White Blood Count 10.68 10^3/uL (3.29-11.43)
[2024-12-29 10:29] LABS: ABG PCO2 39.6 mmHg (35-45); ABG PH Result 7.46 (7.35-7.45); Arterial Blood Gas Hematocrit 37.9 % (37-47); Base Excess ABG 4.3 mmol/L (-2.0-2.0); Blood Gas Allen Test Pos; Blood Gas Sample Site Radial, right; Blood Gas Sample Type Arterial; Carboxyhemoglobin 1.7 %THgb (0.4-20.1); HCO3 ABG 28.4 mmol/L (22-26); HGB O2 Sat 89.3 % (95-100); Ionized Calcium Level - ABG 1.2 mmol/L (1.1-1.4); Methemoglobin 0.9 % (0.4-1.5); Oxygen Device NC; Oxygen Saturation ABG 91.6; PO2 ABG 55.5 mmHg (80.0-100.0); PO2 FiO2 Ratio Arterial Blood 173; Potassium Level - ABG 4.4 mmol/L (3.5-5.0); Total Hemoglobin 12.4 g/dL (12-16)
--- NOTE | 2024-12-29 10:39 | ECG_ITS ---
[facility]24[facility]12[facility]29 Pat Name: Lyric Cain Department: Room: Gender: Female Gunner Mate: : 1955 Requested By: Eduardo Bowman Order Number: [id number] Sunday MD: Pete Lopez M.D. Measurements Intervals [place] Rate: 98 P: -12 MO: 136 QRS: 5 QRSD: 82 T: 24 QT: 344 QTc: 440 Interpretive Statements SINUS RHYTHM LEFT VENTRICULAR HYPERTROPHY AND ST-T CHANGE [VOLTAGE CRITERIA PLUS ST/T ABNORMALITY] Compared to ECG 11/28/2024 18:55:57 ST (T wave) deviation now present Electronically Signed On 12-29-2024 11:28:23 CDT by Pete Lopez M.D. [id number]
[2024-12-29 10:47] LABS: Troponin(5th) Baseline 66 ng/L (0-10)
[2024-12-29 10:49] LABS: Alanine Aminotransferase 13 U/L (0-33); Albumin Level 3.3 g/dL (3.5-5.2); Alkaline Phosphatase 153 U/L (35-105); Anion Gap 18.8 (5-19); Aspartate Amino Transferase 94 U/L (0-32); Blood Urea Nitrogen 30 mg/dL (8-23); Calcium 8.5 mg/dL (8.5-10.5); Carbon Dioxide 27 mmol/L (22-29); Chloride 100 mmol/L (98-107); Creatinine Clr Calc Pharmacy 44.9435; Globulin 3.4 g/dL (1.3-4.6); Glomerular Filtration Rate 44.7 mL/min (90-130); Glucose 242 mg/dL (65-115); Lipase 16 U/L (13-60); Magnesium 1.9 mg/dL (1.7-2.3); Osmolality Calculated 306 mOsm/kg (285-295); Potassium 4.8 mmol/L (3.5-5.1); Sodium 141 mmol/L (136-145); Total Bilirubin 0.4 mg/dL (0.15-1.2); Total Protein 6.7 g/dL (6.6-8.7)
[2024-12-29 10:50] LABS: Lactic Sepsis W/Reflex 2.6 mmol/L (0.5-2.2)
[2024-12-29 10:58] LABS: Bilirubin Urine Negative (Negative); Blood Urine Negative (Negative); Glucose Urine UA Negative (Normal); Ketones Urine Trace (Negative); Leukocyte Esterase Urine Negative (Negative); Nitrate Urine Negative (Negative); Protein Urine 3+ (Negative); Urine Appearance Clear (CLEAR); Urine Color Yellow (Yellow); pH Urine 5.5 (5-7)
[2024-12-29 11:03] LABS: Add Urine Microscopic? YES; Bacteria Urine None Seen /hpf; Hyaline Casts Urine 7.01 /lpf; RBC Urine 0-2 /hpf (0-2); Squamous Epithelial Cell Urine 0-5 /hpf (0-5); WBC Urine 0-5 /hpf (0-5)
[2024-12-29 11:16] LABS: Add Urine Culture? No; UA Slide Review UA Slide Review Perf
[2024-12-29 11:17] LABS: Fine Granular Casts Urine 0-4 /lpf; Oval Fat Bodies Urine 1+ /hpf
[2024-12-29 11:18] LABS: Mucus Urine 1+ /hpf
--- NOTE | 2024-12-29 11:19 | PC.PHAR ---
Pt is from [facility]
[2024-12-29 11:36] LABS: Influenza A NEGATIVE (Negative); Influenza B NEGATIVE (Negative); Respiratory Syncytial Virus Ce NEGATIVE (Negative); SARS-CoV-2 PCR NEGATIVE (Negative)
[2024-12-29] MEDS: piperacillin-tazobactam 3.375 GM in sodium chloride 0.9% (plus) 50 ML IV ×2 (11:46→18:03)
[2024-12-29] MEDS: albuterol 2.5 mg/3 mL Neb INHALATION (11:54)
[2024-12-29 12:00] LABS: Reflex Lactate Order REFLEX LACTIC ORDERD
[2024-12-29 12:18] LABS: D Dimer 10.02 ug/mLFEU (0-0.59)
--- NOTE | 2024-12-29 12:21 | CT_ITS ---
WS: [id number] CTA OF THE CHEST WITH PULMONARY EMBOLISM PROTOCOL TECHNIQUE: High-resolution contrast enhanced CTA of the chest with coronal and sagittal reformatted images with pulmonary embolism protocol. MIP images are also reviewed. CLINICAL INFORMATION: Elevated D-dimer hypoxia COMPARISON: None. DLP: 329.[address] scans at [facility] use at least one of these dose optimization techniques: automated exposure control; mA and/or kV adjustment per patient size (includes targeted exams where dose is matched to clinical indication); or iterative reconstruction. FINDINGS: Proximal main pulmonary arteries are normal. Normal visualized segmental and subsegmental pulmonary arteries. No evidence of pulmonary embolus. Diffuse bilateral innumerable bilateral pulmonary nodules suspicious for metastatic disease. Largest nodules measure up to 2 cm. Slight RIGHT basilar atelectasis. Shallow inspiration. Slightly nodular thyroid. Aortic calcification. Coronary calcification. Normal size mediastinal lymph nodes. Mild RIGHT hilar lymphadenopathy. Prominent anterior mediastinal and AP window lymph nodes. Hepatomegaly with low-attenuation changes in the liver worse in the RIGHT hepatic lobe. Recommend further evaluation with contrast-enhanced CT abdomen pelvis and oncology consultation. Enlarged gastroesophageal lymph node partially visualized. Nodular thickening of the LEFT adrenal gland. Suggestion of lymphadenopathy in the stephen hepatis although only partially visualized. CT/CT angio chest PE protcl [id number] IMPRESSION: 1. Innumerable bilateral pulmonary nodules suspicious for metastatic disease. Recommend oncology evaluation 2. No evidence of pulmonary embolus 3. Partially visualized hepatomegaly with low-attenuation changes worse in the RIGHT hepatic lobe suspicious for metastatic disease. Recommend follow-up CT a bdomen pelvis. 4. Suggestion of lymphadenopathy in the stephen hepatis although only partially visualized. 5. Mild RIGHT greater than LEFT hilar lymphadenopathy. 6. Nodular thickening LEFT adrenal gland.
[2024-12-29 12:41] LABS: Troponin 5 2HR 63.04 ng/L (0-10)
[2024-12-29 12:51] LABS: Troponin 5 2HR Delta -2.96 ABS# (0-10)
--- NOTE | 2024-12-29 13:02 | ECG_ITS ---
P[facility] Test Date: 2024-12-29 Pat Name: Lyric Cain Department: Room: Gender: Female Director Medical Science: : 1955 Requested By: Eduardo Bowman Order Number: [id number] Sunday MD: ZOHRA KERR Measurements Intervals [place] Rate: 96 P: 4 WI: 126 QRS: 12 QRSD: 82 T: 53 QT: 369 QTc: 467 Interpretive Statements SINUS RHYTHM MINIMAL VOLTAGE CRITERIA FOR LVH, CONSIDER NORMAL VARIANT [MEETS CRITERIA IN ONE OF: R(aVL), S(V1), R(V5), R(V5/V6)+S(V1)] Compared to ECG 12/29/2024 10:39:35 ST (T wave) deviation no longer present Electronically Signed On 12-30-2024 23:06:48 CDT by ZOHRA KERR [email or web address] [id number]
[2024-12-29 13:04] LABS: Creatine Phosphokinase 81 U/L (26-192)
--- NOTE | 2024-12-29 13:05 | P.HP_ITS ---
Providers/Chief Complaint 2 Primary Care Provider: Kareem Armando, D[facility] Chief Complaint: Dyspnea, Fatigue, SOB History of Present Illness Lyric Cain is a 69 year old female with a history of memory problems (possible dementia), diabetes, chronic kidney disease stage 3, history of transient ischemic attack (TIA), obstructive sleep apnea (CHET), atherosclerotic vascular disease (ASVD), hypertension, hyperlipidemia, gastroesophageal reflux disease (GERD), neuropathic pain, and prior left leg amputation. She was brought in from the skilled nursing for evaluation of shortness of breath and generalized weakness. She was recently diagnosed with pneumonia at the skilled nursing, with abnormal findings on chest x-ray, and started on Levaquin. In the emergency department, she required 3 liters of oxygen, was afebrile, had sinus tachycardia (HR 101), and tachypnea (RR 24). Her WBC count was normal. Chest x-ray continued to show patchy pulmonary edema and persistent abnormalities. There is concern for possible atypical pneumonitis, with vasculitis considered unlikely, and diffuse pulmonary metastatic disease not excluded. She has a chronic wound on her foot, present for at least a couple of months, which was not cared for at home and became infected; wound care has been ongoing at the skilled nursing. She has a history of a minor brain bleed about a month ago after a fall, which did not require surgery. She has lost use of her hands and cannot sign her name, possibly due to dementia or prior neurological events. She is not normally on oxygen but has required it recently. She denies current cough. There is concern for aspiration due to possible swallowing dysfunction, and speech therapy assessment is planned. No advanced directives are in place. D-dimer was elevated, prompting a CT pulmonary angiogram to rule out pulmonary embolism. She is currently comfortable and not reporting shortness of breath at rest. Review of Systems 2 Const: Denies: fever(s), chills, body aches or malaise ENMT: Denies: throat pain Card: Denies: chest pain, edema, pre-syncope or dyspnea on exertion Resp: Reports: dyspnea and productive cough; Denies: hemoptysis GI: Denies: abdominal pain, nausea, vomiting, diarrhea, constipation, hematochezia or melena : Denies: flank pain, urinary frequency or hematuria Musc: Denies: back pain, joint swelling or joint redness Skin/Breast: Denies: rash or new lesions Neuro: Denies: headache(s) or confusion Medications/Allergies Home Medications ?Medication ?Instructions ?Recorded ?Confirmed ?Last Taken ?Type blood-glucose meter (OneTouch #1 ea 01/03/21 12/29/24 Unknown Rx Ultra2 Meter kit) pen needle, diabetic 33 gauge x #100 ea 10/19/2112/29 Unknown Rx Protective underwear XL [id number] #60 ea 01/18/22 12/29/24 Unknown Rx blood sugar diagnostic #100 ea 04/21/22 12/29/24 Un known Rx lancets 33 gauge (OneTouch Delica #100 ea 04/21/2210/20 Unknown Rx Plus Lancet) Wheel chair #1 ea 03/21/23 12/29/24 Unkn own Rx wheelchair cushion #1 ea 03/21/23 12/29/24 Unkn own Rx donepezil 10 mg tablet (Aricept) 10 mg PO DAILY #30 ta bs 05/07/24 12/29/24 12/28/24 Rx Held on 09/22/24. Instructions: Watch for improved vomting metoprolol succinate 25 mg 25 mg PO DAILY 30 days #30 tabs 09/22/24 12/29/24 12/28/24 Rx tablet,extended release 24 hr trazodone 100 mg tablet 100 mg PO BEDTIME #30 tabs 0 09/22/24 12/29/24 12/28/24 Rx ergocalciferol (vitamin D2) 1,250 1,250 mcg PO .weekly #4 caps 09/24/24 12/29/24 12/28/24 Rx mcg (50,000 unit) capsule collagenase clostridium histo. 250 See Rx Instructions .Route .COMPLEX 12/22/24 12/29/24 12/28/24 History unit/gram topical ointment (Santyl) paroxetine HCl 40 mg tablet 40 mg PO QDAY 12/22/2410/2012/28/24 History acetaminophen 325 mg tablet 650 mg PO Q6H PRN pain/inc reased 12/29/24 12/29/24 12/27/24 History temp allopurinol 100 mg tablet 100 mg PO DAILY 12/29/2410/2012/28/24 History atorvastatin 10 mg tablet 10 mg PO QAM 12/29/2412/28/24 History bisacodyl 10 mg rectal suppository 10 mg OR DAILY PRN Constipation 12/29/24 12/29/24 Unknown History (Dulcolax (bisacodyl)) furosemide 20 mg tablet 20 mg PO DAILY 12/29/24 06/10/2012/28/24 History insulin aspart U-100 100 unit/mL See Rx Instructions . Route .COMPLEX 12/29/24 12/29/24 12/28/24 History subcutaneous solution (Novolog U-100 Insulin aspart) insulin glargine-yfgn 100 unit/mL 283 unit SUBCUT BEDT LYUBOV 12/29/24 12/29/24 12/28/24 History (3 mL) subcutaneous pen ipratropium 0.5 mg-albuterol 3 mg 3 ml inhalation QID 12/29/24 12/29/24 12/28/24 History (2.5 mg base)/3 mL nebulization soln menthol 0.44 %-zinc oxide 20.6 % See Rx Instructions . Route .COMPLEX 12/29/24 12/29/24 12/28/24 History topical ointment (Calmoseptine) omeprazole 20 mg capsule,delayed 20 mg PO DAILY sub fo r protonix 12/29/24 12/29/24 12/28/24 History release silver sulfadiazine 1 % topical See Rx Instructions .R oute .COMPLEX 12/29/24 12/29/24 12/28/24 History cream Allergies Allergy/AdvReac Type Severity Reaction Status Date / Time sertraline (From Zoloft) Allergy rash Verified 12/22/24 15:29 PFSH Acute 2 PFSH: Medical History Intracranial hemorrhage Dementia Diabetes mellitus with hyperglycemia, without long-term current use of insulin Mixed incontinence urge and stress Chronic renal disease, stage 3, moderately decreased glomerular filtration rate (GFR) between 30-59 mL/min/1.73 square meter Insomnia CHET treated with BiPAP Does not tolerate CPAP Diabetes mellitus with hyperglycemia, with long-term current use of insulin Neuropathic pain Arterial calcification History of cigarette smoking History of colon polyps ASVD (arteriosclerotic vascular disease) Vitamin D deficiency Enrolled in chronic care management please do not remove from active Hyperlipemia History of TIA (transient ischemic attack) Depression Hypertension Acute kidney failure -renal function has improved since last admission, improved today (1.8->1.5) -hold metformin -continue to monitor renal function particularly with dual antibiotics -has CKD stage 2; baseline Cr appears to be around 1.4 GERD (gastroesophageal reflux disease) Surgical History Hx of colonoscopy 02/17/2019 Status post amputation of toe of right foot Amputation of the R 2nd & 3rd toe through metatarsophalangeal joint, Dr. Pacheco on 11/02/2015 History of hysterectomy with BLSO History of below knee amputation Left Family History Father Cancer lung Diabetes Sister Cancer gallbladder Family/Other Cancer colon Mother Ischemia, bowel Social History Smoking and tobacco/nicotine status: tobacco/nicotine user, details unknown cigarettes Packs smoked per day: 1 Years cigarettes smoked: 30 Second hand smoke exposure: No Alcohol intake: never Substance/Drug Use: never Adopted: No Caregiver/support person: No Lives independently: Yes Household members: family Housing: House Marital status: Single Number of children: 0 service: No Current occupational status: disabled Do you think of yourself as: Straight/Heterosexual Current gender identity: Female Vitals/I&O/Wt Last Vital Signs Temp 98.9 F 12/29/24 09:50 Pulse 72 12/29/24 12:01 Resp 16 12/29/24 11:59 BP 143/83 12/29/24 11:49 Pulse Ox 92 12/29/24 11:59 O2 Del Method Nasal Cannula 12/29/24 11:59 O2 Flow Rate 3 12/29/24 11:59 Weight last 48 hrs Weight 66.224 kg Physical Exam 2 Narrative: Accompanied by sister in law Const: COMMON NORMALS: alert; negative for patient oriented x3 GENERAL APPEARANCE: cooperative O RIENTATION/CONSCIOUSNESS: Yes awake HENMT: COMMON NORMALS: oropharynx normal Neck/C-Spine: COMMON NORMALS: no JVD Resp: COMMON NORMALS: normal respiratory effort and clear to auscultation bilaterally AUSCULTATION: clear to auscultation bilaterally Cardio: COMMON NORMALS: no JVD, regular rhythm, S1 normal heart sound present, S2 normal heart sound present and No murmurs present (Cardio) RHYTHM: regular rhythm HEART SOUNDS: S1 normal heart sound present and S2 normal heart sound present GI: COMMON NORMALS: Normal to inspection, nondistended, normoactive bowel sounds present, Soft to palpation and non-tender PALPATION: Yes Soft to palpation Extremity: COMMON NORMALS: no joint enlargement and no pedal edema N ARRATIVE EXTREMITY EXAM: L BKA Neuro: COMMON NORMALS: patient oriented x3 and moves all extremities S ENSORIUM/ORIENTATION: Yes alert Skin: COMMON NORMALS: no rashes or lesions noted NARRATIVE SKIN EXAM: Ulcer R lateral ankle with subcutaneous exposure, 2cm in diameter, no surrounding erythema. GENERAL SKIN EXAM: no rashes or lesions noted Data 12/29/24 10:00 12/29/24 10:00 Micro: Microbiology 12/29/24 10:21 Blood Culture - Preliminary Blood SPECIMEN COLLECTED 12/29/24 10:25 Blood Culture - Preliminary Blood SPECIMEN COLLECTED A&P Assessment and plan (1) Pneumonia: Pneumonia (persistent, possible atypical or aspiration) : Patient with recent diagnosis of pneumonia at skilled nursing, persistent symptoms and abnormal chest x-ray findings, currently on Levaquin. Differential includes atypical pneumonitis, aspiration, and less likely vasculitis or metastatic disease. No fever, normal WBC. Possible carcinomatosis not excluded. CT angiogram had been requested and pending. D-dimer noted elevated up to 10. Discussed with her caregiver, discussed undergoing CT angiogram chest. Monitor for risk of kidney injury. Reassess renal function. With new hypoxia, 3 L nasal cannula ox requirement, with tachycardia, tachypnea. Reviewed vitals, CBC, CMP, chest x-ray, EKG, ER provider note, discussed with ER provider. - Continue antibiotics continue Zosyn. (Had skilled nursing received Levaquin). Monitor for risk of kidney injury with Zosyn, risk of C. difficile, cytopenia. -Possible aspiration pneumonia, requesting speech therapy evaluation. - Monitor for clinical improvement over next 1-2 days - Obtain viral swab to rule out flu, COVID, or other viral etiologies - Monitor for signs of sepsis or clinical deterioration (2) Pulmonary nodules: Pulmonary and liver nodules noted, suspicious of metastatic disease. She is a long-term smoker. Discussed with her [id number], who will further discuss with her brothers and they will consider further steps with consideration of options including hospice/comfort care. Plan Dementia: At least moderate dementia, not normally oriented to place or time. Does seem to recognize relatives. He is able to provide some review of systems. Continue donepezil Diabetes: Continue insulin, Giurgius carbohydrate diet. Monitor POC glucose. Depression: Continue paroxetine, trazodone HLD: Continue statin GERD continue omeprazole Ankle pressure sore: Continue collagenase ointment on the right outer ankle pressure sore PDMP PDMP Reviewed: Not Reviewed Attestations 2 Medical Necessity Statement*: Place in observation for additional assessment and management of pneumonia with new hypoxia, new 2 L nasal cannula oxygen requirement with tachycardia, tachypnea, possible carcinomatosis. and High MDM includes amount and/or complexity of data reviewed/ordered [ previous or external records, resulted lab(s)/test(s), ordered lab(s)/test(s) and other healthcare professional discussion] and described risk of complication, morbidity or mortality of management as documented Diagnoses Pneumonia J18.9 Pulmonary nodules R91.8
[2024-12-29] MEDS: iohexol 350 mg/mL 500 mL Btl (per mL) IV (13:14)
[2024-12-29 14:27] LABS: Lactic Acid level (Lactate) 1.9 mmol/L (0.5-2.2)
[2024-12-29 16:03] LABS: Glucose Point of Care 149 mg/dL (70-110)
--- NOTE | 2024-12-29 16:06 | ECG_ITS ---
[employer] OpenLabel Test Date: 2024-12-29 Pat Name: Lyric Cain Department: Room: 258 Gender: Female Market Development Director: : [id number] Requested By: Eduardo Bowman Order Number: [id number] Sunday MD: ZOHRA KERR Measurements Intervals [place] Rate: 98 P: 2 NH: 133 QRS: -3 QRSD: 84 T: 46 QT: 365 QTc: 467 Interpretive Statements SINUS RHYTHM VOLTAGE CRITERIA FOR LVH [MEETS CRITERIA IN ONE OF: R(aVL), S(V1), R(V5), R(V5/V6)+S(V1)] Compared to ECG 12/29/2024 13:02:10 No significant changes Electronically Signed On 12-30-2024 23:07:51 CDT by ZOHRA KERR [email or web address]
[2024-12-29 17:03] LABS: Troponin 5 6HR 64.99 ng/L (0-10)
[2024-12-29] MEDS: collagenase oint 30 gm 1 APPLIC TOPICAL ×2 (17:08→20:56)
[2024-12-29] MEDS: silver sulfadiazine cream 1% 50 gm 1 APPLIC TOPICAL ×2 (17:08→20:57)
[2024-12-29] MEDS: enoxaparin 40 mg/0.4 mL Syringe SUBCUT (17:09)
[2024-12-29 17:10] LABS: Troponin 5 6HR Delta -1.01 ng/L (0-12)
[2024-12-29] MEDS: ipratropium-albuterol 3 mL Neb INHALATION (19:38)
[2024-12-29 20:32] LABS: Glucose Point of Care 165 mg/dL (70-110)
[2024-12-29 20:51] LABS: MRSA PCR OZH (swab) NOT DETECTED (Not Detecte)
[2024-12-29] MEDS: trazodone 100 mg Tablet PO (20:53)
[2024-12-30] VITALS (13 sets, daily range): BP systolic 112–175; BP diastolic 70–84; PULSE 103–122; RESP 16–24; TEMP 36.9–39.2; O2SAT 92–99
[2024-12-30] MEDS: piperacillin-tazobactam 3.375 GM in sodium chloride 0.9% (plus) 50 ML IV ×3 (03:07→18:04)
[2024-12-30] MEDS: ATORVASTATIN 10 MG TABLET PO (05:26)
[2024-12-30 05:35] LABS: Basophils % 0.3 %; Hematocrit 35.7 % (36-47); Lymphocytes # 0.4 10^3/uL (0.8-4.8); Lymphocytes % 3.7 %; Mean Corpuscular HGB Conc 30.3 g/dL (30-55); Mean Corpuscular Hemoglobin 28.3 pg (27-33); Mean Corpuscular Volume 93.7 fl (85-98); Mean Platelet Volume 10.2 fL (7.4-10.4); Monocytes # 1.2 10^3/uL (0.2-0.9); Monocytes % 9.7 %; Neutrophils # 10.26 10^3/uL (1.8-7.7); Neutrophils % 85.8 %; Nucleated Red Blood Cells % 0 %; Platelet Count 92 10^3/cmm (157-399); Red Blood Count 3.81 10^6/uL (3.85-5.65); Red Cell Distribution Width 15.9 % (12.1-15.1); White Blood Count 11.95 10^3/uL (3.29-11.43)
[2024-12-30 06:03] LABS: Alanine Aminotransferase 12 U/L (0-33); Albumin Level 2.8 g/dL (3.5-5.2); Alkaline Phosphatase 137 U/L (35-105); Anion Gap 21.4 (5-19); Aspartate Amino Transferase 71 U/L (0-32); Blood Urea Nitrogen 35 mg/dL (8-23); Calcium 8.6 mg/dL (8.5-10.5); Carbon Dioxide 25 mmol/L (22-29); Chloride 104 mmol/L (98-107); Creatinine Clr Calc Pharmacy 41.4863; Glomerular Filtration Rate 40.7 mL/min (90-130); Glucose 251 mg/dL (65-115); Magnesium 2.1 mg/dL (1.7-2.3); Osmolality Calculated 318 mOsm/kg (285-295); Potassium 4.4 mmol/L (3.5-5.1); Sodium 146 mmol/L (136-145); Total Bilirubin 0.4 mg/dL (0.15-1.2); Total Protein 6.8 g/dL (6.6-8.7)
[2024-12-30 06:44] LABS: Glucose Point of Care 284 mg/dL (70-110)
[2024-12-30] MEDS: ipratropium-albuterol 3 mL Neb INHALATION ×4 (07:46→19:36)
[2024-12-30] MEDS: silver sulfadiazine cream 1% 50 gm 1 APPLIC TOPICAL ×2 (08:34→21:41)
[2024-12-30] MEDS: collagenase oint 30 gm 1 APPLIC TOPICAL ×2 (08:34→21:40)
--- NOTE | 2024-12-30 10:01 | PM.PN ---
Subjective Subjective: She is more confused today. Spiking fevers. Choking on ice chips with trial of oral intake. To gain a little bit of pudding. Could not fully participate with speech therapy. Vitals/I&O/Wt Last Vital Signs Temp 98.4 F 12/30/24 07:11 Pulse 108 H 12/30/24 07:47 Resp 20 H 12/30/24 07:47 BP 172/76 12/30/24 07:11 Pulse Ox 93 12/30/24 07:47 O2 Del Method Nasal Cannula 12/30/24 07:47 O2 Flow Rate 2.5 12/30/24 07:47 12/29/24 12/30/24 12/30/24 22:59 06:59 14:59 Intake Total 50 / 100 50 / 50 Balance 50 / 100 50 / 50 Weight last 48 hrs Weight 64.864 kg Weight 66.224 kg Physical Exam Narrative: Accompanied by sister in law on second visit Const: COMMON NORMALS: patient oriented x3 and alert GENERAL APPEARANCE: cooperative ORIENTATION/CONSCIOUSNESS: Yes awake HENMT: COMMON NORMALS: oropharynx normal Neck/C-Spine: COMMON NORMALS: no JVD Resp: COMMON NORMALS: normal respiratory effort and clear to auscultation bilaterally AUSCULTATION: clear to auscultation bilaterally Cardio: COMMON NORMALS: no JVD, regular rhythm, S1 normal heart sound present, S2 normal heart sound present and No murmurs present (Cardio) RHYTHM: regular rhythm HEART SOUNDS: S1 normal heart sound present and S2 normal heart sound present GI: COMMON NORMALS: Normal to inspection, nondistended, normoactive bowel sounds present, Soft to palpation and non-tender PALPATION: Yes Soft to palpation Extremity: COMMON NORMALS: no joint enlargement and no pedal edema NARRATIVE EXTREMITY EXAM: L BKA Neuro: COMMON NORMALS: patient oriented x3 and moves all extremities SENSORIUM/ORIENTATION: Yes alert Skin: COMMON NORMALS: no rashes or lesions noted NARRATIVE SKIN EXAM: Ulcer R lateral ankle with subcutaneous exposure, 2cm in diameter, no surrounding erythema. GENERAL SKIN EXAM: no rashes or lesions noted Data 12/30/24 04:50 12/30/24 04:50 Micro: Microbiology 12/29/24 10:21 Blood Culture - Preliminary Blood SPECIMEN COLLECTED 12/29/24 10:25 Blood Culture - Preliminary Blood SPECIMEN COLLECTED A&P Assessment and plan (1) Pneumonia: With neck encephalopathy today, with confusion, recurrent fever as per discussion with her [id number] and brother. Continue to require oxygen, although slightly better than yesterday. For, without improvement in dysphagia, choking up on ice chips, could not fully participate with speech therapy but did have a little bit of pudding. Pending reassessment. Continue Zosyn, broadened with linezolid, however, see that MRSA PCR is negative, discontinue. Continue Zosyn, monitor for cytopenia, DAYSI risk. Reviewed vitals, CBC, CMP, viral studies. Continue n.p.o. pending reassessment. Aspiration prec. Fevers may be secondary to metastatic malignancy. Discussed with nursing, , correctional casework specialist. Pneumonia (persistent, possible atypical or aspiration) : Patient with recent diagnosis of pneumonia at senior living, persistent symptoms and abnormal chest x-ray findings, currently on Levaquin. Differential includes atypical pneumonitis, aspiration, and less likely vasculitis or metastatic disease. No fever, normal WBC. Possible carcinomatosis not excluded. CT angiogram had been requested and pending. D-dimer noted elevated up to 10. Discussed with her caregiver, discussed undergoing CT angiogram chest. Monitor for risk of kidney injury. Reassess renal function. (2) Pulmonary nodules: Pulmonary and liver nodules noted, suspicious of metastatic disease. She is a long-term smoker. Discussed with her [id number], who will further discuss with her brothers and they will consider further steps with consideration of options including hospice/comfort care. (3) Goals of care, counseling/discussion: Discussed with patient and [id number] as well as with her brother Huy over speaker phone, her condition has not improved so far, and she has not been tolerating oral intake without aspiration. Revisited again concern for metastatic disease noted on CT scan affecting the lungs and the liver. Discussed consideration of more aggressive care, pursuing biopsy and diagnostic evaluation, follow-up with oncology, consideration of feeding tube, although this would not be recommended, consideration of hospice/comfort. They would like to further discuss with her other brothers. Later on per report considering hospice care. Reached out to further clarify CODE STATUS as per discussion yesterday, however, they did not touch on it today, and will try to revisit about it and will call back nursing station to clarify. Plan Dementia: At least moderate dementia, not normally oriented to place or time. Does seem to recognize relatives. He is able to provide some review of systems. Continue donepezil Diabetes: Continue insulin, Giurgius carbohydrate diet. Monitor POC glucose. Depression: Continue paroxetine, trazodone HLD: Continue statin GERD continue omeprazole Ankle pressure sore: Continue collagenase ointment on the right outer ankle pressure sore. Apply foam dressing. PDMP PDMP Reviewed: Not Reviewed Attestations Medical Necessity Statement*: Continue hospitalization for assessment management of aspiration pneumonia, dysphagia, suspected metastatic malignancy, goals of care discussion and post discharge planning and arrangements. and High MDM includes amount and/or complexity of data reviewed/ordered [ resulted lab(s)/test(s), independent historian and other healthcare professional discussion] and described risk of complication, morbidity or mortality of management as documented Diagnoses Pneumonia J18.9 Pulmonary nodules R91.8 Goals of care, counseling/discussion Z71.89
--- NOTE | 2024-12-30 10:06 | PC.CHAP ---
Pastoral Care Encounter/Spiritual Assessment Type of Contact [] Declined knotting machine operator visit [] Patient/Family/Request visit [] Outpatient visit [] Follow-up visit [] Physician referral [] Code/Alert [x] Routine visit [] Staff referral [] Actively dying [] Patient sleeping [] Family support [] [] Out of room [] Palliative care [] [] Receiving care in room [] Pre-surgical visit [] Trauma [] Long length of stay [] ICU visit [] Other: Relational/Emotional Strength [] Patient feels connected with others/family/visitors/staff [x] Distress [] Loneliness/isolation [] Abandonment Spirituality of Patient [x] Person of Kaela [] Attends Quaker of their [place] [x] Believes in Prayer [] Reads Bible or Evangelical materials [] There are Spiritual issues to be addressed [place] [employer] Interventions [x] Prayer [] Active listening [x] Non-anxious presence [x] Spiritual/emotional support [] Crisis/trauma care [] Spiritual counseling [] Bereavement support [] Provided bereavement packet [] Provided Bible/devotional materials [] Provided toy/stuffed animal, coloring book to patient or family member [] Provided Communion [] Anointing/[place] [] Salvation [x] Completed spiritual assessment [] Other: Impact on Illness or Injury [] Angry [] Fearful [] Anxious [] Often cries [] Exhaustion [] Unable to work [] Unable to attend caodaism [] Unable to walk/stand [] Unable to read [] Unable to drive [] Unable to eat/drink [] Unable to sleep [] Unable to be with family [] Patient intubated [] Other: Summary Time spent with patient 5 min
[2024-12-30] MEDS: acetaminophen 650 mg Supp PR ×2 (12:03→18:10)
[2024-12-30] MEDS: enoxaparin 40 mg/0.4 mL Syringe SUBCUT (16:46)
[2024-12-31] VITALS (7 sets, daily range): BP systolic 168–186; BP diastolic 65–84; PULSE 114–122; RESP 16–20; TEMP 37.2–38.4; O2SAT 93–94
[2024-12-31] MEDS: piperacillin-tazobactam 3.375 GM in sodium chloride 0.9% (plus) 50 ML IV (02:06)
[2024-12-31 06:43] LABS: Basophils % 0.1 %; Hematocrit 39.3 % (36-47); Lymphocytes # 0.5 10^3/uL (0.8-4.8); Mean Corpuscular HGB Conc 30.5 g/dL (30-55); Mean Corpuscular Hemoglobin 28.6 pg (27-33); Mean Corpuscular Volume 93.8 fl (85-98); Mean Platelet Volume 9.4 fL (7.4-10.4); Monocytes # 1.5 10^3/uL (0.2-0.9); Monocytes % 9.8 %; Neutrophils # 13.49 10^3/uL (1.8-7.7); Neutrophils % 86.5 %; Nucleated Red Blood Cells % 0 %; Platelet Count 122 10^3/cmm (157-399); Red Blood Count 4.19 10^6/uL (3.85-5.65); Red Cell Distribution Width 15.9 % (12.1-15.1); White Blood Count 15.57 10^3/uL (3.29-11.43)
[2024-12-31 07:05] LABS: Alanine Aminotransferase 11 U/L (0-33); Albumin Level 2.9 g/dL (3.5-5.2); Alkaline Phosphatase 132 U/L (35-105); Anion Gap 21.1 (5-19); Aspartate Amino Transferase 64 U/L (0-32); Blood Urea Nitrogen 41 mg/dL (8-23); Calcium 8.7 mg/dL (8.5-10.5); Carbon Dioxide 25 mmol/L (22-29); Chloride 111 mmol/L (98-107); Creatinine Clr Calc Pharmacy 41.0118; Globulin 3.9 g/dL (1.3-4.6); Glomerular Filtration Rate 40.7 mL/min (90-130); Glucose 325 mg/dL (65-115); Osmolality Calculated 341 mOsm/kg (285-295); Potassium 3.1 mmol/L (3.5-5.1); Sodium 154 mmol/L (136-145); Total Bilirubin 0.5 mg/dL (0.15-1.2); Total Protein 6.8 g/dL (6.6-8.7)
[2024-12-31] MEDS: dextrose 5%-sod chloride 0.45% 1,000 ML 75 ML IV (08:00)
[2024-12-31] MEDS: lidocaine 1% 5 ML in potassium chloride premix 100 ML 52.5 ML IV (08:06)
[2024-12-31] MEDS: ipratropium-albuterol 3 mL Neb INHALATION (08:40)
[2024-12-31] MEDS: collagenase oint 30 gm 1 APPLIC TOPICAL (10:38)
[2024-12-31] MEDS: silver sulfadiazine cream 1% 50 gm 1 APPLIC TOPICAL (10:38)
[2024-12-31] MEDS: acetaminophen 650 mg Supp PR (11:25)
--- NOTE | 2024-12-31 11:59 | P.DS_ITS ---
Discharge Providers Date of Admission: 12/29/24 13:53 Date of Discharge: December 31, 2024 Attending Provider at Admission: Nik Womack Attending Provider at Discharge: Nik Womack Primary Care Provider: GI Johnston Diagnoses at Discharge Discharge Diagnosis (1) Pneumonia: Status: Acute (2) Pulmonary nodules: Status: Acute (3) Goals of care, counseling/discussion: Status: Acute Reason for Visit Reason for Visit: Dyspnea, Fatigue, SOB Brief History: Lyric Cain is a 69 year old female with a history of memory problems (possible dementia), diabetes, chronic kidney disease stage 3, history of transient ischemic attack (TIA), obstructive sleep apnea (CHET), atherosclerotic vascular disease (ASVD), hypertension, hyperlipidemia, gastroesophageal reflux disease (GERD), neuropathic pain, and prior left leg amputation. [facility] for evaluation of shortness of breath and generalized weakness. She was recently diagnosed with pneumonia at the [facility], with abnormal findings on chest x-ray, and started on Levaquin. In the emergency department, she required 3 liters of oxygen, was afebrile, had sinus tachycardia (HR 101), and tachypnea (RR 24). Her WBC count was normal. Chest x-ray continued to show patchy pulmonary edema and persistent abnormalities. There is concern for possible atypical pneumonitis, with vasculitis considered unlikely, and diffuse pulmonary metastatic disease not excluded. She has a chronic wound on her foot, present for at least a couple of months, which was not cared for at home and be came infected; wound care has been ongoing at the [facility]. She has a history of a minor brain bleed about a month ago after a fall, which did not require surgery. She has lost use of her hands and cannot sign her name, possibly due to dementia or prior neurological events. She is not normally on oxygen but has required it recently. She denies current cough. There is concern for aspiration due to possible swallowing dysfunction, and speech therapy assessment is planned. No advanced directives are in place. D-dimer was elevated, prompting a CT pulmonary angiogram to rule out pulmonary embolism. She is currently comfortable and not reporting shortness of breath at rest. Hospital Course Hospital Course She was treated for suspected aspiration pneumonia with noted persistent worsening dysphagia possibly related to progression of her dementia, however, additional assessment also revealed multiple nodular abnormalities in the lungs as well as low-attenuation changes in the liver with hepatomegaly suspicious for metastatic disease. No PE found on CTA. Mild right greater than left hilar lymphadenopathy. Incidentally noted nodular thickening of left adrenal gland. She was assessed by speech therapy, was able to take in some pudding, but was noted to be coughing with ice chips. Mental status does not allow for further evaluation. She continues on antibiotic treatment for aspiration pneumonia with Zosyn. MRSA PCR was negative. Blood cultures remaining negative. Spiking recurrent fevers likely secondary to combination of pneumonia and possibly due to metastatic malignancy. Further goals of care discussions took place with the patient's family given overall functional decline with memory difficulties, suspected metastatic malignancy, persistent dysphagia, with election of transition to hospice care with comfort, arrangements for which are currently being made however at the [facility]. Physical Exam Narrative: Accompanied by brother and [id number]. Const: COMMON NORMALS: patient oriented x3 and alert GENERAL APPEARANCE: cooperative ORIENTATION/CONSCIOUSNESS: Yes awake HENMT: COMMON NORMALS: oropharynx normal Neck/C-Spine: COMMON NORMALS: no JVD Resp: COMMON NORMALS: normal respiratory effort and clear to auscultation bilaterally AUSCULTATION: clear to auscultation bilaterally Cardio: COMMON NORMALS: no JVD, regular rhythm, S1 normal heart sound present, S2 normal heart sound present and No murmurs present (Cardio) RHYTHM: regular rhythm HEART SOUNDS: S1 normal heart sound present and S2 normal heart sound present GI: COMMON NORMALS: Normal to inspection, nondistended, normoactive bowel sounds present, Soft to palpation and non-tender PALPATION: Yes Soft to palpation Extremity: COMMON NORMALS: no joint enlargement and no pedal edema NARRATIVE EXTREMITY EXAM: L BKA Neuro: COMMON NORMALS: patient oriented x3 and moves all extremities SENSORIUM/ORIENTATION: Yes alert Skin: COMMON NORMALS: no rashes or lesions noted NARRATIVE SKIN EXAM: Ulcer R lateral ankle with subcutaneous exposure, 2cm in diameter, no surrounding erythema. GENERAL SKIN EXAM: no rashes or lesions noted Discharge Data Studies Completed and Pending Completed Studies During Hospitalization Category Date Time Status CT angio chest PE protcl [id number] Stat Cat Scan 12/29/24 12:21 Completed XR chest 1V portable [id number] Stat Exams 12/29/24 09:55 Completed Pending at discharge Category Date Time Status Bacterial Antigen Routine Lab 12/29/24 16:03 Uncollected Blood Culture Stat Lab 12/29/24 10:25 Results Complete Blood Count w/Auto AM LABS Lab 01/01/25 04:00 Ordered Comprehensive Metabolic Panel AM LABS Lab 01/01/25 04:00 Ordered Legionella Antigen STAT Routine Lab 12/29/24 16:03 Uncollected Radiology Impressions Chest X-Ray 12/29/24 09:55 IMPRESSION: Continued abnormality of the chest. This does not have the appearance of pulmonary edema or pulmonary hemorrhage. Possibly an atypical pneumonitis, unlikely vasculitis. Diffuse pulmonary metastases cannot be excluded. Chest CTA 12/29/24 12:21 IMPRESSION: 1. Innumerable bilateral pulmonary nodules suspicious for metastatic disease. Recommend oncology evaluation 2. No evidence of pulmonary embolus 3. Partially visualized hepatomegaly with low-attenuation changes worse in the RIGHT hepatic lobe suspicious for metastatic disease. Recommend follow-up CT abdomen pelvis. 4. Suggestion of lymphadenopathy in the stephen hepatis although only partially visualized. 5. Mild RIGHT greater than LEFT hilar lymphadenopathy. 6. Nodular thickening LEFT adrenal gland. Laboratory Results WBC 15.57 10^3/uL (3.29-11.43) H 12/31/24 06:23 RBC 4.19 10^6/uL (3.85-5.65) 12/31/24 06:23 Hgb 12.00 g/dL (11.27-16.99) 12/31/24 06:23 Hct 39.3 % (36-47) 12/31/24 06:23 MCV 93.8 fl (85-98) 12/31/24 06:23 MCH 28.6 pg (27-33) 12/31/24 06:23 MCHC 30.5 g/dL (30-55) 12/31/24 06:23 RDW 15.9 % (12.1-15.1) H 12/31/24 06:23 Plt Count 122 10^3/cmm (157-399) L D 12/31/24 06:23 MPV 9.4 fL (7.4-10.4) 12/31/24 06:23 Neut % (Auto) 86.5 % 12/31/24 06:23 Lymph % (Auto) 3.0 % 12/31/24 06:23 [place] % (Auto) 9.8 % 12/31/24 06: Eos % (Auto) 0.0 % 12/31/24 06: Baso % (Auto) 0.1 % 12/31/24 06: Neut # (Auto) 13.49 10^3/uL (1.8-7.7) H 12/31/24 06:23 Lymph # (Auto) 0.5 10^3/uL (0.8-4.8) L 12/31/24 06:23 [place] # (Auto) 1.5 10^3/uL (0.2-0.9) H 12/31/24 06:23 Eos # (Auto) 0.0 10^3/uL (0.0-0.8) 12/31/24 06: Baso # (Auto) 0.0 10^3/uL (0.0-0.1) 12/31/24 06: Nucleated RBC % (auto) 0 % 12/31/24 06: Nucleated RBCs # 0.0 /100WBC 12/31/24 06: D-Dimer 10.02 ug/mLFEU (0-0.59) H 12/29/24 10:00 Specimen Type Arterial 12/29/24 10:20 Sample Site Radial, right 12/29/24 10:20 ABG pH 7.46 (7.35-7.45) H 12/29/24 10:20 ABG pCO2 39.6 mmHg (35-45) 12/29/24 10:20 ABG pO2 55.5 mmHg (80.0-100.0) L 12/29/24 10:20 ABG PO2/FiO2 Ratio 173 12/29/24 10:20 ABG HCO3 28.4 mmol/L (22-26) H 12/29/24 10:20 ABG O2 Saturation 91.6 12/29/24 10:20 ABG Base Excess 4.3 mmol/L (-2.0-2.0) H 12/29/24 10:20 Enrique Test Pos 12/29/24 10:20 A-a O2 Gradient 16.0 mmHg (5-10) H 12/29/24 10:20 Hematocrit 37.9 % (37-47) 12/29/24 10:20 Hgb O2 Saturation 89.3 % (95-100) L 12/29/24 10:20 Carboxyhemoglobin 1.7 %THgb (0.4-20.1) 12/29/24 10:20 Methemoglobin 0.9 % (0.4-1.5) 12/29/24 10:20 Total Hemoglobin 12.4 g/dL (12-16) 12/29/24 10:20 Sodium 142.0 mmol/L (131-143) 12/29/24 10:20 Potassium 4.4 mmol/L (3.5-5.0) 12/29/24 10:20 Glucose 196.0 mg/dL (70-115) H 12/29/24 10:20 Ionized Calcium 1.2 mmol/L (1.1-1.4) 12/29/24 10:20 O2 Delivery Device Nc 12/29/24 10:20 O2 Liters/Min 3.0 % 12/29/24 10:20 FiO2 32.0 % 12/29/24 10:20 Computer Aided Design Drafter ID [email or web address] 12/29/24 10:20 Sodium 154 mmol/L (136-145) H 12/31/24 06:23 Potassium 3.1 mmol/L (3.5-5.1) L 12/31/24 06:23 Chloride 111 mmol/L (98-107) H 12/31/24 06:23 Carbon Dioxide 25 mmol/L (22-29) 12/31/24 06:23 Anion Gap 21.1 (5-19) H 12/31/24 06:23 BUN 41 mg/dL (8-23) H 12/31/24 06:23 Creatinine 1.3 mg/dL (0.5-0.9) H 12/31/24 06:23 GFR Calculation 40.7 mL/min (90-130) L 12/31/24 06:23 Glucose 325 mg/dL (65-115) H 12/31/24 06:23 POC Glucose 284 mg/dL (70-110) H 12/30/24 06:26 Calculated Osmolality 341 mOsm/kg (285-295) H 12/31/24 06:23 Lactic Acid 2.6 mmol/L (0.5-2.2) H 12/29/24 10:00 Lactic Acid (Sepsis) 1.9 mmol/L (0.5-2.2) 12/29/24 13:59 Calcium 8.7 mg/dL (8.5-10.5) 12/31/24 06:23 Magnesium 2.1 mg/dL (1.7-2.3) 12/30/24 04:50 Total Bilirubin 0.5 mg/dL (0.15-1.2) 12/31/24 06:23 AST 64 U/L (0-32) H 12/31/24 06:23 ALT 11 U/L (0-33) 12/31/24 06:23 Alkaline Phosphatase 132 U/L (35-105) H 12/31/24 06:23 Creatine Kinase 81 U/L (26-192) 12/29/24 12:00 Troponin T Baseline 66 ng/L (0-10) H 12/29/24 10:00 Troponin T 120 Minute 63.04 ng/L (0-10) H 12/29/24 12:00 Delta Troponin T -2.96 ABS# (0-10) L 12/29/24 12:00 Troponin T Hi Sens 6Hr 64.99 ng/L (0-10) H 12/29/24 16:17 Troponin T Hi Sens 6Hr Delta -1.01 ng/L (0-12) L 12/29/24 16:17 Total Protein 6.8 g/dL (6.6-8.7) 12/31/24 06:23 Albumin 2.9 g/dL (3.5-5.2) L 12/31/24 06:23 Globulin 3.9 g/dL (1.3-4.6) 12/31/24 06:23 Lipase 16 U/L (13-60) 12/29/24 10:00 Urine Color Yellow (Yellow) 12/29/24 10:47 Urine Appearance Clear (CLEAR) 12/29/24 10:47 Urine pH 5.5 (5-7) 12/29/24 10:47 Ur Specific [place] 1.020 (1.005-1.030) 12/29/24 10:47 Urine Protein 3+ (Negative) A 12/29/24 10:47 Urine Glucose (UA) Negative (Normal) 12/29/24 10:47 Urine Ketones Trace (Negative) 12/29/24 10:47 Urine Blood Negative (Negative) 12/29/24 10:47 Urine Nitrate Negative (Negative) 12/29/24 10:47 Urine Bilirubin Negative (Negative) 12/29/24 10:47 Urine Urobilinogen 1.0 mg/dL (Negative) 12/29/24 10:47 Ur Leukocyte Esterase Negative (Negative) 12/29/24 10:47 Urine RBC 0-2 /hpf (0-2) 12/29/24 10:47 Urine WBC 0-5 /hpf (0-5) 12/29/24 10:47 Ur Squamous Epith Cells 0-5 /hpf (0-5) 12/29/24 10:47 Amorphous Sediment Not Reportable 12/29/24 10:47 Urine Bacteria None seen /hpf (NONE) 12/29/24 10:47 Hyaline Casts 7.01 /lpf 12/29/24 10:47 Fine Granular Casts 0-4 /lpf H 12/29/24 10:47 Urine Mucus 1+ /hpf 12/29/24 10:47 Ur Oval Fat Bodies 1+ /hpf 12/29/24 10:47 Nasal MRSA (PCR) Not detected (Not Detecte) 12/29/24 18:57 Influenza A (PCR) Negative (Negative) 12/29/24 10:39 Influenza Type B (PCR) Negative (Negative) 12/29/24 10:39 RSV (PCR) Negative (Negative) 12/29/24 10:39 SARS-CoV-2 (PCR) Negative (Negative) 12/29/24 10:39 Vitals Last Vital Signs Temp 100.8 F H 12/31/24 11:29 Pulse 122 H 12/31/24 11:29 Resp 19 H 12/31/24 11:29 BP 169/83 12/31/24 11:29 Pulse Ox 94 12/31/24 11:29 O2 Del Method Nasal Cannula 12/31/24 11:29 O2 Flow Rate 3 12/31/24 11:29 Discharge Plan Discharge Patient Disposition: Hospice - Medical Facility Condition: Stable Prescriptions: New amoxicillin-pot clavulanate 875-125 mg tablet 1 tab PO BID Qty: 14 0RF Continued (DME) pen needle, diabetic 33 gauge x 5/32 needle See Rx Instructions .ROUTE .MEDSUPPLY Qty: 100 5RF Rx Instructions: 1 time day donepezil [Aricept] 10 mg tablet 10 mg PO DAILY Qty: 30 2RF metoprolol succinate 25 mg tablet extended release 24 hr 25 mg PO DAILY 30 Days Qty: 30 2RF Rx Instructions: lower dose trazodone 100 mg tablet 100 mg PO BEDTIME Qty: 30 2RF Santyl 250 unit/gram ointment See Rx Instructions .ROUTE .COMPLEX Rx Instructions: Apply topically every shift to left outer ankle. Cleanse with NS and gauze, apply Santyl to wound bed and cover with bordered foam. paroxetine HCl 40 mg tablet 40 mg PO QDAY (DME) Protective underwear XL [id number] See Rx Instructions .Route .MEDSUPPLY Qty: 60 12RF Rx Instructions: As directed (DME) Wheel chair See Rx Instructions .Route .MEDSUPPLY Qty: 1 0RF Rx Instructions: As directed (DME) wheelchair cushion See Rx Instructions .Route .MEDSUPPLY Qty: 1 0RF Rx Instructions: As directed (DME) blood-glucose meter [OneTouch Ultra2 Meter] Kit See Rx Instructions .Route Qty: 1 0RF Rx Instructions: daily (DME) lancets [OneTouch Delica Plus Lancet] 33 gauge misc See Rx Instructions .ROUTE .MEDSUPPLY Qty: 100 5RF Rx Instructions: use 1 3 times day (DME) blood sugar diagnostic Strip See Rx Instructions .ROUTE .MEDSUPPLY Qty: 100 5RF Rx Instructions: one strip 3 daily ergocalciferol (vitamin D2) 1,250 mcg (50,000 unit) capsule 1,250 mcg PO .weekly Qty: 4 2RF Rx Instructions: Saturday ipratropium-albuterol 0.5 mg-3 mg(2.5 mg base)/3 mL solution for nebulization 3 ml INHALATION QID allopurinol 100 mg tablet 100 mg PO DAILY bisacodyl [Dulcolax (bisacodyl)] 10 mg Suppository 10 mg MA DAILY PRN (Reason: Constipation) furosemide 20 mg tablet 20 mg PO DAILY menthol-zinc oxide [Calmoseptine] 0.44-20.6 % ointment See Rx Instructions .ROUTE .COMPLEX Rx Instructions: Apply topically to buttock every shift for breakdown prevention. insulin glargine-yfgn 100 unit/mL (3 mL) insulin pen 283 unit SUBCUT BEDTIME silver sulfadiazine 1 % cream See Rx Instructions .ROUTE .COMPLEX Rx Instructions: Apply topically to bilateral buttocks every shift: Cleanse with NS and gauze. Apply Silvadene and cover with foam dressing. No tape. acetaminophen 325 mg Tablet 650 mg PO Q6H PRN (Reason: pain/increased temp) omeprazole 20 mg capsule,delayed release(DR/EC) 20 mg PO DAILY atorvastatin 10 mg tablet 10 mg PO QAM insulin aspart U-100 [Novolog U-100 Insulin aspart] 100 unit/mL solution See Rx Instructions .ROUTE .COMPLEX Rx Instructions: Give 6 unit subcutaneously before meals and at bedtime plus sliding scale: Blood sugar 201-250= 2units, 251-300= 4units, 301-350= 6units, 351-400= 8 units. Discharge Orders: Discharge Order (Routine); Ordered 12/31/24 Ordered By: Nik Womack Referrals: Kareem Armando FNP-C [Primary Care Provider, [facility]] - 01/11/25 2:40 pm Discharge Diet: Advance as tolerated Patient Instructions: Amoxicillin/Clavulanate Potassium (By mouth), Hospice Care (GEN), Opioid Safety, Pain Management Activity Restrictions/Additional Instructions: Continue pleasure feeds. Aspiration precautions as possible due to recurrent dysphagia. Hospice and comfort care measures. Reposition patient as condition requires to prevent pressure ulcers. Nasal cannula 2 L as needed for comfort. Acetaminophen as needed for fever. Fever may be secondary to metastatic malignancy as well. Comfort back per hospice. Continue care of right ankle ulcer. Follow-up with primary provider as needed for reassessment of aspiration pneumonia, dysphagia and recurrent aspiration, as well as pulmonary nodules and liver low-attenuation changes suspicious of metastatic disease. Discharge Attestations Time Spent in Discharge Care*: greater than 30 min Status at Discharge: Cognitive status at discharge: cognitively intact , Behavioral status at discharge: cooperative , Quality Metrics Clinical Quality Measures [ No reported AMI, CVA or VTE this stay] Coding Level of Care Code 95508 Total time (in minutes) for Discharge: 40 Diagnoses Pneumonia J18.9 Pulmonary nodules R91.8 Goals of care, counseling/discussion Z71.89
== END 2024-12-31 12:00 | disposition hospice, inpatient (51) ==
LOC: ER 12:24 → ER IP 13:56 → MEDSURG 14:13
PROVIDERS: Admitting Provider Internal Medicine; Emergency Provider Family Medicine; PCP Nurse Practitioner; Visit Provider Internal Medicine
DX: J69.0 Pneumonitis due to inhalation of food and vomit (principal); R53.1 Weakness; E11.22 Type 2 diabetes mellitus with diabetic chronic kidney disease; N18.30 Chronic kidney disease, stage 3 unspecified; G47.33 Obstructive sleep apnea (adult) (pediatric); I12.9 Hypertensive chronic kidney disease with stage 1 through stage 4 chronic kidney disease, or unspecified chronic kidney disease; Z11.52 Encounter for screening for COVID-19; E11.622 Type 2 diabetes mellitus with other skin ulcer; L97.312 Non-pressure chronic ulcer of right ankle with fat layer exposed; E78.5 Hyperlipidemia, unspecified; K21.9 Gastro-esophageal reflux disease without esophagitis; Z88.8 Allergy status to other drugs, medicaments and biological substances; Z89.512 Acquired absence of left leg below knee; Z90.710 Acquired absence of both cervix and uterus; R91.8 Other nonspecific abnormal finding of lung field; F17.210 Nicotine dependence, cigarettes, uncomplicated; K76.89 Other specified diseases of liver; F03.B0 Unspecified dementia, moderate, without behavioral disturbance, psychotic disturbance, mood disturbance, and anxiety; R00.0 Tachycardia, unspecified; Z99.81 Dependence on supplemental oxygen; R09.02 Hypoxemia; I70.90 Unspecified atherosclerosis; R13.10 Dysphagia, unspecified; Z91.81 History of falling; Z79.4 Long term (current) use of insulin; Z79.899 Other long term (current) drug therapy; Z86.73 Personal history of transient ischemic attack (TIA), and cerebral infarction without residual deficits
CPT/HCPCS: 36415; 36416; 36600; 71045; 71275; 80051; 80053; 81001; 82330; 82550; 82805; 82962; 83605; 83690; 83735; 84484; 85025; 85378; 87040; 87637; 92523; 92610; 93005; 94640; 96365; 96367; 96372; 99285; G0378; J1650; J2543; J3480; J7613; J7799; J9999